=== PATIENT | female | born 1945 | race Caucasian/White ===

== ENCOUNTER 2019-06-03 10:37 | Emergency (ER) | payer MEDICARE, SELFPAY ==
--- NOTE | ~2019-06-03 | XR_ITS ---
EXAMINATION: XR chest 2V EXAM DATE: 06/03/2019 11:22 INDICATION: Weakness, fever, cough. TECHNIQUE: Frontal and lateral projections of the chest obtained and reviewed. Comparison is made to prior examination from 12/09/2018. FINDINGS: Some chronic hyperinflation. Mild cardiomegaly. No confluent consolidation, pneumothorax o r pleural effusion suspected. There are mild bony degenerative changes. IMPRESSION: 1. Hyperinflation. 2. Mild cardiomegaly. Reviewed, dictated and finalized at location B. OR DATA WAREHOUSE DEVELOPER
--- NOTE | 2019-06-03 10:38 | ECG_ITS ---
Measurements Intervals [place] Rate: 59 P: 12 AK: 200 QRS: -9 QRSD: 88 T: 84 QT: 421 QTc: 419 Interpretive Statements SINUS BRADYCARDIA BORDERLINE AV CONDUCTION DELAY LEFT VENTRICULAR HYPERTROPHY WITH ST-T CHANGE BORDERLINE R WAVE PROGRESSION, ANTERIOR LEADS INFERIOR INFARCT, AGE INDETERMINATE BORDERLINE ST ABNORMALITY- LATERAL LEADS BASELINE ARTIFACT- I, III, AVL ABNORMAL ECG Electronically Signed On 06-03-2019 11:47:26 COMMERCIAL CREDIT ANALYST by Hernando Grsisom D.O.
[2019-06-03 10:40] VITALS: BP 117/55; PULSE 58; RESP 19; TEMP 36.3; O2SAT 100
[2019-06-03 11:05] LABS: Basophils Percent Auto 0.5 % (0.2-1.2); Eosinophils Absolute Auto 0.5 K/mm3 (0-0.3); Eosinophils Percent Auto 6.6 % (0-4.4); Hematocrit 42.7 % (37.0-47.0); Immature Granulocyte Absolute 0.05 K/mm3 (0.00-0.031); Immature Granulocyte Percent A 0.7 % (0-0.5); Lymphocytes Absolute Auto 2.29 K/mm3 (0.9-3.2); Lymphocytes Percent Auto 30.7 % (18.3-44.2); Mean Corpuscular HGB Conc 32.8 g/dl (32-36); Mean Corpuscular Hemoglobin 31.1 pg (26-34); Mean Corpuscular Volume 94.9 fl (80-100); Mean Platelet Volume 11.2 fl (7.4-10.4); Monocytes Absolute Auto 1.2 K/mm3 (0.1-0.6); Monocytes Percent Auto 16.6 % (2.6-8.5); Neutrophils Absolute Auto 3.4 K/mm3 (1.3-6.7); Neutrophils Percent Auto 44.9 % (45.5-73.1); Platelet Count Result 182 k/mm3 (150-375); Red Cell Distribution Width 14.1 % (11.5-14.5); White Blood Count 7.5 K/mm3 (4.5-10.0)
[2019-06-03 11:19] LABS: Alanine Aminotransferase 41 U/L (4-35); Albumin Level 4.7 g/dL (3.5-5.1); Alkaline Phosphatase 84 U/L (38-126); Aspartate Amino Transferase 50 U/L (14-36); Bilirubin,Total 0.5 mg/dL (0.2-1.3); Blood Urea Nitrogen 45 mg/dL (7-17); Calcium 9.9 mg/dL (8.4-10.2); Carbon Dioxide 23 mmol/L (22-30); Chloride 99 mmol/L (98-107); Estimated CRCL calculation 23 ml/min; Estimated Glomerular Filt Rate 22; Glucose 209 mg/dL (65-105); Potassium 3.9 mmol/L (3.4-5.0); Sodium 138 mmol/L (137-145)
[2019-06-03 12:04] VITALS: BP 125/63; PULSE 60; RESP 16; O2SAT 97
--- NOTE | 2019-06-03 12:07 | ED.WEAKNESS ---
HPI - Weakness General Chief complaint: Weakness Stated complaint: weakness/ flu A Time Seen by Provider: 06/03/19 12:01 Source: patient and RN notes reviewed Mode of arrival: ambulatory Limitations: no limitations History of Present Illness HPI Narrative: Pt is a 73 y/o female who presents to the ED with c/o worsening generalized weakness starting several days ago. She notes that she has been weak and tired over the past several days. Pt states that she was seen at her PCP's office earlier today for her symptoms, and notes that she tested positive for Influenza A. She states that she was advised to come to the ED to potentially receive fluids. Pt also reports a recent cough, but denies any acute SOB, nausea, vomiting, fever, sinus congestion, or rash. MD Complaint: generalized weakness Onset (ago): day(s) (several) Location: generalized Associated symptoms: other (cough; fatigue) Related Data Allergies Allergy/AdvReac Type Severity Reaction Status Date / Time codeine Allergy Unknown Unknown Verified 06/03/19 12:29 Review of Systems Review of Systems: Narrative: CONSTITUTIONAL: Denies fever, chills, or sweats. Reports fatigue and generalized weakness. ENT: Denies rhinorrhea, congestion, sore throat, or otalgia. CARDIOVASCULAR: Denies chest pain, palpitations, or edema. RESPIRATORY: Denies dyspnea. Reports cough. GASTROINTESTINAL: Denies abdominal pain, nausea, vomiting, or diarrhea. SKIN: Denies rash or itching. All systems reviewed & are unremarkable except as noted in HPI and below PMFSH Past Medical History Medical History Anemia Arthritis Asthma Bronchitis Cataracts, bilateral Diabetes Gastric ulcer GERD (gastroesophageal reflux disease) GI bleed Glaucoma Gout Hepatitis HLD (hyperlipidemia) HTN (hypertension) Myocardial infarction Pneumonia Surgical History Surgical History Hx of bilateral hip replacements Hx of cardiac catheterization with coronary stent placement Hx of cataract surgery Hx of colonoscopy Hx of tubal ligation Family History Family History (Updated 06/29/15 @ 10:47 by DOCTOR UNKNOWN) Other Carcinoma of colon Cerebrovascular accident Family history of arthritis Family history of cardiovascular disease Family history of chronic obstructive pulmonary disease Family history of glaucoma Family history of hearing loss Hypertension Social History Social History (Reviewed 06/03/19 @ 12:41 by Alvaro Mondragon Smoking status: Never smoker Alcohol intake: never Gender identity (if verbalized by the patient): Female Comments PCP is CORE EXTRUDER Marcia Cool. Exam Narrative: Exam Narrative: GENERAL: Fatigued appearing, well-nourished, and in no acute distress. HEAD: Normocephalic, atraumatic. EYES: PERRLA and EOMI. ENT: Nares clear, no rhinorrhea or epistaxis. Mucous membranes dry. NECK: Supple. CHEST: Clear to auscultation. No respiratory distress. HEART: Regular rate and rhythm. No murmur heard. Normal peripheral pulses. ABDOMEN: Soft, nontender, nondistended, normal active bowel sounds. EXTREMITIES: Normal range of motion. No edema. SKIN: Warm, dry, no rash. NEURO: No focal deficits. Alert and oriented.EOMs intact without nystagmus. No facial droop/asymmetry noted bilaterally. Grimace intact. Intact sensation in face. Hearing intact bilaterally. Shoulder shrug intact. Strength 5/5 bilateral upper extremities. Strength 5/5 bilateral lower extremities. Reflexes 2+ patellar. Ambulatory with a narrow-based, steady gait, no ataxia, does not require assistance. Course Vital Signs Vital signs: Vital Signs Temperature 36.3 C L 06/03/19 10:40 Pulse Rate 58 L 06/03/19 10:40 Respiratory Rate 19 06/03/19 10:40 Blood Pressure 117/55 L 06/03/19 10:40 Pulse Oximetry 100 06/03/19 10:40 Temperature 36.3 C L 06/03/19 10:40 Pulse Rate 62 06/03/19 14:12 Respiratory Rate 19
[2019-06-03] MEDS: ONDANSETRON INJ 4 MG/2 ML VIAL IV PUSH (12:36)
[2019-06-03] MEDS: SODIUM CHLORIDE 0.9% IV 1,000 ML 999 ML IV CONT (12:36)
[2019-06-03] MEDS: OSELTAMIVIR PHOSPHATE 75 MG CAP PO (12:46)
[2019-06-03 13:06] LABS: Add Urine Microscopic? YES; Appearance Urine Clear (Clear); Bilirubin Urine Negative (Negative); Blood Urine Negative (Negative); Color Urine Yellow (Yellow); Glucose Urine UA 2+ mg/dL (Negative); Hyaline Casts Urine 20-29 /lpf; Ketones Urine Negative (Negative); Leukocyte Esterase Ur Negative LEU/UL (Negative); Nitrate Urine Negative (Negative); Protein Urine 1+ mg/dL (Negative); RBC Urine 0-2 /hpf (0-2); Specific Grav Ur 1.016 (1.001-1.035); Squamous Epithelial Cell Urine Rare /hpf (Few); Urobilinogen Urine Negative mg/dL (<2.0)
[2019-06-03 14:12] VITALS: BP 121/57; PULSE 62; RESP 19; O2SAT 96
[2019-06-03 14:46] VITALS: BP 121/57; PULSE 67; RESP 19; O2SAT 97
== END 2019-06-03 14:48 | disposition home or self-care (01) ==
PROVIDERS: Emergency Medicine; Emergency Provider Emergency Medicine; PCP Nurse Practitioner Adult Health
DX: J10.1 Influenza due to other identified influenza virus with other respiratory manifestations (principal); E86.0 Dehydration; Z86.2 Personal history of diseases of the blood and blood-forming organs and certain disorders involving the immune mechanism; M19.90 Unspecified osteoarthritis, unspecified site; J45.909 Unspecified asthma, uncomplicated; K21.9 Gastro-esophageal reflux disease without esophagitis; H40.9 Unspecified glaucoma; E78.5 Hyperlipidemia, unspecified; I10 Essential (primary) hypertension; E11.9 Type 2 diabetes mellitus without complications; I25.2 Old myocardial infarction; M10.9 Gout, unspecified; Z96.643 Presence of artificial hip joint, bilateral; Z98.42 Cataract extraction status, left eye; Z98.41 Cataract extraction status, right eye
CPT/HCPCS: 36415; 51701; 71046; 80053; 81001; 85025; 93005; 96361; 96374; 99284; A9270; J2405; J7030

== ENCOUNTER 2020-02-29 18:21 | Emergency (ER) | payer MEDICARE, SELFPAY ==
--- NOTE | ~2020-02-29 | CT_ITS ---
EXAMINATION: CT brain wo con DATE: 02/29/2020 21:47 INDICATION: Altered mental state TECHNIQUE: Computed tomography (CT) of the head was performed without intravenous contrast. The mA wa s adjusted according to patient size. Iterative reconstruction technique was employed. Exam dose: 60 5.33 mGy-cm total exam DLP. COMPARISON: 12/09/2018 CT brain FINDINGS: Right vertebral artery and bilateral carotid siphon internal carotid artery calcifications. There is nonspecific diminished attenuation of the cerebral white matter, likely due to chronic small vessel ischemic changes. No intracranial mass lesion or hemorrhage, midline shift or mass effect. No subdural or epidural marnie jarocho. Moderate cerebral and cerebellar volume loss consistent with patient age. No skull fracture or bone destruction. Bilateral hyperostosis frontalis interna, not likely of any cl inical significance. There is prominent right frontal and minimal left frontal soft tissue opacification as well as patchy opacification of ethmoid air cells bilaterally. There is mild mucoperiosteal thickening of the right maxillary and bilateral sphenoid sinuses. The mastoid air cells are normally developed and aerated. IMPRESSION: Cerebral atherosclerosis and chronic small vessel ischemic changes of cerebral white mat ter No acute intracranial finding Paranasal sinus disease Reviewed, dictated and finalized at [facility]. Reviewed, dictated and finalized at location A. MAN CLERK IMPRESSION: Cerebral atherosclerosis and chronic small vessel ischemic changes of cerebral white matter No acute intracranial finding Paranasal sinus disease
--- NOTE | ~2020-02-29 | CT_ITS ---
EXAMINATION: CT abdomen pelvis wo con DATE: 02/29/2020 22:56 INDICATION: Abdominal pain TECHNIQUE: Computed tomography (CT) of the abdomen and pelvis was performed without intravenous contr ast. Automated exposure control and iterative reconstruction technique were employed. Exam dose: 108 6.74 mGy-cm total exam DLP. COMPARISON: 07/03/2016 CT abdomen pelvis FINDINGS: Cardiomegaly. No pericardial or pleural effusion. The lung bases are clear of infiltrate or consolidation. Mild discoid atelectasis or scarring at the base of the lingula. Small sliding hiatal hernia. There are stones and/or milk of calcium bile within the gallbladder. Consider abdominal ultrasound co rrelation. No hepatic space-occupying mass lesion or intrahepatic or extrahepatic bile duct dilatation. There ar e a few pancreatic which may indicate mild chronic pancreatitis. No pancreatic mass lesion or ductal dilatation. Normal splenic size. Normal morphology of the adrenal glands. No renal mass lesion or urinary tract calculus or hydroureteronephrosis. The uterus and adnexal areas are essentially unremarkable; there is limited visualization in the pelv ic area due to streak artifact from the hip replacements. Normal appendix. No bowel obstruction, bowel wall thickening, pneumatosis or intraperitoneal free air. There is calcification of the abdominal aorta, prominent calcification at the origin of the superior mesenteric artery and to a greater extent celiac trunk. Proximal renal artery calcifications, especia lly on the left. No abdominal aortic aneurysm. No intraperitoneal or retroperitoneal or pelvic mass l esion or adenopathy or ascites. T11 and T12 vertebral body hemangiomas. Diffuse osteopenia. There are degenerative changes of the thoracic and lumbar spine. Bilateral total hip arthroplasty. IMPRESSION: Cardiomegaly Small sliding hiatal hernia Cholelithiasis and/or milk of calcium bowel; consider abdominal ultrasound correlation Mild chronic pancreatitis Reviewed, dictated and finalized at [facility]. Reviewed, dictated and finalized at location A. T END TECHNICIAN IMPRESSION: Cardiomegaly Small sliding hiatal hernia Cholelithiasis and/or milk of calcium bowel; consider abdominal ultrasound sarah elation Mild chronic pancreatitis
--- NOTE | ~2020-02-29 | XR_ITS ---
XR chest 1V portable DATE: 02/29/2020 18:43 INDICATION: Cough. Weakness. Fever. TECHNIQUE: Portable AP chest on 02/29/2020 at 1844 hours COMPARISON: 06/03/2019 PA and lateral chest FINDINGS: Cardiomegaly. Aortic calcification. There is pulmonary vascular redistribution suggesting mild pulmonary venous hypertension and mild con gestive heart failure. No pulmonary consolidation is evident. Mild infiltrate or atelectasis is suggested at the left and to a lesser extent right lung bases. Diffuse osteopenia. There is scoliosis and degenerative spurring of the thoracic spine. IMPRESSION: Cardiomegaly, mild pulmonary vascular congestion/redistribution, suggesting mild congesti ve changes Mild infiltrate or atelectasis at the lung bases, left greater than right Reviewed, dictated and finalized at location A. ATTENDANT IMPRESSION: Cardiomegaly, mild pulmonary vascular congestion/redistribution, coto ggesting mild congestive changes Mild infiltrate or atelectasis at the lung bases, left greater than right
[2020-02-29 18:19] VITALS: BP 159/66; PULSE 73; RESP 19; TEMP 38.1; O2SAT 95
--- NOTE | 2020-02-29 18:28 | ECG_ITS ---
Measurements Intervals [place] Rate: 62 P: 60 WV: 211 QRS: 8 QRSD: 102 T: 70 QT: 398 QTc: 407 Interpretive Statements SINUS RHYTHM WITH FIRST DEGREE AV BLOCK BORDERLINE ST ABNORMALITY- HIGH LATERAL LEADS ABNORMAL ECG Electronically Signed On 03-01-2020 8:21:15 CHEMICAL MANAGER by Hernando Grissom D.O.
--- NOTE | 2020-02-29 18:28 | ED.WEAKNESS ---
HPI - Weakness General Chief complaint: Weakness Stated complaint: ill/weakness Time Seen by Provider: 02/29/20 18:23 Source: RN notes reviewed History of Present Illness HPI Narrative: Patient presents emergency department from home via EMS for weakness. History is per the patient and . Patient began to feel ill yesterday. She has had a cough has been nonproductive with a feeling of shortness of breath. She is also had nausea vomiting and diarrhea that began today. Per the patient and denies any fevers at home chest pain or any other symptoms. Patient with no Covid contact Related Data Home Medications Medication Instructions Recorded Confirmed carvedilol 25 mg tablet 25 mg PO Q12H 07/06/19 01/10/20 latanoprost 0.005 % eye drops 1 drop EACH EYE DAILY 07/06/19 01/10/20 albuterol sulfate 90 mcg/actuation 2 puff INHALATION Q4-6H PRN gm 07/17/19 01/10/20 aerosol inhaler glucagon (human recombinant) 1 mg 1 mg SUB-Q Q20M PRN 07/17/19 01/10/20 solution for injection allopurinol 100 mg tablet 200 mg PO QAM tablet 01/10/20 01/10/20 amlodipine 10 mg tablet 10 mg PO QAM tablet 01/10/20 01/10/20 aspirin 81 mg tablet,delayed 81 mg PO QPM tablet 01/10/20 01/10/20 release atorvastatin 10 mg tablet 10 mg PO QAM tablet 01/10/20 01/10/20 calcium carbonate 600 mg (1,500 4 cap PO DAILY cap 01/10/20 01/10/20 mg)-vitamin D3 500 unit capsule furosemide 20 mg tablet 20 mg PO QAM 01/10/20 01/10/20 omega 2-qhw-hus-fish oil 300 1 cap PO BID cap 01/10/20 01/10/20 mg-1,000 mg capsule insulin degludec 200 unit/mL (3 86 unit SUB-Q QAM ml 02/24/20 mL) subcutaneous pen Allergies Allergy/AdvReac Type Severity Reaction Status Date / Time codeine Allergy Unknown Unknown Verified 06/03/19 12:29 Review of Systems Review of Systems: Narrative: Gen.: Denies fevers or chills Eyes: Denies eye pain or visual change ENT: Denies congestion Respiratory: See HPI CV: Denies chest pain or palpitations GI: Denies abdominal pain reports nausea vomiting and diarrhea denies burning, urgency, frequency or hematuria Musculoskeletal: Denies back pain or muscle pain Neuro: Reports weakness Skin: Denies rash Except as documented, all other systems reviewed and negative [facility]LY [facility] Past Medical History Medical History (Updated 03/01/20 @ 00:39 by Marquise Redding DO) Anemia Arthritis Asthma Bronchitis Cataracts, bilateral Diabetes Gastric ulcer GERD (gastroesophageal reflux disease) GI bleed Glaucoma Gout Hepatitis HLD (hyperlipidemia) HTN (hypertension) Myocardial infarction Pneumonia Surgical History Surgical History Hx of bilateral hip replacements Hx of cardiac catheterization with coronary stent placement Hx of cataract surgery Hx of colonoscopy Hx of tubal ligation Family History Family History Other Carcinoma of colon Cerebrovascular accident Family history of arthritis Family history of cardiovascular disease Family history of chronic obstructive pulmonary disease Family history of glaucoma Family history of hearing loss Hypertension Social History Social History Smoking status: Never smoker Second hand tobacco smoke exposure: No Alcohol intake: never Substance use: never Gender identity (if verbalized by the patient): Female Exam Narrative: Exam Narrative: APPEARANCE: No acute distress, nontoxic, resting in bed EYES: EOMI HEENT: Normocephalic, atraumatic, OMM RESPIRATORY: No respiratory distress Clear to auscultation bilaterally with no rhonchi wheezing or rales. CARDIOVASCULAR: Regular rate and rhythm without murmurs rubs or gallops. ABDOMINAL: Soft, nontender, nondistended, no rebound or guarding MUSCULOSKELETAl: Moves all extremities. No clubbing, cyanosis or edema. NEURO: Awake and alert x 3. Follow
[2020-02-29 19:08] LABS: Basophils Percent Auto 0.4 % (0.2-1.2); Eosinophils Absolute Auto 0.2 K/mm3 (0-0.3); Eosinophils Percent Auto 2.5 % (0-4.4); Hematocrit 37.8 % (37.0-47.0); Hemoglobin 12.7 g/dL (12.0-15.0); Immature Granulocyte Absolute 0.03 K/mm3 (0.00-0.031); Immature Granulocyte Percent A 0.4 % (0-0.5); Lymphocytes Absolute Auto 0.96 K/mm3 (0.9-3.2); Lymphocytes Percent Auto 11.6 % (18.3-44.2); Mean Corpuscular HGB Conc 33.6 g/dl (32-36); Mean Corpuscular Hemoglobin 31.8 pg (26-34); Mean Corpuscular Volume 94.5 fl (80-100); Mean Platelet Volume 10.6 fl (7.4-10.4); Monocytes Absolute Auto 1.2 K/mm3 (0.1-0.6); Neutrophils Absolute Auto 5.8 K/mm3 (1.3-6.7); Neutrophils Percent Auto 70.1 % (45.5-73.1); Platelet Count Result 193 k/mm3 (150-375); Red Cell Distribution Width 13.8 % (11.5-14.5); White Blood Count 8.3 K/mm3 (4.5-10.0)
[2020-02-29 19:18] LABS: INR 0.9; Prothrombin Time 12.7 Seconds (11.1-14.7)
[2020-02-29 19:19] LABS: Partial Thromboplastin Time 27.8 SECONDS (22.3-36.8)
[2020-02-29 19:21] LABS: Alanine Aminotransferase 37 U/L (4-35); Albumin Level 4.1 g/dL (3.5-5.1); Alkaline Phosphatase 82 U/L (38-126); Anion Gap 9 mmol/L (8-16); Aspartate Amino Transferase 55 U/L (14-36); Bilirubin,Total 0.5 mg/dL (0.2-1.3); Blood Urea Nitrogen 34 mg/dL (7-17); Calcium 10.2 mg/dL (8.4-10.2); Carbon Dioxide 26 mmol/L (22-30); Chloride 104 mmol/L (98-107); Estimated Glomerular Filt Rate 37; Glucose 232 mg/dL (65-105); Potassium 4.4 mmol/L (3.4-5.0); Sodium 139 mmol/L (137-145)
--- NOTE | 2020-02-29 19:30 | PC.NURSE ---
called chem, added on 1929
[2020-02-29 19:48] LABS: NT Pro B Type Natriuretic Pept 606 PG/ML (5-100)
[2020-02-29 20:09] VITALS: BP 149/57; PULSE 64; RESP 18; O2SAT 94
[2020-02-29 20:25] LABS: Add Urine Microscopic? YES; Appearance Urine Clear (Clear); Bacteria Urine Trace /hpf; Bilirubin Urine Negative (Negative); Blood Urine Negative (Negative); Color Urine Yellow (Yellow); Glucose Urine UA 1+ mg/dL (Negative); Ketones Urine Negative (Negative); Leukocyte Esterase Ur Negative LEU/UL (Negative); Nitrate Urine Negative (Negative); Protein Urine 2+ mg/dL (Negative); RBC Urine 0-2 /hpf (0-2); Specific Grav Ur 1.014 (1.001-1.035); Urobilinogen Urine Negative mg/dL (<2.0); WBC Urine 0-3 /hpf
[2020-02-29 20:28] LABS: Lactic Acid Reflex 1.2 mmol/L (0.7-2.1)
[2020-02-29 23:44] VITALS: BP 147/69; PULSE 60; RESP 18; TEMP 36.7; O2SAT 93
[2020-02-29 23:53] VITALS: TEMP 36.8
--- NOTE | 2020-02-29 23:53 | PC.NURSE ---
Pt ambulated in room with mask on and pulse oximetry. Oxygen saturation remained 94-95% on room air. Pt denies feeling SOB or dizzy at this time. Pt not steady on her feet independently. Needed assistance. Pt states she uses a cane at home. notified.
[2020-03-01 00:56] VITALS: BP 145/62; PULSE 65; RESP 16; TEMP 36.9; O2SAT 97
[2020-03-01 14:13] LABS: SARS-CoV-2 RNA PCR Positive
== END 2020-03-01 00:58 | disposition home or self-care (01) ==
PROVIDERS: Emergency Provider Emergency Medicine; PCP Nurse Practitioner Adult Health
DX: U07.1 COVID-19 (principal); D64.9 Anemia, unspecified; M19.90 Unspecified osteoarthritis, unspecified site; J45.909 Unspecified asthma, uncomplicated; E11.9 Type 2 diabetes mellitus without complications; Z79.4 Long term (current) use of insulin; K21.9 Gastro-esophageal reflux disease without esophagitis; I10 Essential (primary) hypertension; E78.5 Hyperlipidemia, unspecified; I25.10 Atherosclerotic heart disease of native coronary artery without angina pectoris; R06.02 Shortness of breath
CPT/HCPCS: 36415; 51701; 70450; 71045; 74176; 80053; 81001; 83605; 83880; 85025; 85610; 85730; 87040; 87635; 93005; 96365; 99284; C9803; J0131; U0003

== ENCOUNTER 2020-03-04 13:08 | Inpatient (IN) | payer MEDICARE, SELFPAY ==
[2020-03-04] VITALS (38 sets, daily range): BP systolic 134–182; BP diastolic 54–128; PULSE 61–78; RESP 16–28; TEMP 36.8–37.3; O2SAT 87–99; BMI 35.0
--- NOTE | ~2020-03-04 | XR_ITS ---
EXAMINATION: XR chest 1V portable INDICATION: Shortness of breath TECHNIQUE: Portable AP chest at 1321 hours COMPARISON: 02/29/2020 FINDINGS: Patchy airspace opacities are present in the mid and lower lung zones, left greater than ri ght. Cardiomegaly is noted. There is no pleural effusion or pneumothorax. IMPRESSION: 1. Patchy opacities of the mid and lower lung zones, consistent with pneumonia versus atelectasis. 2. Cardiomegaly. Reviewed, dictated and finalized at location A. PHONE ORDER SUPERVISOR
--- NOTE | ~2020-03-04 | XR_ITS ---
EXAMINATION: XR chest 1V portable DATE: 03/07/2020 06:26 INDICATION: COVID-19 pneumonia. TECHNIQUE: A single frontal view of the chest was obtained. COMPARISON: Chest single view 03/06/2020 FINDINGS: There are patchy airspace opacities in all lung zones bilaterally. A calcified right lung n odule and calcified right hilar lymph nodes are consistent with old granulomatous disease. No pleural effusion or pneumothorax. Cardiomegaly is noted. IMPRESSION: 1. Stable diffuse lung disease, consistent with pulmonary edema versus pneumonia. 2. Cardiomegaly. Reviewed, dictated and finalized at location A. GER CUSTOMER IMPRESSION: 1. Stable diffuse lung disease, consistent with pulmonary edema versus pneumoni a. 2. Cardiomegaly.
--- NOTE | ~2020-03-04 | XR_ITS ---
EXAMINATION: XR chest 1V portable DATE: 03/06/2020 06:22 INDICATION: COVID-19 pneumonia. TECHNIQUE: A single frontal view of the chest was obtained. COMPARISON: Chest single view 03/04/2020, CT abdomen and pelvis 02/29/2020 FINDINGS: The patient is rotated to her left. There are patchy airspace opacities in all lung zones b ilaterally. No pleural effusion or pneumothorax. Cardiomegaly is noted. IMPRESSION: 1. Worsened diffuse lung disease, consistent with pulmonary edema versus pneumonia. 2. Cardiomegaly. Reviewed, dictated and finalized at location A. DCAST OPERATIONS ENGINEER IMPRESSION: 1. Worsened diffuse lung disease, consistent with pulmonary edema versus pneumo harish. 2. Cardiomegaly.
--- NOTE | ~2020-03-04 | XR_ITS ---
EXAMINATION: XR chest 1V portable DATE: 03/07/2020 13:35 INDICATION: Shortness of breath. COVID-19 pneumonia. TECHNIQUE: A single frontal view of the chest was obtained. COMPARISON: Chest single view at 6:19 AM, CT abdomen and pelvis 02/29/2020 FINDINGS: Again seen is eventration of anterior right hemidiaphragm. There are patchy airspace opacit ies in the mid and lower lung zones no pleural effusion or pneumothorax. Cardiomegaly is noted. IMPRESSION: 1. Stable multifocal lung disease, consistent with pulmonary edema versus pneumonia. 2. Cardiomegaly. Reviewed, dictated and finalized at location A. M DEVELOPER IMPRESSION: 1. Stable multifocal lung disease, consistent with pulmonary edema versus pneum onia. 2. Cardiomegaly.
--- NOTE | ~2020-03-04 | CT_ITS ---
EXAMINATION: CT brain wo con DATE: 03/07/2020 03:04 INDICATION: Head injury. TECHNIQUE: Computed tomography (CT) of the head was performed without intravenous contrast. The mA wa s adjusted according to patient size. Iterative reconstruction technique was employed. The dose-lengt h product was 605.33 mGy-cm. COMPARISON: Head CT 02/29/2020 FINDINGS: There is no intracranial hemorrhage, acute infarction, or abnormal intracranial mass lesion . There are scattered areas of low attenuation in the cerebral white matter, which is within normal l imits for the patient's age. The ventricles are normal in size. There are likely changes of ocular le ns replacement surgeries. There is anteroposterior elongation of the ocular globes. There is mucosal thickening in the paranasal sinuses. There is left-sided scalp soft tissue swelling. The mastoid air cells are normal. IMPRESSION: 1. Normal aging brain. Reviewed, dictated and finalized at location A. TRE ARTS PROFESSOR IMPRESSION: 1. Normal aging brain.
--- NOTE | ~2020-03-04 | CT_ITS ---
EXAMINATION: CT brain wo con DATE: 03/11/2020 19:20 INDICATION: Altered mental status with recent fall TECHNIQUE: Computed tomography (CT) of the head was performed without intravenous contrast. Sagittal and coronal reconstructions were performed. The mA was adjusted according to patient size. Iterative reconstruction technique was employed. The dose-length product was 908.00 mGy-cm. COMPARISON: head CT dated 03/07/2020 FINDINGS: Mild soft tissue swelling at the anterior left frontal scalp. No fracture. No acute intracranial hemo rrhage, acute infarction or abnormal extra axial fluid collection. There is minimal scattered white m atter hypoattenuation consistent with chronic small vessel ischemic disease. Ventricles are normal a nd symmetric. No mass/mass effect. Changes of bilateral intraocular lens replacement. The orbits and mastoid air cells are normal. There is opacification of the right frontal sinus and anterior right fr ontal ethmoid air cells. Additional mucosal thickening throughout the remainder of the paranasal sinu ses with sclerotic wall thickening at the left sphenoid sinus consistent with chronic sinusitis. Intr acranial calcified cerebral atherosclerosis is noted. Hyperostosis frontalis. IMPRESSION: 1. No fracture or acute intracranial process. 2. Stable appearance of normal scattered white matter hypoattenuation consistent with chronic small v essel ischemic disease. Reviewed, dictated and finalized at location . NERY OPERATOR LIGHT ENDS RECOVERY IMPRESSION: 1. No fracture or acute intracranial process. 2. Stable appearance of normal scattered white matter hypoattenuation consisten t with chronic small vessel ischemic disease.
--- NOTE | 2020-03-04 13:13 | PC.NURSE ---
Marquise Kumari (): cell: [phone] home: [phone]
--- NOTE | 2020-03-04 13:15 | ECG_ITS ---
Measurements Intervals [place] Rate: 65 P: 61 DE: 196 QRS: 0 QRSD: 89 T: 85 QT: 399 QTc: 415 Interpretive Statements SINUS RHYTHM BORDERLINE R WAVE PROGRESSION, ANTERIOR LEADS BORDERLINE ST-T WAVE ABNORMALITY- HIGH LAT LEADS BASELINE WANDER- I, II, AVR, AVF, V3, V5-V6 BORDERLINE ECG Electronically Signed On 03-04-2020 17:15:32 POOL MANAGER by Hernando Grissom D.O.
[2020-03-04 13:46] LABS: Alveolar/Arterial O2 Gradient 51.2 mmHg; Base Excess ABG -1.9 mEq/l (+/-2.0); Carboxyhemoglobin 0.4 % THb (0-2.0); Fractional Inspired Oxygen 21 %; HCO3 ABG 20.5 mEq/l (22.0-26.0); Methemoglobin ABG 0.2 %THb (0-1.5); Oxygen Content ABG 17.8 %vol (16.0-22.0); Oxyhemoglobin 91.7 % THb (90.0-100.0); PCO2 ABG 28.8 mmHg (35.0-45.0); PO2 FiO2 Ratio Arterial Blood 3.05 %; Reduced Hemoglobin 7.7 %THb (0-5.0); Total Hemoglobin 13.8 g/dL (12.0-18.0); pH ABG 7.471 (7.350-7.450)
[2020-03-04] MEDS: SODIUM CHLORIDE 0.9% IV 1,000 ML 999 ML IV CONT ×2 (13:46→15:43)
[2020-03-04 13:47] LABS: Device ROOM AIR; Modified Allen's Test Pass; Site Drawn RIGHT RADIAL
[2020-03-04 13:59] LABS: Basophils Percent Auto 0.1 % (0.2-1.2); Eosinophils Percent Auto 0.1 % (0-4.4); Hematocrit 40.1 % (37.0-47.0); Hemoglobin 13.7 g/dL (12.0-15.0); Immature Granulocyte Absolute 0.04 K/mm3 (0.00-0.031); Immature Granulocyte Percent A 0.5 % (0-0.5); Lymphocytes Absolute Auto 1.43 K/mm3 (0.9-3.2); Lymphocytes Percent Auto 18.9 % (18.3-44.2); Mean Corpuscular HGB Conc 34.2 g/dl (32-36); Mean Corpuscular Volume 93.7 fl (80-100); Mean Platelet Volume 11.1 fl (7.4-10.4); Monocytes Percent Auto 12.5 % (2.6-8.5); Neutrophils Absolute Auto 5.1 K/mm3 (1.3-6.7); Neutrophils Percent Auto 67.9 % (45.5-73.1); Platelet Count Result 162 k/mm3 (150-375); Red Blood Count 4.28 M/mm3 (4.2-5.4); Red Cell Distribution Width 13.7 % (11.5-14.5); White Blood Count 7.6 K/mm3 (4.5-10.0)
[2020-03-04 14:05] LABS: INR 0.9; Prothrombin Time 12.9 Seconds (11.1-14.7)
[2020-03-04 14:06] LABS: Partial Thromboplastin Time 33.3 SECONDS (22.3-36.8)
--- NOTE | 2020-03-04 14:07 | ED.GENADULT ---
HPI - General Adult General Chief complaint: Weakness Stated complaint: increased weakness Time Seen by Provider: 03/04/20 13:12 Source: patient Mode of arrival: ambulatory Limitations: no limitations History of Present Illness HPI narrative: Patient is a 74-year-old female who presents to emergency department for evaluation of weakness and fatigue was diagnosed in the last 2 days with COVID-19 lives with her who is also sick patient notes fatigue weakness worse with activity movement. Patient on arrival appears weak but denies any pain vomiting diarrhea chest pain shortness of breath. Patient took Tylenol this morning and is the only medication she is currently taking for this Related Data Home Medications Medication Instructions Recorded Confirmed carvedilol 25 mg tablet 25 mg PO Q12H 07/06/19 01/10/20 latanoprost 0.005 % eye drops 1 drop EACH EYE DAILY 07/06/19 01/10/20 albuterol sulfate 90 mcg/actuation 2 puff INHALATION Q4-6H PRN gm 07/17/19 01/10/20 aerosol inhaler glucagon (human recombinant) 1 mg 1 mg SUB-Q Q20M PRN 07/17/19 01/10/20 solution for injection allopurinol 100 mg tablet 200 mg PO QAM tablet 01/10/20 01/10/20 amlodipine 10 mg tablet 10 mg PO QAM tablet 01/10/20 01/10/20 aspirin 81 mg tablet,delayed 81 mg PO QPM tablet 01/10/20 01/10/20 release atorvastatin 10 mg tablet 10 mg PO QAM tablet 01/10/20 01/10/20 calcium carbonate 600 mg (1,500 4 cap PO DAILY cap 01/10/20 01/10/20 mg)-vitamin D3 500 unit capsule furosemide 20 mg tablet 20 mg PO QAM 01/10/20 01/10/20 omega 2-adn-svb-fish oil 300 1 cap PO BID cap 01/10/20 01/10/20 mg-1,000 mg capsule insulin degludec 200 unit/mL (3 86 unit SUB-Q QAM ml 02/24/20 mL) subcutaneous pen Allergies Allergy/AdvReac Type Severity Reaction Status Date / Time codeine Allergy Unknown Unknown Verified 06/03/19 12:29 Review of Systems Review of Systems: All systems reviewed & are unremarkable except as noted in HPI and below [facility] Past Medical History Medical History (Updated 03/04/20 @ 16:15 by Mushtaq Johnson PA-C) Anemia Arthritis Asthma Bronchitis Cataracts, bilateral Diabetes Gastric ulcer GERD (gastroesophageal reflux disease) GI bleed Glaucoma Gout Hepatitis HLD (hyperlipidemia) HTN (hypertension) Myocardial infarction Pneumonia Surgical History Surgical History Hx of bilateral hip replacements Hx of cardiac catheterization with coronary stent placement Hx of cataract surgery Hx of colonoscopy Hx of tubal ligation Family History Family History Other Carcinoma of colon Cerebrovascular accident Family history of arthritis Family history of cardiovascular disease Family history of chronic obstructive pulmonary disease Family history of glaucoma Family history of hearing loss Hypertension Social History Social History Smoking status: Never smoker Second hand tobacco smoke exposure: No Alcohol intake: never Substance use: never Gender identity (if verbalized by the patient): Female Exam Narrative: Exam Narrative: GENERAL: Ill-appearing, well-nourished, and in no acute distress. HEAD: Normocephalic, atraumatic. EYES: PERRLA and EOMI. ENT: Nares clear, no rhinorrhea or epistaxis. Mucous membranes moist. CHEST: Clear to auscultation. No respiratory distress. No wheezes rales or rhonchi HEART: Regular rate and rhythm. No murmur heard. EXTREMITIES: Normal range of motion. No edema. SKIN: Warm, dry, no rash. NEURO: No focal deficits. Alert and oriented x3. Cranial nerves II through XII grossly intact PSYCH: Normal mood and affect. Course Course Emergency Course: Patient in the room will be brought in this is her second visit found to be dehydrated with worsening dehydration patient also found to be hyperglycemic as
[2020-03-04 15:03] LABS: Lactic Acid Reflex 1.3 mmol/L (0.7-2.1)
[2020-03-04 15:05] LABS: Alanine Aminotransferase 36 U/L (4-35); Albumin Level 3.9 g/dL (3.5-5.1); Alkaline Phosphatase 62 U/L (38-126); Anion Gap 11 mmol/L (8-16); Aspartate Amino Transferase 53 U/L (14-36); Bilirubin,Total 0.5 mg/dL (0.2-1.3); Blood Urea Nitrogen 50 mg/dL (7-17); CRP 3.3 mg/dL (<1.0); Carbon Dioxide 24 mmol/L (22-30); Chloride 104 mmol/L (98-107); Estimated CRCL calculation 30 ml/min; Estimated Glomerular Filt Rate 29; Glucose 66 mg/dL (65-105); Magnesium 1.9 mg/dL (1.6-2.3); Phosphorus 3.4 mg/dL (2.5-4.5); Potassium 4.1 mmol/L (3.4-5.0); Sodium 139 mmol/L (137-145)
[2020-03-04 15:07] LABS: Beta-Hydroxybutyrate/Acetoacetate 0.07 mmol/L (0.02-0.27)
--- NOTE | 2020-03-04 15:09 | PC.NURSE ---
VERBAL ORDER TO FEED PT, AND ADMIN 1 L BOLUS NS STAT.
[2020-03-04 15:16] LABS: Add Urine Microscopic? YES; Appearance Urine Clear (Clear); Bacteria Urine Trace /hpf; Bilirubin Urine Negative (Negative); Blood Urine Negative (Negative); Color Urine Yellow (Yellow); Glucose Urine UA Negative (Negative); Hyaline Casts Urine 15-19 /lpf; Ketones Urine Negative (Negative); Leukocyte Esterase Ur Negative LEU/UL (Negative); Mucus Urine Rare /lpf; Nitrate Urine Negative (Negative); Protein Urine 2+ mg/dL (Negative); RBC Urine 0-2 /hpf (0-2); Specific Grav Ur 1.014 (1.001-1.035); Squamous Epithelial Cell Urine Rare /hpf (Few); Urobilinogen Urine Negative mg/dL (<2.0); WBC Urine 0-3 /hpf
--- NOTE | 2020-03-04 15:25 | PC.NURSE ---
Tray has been ordered for pt
[2020-03-04 15:26] LABS: Troponin I 0.036 ng/mL (0.000-0.034)
--- NOTE | 2020-03-04 15:59 | PC.NURSE ---
pt provided meal tray.
--- NOTE | 2020-03-04 16:15 | PM.IMHP ---
H&P: HPI History of Present Illness Date/Time: 03/04/20 16:15 Chief complaint: Weakness, not eating. Narrative: Shonna Kumari is a 74-year-old female with dementia, asthma, insulin-dependent diabetes, and hypertension who presented to the emergency department earlier today via private vehicle from home for evaluation of weakness. She was seen in the emergency department on 02/29/2020 with complaints of weakness, nonproductive cough, and shortness of breath for 1 day. Her workup was relatively unrevealing and she was discharged home, with instructions to self isolate given suspicion for COVID-19. Her tested indeed come back positive and I was told that her is also positive for COVID-19. Over the last several days at home she has had very poor oral intake, and tells me that food is just not tasting good nor does it sound good. She has had nausea and loose stools the past couple of days. She continues to have a dry cough and shortness of breath with minimal activity and due to not eating much she has been progressively more weak. She has been taking Tylenol once a day or so for a headache. She is not certain whether not she is been running a fever. She denies significant sinus congestion or sore throat. No chest pain or pleuritic pain. She denies vomiting. [facility] Past Medical History Medical History (Updated 03/04/20 @ 23:22 by Rayne Urena PA-C) Anemia Arthritis Asthma Chronic kidney disease, stage 3 Baseline creatinine is around 1.70. Coronary artery disease With history of UT and stent x1 in 2015. Diastolic dysfunction Echocardiogram in March 2018 showed impaired relaxation grade 1 with an ejection fraction of 55 to 60%. Gastroesophageal reflux disease GI bleed Secondary to gastric ulcer in 2014. Glaucoma Gout Hepatitis Hyperlipidemia Hypertension Insulin dependent type 2 diabetes mellitus Hemoglobin A1c was 10.1% in December 2019. Pneumonia Surgical History Surgical History (Updated 03/04/20 @ 23:18 by Rayne Urena PA-C) History of bilateral hip arthroplasty Right replaced in 2005. Left replaced in 2017. History of cardiac catheterization With stent in 2015. History of cataract extraction History of tubal ligation Family History Family History Other Carcinoma of colon Cerebrovascular accident Family history of arthritis Family history of cardiovascular disease Family history of chronic obstructive pulmonary disease Family history of glaucoma Family history of hearing loss Hypertension Social History Social History (Updated 03/04/20 @ 23:18 by Rayne Urena PA-C) Social History: Surrogate decision maker: Marquise Kumari, spouse. Code status: Full code. Smoking status: Never smoker Second hand tobacco smoke exposure: No Alcohol intake: never Substance use: never Substance use type: does not use Additional living arrangements comments: Resides with her in [place]. Gender identity (if verbalized by the patient): Female Sexual Orientation (if Verbalized by the Patient): Straight or Heterosexual Spiritual care concerns: No Meds Home Medications and Allergies Home Medications Medication Instructions Recorded Confirmed Type carvedilol 25 mg tablet 25 mg PO Q12H 07/06/19 03/04/20 History latanoprost 0.005 % eye drops 1 drop EACH EYE DAILY 07/06/19 03/04/20 History albuterol sulfate 90 mcg/actuation 2 puff INHALATION Q4-6H PRN gm 07/17/19 01/10/20 History aerosol inhaler glucagon (human recombinant) 1 mg 1 mg SUB-Q Q20M PRN 07/17/19 01/10/20 History solution for injection pen needle, diabetic 32 gauge x #400 each 07/27/19 01/10/20 Rx allopurinol 100 mg tablet 200 mg PO QAM tablet 01/10/20 03/04/20 History amlodipine 10 mg tablet 10 mg PO QAM tablet 01/10/20 03/04/20 History aspirin 81 mg tablet,delayed 81 mg PO QPM tablet 01/10/20 01/10/20 History
--- NOTE | 2020-03-04 18:58 | PC.NURSE ---
TECH UNABLE TO GET 3HALBER SAL RN TO ATTEMPT.
--- NOTE | 2020-03-04 19:15 | PC.NURSE ---
REPORT TO KRISTINA PALAFOX AT THIS TIME, SHE HAS ASSUMED PT CARE.
[2020-03-04 19:33] LABS: Troponin I 0.034 ng/mL (0.000-0.034)
[2020-03-04 21:01] LABS: Glucose Point of Care 136 (65-105)
[2020-03-04] MEDS: FAMOTIDINE 20 MG/2 ML VIAL IV PUSH (22:12)
--- NOTE | 2020-03-04 22:28 | ADMGEN ---
This patient, Shonna Kumari, was admitted to IMU Room 213-01 on 03/04/20 at 2017 as a Med/Surg w/tele OF. Patient/family oriented to hospital policies and general routines including ID bracelet, bed and alarms, visiting hours, pain management, procedures, bathroom and other care routines, personal items, smoking policy, room service/diet, and visiting hours. Information on how to activate the Rapid Response Team has been discussed. Patient/Family are encouraged to report perceived risks to care and to ask questions if they do not understand what they are told or what they should do.
[2020-03-05] VITALS (16 sets, daily range): BP systolic 138–168; BP diastolic 52–91; PULSE 62–80; RESP 20–24; TEMP 36.4–39.3; O2SAT 91–98
[2020-03-05 02:01] LABS: Troponin I 0.041 ng/mL (0.000-0.034)
[2020-03-05 05:24] LABS: Hematocrit 40.7 % (37.0-47.0); Hemoglobin 13.6 g/dL (12.0-15.0); Mean Corpuscular HGB Conc 33.4 g/dl (32-36); Mean Corpuscular Hemoglobin 31.9 pg (26-34); Mean Corpuscular Volume 95.3 fl (80-100); Platelet Count Result 170 k/mm3 (150-375); Red Blood Count 4.27 M/mm3 (4.2-5.4); Red Cell Distribution Width 13.5 % (11.5-14.5); White Blood Count 7.3 K/mm3 (4.5-10.0)
[2020-03-05 05:55] LABS: Alanine Aminotransferase 38 U/L (4-35); Albumin Level 3.9 g/dL (3.5-5.1); Alkaline Phosphatase 53 U/L (38-126); Anion Gap 9 mmol/L (8-16); Aspartate Amino Transferase 63 U/L (14-36); Bilirubin,Total 0.6 mg/dL (0.2-1.3); Blood Urea Nitrogen 42 mg/dL (7-17); Calcium 8.9 mg/dL (8.4-10.2); Carbon Dioxide 27 mmol/L (22-30); Chloride 105 mmol/L (98-107); Estimated CRCL calculation 37 ml/min; Estimated Glomerular Filt Rate 37; Glucose 69 mg/dL (65-105); Lactate Dehydrogenase 876 U/L (313-618); Potassium 3.7 mmol/L (3.4-5.0); Sodium 141 mmol/L (137-145)
[2020-03-05 09:34] LABS: Glucose Point of Care 44 (65-105)
[2020-03-05] MEDS: GLUCOSE ORAL GEL 15 GM OF GLUCSE IN 37.5 GM TUBE (09:35)
--- NOTE | 2020-03-05 09:49 | PC.NURSE ---
Pt blood sugar 40's. Patient a&o x4. rechecked in the 60's. Patient is eating and comfortable,
[2020-03-05 09:50] LABS: Glucose Point of Care 64 (65-105)
--- NOTE | 2020-03-05 10:22 | PM.IMPN ---
Progress Note: A&P Assessment and Plan (1) Pneumonia due to COVID-19 virus: Code(s): U07.1 - COVID-19; J12.89 - Other viral pneumonia Status: Acute Assessment and Plan: Patient seen in ED on 02/28 for a 1 day hx of weakness, cough, and SOB. COVID testing done and she was discharged home. COVID test returned positive on 03/01/20. Her is also positive for COVID-19. She returns to the ED for persistent weakness and lack of appetite. Mild hypoxia at times but not on supplemental O2 so no indication for dexamethasone or remdesivir at this time. Albuterol MDI available as needed for shortness of breath. She was also started on zinc, vitamin-D, and vitamin-C but this has not been shown to improve her condition so will stop. Increase activity as she toelrates. PT/OT. Repeat chest x-ray in the morning. (2) Elevated troponin: Code(s): R77.8 - Other specified abnormalities of plasma proteins Status: Acute Assessment and Plan: Troponin mildly elevated at times to 0.041. Unclear why these were checked. Patient denies any chest pain. EKG showing no acute ischemic changes and looks very similar to EKG from 4 days ago. Suspect elevated troponin more likely related to her renal insufficiency. Add back her ASA. (3) Elevated LFTs: Code(s): R79.89 - Other specified abnormal findings of blood chemistry Status: Acute Assessment and Plan: AST and ALT are mildly elevated. This appears to be chronic since November of 2018. CT abdomen and pelvis on 02/29/2020 showing stones in the gallbladder. No hepatic masses or biliary ductal dilatation. Given the duration, seems less likely that elevated LFTs are related to COVID. Consider upper quadrant ultrasound if she develops pain in her abdomen. Okay to resume Lipitor. (4) Dehydration: Code(s): E86.0 - Dehydration Status: Acute Assessment and Plan: She received 2 L of fluid in the emergency department. Given that she has COVID, we will hold off on scheduling any further IV fluids. Encourage oral intake. Supplemetns. (5) Chronic kidney disease, stage 3: Code(s): N18.30 - Chronic kidney disease, stage 3 unspecified Status: Inactive Assessment and Plan: Patient with CKD as far back as 2014. Creatinine 1.7 on admission but has improved to 1.4 with IV fluids from ED. This is probably her baseline Cr. Will continue to monitor. Encourage oral intake. (6) Insulin dependent type 2 diabetes mellitus: Code(s): E11.9 - Type 2 diabetes mellitus without complications; Z79.4 - remote computer terminal operator (current) use of insulin Status: Inactive Assessment and Plan: A1c 10.1 in Dec 2019. Random glucose on arrival to the ED was only 66. We have held her long-acting insulin The patient's blood glucose was reviewed on 03/05. Glucose dropped to 44 this morning treated with glucose. Continue AccuCheks covering with sliding scale. Hypoglycemia protocol added today and now available as needed. Continue to hold her Tresiba and Lispro. (7) Diastolic dysfunction: Code(s): I51.89 - Other ill-defined heart diseases Status: Inactive Assessment and Plan: Stable. No evidence of fluid overload (8) Hypertension: Code(s): I10 - Essential (primary) hypertension Status: Inactive Assessment and Plan: Patient's blood pressure was reviewed on 03/05 Blood pressure remains poorly controlled. Will resume Coreg but hold lasix and Norvasc for now. Add back Norvasc if BP still elevated. (9) DVT prophylaxis: Code(s): Z29.9 - Encounter for prophylactic measures, unspecified Status: Acute Assessment and Plan: Ravinderx Subjective Date/time seen: 03/05/20 10:22 Interval history: Date of service 03/05 74yo female known to have COVID prior to admission here for weakness. Patient is alert and oriented x2 thus her hx is unreliable. She
[2020-03-05] MEDS: ZINC SULFATE 220 MG CAPSULE PO (12:17)
[2020-03-05] MEDS: CHOLECALCIFEROL 400 UNITS TABLET (VIT D) PO (12:18)
[2020-03-05] MEDS: ENOXAPARIN 40 MG/0.4 ML SYRINGE SUB-Q (12:18)
[2020-03-05] MEDS: FAMOTIDINE 20 MG/2 ML VIAL IV PUSH ×2 (12:18→20:27)
[2020-03-05] MEDS: ASCORBIC ACID 500 MG TABLET PO (12:18)
[2020-03-05 13:06] LABS: Glucose Point of Care 91 (65-105)
[2020-03-05 18:21] LABS: Glucose Point of Care 79 (65-105)
[2020-03-05] MEDS: ASPIRIN 81 MG ENTERIC TABLET PO (19:00)
[2020-03-05] MEDS: OMEGA 3 POLYUNSAT FATTY ACIDS 1 GM CAP PO (19:00)
[2020-03-05] MEDS: carvediloL 25 MG TABLET PO (20:27)
[2020-03-05] MEDS: LATANOPROST 0.005% OP SOLN 2.5 ML BTL 1 DROP EACH EYE (20:27)
[2020-03-05] MEDS: DEXTROSE 50% 25 GM/50 ML SYRINGE IV PUSH (20:28)
[2020-03-05 20:51] LABS: Glucose Point of Care 52 (65-105)
[2020-03-05 22:15] LABS: Glucose Point of Care 114 (65-105)
[2020-03-06] VITALS (13 sets, daily range): BP systolic 106–150; BP diastolic 51–60; PULSE 65–83; RESP 19–20; TEMP 35.9–39.1; O2SAT 91–96
[2020-03-06 05:36] LABS: Basophils Percent Auto 0.2 % (0.2-1.2); Eosinophils Percent Auto 0.2 % (0-4.4); Hematocrit 41.4 % (37.0-47.0); Hemoglobin 13.8 g/dL (12.0-15.0); Immature Granulocyte Absolute 0.03 K/mm3 (0.00-0.031); Immature Granulocyte Percent A 0.5 % (0-0.5); Immature Platelet Fraction Pct 8.8 % (0.9-11.2); Lymphocytes Absolute Auto 1.53 K/mm3 (0.9-3.2); Lymphocytes Percent Auto 23.8 % (18.3-44.2); Mean Corpuscular HGB Conc 33.3 g/dl (32-36); Mean Corpuscular Hemoglobin 31.7 pg (26-34); Mean Platelet Volume 12.3 fl (7.4-10.4); Monocytes Absolute Auto 0.6 K/mm3 (0.1-0.6); Monocytes Percent Auto 9.8 % (2.6-8.5); Neutrophils Absolute Auto 4.2 K/mm3 (1.3-6.7); Neutrophils Percent Auto 65.5 % (45.5-73.1); Platelet Count Result 123 k/mm3 (150-375); Red Blood Count 4.36 M/mm3 (4.2-5.4); Red Cell Distribution Width 13.7 % (11.5-14.5); White Blood Count 6.4 K/mm3 (4.5-10.0)
[2020-03-06 05:42] LABS: Alanine Aminotransferase 37 U/L (4-35); Albumin Level 3.6 g/dL (3.5-5.1); Alkaline Phosphatase 43 U/L (38-126); Anion Gap 9 mmol/L (8-16); Aspartate Amino Transferase 77 U/L (14-36); Bilirubin,Total 0.7 mg/dL (0.2-1.3); Blood Urea Nitrogen 39 mg/dL (7-17); CRP 5.7 mg/dL (<1.0); Calcium 8.8 mg/dL (8.4-10.2); Carbon Dioxide 23 mmol/L (22-30); Chloride 109 mmol/L (98-107); Estimated CRCL calculation 36 ml/min; Estimated Glomerular Filt Rate 37; Glucose 78 mg/dL (65-105); Lactate Dehydrogenase 1234 U/L (313-618); Phosphorus 3.9 mg/dL (2.5-4.5); Potassium 4.3 mmol/L (3.4-5.0); Sodium 141 mmol/L (137-145)
[2020-03-06 06:38] LABS: Glucose Point of Care 67 (65-105)
[2020-03-06 08:49] LABS: Glucose Point of Care 139 (65-105)
[2020-03-06] MEDS: FLUTICASONE PROPIONATE 0.05% NA SPR 16 GM BTL (*BKC) 2 SPRAY NASAL (09:00)
[2020-03-06] MEDS: carvediloL 25 MG TABLET PO ×2 (09:01→20:34)
[2020-03-06] MEDS: allopurinoL 100 MG TABLET 200 MG PO (09:01)
[2020-03-06] MEDS: ATORVASTATIN 10 MG TABLET PO (09:02)
[2020-03-06] MEDS: OMEGA 3 POLYUNSAT FATTY ACIDS 1 GM CAP PO ×2 (09:03→17:34)
[2020-03-06] MEDS: ENOXAPARIN 40 MG/0.4 ML SYRINGE SUB-Q (09:04)
[2020-03-06] MEDS: FAMOTIDINE 20 MG/2 ML VIAL IV PUSH ×2 (09:05→20:33)
--- NOTE | 2020-03-06 09:59 | PCOTNOTE ---
OT evaluation initiated. Patient agreeable to answering history/prior level questions, however, refusing to participate in functional aspect of evaluation. Patient encouraged and educated on benefits of movement and therapy services, however, continued to refuse stating that she was too sick and wanted to be left alone. Will attempt OT evaluation at later time.
--- NOTE | 2020-03-06 09:59 | PCPTNOTE ---
Initiated PT eval. Pt gave subjective information then refused getting OOB. States she doesn't feel good . Encouraged pt to participate and she skill refused. Will try again at later time.
[2020-03-06] MEDS: DEXAMETHASONE SOD PHOS INJ 4 MG/ML VIAL 6 MG IV PUSH (10:27)
--- NOTE | 2020-03-06 14:19 | PM.IMPN ---
Progress Note: A&P Assessment and Plan (1) Pneumonia due to COVID-19 virus: Code(s): U07.1 - COVID-19; J12.89 - Other viral pneumonia Status: Acute Assessment and Plan: Patient seen in ED on 02/28 for a 1 day hx of weakness, cough, and SOB; COVID testing done and was positive. Her is also positive for COVID-19. She returned to the ED 03/04 for persistent weakness and lack of appetite. Mild hypoxia at times but not on supplemental O2 so no indication for dexamethasone or remdesivir initially. She was also started on zinc, vitamin-D, and vitamin-C but this has not been shown to improve her condition so this was stopped. CXR this morning worse and she is now requiring O2. Inflammatory markers worse as well. Will start Dexamethasone. Her GFR 29-37 since admission so will hold off of on Remdesivir. Albuterol MDI available as needed but will schedule now. Discussed with . Follow markers and CXR. (2) Elevated troponin: Code(s): R77.8 - Other specified abnormalities of plasma proteins Status: Acute Assessment and Plan: Troponin mildly elevated at times to 0.041. Unclear why these were checked. Patient denies any chest pain. EKG showing no acute ischemic changes and looks very similar to EKG from 4 days ago. Suspect elevated troponin more likely related to her renal insufficiency. Continue ASA, Lipitor and Metoprolol. (3) Elevated LFTs: Code(s): R79.89 - Other specified abnormal findings of blood chemistry Status: Acute Assessment and Plan: AST and ALT are mildly elevated. This appears to be chronic since November of 2018. CT abdomen and pelvis on 02/29/2020 showing stones in the gallbladder. No hepatic masses or biliary ductal dilatation. Given the duration, seems less likely that elevated LFTs are related to COVID. Consider upper quadrant ultrasound if she develops pain in her abdomen. Lipitor resumed given the chronicity. (4) Dehydration: Code(s): E86.0 - Dehydration Status: Acute Assessment and Plan: She received 2 L of fluid in the emergency department. Given that she has COVID, we will hold off on scheduling any further IV fluids. Encourage oral intake. Supplemetns. (5) Chronic kidney disease, stage 3: Code(s): N18.30 - Chronic kidney disease, stage 3 unspecified Status: Inactive Assessment and Plan: Patient with CKD as far back as 2014. Creatinine 1.7 on admission but has improved to 1.4 with IV fluids from ED. IV fluids stopped due to COVID. This is probably her baseline Cr. Repeat Cr unchanged today. Will continue to monitor. Encourage oral intake. (6) Insulin dependent type 2 diabetes mellitus: Code(s): E11.9 - Type 2 diabetes mellitus without complications; Z79.4 - local company intermodal truck driver (current) use of insulin Status: Inactive Assessment and Plan: A1c 10.1 in Dec 2019. Random glucose on arrival to the ED was only 66 (03/04/20). We have held her long-acting insulin. Glucose dropped to 44 on 03/05 and was treated with glucose. Glucose reviewed on 03/06. Glucose low again last night and again this morning. She is on sliding scale but not on any medications for diabetes. May not be eating much (40-50% listed). Continue AccuCheks covering with sliding scale. Hypoglycemia protocol available as needed. Continue to hold her Tresiba and Lispro. Steroids probably will make her glucose rebound. (7) Diastolic dysfunction: Code(s): I51.89 - Other ill-defined heart diseases Status: Inactive Assessment and Plan: Stable. No evidence of fluid overload (8) Hypertension: Code(s): I10 - Essential (primary) hypertension Status: Inactive Assessment and Plan: Patient's blood pressure was reviewed on 03/06 Blood pressure better controlled. Continue Coreg. Add back Norvasc if BP worsens. (9) DVT prophylaxis: Code(s): Z29.9 - Encoun
--- NOTE | 2020-03-06 15:00 | PC.NURSE ---
This patient, Shonna Kumari, was received from IMU on 03/06/20 at 1500. Patient/family oriented to unit policies and routines. Report received from Sanna ACEVEDO.
--- NOTE | 2020-03-06 15:12 | PC.NURSE ---
This patient, Shonna Kumari, was transferred to [facility] on 03/06/20 at 1457. Personal belongings sent with patient. Report given to Ledy ACEVEDO. Appropriate documentation sent with patient.
[2020-03-06 16:29] LABS: Glucose Point of Care 91 (65-105)
[2020-03-06] MEDS: ASPIRIN 81 MG ENTERIC TABLET PO (17:34)
[2020-03-06] MEDS: INSULIN ASPART (*BKC) 100 UNITS/ML SUB-Q (17:39)
[2020-03-06 18:21] LABS: Glucose Point of Care 319 (65-105)
[2020-03-06] MEDS: LATANOPROST 0.005% OP SOLN 2.5 ML BTL 1 DROP EACH EYE (20:33)
[2020-03-06 20:46] LABS: Glucose Point of Care 376 (65-105)
[2020-03-06] MEDS: INSULIN ASPART (*BKC) 100 UNITS/ML 6 UNITS SUB-Q (21:00)
[2020-03-07] VITALS (10 sets, daily range): BP systolic 129–162; BP diastolic 50–79; PULSE 55–68; RESP 16–24; TEMP 36.6–37; O2SAT 90–94
[2020-03-07 00:23] LABS: Glucose Point of Care 344 (65-105)
[2020-03-07 01:24] LABS: Glucose Point of Care 323 (65-105)
[2020-03-07] MEDS: INSULIN ASPART (*BKC) 100 UNITS/ML SUB-Q ×4 (01:38→17:16)
[2020-03-07] MEDS: ALBUTEROL SULFATE (*SP) AEROSOL 1 PUFF 2 PUFF INHALATION ×2 (03:18→14:38)
--- NOTE | 2020-03-07 03:43 | PM.EVENT ---
Event Note Event Note Event Note: Called by nursing staff to assess this 74-year-old female who is being treated for COVID pneumonia and who suffered a fall tonight. Apparently the patient got out of bed slipped and fell and suffered head trauma when she hit her head on the floor. Patient sustained a left frontal laceration. On my encounter with the patient she is only complaining of discomfort of her left forehead. We will obtain a stat CT brain. We will also make the patient bed rest and plan to suture her laceration.
--- NOTE | 2020-03-07 03:45 | WPDPROCEDUR ---
Procedures Laceration Laceration 1: Site: other ( forehead) Side (if applicable): left Size (cm): 3 Description: linear Depth: simple, single layer Anesthetic used: lidocaine 1% Anesthesia technique: local infiltration Amount (ml): 4 Pre-repair: irrigated and other ( cleaned ) Skin layer closed with: prolene Size (cm): 6-0 Number of sutures: 4 Technique: simple, interrupted Dressing: gauze and Tegaderm The patient tolerated the procedure well without any complications. date of service was March 07, 2020 at approximately 3:15 a.m.
--- NOTE | 2020-03-07 04:04 | PC.NURSE ---
0215 DEANNA Jennings came to desk to report he heard patient fall in pt room. This RN, Karina RN, Moshe RN, Michael RN, and Delia ROWLANDA donned PPE and entered room. Patient seen laying stomach down on floor. Pt blood noted on floor by patient. When asked where patient was going, she stated she was going to the kitchen. Patient's only pain complaint is forehead. Laceration noted on left side forehead. Dr. Parada notified at that time. Ordered STAT CT no contrast. Patient assisted by 4 to bed with gait belt. Patient orientated X2. Able to follow commands. [address]15 Dr[address] Parada to bedside to assess patient.
[2020-03-07 06:18] LABS: Basophils Percent Auto 0.2 % (0.2-1.2); Hematocrit 35.2 % (37.0-47.0); Immature Granulocyte Absolute 0.02 K/mm3 (0.00-0.031); Immature Granulocyte Percent A 0.3 % (0-0.5); Lymphocytes Absolute Auto 0.93 K/mm3 (0.9-3.2); Lymphocytes Percent Auto 15.3 % (18.3-44.2); Mean Corpuscular HGB Conc 34.1 g/dl (32-36); Mean Corpuscular Hemoglobin 31.2 pg (26-34); Mean Corpuscular Volume 91.4 fl (80-100); Mean Platelet Volume 10.8 fl (7.4-10.4); Monocytes Absolute Auto 0.5 K/mm3 (0.1-0.6); Monocytes Percent Auto 8.1 % (2.6-8.5); Neutrophils Absolute Auto 4.6 K/mm3 (1.3-6.7); Neutrophils Percent Auto 76.1 % (45.5-73.1); Platelet Count Result 147 k/mm3 (150-375); Red Blood Count 3.85 M/mm3 (4.2-5.4); Red Cell Distribution Width 13.2 % (11.5-14.5); White Blood Count 6.1 K/mm3 (4.5-10.0)
[2020-03-07 06:35] LABS: Alanine Aminotransferase 36 U/L (4-35); Albumin Level 3.1 g/dL (3.5-5.1); Alkaline Phosphatase 54 U/L (38-126); Anion Gap 9 mmol/L (8-16); Aspartate Amino Transferase 60 U/L (14-36); Bilirubin,Total 0.5 mg/dL (0.2-1.3); Blood Urea Nitrogen 56 mg/dL (7-17); Calcium 8.4 mg/dL (8.4-10.2); Carbon Dioxide 21 mmol/L (22-30); Chloride 106 mmol/L (98-107); Estimated CRCL calculation 31 ml/min; Estimated Glomerular Filt Rate 31; Glucose 294 mg/dL (65-105); Lactate Dehydrogenase 984 U/L (313-618); Potassium 4.2 mmol/L (3.4-5.0); Sodium 136 mmol/L (137-145)
[2020-03-07] MEDS: ATORVASTATIN 10 MG TABLET PO (08:26)
[2020-03-07] MEDS: allopurinoL 100 MG TABLET 200 MG PO (08:26)
[2020-03-07] MEDS: carvediloL 25 MG TABLET PO (08:27)
[2020-03-07] MEDS: DEXAMETHASONE SOD PHOS INJ 4 MG/ML VIAL 6 MG IV PUSH (08:28)
[2020-03-07] MEDS: ENOXAPARIN 40 MG/0.4 ML SYRINGE SUB-Q (08:29)
[2020-03-07] MEDS: OMEGA 3 POLYUNSAT FATTY ACIDS 1 GM CAP PO ×2 (08:29→17:00)
[2020-03-07] MEDS: FLUTICASONE PROPIONATE 0.05% NA SPR 16 GM BTL (*BKC) 2 SPRAY NASAL (08:29)
[2020-03-07] MEDS: FAMOTIDINE 20 MG/2 ML VIAL IV PUSH ×2 (08:29→20:09)
[2020-03-07 08:47] LABS: Glucose Point of Care 287 (65-105)
--- NOTE | 2020-03-07 12:38 | PM.IMPN ---
Progress Note: A&P Assessment and Plan (1) Pneumonia due to COVID-19 virus: Code(s): U07.1 - COVID-19; J12.89 - Other viral pneumonia Status: Acute Assessment and Plan: Patient seen in ED on 02/28 for a 1 day hx of weakness, cough, and SOB. COVID testing done and she was discharged home. COVID test returned positive on 03/01/20. Her is also positive for COVID-19. She returns to the ED for persistent weakness and lack of appetite. Mild hypoxia at times but not on supplemental O2 so no indication for dexamethasone or remdesivir at this time. Albuterol MDI available as needed for shortness of breath. She was also started on zinc, vitamin-D, and vitamin-C but this has not been shown to improve her condition so will stop. Increase activity as she toelrates. PT/OT. Repeat chest x-ray in the morning. Later 02 sat fell so started on dexamethasone D# 2 and still no remdesivir with renal function (2) Elevated troponin: Code(s): R77.8 - Other specified abnormalities of plasma proteins Status: Acute Assessment and Plan: Troponin mildly elevated at times to 0.041. Unclear why these were checked. Patient denies any chest pain. EKG showing no acute ischemic changes and looks very similar to EKG from 4 days ago. Suspect elevated troponin more likely related to her renal insufficiency. Add back her ASA. (3) Elevated LFTs: Code(s): R79.89 - Other specified abnormal findings of blood chemistry Status: Acute Assessment and Plan: AST and ALT are mildly elevated. This appears to be chronic since November of 2018. CT abdomen and pelvis on 02/29/2020 showing stones in the gallbladder. No hepatic masses or biliary ductal dilatation. Given the duration, seems less likely that elevated LFTs are related to COVID. Consider upper quadrant ultrasound if she develops pain in her abdomen. Okay to resume Lipitor. (4) Dehydration: Code(s): E86.0 - Dehydration Status: Acute Assessment and Plan: She received 2 L of fluid in the emergency department. Given that she has COVID, we will hold off on scheduling any further IV fluids. Encourage oral intake. Supplemetns. (5) Chronic kidney disease, stage 3: Code(s): N18.30 - Chronic kidney disease, stage 3 unspecified Status: Inactive Assessment and Plan: Patient with CKD as far back as 2014. Creatinine 1.7 on admission but has improved to 1..6 today . This is probably her baseline Cr. Will continue to monitor. Encourage oral intake. (6) Insulin dependent type 2 diabetes mellitus: Code(s): E11.9 - Type 2 diabetes mellitus without complications; Z79.4 - snf (current) use of insulin Status: Inactive Assessment and Plan: A1c 10.1 in Dec 2019. Random glucose on arrival to the ED was only 66. We have held her long-acting insulin The patient's blood glucose was reviewed on 03/07. fbs up to 294 today. Continue AccuCheks covering with sliding scale. Hypoglycemia protocol added today and now available as needed. Restart lantus at lower dose since stated dexamethasone. (7) Diastolic dysfunction: Code(s): I51.89 - Other ill-defined heart diseases Status: Inactive Assessment and Plan: Stable. No evidence of fluid overload (8) Hypertension: Code(s): I10 - Essential (primary) hypertension Status: Inactive Assessment and Plan: Patient's blood pressure was reviewed on 03/07 Blood pressure remains poorly controlled. resumed Coreg but hold lasix and Norvasc for now. Add back Norvasc if BP rises. (9) DVT prophylaxis: Code(s): Z29.9 - Encounter for prophylactic measures, unspecified Status: Acute Assessment and Plan: Lovenox (10) Fall: Code(s): W19.XXXA - Unspecified fall, initial encounter Status: Acute Assessment and Plan: contusion and laceration of left forehead, neg CT of
--- NOTE | 2020-03-07 13:04 | ECG_ITS ---
Measurements Intervals [place] Rate: 66 P: 73 W[place]: 200 QRS: 1 QRSD: 82 T: 24 QT: 416 QTc: 436 Interpretive Statements SINUS RHYTHM LOW QRS VOLTAGE IN PRECORDIAL LEADS BORDERLINE R WAVE PROGRESSION, ANTERIOR LEADS BASELINE ARTIFACT- II, III, AVR, AVL, AVF, V1-V3, V6 BORDERLINE ECG Electronically Signed On 03-07-2020 13:24:32 CONGREGATIONAL CARE PASTOR by Hernando Grissom D.O.
[2020-03-07] MEDS: INSULIN GLARGINE (*BKC) 100 UNITS/ML 30 UNITS SUB-Q (13:22)
[2020-03-07] MEDS: INSULIN GLARGINE (*BKC) 100 UNITS/ML 40 UNITS SUB-Q (13:33)
[2020-03-07] MEDS: INSULIN ASPART (*BKC) 100 UNITS/ML 10 UNITS SUB-Q (13:45)
[2020-03-07 14:38] LABS: Alveolar/Arterial O2 Gradient 82.5 mmHg; Base Excess ABG -4.7 mEq/l (+/-2.0); Fractional Inspired Oxygen 25 %; Oxygen Content ABG 17.2 %vol (16.0-22.0); Oxygen Saturation ABG 93.3 % (95.0-100.0); Oxyhemoglobin 90.5 % THb (90.0-100.0); PCO2 ABG 27.4 mmHg (35.0-45.0); PO2 ABG 63.2 mmHg (80.0-100.0); PO2 FiO2 Ratio Arterial Blood 2.53 %; Total Hemoglobin 13.5 g/dL (12.0-18.0); pH ABG 7.436 (7.350-7.450)
[2020-03-07 14:39] LABS: Device NASAL CANNULA; Modified Allen's Test Pass; Site Drawn RIGHT RADIAL
--- NOTE | 2020-03-07 15:23 | PC.NURSE ---
CALLED KEVIN SPOUSE AND UPDATED ON PT'S CONDITION.
[2020-03-07] MEDS: ASPIRIN 81 MG ENTERIC TABLET PO (17:00)
[2020-03-07 18:22] LABS: Glucose Point of Care 355 (65-105)
[2020-03-07 18:30] LABS: Glucose Point of Care 401 (65-105)
[2020-03-07] MEDS: LATANOPROST 0.005% OP SOLN 2.5 ML BTL 1 DROP EACH EYE (20:09)
[2020-03-07 22:44] LABS: Glucose Point of Care 351 (65-105)
[2020-03-08] VITALS (9 sets, daily range): BP systolic 129–185; BP diastolic 58–90; PULSE 56–76; RESP 18–22; TEMP 36.4–37; O2SAT 86–96
[2020-03-08] MEDS: ALBUTEROL SULFATE (*SP) AEROSOL 1 PUFF 2 PUFF INHALATION ×4 (03:29→21:36)
[2020-03-08 06:48] LABS: Basophils Percent Auto 0.1 % (0.2-1.2); Hematocrit 36.1 % (37.0-47.0); Hemoglobin 12.4 g/dL (12.0-15.0); Immature Granulocyte Absolute 0.06 K/mm3 (0.00-0.031); Immature Granulocyte Percent A 0.5 % (0-0.5); Lymphocytes Absolute Auto 0.96 K/mm3 (0.9-3.2); Lymphocytes Percent Auto 8.4 % (18.3-44.2); Mean Corpuscular HGB Conc 34.3 g/dl (32-36); Mean Corpuscular Hemoglobin 30.9 pg (26-34); Mean Platelet Volume 10.7 fl (7.4-10.4); Monocytes Absolute Auto 0.8 K/mm3 (0.1-0.6); Neutrophils Absolute Auto 9.6 K/mm3 (1.3-6.7); Platelet Count Result 180 k/mm3 (150-375); Red Blood Count 4.01 M/mm3 (4.2-5.4); Red Cell Distribution Width 13.2 % (11.5-14.5); White Blood Count 11.4 K/mm3 (4.5-10.0)
[2020-03-08 07:13] LABS: Anion Gap 10 mmol/L (8-16); Blood Urea Nitrogen 65 mg/dL (7-17); CRP 2.7 mg/dL (<1.0); Calcium 9.5 mg/dL (8.4-10.2); Carbon Dioxide 25 mmol/L (22-30); Chloride 105 mmol/L (98-107); Creatine Kinase 429 U/L (30-135); Estimated CRCL calculation 31 ml/min; Estimated Glomerular Filt Rate 31; Glucose 283 mg/dL (65-105); Lactate Dehydrogenase 1236 U/L (313-618); Potassium 4.6 mmol/L (3.4-5.0); Sodium 140 mmol/L (137-145)
[2020-03-08] MEDS: INSULIN ASPART (*BKC) 100 UNITS/ML SUB-Q ×3 (08:56→17:27)
[2020-03-08] MEDS: INSULIN ASPART (*BKC) 100 UNITS/ML 8 UNITS SUB-Q ×3 (08:57→17:27)
[2020-03-08] MEDS: ATORVASTATIN 10 MG TABLET PO (08:57)
[2020-03-08] MEDS: allopurinoL 100 MG TABLET 200 MG PO (08:57)
[2020-03-08] MEDS: OMEGA 3 POLYUNSAT FATTY ACIDS 1 GM CAP PO ×2 (08:58→16:07)
[2020-03-08] MEDS: FLUTICASONE PROPIONATE 0.05% NA SPR 16 GM BTL (*BKC) 2 SPRAY NASAL (08:59)
[2020-03-08] MEDS: INSULIN GLARGINE (*BKC) 100 UNITS/ML 50 UNITS SUB-Q (08:59)
[2020-03-08] MEDS: FAMOTIDINE 20 MG/2 ML VIAL IV PUSH ×2 (09:00→21:23)
[2020-03-08] MEDS: ENOXAPARIN 40 MG/0.4 ML SYRINGE SUB-Q (09:00)
[2020-03-08] MEDS: DEXAMETHASONE SOD PHOS INJ 4 MG/ML VIAL 6 MG IV PUSH (09:00)
[2020-03-08 09:31] LABS: Glucose Point of Care 273 (65-105)
[2020-03-08 10:15] LABS: Vitamin D 25 Hydroxy 36.6 ng/mL
[2020-03-08] MEDS: FUROSEMIDE INJ 40 MG/4 ML VIAL IV PUSH (11:40)
[2020-03-08 11:44] LABS: Glucose Point of Care 333 (65-105)
--- NOTE | 2020-03-08 14:17 | PM.IMPN ---
Progress Note: A&P Assessment and Plan (1) Pneumonia due to COVID-19 virus: Code(s): U07.1 - COVID-19; J12.89 - Other viral pneumonia Status: Acute Assessment and Plan: Patient seen in ED on 02/28 for a 1 day hx of weakness, cough, and SOB. COVID testing done and she was discharged home. COVID test returned positive on 03/01/20. Her is also positive for COVID-19. She returns to the ED for persistent weakness and lack of appetite. Mild hypoxia at times but not on supplemental O2 so no indication for dexamethasone or remdesivir initially. Albuterol MDI available as needed for shortness of breath. Later 02 sat fell so started on dexamethasone D# 3 and still no remdesivir with renal function (2) Elevated troponin: Code(s): R77.8 - Other specified abnormalities of plasma proteins Status: Acute Assessment and Plan: Troponin mildly elevated at times to 0.041. Unclear why these were checked. Patient denies any chest pain. EKG showing no acute ischemic changes and looks very similar to EKG from 4 days ago. Suspect elevated troponin more likely related to her renal insufficiency. Add back her ASA. (3) Elevated LFTs: Code(s): R79.89 - Other specified abnormal findings of blood chemistry Status: Acute Assessment and Plan: AST and ALT are mildly elevated. This appears to be chronic since November of 2018. CT abdomen and pelvis on 02/29/2020 showing stones in the gallbladder. No hepatic masses or biliary ductal dilatation. Given the duration, seems less likely that elevated LFTs are related to COVID. Consider upper quadrant ultrasound if she develops pain in her abdomen. Okay to resume Lipitor. (4) Dehydration: Code(s): E86.0 - Dehydration Status: Acute Assessment and Plan: She received 2 L of fluid in the emergency department. Given that she has COVID, we will hold off on scheduling any further IV fluids. Encourage oral intake. Supplemetns. (5) Chronic kidney disease, stage 3: Code(s): N18.30 - Chronic kidney disease, stage 3 unspecified Status: Inactive Assessment and Plan: Patient with CKD as far back as 2014. Creatinine 1.7 on admission but has improved to 1..6 agin today . This is probably her baseline Cr. Will continue to monitor. Encourage oral intake. 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 Random glucose on arrival to the ED was only 66. We held her long-acting insulin The patient's blood glucose was reviewed on 03/08. fbs up so restarted long acting at lesser dose of 50 units qd and scheduled [place] at 8 U tid with meals. Continue AccuCheks covering with sliding scale. Hypoglycemia protocol added today and now available as needed. . (7) Diastolic dysfunction: Code(s): I51.89 - Other ill-defined heart diseases Status: Inactive Assessment and Plan: Stable. No evidence of fluid overload (8) Hypertension: Code(s): I10 - Essential (primary) hypertension Status: Inactive Assessment and Plan: Patient's blood pressure was reviewed on 03/08 Blood pressure remains poorly controlled. resumed Coreg initially but with bradycardia 03/07 it was held and restart amlodipine today at 5 mg (9) DVT prophylaxis: Code(s): Z29.9 - Encounter for prophylactic measures, unspecified Status: Acute Assessment and Plan: Lovenox (10) Fall: Code(s): W19.XXXA - Unspecified fall, initial encounter Status: Acute Assessment and Plan: contusion and laceration of left forehead, neg CT of brain. seen by PT, ot Subjective Date/time seen: 03/08/20 14:17 Interval history: Date of service 03/08 74yo female known to have COVID prior to a
--- NOTE | 2020-03-08 14:37 | PCPTNOTE ---
Patient refused treatment this session due to being too fatigued. Explained the importance of therapy to Pt, Pt stated, I will be better tomorrow. I just want to sleep. Let me sleep! Will continue per POC tomorrow.
[2020-03-08] MEDS: amLODIPine BESYLATE 5 MG TABLET PO (16:07)
[2020-03-08] MEDS: ASPIRIN 81 MG ENTERIC TABLET PO (16:07)
[2020-03-08 17:24] LABS: Glucose Point of Care 245 (65-105)
[2020-03-08] MEDS: LATANOPROST 0.005% OP SOLN 2.5 ML BTL 1 DROP EACH EYE (21:23)
[2020-03-08 21:31] LABS: Glucose Point of Care 146 (65-105)
[2020-03-09] VITALS (10 sets, daily range): BP systolic 148–163; BP diastolic 57–89; PULSE 72–714; RESP 16–24; TEMP 36.1–37.2; O2SAT 91–95
[2020-03-09] MEDS: ALBUTEROL SULFATE (*SP) AEROSOL 1 PUFF 2 PUFF INHALATION ×2 (07:48→21:56)
--- NOTE | 2020-03-09 08:23 | PCOTNOTE ---
Attempted to work with patient, patient sleeping upon therapist's arrival. Patient very resistive this AM to any bed mobility or any other activity. Therapist observed patient's bottom and gown to be soiled and attempted to help patient change gown and clean bottom, but patient refused to turn onto back in order for therapist to doff and re-don a new gown. Will attempt to see patient later this date for OT if time permits.
[2020-03-09 08:39] LABS: Anion Gap 10 mmol/L (8-16); Blood Urea Nitrogen 65 mg/dL (7-17); Calcium 9.5 mg/dL (8.4-10.2); Carbon Dioxide 24 mmol/L (22-30); Chloride 109 mmol/L (98-107); Estimated CRCL calculation 35 ml/min; Estimated Glomerular Filt Rate 37; Glucose 157 mg/dL (65-105); Potassium 4.5 mmol/L (3.4-5.0); Sodium 143 mmol/L (137-145)
[2020-03-09 08:48] LABS: Glucose Point of Care 162 (65-105)
[2020-03-09] MEDS: OMEGA 3 POLYUNSAT FATTY ACIDS 1 GM CAP PO ×2 (09:09→18:08)
[2020-03-09] MEDS: ATORVASTATIN 10 MG TABLET PO (09:10)
[2020-03-09] MEDS: allopurinoL 100 MG TABLET 200 MG PO (09:10)
[2020-03-09] MEDS: DEXAMETHASONE SOD PHOS INJ 4 MG/ML VIAL 6 MG IV PUSH (09:10)
[2020-03-09] MEDS: FAMOTIDINE 20 MG/2 ML VIAL IV PUSH ×2 (09:11→20:22)
[2020-03-09] MEDS: ENOXAPARIN 40 MG/0.4 ML SYRINGE SUB-Q (09:11)
[2020-03-09] MEDS: FLUTICASONE PROPIONATE 0.05% NA SPR 16 GM BTL (*BKC) 2 SPRAY NASAL (09:11)
[2020-03-09] MEDS: INSULIN ASPART (*BKC) 100 UNITS/ML 10 UNITS SUB-Q ×3 (09:12→18:09)
[2020-03-09] MEDS: INSULIN GLARGINE (*BKC) 100 UNITS/ML 60 UNITS SUB-Q (09:12)
[2020-03-09] MEDS: INSULIN ASPART (*BKC) 100 UNITS/ML SUB-Q (12:03)
--- NOTE | 2020-03-09 12:04 | PM.IMPN ---
Progress Note: A&P Assessment and Plan (1) Pneumonia due to COVID-19 virus: Code(s): U07.1 - COVID-19; J12.89 - Other viral pneumonia Status: Acute Assessment and Plan: Patient seen in ED on 02/28 for a 1 day hx of weakness, cough, and SOB. COVID testing done and she was discharged home. COVID test returned positive on 03/01/20. Her is also positive for COVID-19. She returns to the ED for persistent weakness and lack of appetite. Mild hypoxia at times but not on supplemental O2 so no indication for dexamethasone or remdesivir initially. Albuterol MDI available as needed for shortness of breath. Later 02 sat fell so started on dexamethasone D# 4 and still no remdesivir with renal function (2) Elevated troponin: Code(s): R77.8 - Other specified abnormalities of plasma proteins Status: Acute Assessment and Plan: Troponin mildly elevated at times to 0.041. Unclear why these were checked. Patient denies any chest pain. EKG showing no acute ischemic changes and looks very similar to previous EKG . Suspect elevated troponin more likely related to her renal insufficiency. Added back her ASA. (3) Elevated LFTs: Code(s): R79.89 - Other specified abnormal findings of blood chemistry Status: Acute Assessment and Plan: AST and ALT are mildly elevated. This appears to be chronic since November of 2018. CT abdomen and pelvis on 02/29/2020 showing stones in the gallbladder. No hepatic masses or biliary ductal dilatation. Given the duration, seems less likely that elevated LFTs are related to COVID. Consider upper quadrant ultrasound if she develops pain in her abdomen. Okay to resume Lipitor. (4) Dehydration: Code(s): E86.0 - Dehydration Status: Acute Assessment and Plan: She received 2 L of fluid in the emergency department. Given that she has COVID, we will hold off on scheduling any further IV fluids. Encourage oral intake. Supplemetns. (5) Chronic kidney disease, stage 3: Code(s): N18.30 - Chronic kidney disease, stage 3 unspecified Status: Inactive Assessment and Plan: Patient with CKD as far back as 2014. Creatinine 1.7 on admission but has improved to 1..6 stable again today . This is probably her baseline Cr. Will continue to monitor. Encourage oral intake. (6) Insulin dependent type 2 diabetes mellitus: Code(s): E11.9 - Type 2 diabetes mellitus without complications; Z79.4 - terminal operator (current) use of insulin Status: Inactive Assessment and Plan: A1c 10.1 in Dec 2019. Random glucose on arrival to the ED was only 66. We held her long-acting insulin The patient's blood glucose was reviewed on 03/09. fbs up so restarted long acting at lesser dose now at 60 units qd and scheduled novalogue at 10 U tid with meals. Continue AccuCheks covering with sliding scale. Hypoglycemia protocol added and now available as needed. . (7) Diastolic dysfunction: Code(s): I51.89 - Other ill-defined heart diseases Status: Inactive Assessment and Plan: Stable. No evidence of fluid overload (8) Hypertension: Code(s): I10 - Essential (primary) hypertension Status: Inactive Assessment and Plan: Patient's blood pressure was reviewed on 03/09 Blood pressure remains poorly controlled. resumed Coreg initially but with bradycardia 03/07 it was held and restart amlodipine 03/08 at 5 mg and will increase to her usual dose of 10 mg today (9) DVT prophylaxis: Code(s): Z29.9 - Encounter for prophylactic measures, unspecified Status: Acute Assessment and Plan: Lovenox (10) Fall: Code(s): W19.XXXA - Unspecified fall, initial encounter Status: Acute Assessment and Plan: contusion and laceration of left forehead, neg CT of brain. seen by PT, OT Subjective Date/time seen: 03/09/20 12:04 Interval history: Date of se
[2020-03-09 12:08] LABS: Glucose Point of Care 215 (65-105)
--- NOTE | 2020-03-09 13:30 | PCOTNOTE ---
Attempted to see patient again this date, patient still resistive and adamantly refusing to participate in any activities or exercises. Will continue plan of care for OT tomorrow, 03/10/2020.
[2020-03-09] MEDS: amLODIPine BESYLATE 5 MG TABLET 10 MG PO (14:17)
--- NOTE | 2020-03-09 14:38 | PCPTNOTE ---
Patient refused therapy today. Will continue to follow per plan of care.
[2020-03-09] MEDS: ASPIRIN 81 MG ENTERIC TABLET PO (18:07)
[2020-03-09 18:16] LABS: Glucose Point of Care 138 (65-105)
[2020-03-09] MEDS: LATANOPROST 0.005% OP SOLN 2.5 ML BTL 1 DROP EACH EYE (20:22)
[2020-03-09 22:28] LABS: Glucose Point of Care 78 (65-105)
[2020-03-10] VITALS (8 sets, daily range): BP systolic 158–176; BP diastolic 69–98; PULSE 66–110; RESP 2–22; TEMP 36.4–36.8; O2SAT 80–94
[2020-03-10] MEDS: ALBUTEROL SULFATE (*SP) AEROSOL 1 PUFF 2 PUFF INHALATION ×4 (01:30→21:33)
[2020-03-10 06:46] LABS: Basophils Percent Auto 0.2 % (0.2-1.2); Hematocrit 40.9 % (37.0-47.0); Hemoglobin 13.9 g/dL (12.0-15.0); Immature Granulocyte Absolute 0.27 K/mm3 (0.00-0.031); Immature Granulocyte Percent A 1.5 % (0-0.5); Lymphocytes Absolute Auto 0.95 K/mm3 (0.9-3.2); Lymphocytes Percent Auto 5.4 % (18.3-44.2); Mean Corpuscular Hemoglobin 30.6 pg (26-34); Mean Corpuscular Volume 90.1 fl (80-100); Mean Platelet Volume 10.7 fl (7.4-10.4); Monocytes Absolute Auto 1.2 K/mm3 (0.1-0.6); Monocytes Percent Auto 6.6 % (2.6-8.5); Neutrophils Absolute Auto 15.2 K/mm3 (1.3-6.7); Neutrophils Percent Auto 86.3 % (45.5-73.1); Platelet Count Result 246 k/mm3 (150-375); Red Blood Count 4.54 M/mm3 (4.2-5.4); Red Cell Distribution Width 13.5 % (11.5-14.5); White Blood Count 17.6 K/mm3 (4.5-10.0)
[2020-03-10 06:52] LABS: Glucose Point of Care 108 (65-105)
[2020-03-10 07:07] LABS: Alanine Aminotransferase 45 U/L (4-35); Albumin Level 3.6 g/dL (3.5-5.1); Alkaline Phosphatase 68 U/L (38-126); Anion Gap 11 mmol/L (8-16); Aspartate Amino Transferase 69 U/L (14-36); Bilirubin,Total 1.1 mg/dL (0.2-1.3); Blood Urea Nitrogen 59 mg/dL (7-17); CRP 7.8 mg/dL (<1.0); Calcium 9.5 mg/dL (8.4-10.2); Carbon Dioxide 25 mmol/L (22-30); Chloride 110 mmol/L (98-107); Estimated CRCL calculation 38 ml/min; Estimated Glomerular Filt Rate 40; Glucose 107 mg/dL (65-105); Lactate Dehydrogenase 1658 U/L (313-618); Sodium 146 mmol/L (137-145)
[2020-03-10 07:16] LABS: D Dimer 1.59 ug/mL (<0.48)
[2020-03-10] MEDS: amLODIPine BESYLATE 5 MG TABLET 10 MG PO (08:01)
[2020-03-10] MEDS: allopurinoL 100 MG TABLET 200 MG PO (08:01)
[2020-03-10] MEDS: ATORVASTATIN 10 MG TABLET PO (08:02)
[2020-03-10] MEDS: ENOXAPARIN 40 MG/0.4 ML SYRINGE SUB-Q (08:03)
[2020-03-10] MEDS: DEXAMETHASONE SOD PHOS INJ 4 MG/ML VIAL 6 MG IV PUSH (08:03)
[2020-03-10] MEDS: FAMOTIDINE 20 MG/2 ML VIAL IV PUSH (08:04)
[2020-03-10] MEDS: FLUTICASONE PROPIONATE 0.05% NA SPR 16 GM BTL (*BKC) 2 SPRAY NASAL (08:04)
[2020-03-10] MEDS: INSULIN GLARGINE (*BKC) 100 UNITS/ML 60 UNITS SUB-Q (08:18)
[2020-03-10] MEDS: INSULIN ASPART (*BKC) 100 UNITS/ML 10 UNITS SUB-Q ×2 (08:20→12:46)
[2020-03-10 10:35] LABS: Glucose Point of Care 130 (65-105)
--- NOTE | 2020-03-10 11:19 | PCOTNOTE ---
Patient very agitated and uncooperative this AM, CROW unable to engage patient in any task. Patient not seen for OT this AM.
[2020-03-10 12:14] LABS: Glucose Point of Care 115 (65-105)
[2020-03-10] MEDS: OMEGA 3 POLYUNSAT FATTY ACIDS 1 GM CAP PO ×2 (12:38→16:20)
[2020-03-10] MEDS: FUROSEMIDE 20 MG TABLET PO (12:45)
--- NOTE | 2020-03-10 13:35 | PCPTNOTE ---
Patient refused treatment this session. Pt was very combative and confused. When asked to don gown Pt would say ok. However, when assisting Pt don gown Pt would be come resistive and combative saying No! No! Let me sleep! Attempted several times to assist Pt with gown, reassuring Pt, and LE exercises, Pt was combative and resistive with each. This is Pt's third day refusing and being combative with therapy secondary to confusion.
--- NOTE | 2020-03-10 14:15 | PM.IMPN ---
Progress Note: A&P Assessment and Plan (1) Pneumonia due to COVID-19 virus: Code(s): U07.1 - COVID-19; J12.89 - Other viral pneumonia Status: Acute Assessment and Plan: Patient seen in ED on 02/28 for a 1 day hx of weakness, cough, and SOB. COVID testing done and she was discharged home. COVID test returned positive on 03/01/20. Her is also positive for COVID-19. She returns to the ED for persistent weakness and lack of appetite. Mild hypoxia at times but not on supplemental O2 so no indication for dexamethasone or remdesivir initially. Albuterol MDI available as needed for shortness of breath. Later 02 sat fell so started on dexamethasone D# 4 and still no remdesivir with renal function (2) Elevated troponin: Code(s): R77.8 - Other specified abnormalities of plasma proteins Status: Acute Assessment and Plan: Troponin mildly elevated at times to 0.041. Unclear why these were checked. Patient denies any chest pain. EKG showing no acute ischemic changes and looks very similar to previous EKG . Suspect elevated troponin more likely related to her renal insufficiency. Added back her ASA. (3) Elevated LFTs: Code(s): R79.89 - Other specified abnormal findings of blood chemistry Status: Acute Assessment and Plan: AST and ALT are mildly elevated. This appears to be chronic since November of 2018. CT abdomen and pelvis on 02/29/2020 showing stones in the gallbladder. No hepatic masses or biliary ductal dilatation. Given the duration, seems less likely that elevated LFTs are related to COVID. Consider upper quadrant ultrasound if she develops pain in her abdomen. resumed Lipitor. (4) Dehydration: Code(s): E86.0 - Dehydration Status: Acute Assessment and Plan: She received 2 L of fluid in the emergency department. Given that she has COVID, held off on scheduling any further IV fluids. Encourage oral intake which has been marginal. Supplements po (5) Chronic kidney disease, stage 3: Code(s): N18.30 - Chronic kidney disease, stage 3 unspecified Status: Inactive Assessment and Plan: Patient with CKD as far back as 2014. Creatinine 1.7 on admission but has improved to 1.3 today . This is probably her baseline Cr. Will continue to monitor. Encourage oral intake. (6) Insulin dependent type 2 diabetes mellitus: Code(s): E11.9 - Type 2 diabetes mellitus without complications; Z79.4 - alf (current) use of insulin Status: Inactive Assessment and Plan: A1c 10.1 in Dec 2019. Random glucose on arrival to the ED was only 66. We held her long-acting insulin The patient's blood glucose was reviewed on 03/09. fbs up so restarted long acting at lesser dose now at 60 units qd and scheduled novalogue at 10 U tid with meals. Continue AccuCheks covering with sliding scale. Hypoglycemia protocol added and now available as needed. . (7) Diastolic dysfunction: Code(s): I51.89 - Other ill-defined heart diseases Status: Inactive Assessment and Plan: Stable. No evidence of fluid overload (8) Hypertension: Code(s): I10 - Essential (primary) hypertension Status: Inactive Assessment and Plan: Patient's blood pressure was reviewed on 03/10 Blood pressure remains poorly controlled. resumed Coreg initially but with bradycardia 03/07 it was held and restart amlodipine 03/08 at 5 mg and will increase to her usual dose of 10 mg 03/09. Added back lasix today with bp higher (9) DVT prophylaxis: Code(s): Z29.9 - Encounter for prophylactic measures, unspecified Status: Acute Assessment and Plan: Lovenox (10) Fall: Code(s): W19.XXXA - Unspecified fall, initial encounter Status: Acute Assessment and Plan: contusion and laceration of left forehead, neg CT of brain. seen by PT, OT Subjective Date/time seen: 03/10/20
[2020-03-10] MEDS: ASPIRIN 81 MG ENTERIC TABLET PO (16:20)
[2020-03-10 16:37] LABS: Glucose Point of Care 80 (65-105)
[2020-03-10] MEDS: FAMOTIDINE 20 MG TABLET PO (21:21)
[2020-03-10] MEDS: LATANOPROST 0.005% OP SOLN 2.5 ML BTL 1 DROP EACH EYE (21:21)
[2020-03-10 22:18] LABS: Glucose Point of Care 202 (65-105)
[2020-03-11] VITALS: BP 163/68; PULSE 66; RESP 20; TEMP 36.4; O2SAT 80
[2020-03-11] MEDS: OLANZapine 10 MG INJ VIAL IM (02:18)
[2020-03-11 04:00] VITALS: BP 174/129; PULSE 66; RESP 20; TEMP 36.9; O2SAT 79
[2020-03-11 08:00] VITALS: BP 155/89; PULSE 77; PULSE 78; RESP 20; TEMP 36.3; O2SAT 94; O2SAT 95
[2020-03-11] MEDS: ALBUTEROL SULFATE (*SP) AEROSOL 1 PUFF 2 PUFF INHALATION ×2 (10:13→16:00)
[2020-03-11 12:00] VITALS: BP 149/84; PULSE 77; RESP 20; TEMP 36.4; O2SAT 95
[2020-03-11] MEDS: DEXAMETHASONE 2 MG TABLET 6 MG PO (12:22)
[2020-03-11] MEDS: amLODIPine BESYLATE 5 MG TABLET 10 MG PO (12:24)
[2020-03-11] MEDS: allopurinoL 100 MG TABLET 200 MG PO (12:24)
[2020-03-11] MEDS: FAMOTIDINE 20 MG TABLET PO ×2 (12:25→20:21)
[2020-03-11] MEDS: ENOXAPARIN 40 MG/0.4 ML SYRINGE SUB-Q (12:25)
[2020-03-11] MEDS: ATORVASTATIN 10 MG TABLET PO (12:25)
[2020-03-11] MEDS: FLUTICASONE PROPIONATE 0.05% NA SPR 16 GM BTL (*BKC) 2 SPRAY NASAL (12:25)
[2020-03-11] MEDS: hydrALAZINE HCL 25 MG TABLET PO ×4 (12:26→20:21)
[2020-03-11] MEDS: INSULIN GLARGINE (*BKC) 100 UNITS/ML 60 UNITS SUB-Q (12:29)
[2020-03-11] MEDS: INSULIN ASPART (*BKC) 100 UNITS/ML SUB-Q (12:30)
[2020-03-11] MEDS: OMEGA 3 POLYUNSAT FATTY ACIDS 1 GM CAP PO ×2 (12:32→16:46)
[2020-03-11 12:35] LABS: Glucose Point of Care 196 (65-105)
--- NOTE | 2020-03-11 14:17 | PM.IMPN ---
Progress Note: A&P Assessment and Plan (1) Pneumonia due to COVID-19 virus: Code(s): U07.1 - COVID-19; J12.89 - Other viral pneumonia Status: Acute Assessment and Plan: Patient seen in ED on 02/28 for a 1 day hx of weakness, cough, and SOB. COVID testing done and she was discharged home. COVID test returned positive on 03/01/20. Her is also positive for COVID-19. She returns to the ED for persistent weakness and lack of appetite. Mild hypoxia at times but not on supplemental O2 so no indication for dexamethasone or remdesivir initially. Albuterol MDI available as needed for shortness of breath. Later 02 sat fell so started on dexamethasone D# 5 and still no remdesivir with renal function (2) Elevated troponin: Code(s): R77.8 - Other specified abnormalities of plasma proteins Status: Acute Assessment and Plan: Troponin mildly elevated at times to 0.041. Unclear why these were checked. Patient denies any chest pain. EKG showing no acute ischemic changes and looks very similar to previous EKG . Suspect elevated troponin more likely related to her renal insufficiency. Added back her ASA. (3) Elevated LFTs: Code(s): R79.89 - Other specified abnormal findings of blood chemistry Status: Acute Assessment and Plan: AST and ALT are mildly elevated. This appears to be chronic since November of 2018. CT abdomen and pelvis on 02/29/2020 showing stones in the gallbladder. No hepatic masses or biliary ductal dilatation. Given the duration, seems less likely that elevated LFTs are related to COVID. Consider upper quadrant ultrasound if she develops pain in her abdomen. resumed Lipitor. (4) Dehydration: Code(s): E86.0 - Dehydration Status: Acute Assessment and Plan: She received 2 L of fluid in the emergency department. Given that she has COVID, held off on scheduling any further IV fluids. Encourage oral intake which has been marginal. Supplements po (5) Chronic kidney disease, stage 3: Code(s): N18.30 - Chronic kidney disease, stage 3 unspecified Status: Inactive Assessment and Plan: Patient with CKD as far back as 2014. Creatinine 1.7 on admission but has improved to 1.3 03/10 . This is probably her baseline Cr. Will continue to monitor. Encourage oral intake. (6) Insulin dependent type 2 diabetes mellitus: Code(s): E11.9 - Type 2 diabetes mellitus without complications; Z79.4 - senior care (current) use of insulin Status: Inactive Assessment and Plan: A1c 10.1 in Dec 2019. Random glucose on arrival to the ED was only 66. We held her long-acting insulin The patient's blood glucose was reviewed on 03/11. fbs 176 and not eating so will hold on insulin and. Continue AccuCheks covering with sliding scale. Hypoglycemia protocol added and now available as needed. . (7) Diastolic dysfunction: Code(s): I51.89 - Other ill-defined heart diseases Status: Inactive Assessment and Plan: Stable. No evidence of fluid overload (8) Hypertension: Code(s): I10 - Essential (primary) hypertension Status: Inactive Assessment and Plan: Patient's blood pressure was reviewed on 03/11 Blood pressure remains poorly controlled. resumed Coreg initially but with bradycardia 03/07 it was held and restart amlodipine 03/08 at 5 mg and will increase to her usual dose of 10 mg 03/09. start sceduled hydralazine and prn. not candidate for beta blockers with previous bradyarrythia, nor JAMIE with her renal function (9) DVT prophylaxis: Code(s): Z29.9 - Encounter for prophylactic measures, unspecified Status: Acute Assessment and Plan: Lovenox (10) Fall: Code(s): W19.XXXA - Unspecified fall, initial encounter Status: Acute Assessment and Plan: contusion and laceration of left forehead, neg CT of brain. seen by PT, OT (11) Robb
[2020-03-11 14:31] LABS: Glucose Point of Care 396 (65-105)
[2020-03-11 16:00] VITALS: BP 123/90; PULSE 88; RESP 18; TEMP 36.7; O2SAT 90
[2020-03-11] MEDS: ASPIRIN 81 MG ENTERIC TABLET PO (16:51)
[2020-03-11 17:02] LABS: Glucose Point of Care > 500 (65-105)
[2020-03-11 17:39] LABS: Glucose 539 mg/dL (65-105)
[2020-03-11] MEDS: INSULIN ASPART (*BKC) 100 UNITS/ML 30 UNITS SUB-Q (17:41)
[2020-03-11] MEDS: INSULIN GLARGINE (*BKC) 100 UNITS/ML 40 UNITS SUB-Q (17:42)
[2020-03-11 20:00] VITALS: BP 143/109; PULSE 81; RESP 20; TEMP 36.9; O2SAT 89
[2020-03-11] MEDS: LATANOPROST 0.005% OP SOLN 2.5 ML BTL 1 DROP EACH EYE (20:21)
[2020-03-11 22:51] LABS: Glucose Point of Care 78 (65-105)
[2020-03-12] VITALS (10 sets, daily range): BP systolic 140–168; BP diastolic 52–83; PULSE 70–85; RESP 16–22; TEMP 36.3–36.9; O2SAT 84–95
[2020-03-12] MEDS: ALBUTEROL SULFATE (*SP) AEROSOL 1 PUFF 2 PUFF INHALATION ×4 (02:48→20:40)
[2020-03-12] MEDS: DEXAMETHASONE 2 MG TABLET 6 MG PO (09:07)
[2020-03-12] MEDS: OMEGA 3 POLYUNSAT FATTY ACIDS 1 GM CAP PO ×2 (09:12→17:47)
[2020-03-12] MEDS: hydrALAZINE HCL 25 MG TABLET PO ×4 (09:12→20:51)
[2020-03-12] MEDS: ENOXAPARIN 40 MG/0.4 ML SYRINGE SUB-Q (09:13)
[2020-03-12] MEDS: FAMOTIDINE 20 MG TABLET PO ×2 (09:13→20:52)
[2020-03-12] MEDS: FLUTICASONE PROPIONATE 0.05% NA SPR 16 GM BTL (*BKC) 2 SPRAY NASAL (09:13)
[2020-03-12] MEDS: amLODIPine BESYLATE 5 MG TABLET 10 MG PO (09:14)
[2020-03-12] MEDS: allopurinoL 100 MG TABLET 200 MG PO (09:14)
[2020-03-12] MEDS: ATORVASTATIN 10 MG TABLET PO (09:14)
[2020-03-12 09:37] LABS: Glucose Point of Care 102 (65-105)
[2020-03-12 09:38] LABS: Basophils Percent Auto 0.3 % (0.2-1.2); Hematocrit 42.1 % (37.0-47.0); Hemoglobin 14.1 g/dL (12.0-15.0); Immature Granulocyte Absolute 0.36 K/mm3 (0.00-0.031); Immature Granulocyte Percent A 2.4 % (0-0.5); Lymphocytes Absolute Auto 1.23 K/mm3 (0.9-3.2); Lymphocytes Percent Auto 8.3 % (18.3-44.2); Mean Corpuscular HGB Conc 33.5 g/dl (32-36); Mean Corpuscular Hemoglobin 31.2 pg (26-34); Mean Corpuscular Volume 93.1 fl (80-100); Mean Platelet Volume 10.9 fl (7.4-10.4); Monocytes Percent Auto 6.8 % (2.6-8.5); Neutrophils Absolute Auto 12.2 K/mm3 (1.3-6.7); Neutrophils Percent Auto 82.2 % (45.5-73.1); Nucleated Red Blood Cells Absolute Auto 0.1 K/mm3 (0.0-0.012); Nucleated Red Blood Cells Perc 0.3 % (0.0-0.2); Platelet Count Result 303 k/mm3 (150-375); Red Blood Count 4.52 M/mm3 (4.2-5.4); Red Cell Distribution Width 13.7 % (11.5-14.5); White Blood Count 14.8 K/mm3 (4.5-10.0)
[2020-03-12 10:04] LABS: Alanine Aminotransferase 50 U/L (4-35); Albumin Level 3.6 g/dL (3.5-5.1); Alkaline Phosphatase 71 U/L (38-126); Anion Gap 11 mmol/L (8-16); Aspartate Amino Transferase 52 U/L (14-36); Bilirubin,Total 1.2 mg/dL (0.2-1.3); Blood Urea Nitrogen 77 mg/dL (7-17); CRP 2.9 mg/dL (<1.0); Calcium 9.3 mg/dL (8.4-10.2); Carbon Dioxide 27 mmol/L (22-30); Chloride 107 mmol/L (98-107); Estimated CRCL calculation 31 ml/min; Estimated Glomerular Filt Rate 31; Glucose 97 mg/dL (65-105); Lactate Dehydrogenase 1639 U/L (313-618); Potassium 3.9 mmol/L (3.4-5.0); Sodium 145 mmol/L (137-145)
[2020-03-12] MEDS: INSULIN GLARGINE (*BKC) 100 UNITS/ML 40 UNITS SUB-Q (11:05)
[2020-03-12 12:11] LABS: Glucose Point of Care 175 (65-105)
--- NOTE | 2020-03-12 14:55 | PM.IMPN ---
Progress Note: A&P Assessment and Plan (1) Pneumonia due to COVID-19 virus: Code(s): U07.1 - COVID-19; J12.89 - Other viral pneumonia Status: Acute Assessment and Plan: Patient seen in ED on 02/28 for a 1 day hx of weakness, cough, and SOB. COVID testing done and she was discharged home. COVID test returned positive on 03/01/20. Her is also positive for COVID-19. She returns to the ED for persistent weakness and lack of appetite. Mild hypoxia at times but not on supplemental O2 so no indication for dexamethasone or remdesivir initially. Albuterol MDI available as needed for shortness of breath. Later 02 sat fell so started on dexamethasone D# 7(po last few days) and no remdesivir with renal function (2) Elevated troponin: Code(s): R77.8 - Other specified abnormalities of plasma proteins Status: Acute Assessment and Plan: Troponin mildly elevated at times to 0.041. Unclear why these were checked. Patient denies any chest pain. EKG showing no acute ischemic changes and looks very similar to previous EKG . Suspect elevated troponin more likely related to her renal insufficiency. Added back her ASA. (3) Elevated LFTs: Code(s): R79.89 - Other specified abnormal findings of blood chemistry Status: Acute Assessment and Plan: AST and ALT are mildly elevated. This appears to be chronic since November of 2018. CT abdomen and pelvis on 02/29/2020 showing stones in the gallbladder. No hepatic masses or biliary ductal dilatation. Given the duration, seems less likely that elevated LFTs are related to COVID. . resumed Lipitor. (4) Dehydration: Code(s): E86.0 - Dehydration Status: Acute Assessment and Plan: She received 2 L of fluid in the emergency department. Given that she has COVID, held off on scheduling any further IV fluids. Encourage oral intake which has been marginal. Supplements po (5) Chronic kidney disease, stage 3: Code(s): N18.30 - Chronic kidney disease, stage 3 unspecified Status: Inactive Assessment and Plan: Patient with CKD as far back as 2014. Creatinine 1.7 on admission and 1.6 today . This is probably her baseline Cr. Will continue to monitor. Encourage oral intake. (6) Insulin dependent type 2 diabetes mellitus: Code(s): E11.9 - Type 2 diabetes mellitus without complications; Z79.4 - alf (current) use of insulin Status: Inactive Assessment and Plan: A1c 10.1 in Dec 2019. Random glucose on arrival to the ED was only 66. We held her long-acting insulin The patient's blood glucose was reviewed on 03/12. fbs 97. Poor po intake 03/11 so held lantus initially and BS up to 500. Restarted at 40 U qd and better today. Continue AccuCheks covering with sliding scale. Hypoglycemia protocol added and now available as needed. . (7) Diastolic dysfunction: Code(s): I51.89 - Other ill-defined heart diseases Status: Inactive Assessment and Plan: Stable. No evidence of fluid overload (8) Hypertension: Code(s): I10 - Essential (primary) hypertension Status: Inactive Assessment and Plan: Patient's blood pressure was reviewed on 03/12 Blood pressure remains poorly controlled. resumed Coreg initially but with bradycardia 03/07 it was held and restart amlodipine 03/08 at 5 mg and will increase to her usual dose of 10 mg 03/09. start scheduled hydralazine and prn. not candidate for beta blockers with previous bradyarrythia, nor JAMIE with her renal function (9) DVT prophylaxis: Code(s): Z29.9 - Encounter for prophylactic measures, unspecified Status: Acute Assessment and Plan: Lovenox (10) Fall: Code(s): W19.XXXA - Unspecified fall, initial encounter Status: Acute Assessment and Plan: contusion and laceration of left forehead, neg CT of brain. seen by PT, OT (11) Encephalopathy:
[2020-03-12] MEDS: INSULIN ASPART (*BKC) 100 UNITS/ML SUB-Q ×2 (17:47→17:48)
[2020-03-12] MEDS: ASPIRIN 81 MG ENTERIC TABLET PO (17:47)
[2020-03-12 17:55] LABS: Glucose Point of Care 243 (65-105)
[2020-03-12 20:04] LABS: Glucose Point of Care 239 (65-105)
[2020-03-12] MEDS: LATANOPROST 0.005% OP SOLN 2.5 ML BTL 1 DROP EACH EYE (20:52)
[2020-03-13] VITALS (13 sets, daily range): BP systolic 144–167; BP diastolic 63–81; PULSE 65–85; RESP 18–22; TEMP 36.1–36.8; O2SAT 83–95
[2020-03-13] MEDS: ALBUTEROL SULFATE (*SP) AEROSOL 1 PUFF 2 PUFF INHALATION ×4 (02:07→22:48)
[2020-03-13 08:03] LABS: Anion Gap 9 mmol/L (8-16); Blood Urea Nitrogen 82 mg/dL (7-17); Calcium 9.1 mg/dL (8.4-10.2); Carbon Dioxide 19 mmol/L (22-30); Chloride 109 mmol/L (98-107); Estimated CRCL calculation 33 ml/min; Estimated Glomerular Filt Rate 34; Glucose 190 mg/dL (65-105); Potassium 4.7 mmol/L (3.4-5.0); Sodium 137 mmol/L (137-145)
[2020-03-13] MEDS: DEXAMETHASONE 2 MG TABLET 6 MG PO (08:37)
[2020-03-13] MEDS: amLODIPine BESYLATE 5 MG TABLET 10 MG PO (08:37)
[2020-03-13 08:38] LABS: Glucose Point of Care 167 (65-105)
[2020-03-13] MEDS: ATORVASTATIN 10 MG TABLET PO (08:38)
[2020-03-13] MEDS: allopurinoL 100 MG TABLET 200 MG PO (08:38)
[2020-03-13] MEDS: FAMOTIDINE 20 MG TABLET PO ×2 (08:39→20:49)
[2020-03-13] MEDS: OMEGA 3 POLYUNSAT FATTY ACIDS 1 GM CAP PO ×2 (08:39→17:43)
[2020-03-13] MEDS: ENOXAPARIN 40 MG/0.4 ML SYRINGE SUB-Q (08:39)
[2020-03-13] MEDS: FLUTICASONE PROPIONATE 0.05% NA SPR 16 GM BTL (*BKC) 2 SPRAY NASAL (08:39)
[2020-03-13] MEDS: hydrALAZINE HCL 25 MG TABLET PO ×4 (08:39→20:49)
[2020-03-13] MEDS: INSULIN ASPART (*BKC) 100 UNITS/ML SUB-Q ×3 (08:41→17:43)
[2020-03-13] MEDS: INSULIN GLARGINE (*BKC) 100 UNITS/ML 45 UNITS SUB-Q (08:53)
[2020-03-13] MEDS: INSULIN ASPART (*BKC) 100 UNITS/ML 7 UNITS SUB-Q ×2 (11:46→17:44)
[2020-03-13 11:51] LABS: Glucose Point of Care 272 (65-105)
--- NOTE | 2020-03-13 11:55 | PCNWS ---
Weekly nutritional screen. Patient is tolerating current diet-DBCC with adequate intake, 75% of meals. Diet supplement: Frozen nutritional treat BID is providing an additional 300 kcals and 9 gms protein. No weight loss reported. No further nutritional needs at this time.
--- NOTE | 2020-03-13 13:49 | PM.IMPN ---
Progress Note: A&P Assessment and Plan (1) Pneumonia due to COVID-19 virus: Code(s): U07.1 - COVID-19; J12.89 - Other viral pneumonia Status: Acute Assessment and Plan: Patient seen in ED on 02/28 for a 1 day hx of weakness, cough, and SOB. COVID testing done and she was discharged home. COVID test returned positive on 03/01/20. Her is also positive for COVID-19. She returns to the ED for persistent weakness and lack of appetite. Mild hypoxia at times but not on supplemental O2 so no indication for dexamethasone or remdesivir initially. Albuterol MDI available as needed for shortness of breath. Later 02 sat fell so started on dexamethasone D# 8(po last few days) and no remdesivir with renal function (2) Elevated troponin: Code(s): R77.8 - Other specified abnormalities of plasma proteins Status: Acute Assessment and Plan: Troponin mildly elevated at times to 0.041. Unclear why these were checked. Patient denies any chest pain. EKG showing no acute ischemic changes and looks very similar to previous EKG . Suspect elevated troponin more likely related to her renal insufficiency. Added back her ASA. (3) Elevated LFTs: Code(s): R79.89 - Other specified abnormal findings of blood chemistry Status: Acute Assessment and Plan: AST and ALT are mildly elevated. This appears to be chronic since November of 2018. CT abdomen and pelvis on 02/29/2020 showing stones in the gallbladder. No hepatic masses or biliary ductal dilatation. Given the duration, seems less likely that elevated LFTs are related to COVID. . resumed Lipitor. (4) Dehydration: Code(s): E86.0 - Dehydration Status: Acute Assessment and Plan: She received 2 L of fluid in the emergency department. Given that she has COVID, held off on scheduling any further IV fluids. Encourage oral intake which has been marginal. Supplements po (5) Chronic kidney disease, stage 3: Code(s): N18.30 - Chronic kidney disease, stage 3 unspecified Status: Inactive Assessment and Plan: Patient with CKD as far back as 2014. Creatinine 1.7 on admission and 1.5 today . This is probably her baseline Cr. Will continue to monitor. Encourage oral intake which is marginal. If Bun remains elevated more fluid. part Bun could be steroids. Lasix still on hold (6) Insulin dependent type 2 diabetes mellitus: Code(s): E11.9 - Type 2 diabetes mellitus without complications; Z79.4 - parts counterman (current) use of insulin Status: Inactive Assessment and Plan: A1c 10.1 in Dec 2019. Random glucose on arrival to the ED was only 66. We held her long-acting insulin The patient's blood glucose was reviewed on 03/12. fbs 97. Poor po intake 03/11 so held lantus initially and BS up to 500. Restarted at 40 U qd and 03/12 and increased to 45 today with novolog 8 tid w/meals. Continue AccuCheks covering with sliding scale. . (7) Diastolic dysfunction: Code(s): I51.89 - Other ill-defined heart diseases Status: Inactive Assessment and Plan: Stable. No evidence of fluid overload lasix on hold (8) Hypertension: Code(s): I10 - Essential (primary) hypertension Status: Inactive Assessment and Plan: Patient's blood pressure was reviewed on 03/13 Blood pressure better. resumed Coreg initially but with bradycardia 03/07 it was held and restarted amlodipine 03/08 at 5 mg and increased to her usual dose of 10 mg 03/09. started scheduled hydralazine and prn. not candidate for beta blockers with previous bradyarrythia, nor JAMIE with her renal function (9) DVT prophylaxis: Code(s): Z29.9 - Encounter for prophylactic measures, unspecified Status: Acute Assessment and Plan: Lovenox (10) Fall: Code(s): W19.XXXA - Unspecified fall, initial encounter Status: Acute Assessment and Plan: contusion
[2020-03-13] MEDS: ASPIRIN 81 MG ENTERIC TABLET PO (17:43)
[2020-03-13 18:21] LABS: Glucose Point of Care 397 (65-105)
[2020-03-13] MEDS: LATANOPROST 0.005% OP SOLN 2.5 ML BTL 1 DROP EACH EYE (20:49)
[2020-03-14] VITALS: BP 150/68; PULSE 83; RESP 20; TEMP 36.4; O2SAT 93
[2020-03-14 00:37] LABS: Glucose Point of Care 398 (65-105)
[2020-03-14 03:27] VITALS: PULSE 76; RESP 20
[2020-03-14] MEDS: ALBUTEROL SULFATE (*SP) AEROSOL 1 PUFF 2 PUFF INHALATION ×2 (03:27→09:52)
[2020-03-14 04:00] VITALS: BP 161/74; PULSE 81; RESP 20; TEMP 36.4; O2SAT 95
[2020-03-14 08:00] VITALS: BP 149/80; PULSE 81; RESP 18; TEMP 36.8; O2SAT 94
[2020-03-14] MEDS: DEXAMETHASONE 2 MG TABLET 6 MG PO (08:49)
[2020-03-14] MEDS: ATORVASTATIN 10 MG TABLET PO (08:50)
[2020-03-14] MEDS: ENOXAPARIN 40 MG/0.4 ML SYRINGE SUB-Q (08:50)
[2020-03-14] MEDS: FAMOTIDINE 20 MG TABLET PO (08:50)
[2020-03-14] MEDS: allopurinoL 100 MG TABLET 200 MG PO (08:50)
[2020-03-14] MEDS: amLODIPine BESYLATE 5 MG TABLET 10 MG PO (08:50)
[2020-03-14] MEDS: INSULIN ASPART (*BKC) 100 UNITS/ML SUB-Q ×2 (08:51→12:36)
[2020-03-14] MEDS: hydrALAZINE HCL 25 MG TABLET PO ×2 (08:51→12:38)
[2020-03-14] MEDS: OMEGA 3 POLYUNSAT FATTY ACIDS 1 GM CAP PO (08:51)
[2020-03-14] MEDS: INSULIN GLARGINE (*BKC) 100 UNITS/ML 50 UNITS SUB-Q (08:51)
[2020-03-14 08:55] LABS: Glucose Point of Care 344 (65-105)
[2020-03-14] MEDS: INSULIN ASPART (*BKC) 100 UNITS/ML 8 UNITS SUB-Q ×2 (08:56→12:37)
[2020-03-14] MEDS: FLUTICASONE PROPIONATE 0.05% NA SPR 16 GM BTL (*BKC) 2 SPRAY NASAL (09:01)
[2020-03-14 09:09] LABS: Basophils Percent Auto 0.2 % (0.2-1.2); Eosinophils Percent Auto 0.1 % (0-4.4); Hemoglobin 13.3 g/dL (12.0-15.0); Immature Granulocyte Absolute 0.26 K/mm3 (0.00-0.031); Immature Granulocyte Percent A 1.9 % (0-0.5); Immature Platelet Fraction Pct 6.9 % (0.9-11.2); Lymphocytes Absolute Auto 1.08 K/mm3 (0.9-3.2); Mean Corpuscular HGB Conc 34.1 g/dl (32-36); Mean Corpuscular Volume 90.9 fl (80-100); Mean Platelet Volume 11.5 fl (7.4-10.4); Monocytes Absolute Auto 0.7 K/mm3 (0.1-0.6); Monocytes Percent Auto 4.9 % (2.6-8.5); Neutrophils Absolute Auto 11.4 K/mm3 (1.3-6.7); Neutrophils Percent Auto 84.9 % (45.5-73.1); Nucleated Red Blood Cells Perc 0.1 % (0.0-0.2); Platelet Count Result 291 k/mm3 (150-375); Red Blood Count 4.29 M/mm3 (4.2-5.4); Red Cell Distribution Width 13.3 % (11.5-14.5); White Blood Count 13.5 K/mm3 (4.5-10.0)
[2020-03-14 09:40] LABS: Alanine Aminotransferase 62 U/L (4-35); Albumin Level 3.2 g/dL (3.5-5.1); Alkaline Phosphatase 77 U/L (38-126); Anion Gap 11 mmol/L (8-16); Aspartate Amino Transferase 45 U/L (14-36); Bilirubin,Total 1.1 mg/dL (0.2-1.3); Blood Urea Nitrogen 79 mg/dL (7-17); Calcium 8.9 mg/dL (8.4-10.2); Carbon Dioxide 21 mmol/L (22-30); Chloride 105 mmol/L (98-107); Estimated CRCL calculation 35 ml/min; Estimated Glomerular Filt Rate 37; Glucose 333 mg/dL (65-105); Lactate Dehydrogenase 1676 U/L (313-618); Sodium 137 mmol/L (137-145)
[2020-03-14 09:42] LABS: Potassium 4.8 mmol/L (3.4-5.0)
[2020-03-14 09:59] LABS: CRP 0.9 mg/dL (<1.0)
--- NOTE | 2020-03-14 11:29 | PM.DS ---
DS: Admitting Diagnosis Admitting Diagnosis Admitting Diagnosis: Weakness, not eating. DS: Discharge Diagnosis Discharge Diagnosis (1) Pneumonia due to COVID-19 virus: Code(s): U07.1 - COVID-19; J12.89 - Other viral pneumonia Status: Acute Assessment and Plan: Patient seen in ED on 02/28 for a 1 day hx of weakness, cough, and SOB. COVID testing done and she was discharged home. COVID test returned positive on 03/01/20. Her is also positive for COVID-19. She returned to the ED for persistent weakness and lack of appetite. Mild hypoxia at times but not on supplemental O2 so no indication for dexamethasone or remdesivir initially. Developed 02 requirement so started on dexamethasone 03/06. No remdesivir due to renal function and more evidence showing lack of efficacy. (2) Elevated troponin: Code(s): R77.8 - Other specified abnormalities of plasma proteins Status: Acute Assessment and Plan: Troponin mildly elevated at times to 0.041. Unclear why these were checked. Patient denies any chest pain. EKG showing no acute ischemic changes and looks very similar to previous EKG . Suspect elevated troponin more likely related to her renal insufficiency. We continued her ASA. (3) Elevated LFTs: Code(s): R79.89 - Other specified abnormal findings of blood chemistry Status: Acute Assessment and Plan: AST and ALT are mildly elevated. This appears to be chronic since November of 2018. CT abdomen and pelvis on 02/29/2020 showing stones in the gallbladder. No hepatic masses or biliary ductal dilatation. Given the duration, seems less likely that elevated LFTs are related to COVID. We resumed Lipitor. (4) Dehydration: Code(s): E86.0 - Dehydration Status: Acute Assessment and Plan: She received 2 L of fluid in the emergency department. Given that she has COVID, held off on scheduling any further IV fluids. Encourage oral intake which has been marginal. Supplements ordered. (5) Chronic kidney disease, stage 3: Code(s): N18.30 - Chronic kidney disease, stage 3 unspecified Status: Inactive Assessment and Plan: Patient with CKD as far back as 2014. Creatinine 1.7 on admission and 1.4 today . This is probably her baseline Cr. BUN elevated related to the steroids. (6) Insulin dependent type 2 diabetes mellitus: Code(s): E11.9 - Type 2 diabetes mellitus without complications; Z79.4 - nursing home (current) use of insulin Status: Inactive Assessment and Plan: A1c 10.1 in Dec 2019. Random glucose on arrival to the ED was only 66. We held her long-acting insulin initially. When the steroids added, glucose became poorly controlled so Lantus and Novolog at meal times added. We monitired with AccuCheks covering with sliding scale. Hypoglycemia protocol available as needed. (7) Diastolic dysfunction: Code(s): I51.89 - Other ill-defined heart diseases Status: Inactive Assessment and Plan: Stable. No evidence of fluid overload (8) Hypertension: Code(s): I10 - Essential (primary) hypertension Status: Inactive Assessment and Plan: Patient's blood pressure was monitored closely. Coreg initially but with bradycardia 03/07 it was held and restart amlodipine 03/08 at 5 mg and will increase to her usual dose of 10 mg 03/09. start scheduled hydralazine and prn. not candidate for beta blockers with previous bradyarrythia, nor JAMIE with her renal function (9) Fall: Code(s): W19.XXXA - Unspecified fall, initial encounter Status: Acute Assessment and Plan: contusion and laceration of left forehead, neg CT of brain. seen by PT, OT (10) Encephalopathy: Code(s): G93.40 - Encephalopathy, unspecified Status: Acute Assessment and Plan: Multifactorial. With recent head trauma recheck CT 03/11 still neg. Could be secondary to the hyp
--- NOTE | 2020-03-14 11:43 | PM.DS ---
DS: Admitting Diagnosis Admitting Diagnosis Admitting Diagnosis: Weakness, not eating. DS: Discharge Diagnosis Discharge Diagnosis (1) Pneumonia due to COVID-19 virus: Code(s): U07.1 - COVID-19; J12.89 - Other viral pneumonia Status: Acute Assessment and Plan: Patient seen in ED on 02/28 for a 1 day hx of weakness, cough, and SOB. COVID testing done and she was discharged home. COVID test returned positive on 03/01/20. Her is also positive for COVID-19. She returned to the ED for persistent weakness and lack of appetite. Mild hypoxia at times but not on supplemental O2 so no indication for dexamethasone or remdesivir initially. Developed 02 requirement so started on dexamethasone 03/06. No remdesivir due to renal function and more evidence showing lack of efficacy. (2) Elevated troponin: Code(s): R77.8 - Other specified abnormalities of plasma proteins Status: Acute Assessment and Plan: Troponin mildly elevated at times to 0.041. Unclear why these were checked. Patient denies any chest pain. EKG showing no acute ischemic changes and looks very similar to previous EKG . Suspect elevated troponin more likely related to her renal insufficiency. We continued her ASA. (3) Elevated LFTs: Code(s): R79.89 - Other specified abnormal findings of blood chemistry Status: Acute Assessment and Plan: AST and ALT are mildly elevated. This appears to be chronic since November of 2018. CT abdomen and pelvis on 02/29/2020 showing stones in the gallbladder. No hepatic masses or biliary ductal dilatation. Given the duration, seems less likely that elevated LFTs are related to COVID. We resumed Lipitor. (4) Dehydration: Code(s): E86.0 - Dehydration Status: Acute Assessment and Plan: She received 2 L of fluid in the emergency department. Given that she has COVID, held off on scheduling any further IV fluids. Encourage oral intake which has been marginal. Supplements ordered. (5) Chronic kidney disease, stage 3: Code(s): N18.30 - Chronic kidney disease, stage 3 unspecified Status: Inactive Assessment and Plan: Patient with CKD as far back as 2014. Creatinine 1.7 on admission and 1.4 today. This is probably her baseline Cr. BUN elevated related to the steroids. (6) Insulin dependent type 2 diabetes mellitus: Code(s): E11.9 - Type 2 diabetes mellitus without complications; Z79.4 - termination clerk (current) use of insulin Status: Inactive Assessment and Plan: A1c 10.1 in Dec 2019. Random glucose on arrival to the ED was only 66. We held her long-acting insulin initially. When the steroids added, glucose became poorly controlled so Lantus and Novolog at meal times added. We monitired with AccuCheks covering with sliding scale. Hypoglycemia protocol available as needed. (7) Diastolic dysfunction: Code(s): I51.89 - Other ill-defined heart diseases Status: Inactive Assessment and Plan: Stable. No evidence of fluid overload (8) Hypertension: Code(s): I10 - Essential (primary) hypertension Status: Inactive Assessment and Plan: Patient's blood pressure was monitored closely. Coreg initially added but with bradycardia 03/07 so this it was held. Restarted amlodipine and started scheduled hydralazine and prn. Not a candidate for beta blockers with previous bradyarrythia, nor JAMIE with her renal function (9) Fall: Code(s): W19.XXXA - Unspecified fall, initial encounter Status: Acute Assessment and Plan: Patient had a fall during her hospital course. She sustained a head contusion and laceration of left forehead. CT of brain was negative. PT, OT work with the patient. (10) Encephalopathy: Code(s): G93.40 - Encephalopathy, unspecified Status: Acute Assessment and Plan: Multifactorial. CT of the brain showing no acu
[2020-03-14 12:00] VITALS: BP 167/73; PULSE 77; RESP 18; TEMP 36.6; O2SAT 93
[2020-03-14 12:16] LABS: Glucose Point of Care 352 (65-105)
== END 2020-03-14 15:30 | DRG 177 ==
LOC: ANHED 16:25 → ANHIMU 18:54 → ANH3MEDSUR 03-06 14:59
PROVIDERS: Emergency Medicine Emergency Medical Services; Internal Medicine; Physician Assistant; Admitting Provider Student in an Organized Health Care Education/Training Program; Emergency Provider Emergency Medicine; PCP Nurse Practitioner Adult Health; Visit Provider Internal Medicine
DX: U07.1 COVID-19 (principal); J12.89 Other viral pneumonia; G93.40 Encephalopathy, unspecified; R09.02 Hypoxemia; E86.0 Dehydration; E11.22 Type 2 diabetes mellitus with diabetic chronic kidney disease; I13.10 Hypertensive heart and chronic kidney disease without heart failure, with stage 1 through stage 4 chronic kidney disease, or unspecified chronic kidney disease; N18.30 Chronic kidney disease, stage 3 unspecified; S01.81XA Laceration without foreign body of other part of head, initial encounter; W01.198A Fall on same level from slipping, tripping and stumbling with subsequent striking against other object, initial encounter; R79.89 Other specified abnormal findings of blood chemistry; R77.8 Other specified abnormalities of plasma proteins; F03.90 Unspecified dementia, unspecified severity, without behavioral disturbance, psychotic disturbance, mood disturbance, and anxiety; J45.909 Unspecified asthma, uncomplicated; I25.10 Atherosclerotic heart disease of native coronary artery without angina pectoris; I25.2 Old myocardial infarction; K21.9 Gastro-esophageal reflux disease without esophagitis; E78.5 Hyperlipidemia, unspecified; M10.9 Gout, unspecified; H40.9 Unspecified glaucoma; Z96.643 Presence of artificial hip joint, bilateral; Z79.4 Long term (current) use of insulin; Z79.82 Long term (current) use of aspirin; Z79.899 Other long term (current) drug therapy; Z98.49 Cataract extraction status, unspecified eye
CPT/HCPCS: 36415; 36600; 51701; 70450; 71045; 80048; 80053; 80076; 81001; 82010; 82306; 82375; 82550; 82728; 82805; 82947; 83036; 83050; 83605; 83615; 83735; 84100; 84443; 84484; 85025; 85027; 85055; 85380; 85610; 85730; 86140; 87040; 93005; 94640; 96361; 96365; 96372; 96375; 96376; 97110; 97116; 97161; 97165; 97530; 97535; 99285; A9270; G0378; J0131; J1100; J1650; J1815; J1940; J7030; J8540

== ENCOUNTER 2021-07-23 14:08 | Outpatient (CLI) | payer MEDICARE, SELFPAY ==
--- NOTE | ~2021-07-23 | CT_ITS ---
EXAMINATION: CT diagnostic chest wo con EXAM DATE: 07/23/2021 14:36 INDICATION: HX Of COVID-19. TECHNIQUE: Spiral CT of the chest without contrast. Axial, coronal and sagittal images of the chest were reviewed. Coronal maximum intensity pixel images of chest reviewed. The dose-length product ( DLP) for this examination was 204.16 mGy-cm. The exposure was tailored according to patient size (au to mA exposure control), and iterative reconstruction (ASIR) was used as additional dose reduction te [place]. There is no prior study for comparison. FINDINGS: Some motion at the lung bases. No appreciable interlobular septal thickening identified, n o evidence of interstitial lung disease. There are no pleural or pericardial effusions. Tracheobro nchial tree is patent. There is no mediastinal, hilar or axillary lymphadenopathy. There is no pn eumothorax. There is mild cardiomegaly. There is mild to moderate coronary arterial calcification, arterial sclerosis. Upper abdomen is unremarkable. There is thoracic spondylosis without osteobla stic or osteolytic lesions identified. IMPRESSION: 1. Mild cardiomegaly. Reviewed, dictated and finalized at location A. IMPRESSION: 1. Mild cardiomegaly.
== END 2021-07-23 14:09 | disposition home or self-care (01) ==
LOC: ANHIMG 14:15
PROVIDERS: PCP Nurse Practitioner Adult Health; Visit Provider Nurse Practitioner
DX: I51.7 Cardiomegaly (principal); Z86.16 Personal history of COVID-19
CPT/HCPCS: 71250

== ENCOUNTER 2021-08-02 08:02 | Outpatient (CLI) | payer MEDICARE, SELFPAY ==
[2021-08-02 08:15] VITALS: PULSE 82; O2SAT 96
[2021-08-02 08:20] VITALS: PULSE 84; PULSE 99; O2SAT 95; O2SAT 96
--- NOTE | 2021-08-02 09:23 | HOMEO2EVAL ---
Evaluation was performed at [facility] Home Oxygen Evaluation RC: Home Oxygen (O2) Evaluation Start: 08/02/21 09:15 Freq: Status: Active Protocol: RPE Activity Type Activity Date Activity User E-Sign Co-Sign Detail Recorded Client Recorded Date Recorded By Document 08/02/21 08:15 [email or web address] [id number] 08/02/21 09:18 DJO Document 08/02/21 08:20 [email or web address] [email or web address] 08/02/21 09:18 DJO Document 08/02/21 08:20 [email or web address] [email or web address] 08/02/21 09:18 DJO 08/02/21 08/02/21 08/02/21 08:15 08:20 08:20 Home O2 Evaluation Test Phase Resting Exercise Resting Oxygen Delivery Room Air Room Air Room Air Pulse Oximetry (90-100 %) 96 95 96 Pulse Rate (60-100 beats/min) 82 99 84 Activity Tolerance Poor Ambulation Distance (feet) 250 Ambulation Distance (meters) 76.19 Treatment Charges O2 Evaluation - Outpatient
--- NOTE | 2021-08-02 09:25 | HOMEO2EVAL ---
Evaluation was performed at [facility] Home Oxygen Evaluation RC: Home Oxygen (O2) Evaluation Start: 08/02/21 09:15 Freq: Status: Active Protocol: RPE Activity Type Activity Date Activity User E-Sign Co-Sign Detail Recorded Client Recorded Date Recorded By Document 08/02/21 08:15 [email or web address] [email or web address] 08/02/21 09:18 DJO Document 08/02/21 08:20 [email or web address] [email or web address] 08/02/21 09:18 DJO Document 08/02/21 08:20 [email or web address] [email or web address] 08/02/21 09:18 DJO 08/02/21 08/02/21 08/02/21 08:15 08:20 08:20 Home O2 Evaluation Test Phase Resting Exercise Resting Oxygen Delivery Room Air Room Air Room Air Pulse Oximetry (90-100 %) 96 95 96 Pulse Rate (60-100 beats/min) 82 99 84 Activity Tolerance Poor Ambulation Distance (feet) 250 Ambulation Distance (meters) 76.19 Home Oxygen Evaluation Comments PT ORDERED ON 6 MINUTE WALK BUT ARRIVED IN WHEELCHAIR AND WAS UNABLE TO WALK MORE THAN 250 FEET Treatment Charges O2 Evaluation - Outpatient
--- NOTE | 2021-08-02 12:17 | WPDPFTINT ---
PFT Procedure Performed PFT Procedure Performed Spirometry with Pre/Post Bronchodilator Plethysmography (Lung Vol) Diffusing Cap (DLCO) Flow Vol Loop PFT Interpretation This is a pulmonary function test with pre and post-bronchodilator spirometry, plethysmography and diffusing capacity. The test was performed and results interpreted in accordance with the 2019 and 2005 ATS/ERS Task Force guidelines respectively using the Global Lung Function Initiative-2012 reference equations. Patient demonstrated good effort and cooperation. Reproducibility criteria were met. The quality of the pre bronchodilator spirometry maneuver was Grade B and post bronchodilator spirometry maneuver was Grade B. The integration technician noted that the patient had difficulty with testing but gave her best effort. Findings: Spirometry: The contour the inspiratory and expiratory flow tracing are normal. The pre bronchodilator FVC is 1.81 L, 63% predicted the. The pre bronchodilator FEV1 is 1.45 L, 66% predicted. The pre bronchodilator FEV1: FVC ratio was 80%. The post bronchodilator FVC is 1.82 L, representing no change. The post bronchodilator FEV1 is 1.35 L, representing a 7% decrease. The post bronchodilator FEV1: FVC ratio 74%. Plethysmography: The total lung capacity is 5.21 L, 97% predicted. The functional residual capacity is 3.62 L, 117% predicted. The residual volume is 2.81 L, 117% predicted. Diffusing capacity: The diffusing capacity unadjusted for hemoglobin and carboxyhemoglobin is 11.3, 55% predicted. The diffusing capacity adjusted for alveolar volume is 3.64, 89% predicted. Impression: The spirometry is normal without evidence of an obstructive abnormality. The lung volumes are normal without evidence of and restrictive abnormality. The FVC and FEV1 are moderately decreased without an obstructive or restrictive abnormality. This is an abnormal but nonspecific finding. There is no significant improvement after inhaling a single dose of albuterol. The diffusing capacity unadjusted for hemoglobin and carboxyhemoglobin is moderately decreased and normalizes when adjusted for alveolar volume. There are no prior studies for comparison
--- NOTE | 2021-08-17 14:28 | HOMEO2EVAL ---
Evaluation was performed at [facility]
== END 2021-08-02 08:03 | disposition home or self-care (01) ==
LOC: ANHPFT 08:05
PROVIDERS: PCP Nurse Practitioner Adult Health; Visit Provider Nurse Practitioner
DX: R94.2 Abnormal results of pulmonary function studies (principal); Z86.16 Personal history of COVID-19
CPT/HCPCS: 94060; 94618; 94726; 94729

== ENCOUNTER 2021-10-25 10:38 | Outpatient (CLI) | payer MEDICARE, SELFPAY ==
[2021-10-25 11:01] LABS: Basophils Percent Auto 0.4 % (0.2-1.2); Eosinophils Absolute Auto 0.7 K/mm3 (0-0.3); Eosinophils Percent Auto 6.4 % (0-4.4); Hematocrit 38.2 % (37.0-47.0); Hemoglobin 12.4 g/dL (12.0-15.0); Immature Granulocyte Absolute 0.03 K/mm3 (0.00-0.031); Immature Granulocyte Percent A 0.3 % (0-0.5); Lymphocytes Absolute Auto 3.33 K/mm3 (0.9-3.2); Lymphocytes Percent Auto 30.9 % (18.3-44.2); Mean Corpuscular HGB Conc 32.5 g/dl (32-36); Mean Corpuscular Hemoglobin 31.6 pg (26-34); Mean Corpuscular Volume 97.4 fl (80-100); Mean Platelet Volume 10.4 fl (7.4-10.4); Monocytes Absolute Auto 1.1 K/mm3 (0.1-0.6); Monocytes Percent Auto 10.2 % (2.6-8.5); Neutrophils Absolute Auto 5.6 K/mm3 (1.3-6.7); Neutrophils Percent Auto 51.8 % (45.5-73.1); Platelet Count Result 219 k/mm3 (150-375); Red Blood Count 3.92 M/mm3 (4.2-5.4); Red Cell Distribution Width 13.3 % (11.5-14.5); White Blood Count 10.8 K/mm3 (4.5-10.0)
[2021-10-25 11:23] LABS: Alanine Aminotransferase 23 U/L (6-35); Albumin Level 4.5 g/dL (3.5-5.1); Alkaline Phosphatase 91 U/L (38-126); Anion Gap 9 mmol/L (8-16); Aspartate Amino Transferase 22 U/L (14-36); Bilirubin,Total 0.4 mg/dL (0.2-1.3); Blood Urea Nitrogen 41 mg/dL (7-17); Calcium 10.2 mg/dL (8.4-10.2); Carbon Dioxide 25 mmol/L (22-30); Chloride 108 mmol/L (98-107); Estimated Glomerular Filt Rate 31; Glucose 205 mg/dL (65-110); Potassium 4.9 mmol/L (3.4-5.0); Sodium 142 mmol/L (137-145)
[2021-10-25 12:19] LABS: T4 Thyroxine 6.47 ug/dL (5.53-11.0)
[2021-10-25 13:09] LABS: Folic Acid > 20.0 ng/mL (2.76->20)
== END 2021-10-25 10:39 | disposition home or self-care (01) ==
LOC: ANHLAB 10:40
PROVIDERS: PCP Nurse Practitioner Adult Health; Visit Provider Psychiatry & Neurology Neurology
DX: R53.1 Weakness (principal); E11.9 Type 2 diabetes mellitus without complications; Z79.4 Long term (current) use of insulin
CPT/HCPCS: 36415; 80053; 82607; 82746; 84436; 84443; 85025

== ENCOUNTER 2021-10-29 10:35 | Outpatient (CLI) | payer MEDICARE, SELFPAY ==
--- NOTE | 2021-10-30 08:47 | WPDNEUROLOGY ---
Neurology EEG Report General Information Date of Study: 10/29/21 TEST EEG DIAGNOSIS generalized weakness CONDITION OF RECORDING awake and drowsy EEG NUMBER [id number] CLINICAL HISTORY patient unable to follow instruction on keeping eyes closed eye movement artifacts are noted throughout the tracing EEG DESCRIPTION poorly organized low to medium voltage 5 to 7 hertz per 2nd theta activity seen admixed with poorly organized low to medium voltage 8 to 9 hertz per 2nd alpha activity. Bilateral symmetrical sleep activity seen during sleep. Hyperventilation not done. Photic stimulation produced poor drive. Non paroxysmal. Nonfocal. Nonlateralizing. IMPRESSION Abnormal record due to the absence of normal background rhythm and also due to the presence of excessive amount of theta activity ,these abnormalities are consistent with the organic or metabolic encephalopathy ,clinical correlation recommended.
== END 2021-10-29 10:36 | disposition home or self-care (01) ==
LOC: ANHNEURO 10:37
PROVIDERS: PCP Nurse Practitioner Adult Health; Visit Provider Psychiatry & Neurology Neurology
DX: R53.1 Weakness (principal); R94.131 Abnormal electromyogram [EMG]
CPT/HCPCS: 95816

== ENCOUNTER 2022-04-23 11:18 | Emergency (ER) | payer MEDICARE, SELFPAY ==
--- NOTE | ~2022-04-23 | XR_ITS ---
EXAMINATION: XR chest 2V DATE: 04/23/2022 12:09 INDICATION: Shortness of breath. TECHNIQUE: Frontal and lateral views of the chest were obtained. COMPARISON: Chest single view 03/07/2020 FINDINGS: A calcified right lung nodule is consistent with old granulomatous disease. No pleural effu tyler or pneumothorax. The heart size is normal. There are prominent paracardial fat pads. IMPRESSION: 1. No acute cardiopulmonary disease. Reviewed, dictated and finalized at location A. OL CONDUCTOR
[2022-04-23 11:21] VITALS: BP 143/60; PULSE 75; RESP 20; TEMP 36.4; O2SAT 98
--- NOTE | 2022-04-23 11:24 | ECG_ITS ---
Measurements Intervals [place] Rate: 72 P: 70 OK: 192 QRS: -15 QRSD: 83 T: 83 QT: 378 QTc: 416 Interpretive Statements SINUS RHYTHM LOW QRS VOLTAGE IN PRECORDIAL LEADS ANTERIOR INFARCT, AGE INDETERMINATE INFERIOR INFARCT, AGE INDETERMINATE BORDERLINE ST-T WAVE ABNORMALITY- HIGH LATERAL LEADS BASELINE ARTIFACT- I, III, AVR, AVL, AVF, V5 ABNORMAL ECG COMPARED TO ECG 03/07/2020 13:16:56 MYOCARDIAL INFARCT FINDING NOW PRESENT Electronically Signed On 04-23-2022 11:51:15 FRENCH FOLDER by Hernando Grissom D.O.
[2022-04-23 11:49] LABS: Basophils Percent Auto 0.4 % (0.2-1.2); Eosinophils Absolute Auto 0.6 K/mm3 (0-0.3); Eosinophils Percent Auto 6.7 % (0-4.4); Hematocrit 42.2 % (37.0-47.0); Hemoglobin 13.6 g/dL (12.0-15.0); Immature Granulocyte Absolute 0.02 K/mm3 (0.00-0.031); Immature Granulocyte Percent A 0.2 % (0-0.5); Lymphocytes Absolute Auto 1.39 K/mm3 (0.9-3.2); Lymphocytes Percent Auto 16.4 % (18.3-44.2); Mean Corpuscular HGB Conc 32.2 g/dl (32-36); Mean Corpuscular Hemoglobin 31.3 pg (26-34); Mean Corpuscular Volume 97.2 fl (80-100); Mean Platelet Volume 10.5 fl (7.4-10.4); Monocytes Absolute Auto 1.2 K/mm3 (0.1-0.6); Monocytes Percent Auto 13.6 % (2.6-8.5); Neutrophils Absolute Auto 5.3 K/mm3 (1.3-6.7); Neutrophils Percent Auto 62.7 % (45.5-73.1); Platelet Count Result 207 k/mm3 (150-375); Red Blood Count 4.34 M/mm3 (4.2-5.4); Red Cell Distribution Width 13.1 % (11.5-14.5); White Blood Count 8.5 K/mm3 (4.5-10.0)
[2022-04-23 12:13] LABS: Alanine Aminotransferase 24 U/L (6-35); Albumin Level 4.4 g/dL (3.5-5.1); Alkaline Phosphatase 79 U/L (38-126); Anion Gap 13 mmol/L (8-16); Aspartate Amino Transferase 27 U/L (14-36); Bilirubin,Total 0.6 mg/dL (0.2-1.3); Blood Urea Nitrogen 42 mg/dL (7-17); Carbon Dioxide 22 mmol/L (22-30); Chloride 105 mmol/L (98-107); Estimated CRCL calculation 26 ml/min; Estimated Glomerular Filt Rate 26; Glucose 263 mg/dL (65-110); Potassium 4.2 mmol/L (3.4-5.0); Sodium 140 mmol/L (137-145)
[2022-04-23 12:34] VITALS: O2SAT 98
[2022-04-23 13:09] LABS: Influenza A QL RT-PCR Negative (Negative); Influenza B QL RT-PCR Negative (Negative); RSV RNA, RT-PCR Negative (Negative); SARS-CoV-2 RNA PCR Positive
--- NOTE | 2022-04-23 13:17 | ED.GENADULT ---
HPI - General Adult General Chief complaint: Shortness of Breath/Dyspnea Stated complaint: SOB X1 week Time Seen by Provider: 04/23/22 12:23 History of Present Illness HPI narrative: 76-year-old female present to the emergency department for evaluation of increased generalized weakness since . Patient is vaccinated against COVID and influenza. Patient did call to follow-up with her primary care physician and was referred to the emergency department. Patient denies any associated chest pain or shortness of breath. Patient does have cough nasal congestion and increased generalized weakness. Patient reports she is vaccinated against COVID and flu. History was from both the patient's and the patient. Related Data Home Medications Medication Instructions Recorded Confirmed latanoprost 0.005 % eye drops 1 drop ophthalmic (eye) HS 07/06/19 04/10/22 albuterol sulfate 90 mcg/actuation 2 puff inhalation Q4-6H PRN 07/17/19 04/10/22 aerosol inhaler (ProAir HFA) Shortness Of Breath allopurinol 100 mg tablet 200 mg PO QAM 01/10/20 04/10/22 amlodipine 10 mg tablet 10 mg PO QAM 01/10/20 04/10/22 aspirin 81 mg tablet,delayed 81 mg PO QPM 01/10/20 04/10/22 release (Adult Aspirin Regimen) atorvastatin 10 mg tablet 10 mg PO QAM 01/10/20 04/10/22 calcium carbonate 600 mg-vitamin 4 cap PO DAILY 01/10/20 04/10/22 D3 12.5 mcg (500 unit) capsule furosemide 20 mg tablet 20 mg PO QAM 12/13/20 04/10/22 famotidine 40 mg tablet 40 mg PO DAILY 09/25/21 04/10/22 multivit with 1 tablet PO DAILY 09/25/21 04/10/22 bjtmmlak-ehcx-MW-lutein 8 mg iron-400 mcg-300 mcg tablet (Centrum Silver Women) vitamin B complex 1 tablet PO DAILY 09/25/21 01/01/22 omega-3-dha 120 mg-epa 180 mg-fish 1 cap PO DAILY 10/17/21 04/10/22 oil-vitamin D3 1,000 unit capsule insulin glargine 100 unit/mL (3 55 unit subcut DAILY 04/09/22 04/09/22 mL) subcutaneous pen (Basaglar KwikPen U-100 Insulin) Allergies Allergy/AdvReac Type Severity Reaction Status Date / Time rofecoxib [From Vioxx] Allergy Intermediate Rash Verified 04/09/22 13:21 codeine Allergy Unknown Unknown Verified 04/09/22 13:21 celecoxib [From Celebrex] Allergy Rash Verified 04/09/22 13:21 Review of Systems Review of Systems: CONSTITUTIONAL: See HPI EYES: Denies visual changes, redness, or discharge. ENT: Denies rhinorrhea, congestion, sore throat, or otalgia. CARDIOVASCULAR: Denies chest pain, palpitations, or edema. RESPIRATORY: See HPI GASTROINTESTINAL: Denies abdominal pain, nausea, vomiting, or diarrhea. GENITOURINARY: Denies dysuria or hematuria. SKIN: Denies rash or itching. MUSCULOSKELETAL: Denies back pain, joint pain, or myalgia. NEUROLOGIC: Denies headache, numbness, or weakness. [facility] Past Medical History Medical History Anemia Arthritis Asthma Chronic kidney disease, stage 3 Baseline creatinine is around 1.70. Coronary artery disease With history of NV and stent x1 in 2016. Dementia Diastolic dysfunction Echocardiogram in March 2018 showed impaired relaxation grade 1 with an ejection fraction of 55 to 60%. DVT prophylaxis Elevated LFTs Elevated troponin Encephalopathy Gastroesophageal reflux disease GI bleed Secondary to gastric ulcer in 2014. Glaucoma Gout Hepatitis Hyperlipidemia Hypertension Hypoxemia Parkinsons Pneumonia Scoliosis Type 2 diabetes mellitus without complication, with long-term current use of insulin Surgical History Surgical History History of bilateral hip arthroplasty Right replaced in 2005. Left replaced in 2017. History of cardiac catheterization With stent in 2016. History of cataract extraction History of tubal ligation Family History Family History Other Carcinoma of colon Cerebrovascular accident Family history of arthritis Family hi
--- NOTE | 2022-04-23 13:31 | PC.NURSE ---
Pt ambulated with pulse ox and maintained an O2 sat of 95-96% while ambulating.
[2022-04-23] MEDS: AZITHROMYCIN 250 MG TABLET 500 MG PO (14:14)
[2022-04-23 14:21] VITALS: BP 154/84; PULSE 76; RESP 18
== END 2022-04-23 14:15 | disposition home or self-care (01) ==
PROVIDERS: Emergency Medicine; Emergency Provider Emergency Medicine
DX: U07.1 COVID-19 (principal); J18.9 Pneumonia, unspecified organism; N17.9 Acute kidney failure, unspecified; E11.65 Type 2 diabetes mellitus with hyperglycemia; E11.22 Type 2 diabetes mellitus with diabetic chronic kidney disease; I13.0 Hypertensive heart and chronic kidney disease with heart failure and stage 1 through stage 4 chronic kidney disease, or unspecified chronic kidney disease; N18.30 Chronic kidney disease, stage 3 unspecified; I50.30 Unspecified diastolic (congestive) heart failure; E11.39 Type 2 diabetes mellitus with other diabetic ophthalmic complication; H42 Glaucoma in diseases classified elsewhere; G20 Parkinson's disease; K21.9 Gastro-esophageal reflux disease without esophagitis; Z96.643 Presence of artificial hip joint, bilateral; Z95.5 Presence of coronary angioplasty implant and graft; Z87.01 Personal history of pneumonia (recurrent); Z98.49 Cataract extraction status, unspecified eye; Z79.4 Long term (current) use of insulin; Z79.82 Long term (current) use of aspirin; R94.31 Abnormal electrocardiogram [ECG] [EKG]
CPT/HCPCS: 36415; 71046; 80053; 85025; 87637; 93005; 99283; A9270

== ENCOUNTER 2022-08-05 12:33 | Outpatient (CLI) | payer MEDICARE, SELFPAY ==
--- NOTE | 2022-08-07 12:45 | WPDSIXMINUTE ---
Six Minute Walk Procedure Procedure Performed Pulmonary Stress Test (6 min walk) Six Minute Walk Six Minute Walk: DOS: 08/05/2022 REQUESTING: MANGO Alvarez REASON FOR TESTING: Cough SIX MINUTE WALK This test was conducted per ATS guidelines. The test was conducted while the patient was breathing room air and using a walker. Initial pulse was 70, initial saturation 97%. There was no drop in saturation during the study. Saturation remained 96% to 99%. Herbert dyspnea scale was 2 at the start of the study, and Herbert was 3 during recovery. The patient walked a total of 400 ft, 191.2 meter, lower than normal. Patient stopped for 30 seconds due to fatigue, then continued walking. Saturation at the end of the study 98%. Pulse at the end of the study 108. IMPRESSION: This patient does not desaturate during walking. No supplemental oxygen is indicated with exertion. Patient had sustained tachycardia for almost 3 minutes after stopping to rest. at 4 minutes after stopping the study, pulse was 82.
--- NOTE | 2022-08-07 12:51 | WPDPFTINT ---
PFT Procedure Performed PFT Procedure Performed Spirometry with Pre/Post Bronchodilator Plethysmography (Lung Vol) Diffusing Cap (DLCO) Flow Vol Loop PFT Interpretation DOS: 08/05/2022 REQUESTING: Candie Ding [facility]- REASON FOR TESTING: cough PULMONARY FUNCTION TESTS Results are reliable and reproducible on the pre-bronchodilator portion, Grade A. On post-bronchodilator the repeatability was Grade B. Spirometry: pre bronchodilator FEV1 is 1.48 L, 68%, mildly reduced. Pre bronchodilator FVC is 1.87 L, 66%, mildly reduced. FEV1/FVC ratio is 79%, normal. After bronchodilator there is a 1% drop in the FEV1 and a 2% increase in the FVC. These are not statistically significant. The FEV1 / FVC ratio after bronchodilator is 77%, normal. Lung volumes: Total lung capacity 5.44 L, 101%, normal. Residual volume 3.57 L, 147% predicted, moderately increased. RV /TLC is 66%, increased. Diffusion: Patient could not complete due to coughing, could not perform breath hold. Flow volume loop: Could not complete due to coughing, IMPRESSION: Mild ventilatory impairment without response to bronchodilator, moderate air trapping. No response to bronchodilator. Diffusion and flow volume loop could not be completed due to coughing. Compared to prior study on 08/02/2021 values are similar. The FEV1 was 1.81 L now 1.87 L. there was no response to bronchodilator. The FEV1 is about the same. Total lung capacity similar 5.21 L. The RV was 2.81 L, 117%, normal, and now RV is increased, so the air trapping is new. She also had difficulty on the initial testing However she was able to complete diffusion and flow volume loop. Lack of response to bronchodilator should not preclude use if clinically indicated. Deysi Babin MD
== END 2022-08-05 12:34 | disposition home or self-care (01) ==
LOC: ANHPFT 12:35
PROVIDERS: PCP Family Medicine; Visit Provider Nurse Practitioner
DX: R05.3 Chronic cough (principal); R06.09 Other forms of dyspnea; R94.2 Abnormal results of pulmonary function studies
CPT/HCPCS: 94060; 94618; 94726

== ENCOUNTER 2023-01-17 13:09 | Outpatient (CLI) | payer MEDICARE, SELFPAY ==
[2023-01-17 15:31] LABS: Albumin Level 4.5 g/dL (3.5-5.1); Anion Gap 14 mmol/L (8-16); Blood Urea Nitrogen 46 mg/dL (7-17); Calcium 9.5 mg/dL (8.4-10.2); Carbon Dioxide 19 mmol/L (22-30); Chloride 110 mmol/L (98-107); Estimated Glomerular Filt Rate 17; Glucose 187 mg/dL (65-110); Phosphorus 4.1 mg/dL (2.5-4.5); Potassium 4.4 mmol/L (3.4-5.0); Sodium 143 mmol/L (137-145)
== END 2023-01-17 13:10 | disposition home or self-care (01) ==
PROVIDERS: PCP Family Medicine; Visit Provider Internal Medicine Nephrology
DX: N18.32 Chronic kidney disease, stage 3b (principal)
CPT/HCPCS: 36415; 80069

== ENCOUNTER 2023-02-13 10:33 | Outpatient (CLI) | payer MEDICARE, SELFPAY ==
[2023-02-13 11:06] LABS: Hematocrit 41.7 % (37.0-47.0); Hemoglobin 13.7 g/dL (12.0-15.0); Mean Corpuscular HGB Conc 32.9 g/dl (32-36); Mean Corpuscular Hemoglobin 32.1 pg (26-34); Mean Corpuscular Volume 97.7 fl (80-100); Mean Platelet Volume 10.7 fl (7.4-10.4); Platelet Count Result 205 k/mm3 (150-375); Red Blood Count 4.27 M/mm3 (4.2-5.4); White Blood Count 9.5 K/mm3 (4.5-10.0)
[2023-02-13 11:22] LABS: Creatinine Urine 133.6 mg/dL
[2023-02-13 11:27] LABS: Albumin Level 4.9 g/dL (3.5-5.1); Anion Gap 13 mmol/L (8-16); Blood Urea Nitrogen 49 mg/dL (7-17); Carbon Dioxide 23 mmol/L (22-30); Chloride 104 mmol/L (98-107); Estimated Glomerular Filt Rate 24; Glucose 204 mg/dL (65-110); Phosphorus 3.5 mg/dL (2.5-4.5); Potassium 4.4 mmol/L (3.4-5.0); Sodium 140 mmol/L (137-145); Sodium Urine Random 60 meq/L
== END 2023-02-13 10:34 | disposition home or self-care (01) ==
LOC: ANHLAB 10:37
PROVIDERS: PCP Family Medicine; Visit Provider Internal Medicine Nephrology
DX: E11.9 Type 2 diabetes mellitus without complications (principal); N18.32 Chronic kidney disease, stage 3b; Z79.4 Long term (current) use of insulin
CPT/HCPCS: 36415; 80069; 82570; 84300; 85027

== ENCOUNTER 2024-02-13 03:58 | Emergency (ER) | payer MEDICARE, SELFPAY ==
--- NOTE | ~2024-02-13 | XR_ITS ---
EXAMINATION: XR pelvis 1-2V DATE: 02/13/2024 05:28 INDICATION: Left hip pain. TECHNIQUE: An anteroposterior view of the pelvis on 2 radiographs were obtained. COMPARISON: Left hip radiographs 09/01/2017 FINDINGS: There are bilateral total hip arthroplasties in near-anatomic alignment. There is a peripro sthetic fracture of proximal femur involving the greater trochanter. The greater trochanter fracture fragment demonstrates 7 mm lateral displacement. There is severe lumbar spondylosis. IMPRESSION: 1. Periprosthetic fracture involving left greater trochanter. 2. Bilateral total hip arthroplasties in near-anatomic alignment. Reviewed, dictated and finalized at location A.
--- NOTE | ~2024-02-13 | XR_ITS ---
EXAMINATION: XR forearm LT 2V DATE: 02/13/2024 05:28 INDICATION: Left forearm pain. TECHNIQUE: 2 views of left forearm on 3 radiographs were obtained. COMPARISON: None. FINDINGS: There is an avulsion fracture of L5 centrally. There is a comminuted fracture of distal rad ius. The main distal fracture fragment demonstrates impaction and dorsal angulation. There is 15 degr ees dorsal tilt of the distal articular surface. There is severe osteoarthritis of triscaphe joint an d first carpometacarpal joint. No elbow joint effusion. IMPRESSION: 1. Comminuted fracture of distal radius. 2. Avulsion fracture of the ulnar styloid. Reviewed, dictated and finalized at location A.
--- NOTE | ~2024-02-13 | CT_ITS ---
EXAMINATION: CT brain wo con DATE: 02/13/2024 04:56 INDICATION: Head injury. TECHNIQUE: Computed tomography (CT) of the head was performed without intravenous contrast. The mA wa s adjusted according to patient size. Iterative reconstruction technique was employed. The dose-lengt h product was 1210.67 mGy-cm. COMPARISON: Head CT 03/11/2020 FINDINGS: There are scattered areas of low attenuation in the cerebral white matter, which is within normal limits for the patient's age. There is no intracranial hemorrhage, acute infarction, or abnorm al intracranial mass lesion. The ventricles are normal in size. There is mucosal thickening in the pa ranasal sinuses. There are likely changes of ocular lens replacement surgeries. The mastoid air cells are normal. There is left frontal scalp soft tissue swelling. IMPRESSION: 1. Normal aging brain. Reviewed, dictated and finalized at location A. IMPRESSION: 1. Normal aging brain.
--- NOTE | ~2024-02-13 | CT_ITS ---
EXAMINATION: CT facial & cervical spine wo DATE: 02/13/2024 04:56 INDICATION: Head injury. TECHNIQUE: Computed tomography (CT) of the maxillofacial region and cervical spine was performed with out intravenous contrast. Automated exposure control and iterative reconstruction technique were empl oyed. The dose-length product was 220.03 mGy-cm. COMPARISON: None FINDINGS: MAXILLOFACIAL CT: There is left frontal scalp soft tissue swelling. There are likely changes of ocular lens replacement surgeries. There is mucosal thickening in the paranasal sinuses. There is leftward deviation of the nasal septum. CERVICAL SPINE CT: There is mild scarring at the lung apices. There is 2 mm anterolisthesis of C4 on C5 and C7 on T1. Th ere is mild chronic height loss of C5 vertebral body. There is mildly decreased disc height at C3-C4. There is moderately decreased disc height at C4-C5 with interbody fusion. There is moderately decrea sed disc height at C5-C6 and severely decreased disc height at C6-C7. There is multilevel severe face t joint osteoarthritis. There is ankylosis of the facet joints at C4-C5. There is multilevel neural f oraminal stenosis bilaterally, moderate on the right at C6-C7 and moderate on the left at C6-C7. Ther e is mild central canal stenosis at C3-C4, C5-C6, and C6-C7. IMPRESSION: 1. No fracture. Sensitivity is moderately decreased by motion artifact. 2. Severe cervical spondylosis. Reviewed, dictated and finalized at location A.
--- NOTE | ~2024-02-13 | XR_ITS ---
EXAMINATION: XR humerus LT DATE: 02/13/2024 05:28 INDICATION: Left upper arm pain. TECHNIQUE: 2 views of left humerus on 3 radiographs were obtained. COMPARISON: None. FINDINGS: Alignment is normal. No fracture. There is mild osteoarthritis of glenohumeral joint and ac romioclavicular joint. No elbow joint effusion. IMPRESSION: 1. No fracture. Reviewed, dictated and finalized at location A. IMPRESSION: 1. No fracture.
--- NOTE | ~2024-02-13 | XR_ITS ---
EXAMINATION: XR femur LT min 2V DATE: 02/13/2024 05:28 INDICATION: Left thigh pain. TECHNIQUE: 2 views of left femur on 5 radiographs were obtained. COMPARISON: Left hip radiographs 09/01/17 FINDINGS: There is a total left hip arthroplasty in near-anatomic alignment. No periprosthetic lucenc y to suggest loosening or infection. There is a periprosthetic fracture involving left greater trocha nter. The greater trochanter fracture fragment demonstrates 5 mm lateral displacement. Left knee demo nstrates severe osteoarthritis of medial compartment, moderate osteoarthritis of lateral compartment, and mild osteoarthritis of patellofemoral compartment. No knee joint effusion. IMPRESSION: 1. Periprosthetic fracture involving the greater trochanter of proximal left femur. Reviewed, dictated and finalized at location A. IMPRESSION: 1. Periprosthetic fracture involving the greater trochanter of proximal left fe mur.
--- NOTE | ~2024-02-13 | XR_ITS ---
EXAMINATION: XR wrist LT min 3V DATE: 02/13/2024 05:28 INDICATION: Left wrist pain. TECHNIQUE: 3 views of left wrist were obtained. COMPARISON: None. FINDINGS: There is an avulsion fracture of the ulnar styloid. There is a comminuted fracture of dista l radius without definite involvement of the distal articular surface or distal radioulnar joint. The main distal fracture fragment demonstrates impaction, dorsal angulation, and 3 mm radial displacemen t. There is 15 degrees dorsal tilt of the distal articular surface. There is severe osteoarthritis of triscaphe joint and first carpometacarpal joint. IMPRESSION: 1. Comminuted fracture of distal radius. 2. Avulsion fracture of the ulnar styloid. Reviewed, dictated and finalized at location A.
[2024-02-13 04:04] VITALS: BP 142/60; PULSE 72; RESP 15; TEMP 37.2; O2SAT 100
--- NOTE | 2024-02-13 05:50 | ED_ITS ---
HPI - Fall General Chief Complaint: Fall Stated Complaint: LEFT ARM & SIDE PAIN S/P MULTIPLE FALLS ON 02/11 Time Seen by Provider: 02/13/24 04:00 Source: patient and EMS Mode of arrival: EMS Limitations: no limitations History of Present Illness HPI Narrative: This is a 78-year-old female, with history of dementia and baseline orientation of wound to, brought in by EMS from home after a repeat ground level fall. EMS reports they presented to the patient's home earlier after a fall though transport was refuses the patient's felt he could care for her. Vital signs reported within normal limits. The patient states she is unsure of how she fell. She complains of left-sided headache, left wrist pain, left arm pain and left hip pain. She denies chest pain, shortness of breath, loss of conscious or weakness/numbness. She has no other complaints at this time. Related Data Home Medications Medication Instructions Recorded Confirmed latanoprost 0.005 % eye drops 1 drop ophthalmic (eye) HS 07/06/19 02/11/24 albuterol sulfate 90 mcg/actuation 2 puff inhalation Q4-6H PRN 07/17/19 02/11/24 aerosol inhaler (ProAir HFA) Shortness Of Breath allopurinol 100 mg tablet 200 mg PO QAM 01/10/20 02/11/24 amlodipine 10 mg tablet 10 mg PO QAM 01/10/20 02/11/24 aspirin 81 mg tablet,delayed 81 mg PO QPM 01/10/20 02/11/24 release (Adult Aspirin Regimen) atorvastatin 10 mg tablet 10 mg PO QAM 01/10/20 02/11/24 furosemide 20 mg tablet 20 mg PO QAM 12/13/20 02/11/24 famotidine 40 mg tablet 40 mg PO DAILY 09/25/21 02/11/24 insulin glargine 100 unit/mL (3 10 unit subcut QAM 11/05/23 02/11/24 mL) subcutaneous pen (Basaglar KwikPen U-100 Insulin) insulin lispro 100 unit/mL 10 unit subcut TID 11/05/23 02/11/24 subcutaneous pen (Humalog KwikPen (U-100) Insulin) dicyclomine 10 mg capsule 10 mg PO TID 02/11/24 02/11/24 Allergies Allergy/AdvReac Type Severity Reaction Status Date / Time rofecoxib [From Vioxx] Allergy Intermediate Rash Verified 02/11/24 13:55 codeine Allergy Unknown Unknown Verified 02/11/24 13:55 celecoxib [From Celebrex] Allergy Rash Verified 02/11/24 13:55 Review of Systems Review of Systems: All systems reviewed & are unremarkable except as noted in HPI and below PMFSH Past Medical History Medical History Anemia Arthritis Asthma BMI 25.0-25.9,adult Chronic kidney disease, stage 3 Baseline creatinine is around 1.70. Coronary artery disease With history of NM and stent x1 in 2016. Dementia Dementia of the Alzheimer's type Diastolic dysfunction Echocardiogram in March 2018 showed impaired relaxation grade 1 with an ejection fraction of 55 to 60%. DVT prophylaxis Dyskinesia Elevated LFTs Elevated troponin Encephalopathy Excessive daytime sleepiness Gastroesophageal reflux disease GI bleed Secondary to gastric ulcer in 2014. Glaucoma Gout Hepatitis Hyperlipidemia Hypertension Hypoxemia Parkinsons Pneumonia Scoliosis Type 2 diabetes mellitus without complication, with long-term current use of insulin Surgical History Surgical History History of bilateral hip arthroplasty Right replaced in 2005. Left replaced in 2018. History of cardiac catheterization With stent in 2015. History of cataract extraction History of tubal ligation Family History Family History Father CHF (congestive heart failure) Mother Cerebrovascular accident Other Carcinoma of colon Family history of arthritis Family history of cardiovascular disease Family history of chronic obstructive pulmonary disease Family history of glaucoma Family history of hearing loss Hypertension Social History Social History Social History: Surrogate decision maker: Marquise Kumari, spouse. Code status: Full code. Smoking status: Never smoker Second hand tobacco smoke exposure: No Alcohol intake: never Substance use: never Substance use type: does not use Do You Feel Safe in your Home?: Yes Lack of Transportation: No Lack of Food: Never True Current Housing: I Have Housing Concerned About Future Housing: No Difficulty Paying Gas/Electric Bills: No Difficulty Paying for Meds: No Currently Unemployed: No Education: High School Diploma/GED Difficulty w/ Childcare or Family Care: No Living arrangements: with family Additional living arrangements comments: Resides with her in [place]. 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 HEAD: Normocephalic, there are 3 shallow lacerations measuring 1 cm, 0.5 cm and 1 cm at the superior lateral border of the left orbit. There is tenderness to palpation in the same area. EYES: PERRLA and EOMI. There is a left periorbital hematoma ENT: Nares clear, no rhinorrhea or epistaxis. Mucous membranes moist. Oropharynx without tonsillar hypertrophy exudate or other lesions. Bilateral TMs pearly regalado nonbulging. No hemotympanum NECK: Supple. No midline spine tenderness to palpation, no step-off or crepitus CHEST: Clear to auscultation. No respiratory distress. No wheezes rales or rhonchi HEART: Regular rate and rhythm. No murmur heard. Normal peripheral pulses. ABDOMEN: Soft, nontender, nondistended, normal active bowel sounds. BACK: No midline spine tenderness to palpation, step-off or crepitus EXTREMITIES: Tender to palpation at the lateral aspect of the left thigh without visible deformity or ecchymosis. There is deformity noted of the distal, lateral left wrist. Range of motion of the left wrist limited by pain. Range of motion of the right arm intact. Range of motion of the left leg limited by pain. Range of motion of the right leg intact. No edema. SKIN: Warm, dry, no rash. NEURO: Alert and oriented x3. No focal deficit. Moving all 4 limbs spontaneously PSYCH: Normal mood and affect. Course Course Emergency Course: 05:50 - STAT Rad interpretation of CT head demonstrates no large intracranial hemorrhage or mass effect , however this was affected by motion degradation. My review of the patient's x-rays demonstrates a periprostatic femur fracture at the greater trochanter and a distal left radius fracture without significant displacement. Will place the patient in a thumb spica. I discussed these findings with the patient with recommendation for transfer for trauma evaluation. The patient voiced understanding and is comfortable with the plan. 06:23 - STAT Rad interpretation of CT face and CT cervical spine degraded by motion artifact. I discussed the patient with [facility] ED physician, Dr. Lance who accepts ED transfer. Vital Signs Vital signs: Vital Signs Temperature 99 F 02/13/24 04:04 Pulse Rate 72 02/13/24 04:04 Respiratory Rate 15 02/13/24 04:04 Blood Pressure 142/60 H 02/13/24 04:04 Pulse Oximetry 100 02/13/24 04:04 Oxygen Delivery Room Air 02/13/24 04:04 Temperature 99 F 02/13/24 04:04 Pulse Rate 76 02/13/24 06:25 Respiratory Rate 15 02/13/24 06:25 Blood Pressure 144/72 H 02/13/24 06:25 Pulse Oximetry 100 02/13/24 06:25 Oxygen Delivery Room Air 02/13/24 04:04 Procedures Orthopedic Splinting/Casting Injury #1: Splinting/Casting Date: 02/13/24 Splinting/Casting Time: 06:00 Side: left Upper Extremity Injury Location: wrist Upper Extremity Immobilizer: thumb spica Splint: customized in ED OCL: thumb spica Pre-Procedure Neuro Vascular Exam: normal Post-Procedure Neuro Vascular Exam: normal MDM - Fall MDM Narrative Medical decision making narrative: Plan: Imaging, pain control, tetanus vaccination, reassess Differential Diagnosis Differential diagnosis: Likely other (Skull fracture, intracranial hemorrhage, cervical spine fracture, facial fracture, laceration, femur fracture, wrist fracture, humerus fracture, other) Discharge Plan Discharge Clinical Impression: Laceration of face, Distal radius fracture, left, Closed left femoral fracture, Acute pain of left wrist, Acute pain of left hip Patient Disposition: Acute Care Hospital Condition: Serious Prescriptions: No Action latanoprost 0.005 % drops 1 drop EACH EYE HS albuterol sulfate [ProAir HFA] 90 mcg/actuation HFA aerosol inhaler 2 puff INHALATION Q4-6H PRN (Reason: Shortness Of Breath) famotidine 40 mg tablet 40 mg PO DAILY donepezil [Aricept] 5 mg tablet 5 mg PO QHS Qty: 90 2RF escitalopram oxalate [Lexapro] 10 mg tablet 10 mg PO DAILY Qty: 30 6RF dicyclomine 10 mg capsule 10 mg PO TID allopurinol 100 mg tablet 200 mg PO QAM amlodipine 10 mg tablet 10 mg PO QAM aspirin [Adult Aspirin Regimen] 81 mg tablet,delayed release (DR/EC) 81 mg PO QPM atorvastatin 10 mg tablet 10 mg PO QAM (DME) FreeStyle Raghav 2 Sensor Kit See Rx Instructions .Route Qty: 6 6RF Rx Instructions: As directed furosemide 20 mg tablet 20 mg PO QAM insulin glargine [Basaglar KwikPen U-100 Insulin] 100 unit/mL (3 mL) insulin pen 10 unit subcut QAM insulin lispro [Humalog KwikPen Insulin] 100 unit/mL insulin pen 10 unit subcut TID (DME) True Metrix Glucose Test Strip Strip See Rx Instructions .ROUTE .MEDSUPPLY Qty: 300 3RF Rx Instructions: Use to check BS 3 times daily (DME) pen needle, diabetic 32 gauge x 5/32 needle See Rx Instructions .ROUTE .COMPLEX Qty: 450 0RF Dose Instruction: USE WITH INSULIN INJECTIONS FIVE TIMES DAILY Rx Instructions: USE WITH INSULIN INJECTIONS FIVE TIMES DAILY memantine 10 mg tablet See Rx Instructions .ROUTE .COMPLEX Qty: 60 6RF Dose Instruction: TAKE 1 TABLET BY MOUTH TWICE DAILY AT BREAKFAST AND AT BEDTIME Rx Instructions: TAKE 1 TABLET BY MOUTH TWICE DAILY AT BREAKFAST AND AT BEDTIME Follow-up/Referrals: PHYSICIAN NOT ON STAFF,NONSTAFF [Primary Care Provider] - Time of Disposition: 06:30
[2024-02-13] MEDS: TETANUS,DIPHTHERIA,AC PERTUSSIS ADULT (0.5 ML) BOOSTRIX IM (06:05)
[2024-02-13 06:25] VITALS: BP 144/72; PULSE 76; RESP 15; O2SAT 100
[2024-02-13 07:22] VITALS: BP 142/70; PULSE 79; RESP 15; O2SAT 100
== END 2024-02-13 07:23 | disposition short-term general hospital (02) ==
PROVIDERS: Emergency Provider Preventive Medicine Aerospace Medicine
DX: S52.592A Other fractures of lower end of left radius, initial encounter for closed fracture (principal); S52.612A Displaced fracture of left ulna styloid process, initial encounter for closed fracture; S72.112A Displaced fracture of greater trochanter of left femur, initial encounter for closed fracture; M97.02XA Periprosthetic fracture around internal prosthetic left hip joint, initial encounter; S01.112A Laceration without foreign body of left eyelid and periocular area, initial encounter; Z23 Encounter for immunization; G30.9 Alzheimer's disease, unspecified; F02.80 Dementia in other diseases classified elsewhere, unspecified severity, without behavioral disturbance, psychotic disturbance, mood disturbance, and anxiety; E11.22 Type 2 diabetes mellitus with diabetic chronic kidney disease; I12.9 Hypertensive chronic kidney disease with stage 1 through stage 4 chronic kidney disease, or unspecified chronic kidney disease; N18.30 Chronic kidney disease, stage 3 unspecified; E11.39 Type 2 diabetes mellitus with other diabetic ophthalmic complication; H42 Glaucoma in diseases classified elsewhere; I25.10 Atherosclerotic heart disease of native coronary artery without angina pectoris; I25.2 Old myocardial infarction; I11.9 Hypertensive heart disease without heart failure; E78.5 Hyperlipidemia, unspecified; G20.A1 Parkinson's disease without dyskinesia, without mention of fluctuations; J45.909 Unspecified asthma, uncomplicated; K21.9 Gastro-esophageal reflux disease without esophagitis; M19.90 Unspecified osteoarthritis, unspecified site; Z96.643 Presence of artificial hip joint, bilateral; Z86.2 Personal history of diseases of the blood and blood-forming organs and certain disorders involving the immune mechanism; Z87.01 Personal history of pneumonia (recurrent); Z98.49 Cataract extraction status, unspecified eye; Z79.4 Long term (current) use of insulin; Z79.899 Other long term (current) drug therapy; Z79.82 Long term (current) use of aspirin; M47.812 Spondylosis without myelopathy or radiculopathy, cervical region; W18.30XA Fall on same level, unspecified, initial encounter
CPT/HCPCS: 29125; 70450; 70486; 72125; 72170; 73060; 73090; 73110; 73552; 90471; 90715; 99285

== ENCOUNTER 2024-05-26 16:10 | Emergency (ER) | payer MEDICARE, SELFPAY ==
[2024-05-26] VITALS (8 sets, daily range): BP systolic 160–192; BP diastolic 76–103; PULSE 61–74; RESP 16–30; TEMP 36.4–36.6; O2SAT 96–100
--- NOTE | ~2024-05-26 | CT_ITS ---
EXAMINATION: CT brain wo con DATE: 05/26/2024 16:52 INDICATION: Patient with dementia post unwitnessed fall TECHNIQUE: Computed tomography (CT) of the head was performed without intravenous contrast. Sagittal and coronal reconstructions were performed. The mA was adjusted according to patient size. Iterative reconstruction technique was employed. The dose-length product was 1210.67 mGy-cm. COMPARISON: head CT dated 05/07/2024 FINDINGS: No fracture. No acute intracranial hemorrhage, acute infarction or mass/mass effect. There is symmetr ic prominence of the sulci and subarachnoid spaces overlying the convexities consistent with mild age -appropriate diffuse cerebral volume loss. Ventricles are normal and symmetric. Minimal scattered per iventricular and subcortical white matter hypoattenuation consistent with chronic small vessel ischem ic disease. Changes of bilateral intraocular lens replacement. The orbits and mastoid air cells are n ormal. Mucosal thickening throughout the paranasal sinuses with small amount of dependently layering mucus in the left maxillary sinus. Intracranial calcified cerebral atherosclerosis is noted at the bi lateral carotid siphons. IMPRESSION: 1. Normal aging brain. No fracture or acute intracranial process. Reviewed, dictated and finalized at location A. CAL BRIGHTENER MAKER HELPER
--- NOTE | ~2024-05-26 | XR_ITS ---
EXAMINATION: XR hip RT 2V w AP pelvis DATE: 05/26/2024 17:06 INDICATION: Right hip pain post fall TECHNIQUE: Anteroposterior view of the pelvis and anteroposterior and frog-leg lateral views of the r ight hip were obtained. COMPARISON: 03/26/2024 and 02/13/2024 FINDINGS: Mild lumbar levocurvature with mild to moderate spondylosis. Again seen are cemented bilateral total hip arthroplasties which appear well seated in near-anatomic alignment. There is chronic cortical rem odeling along the medial side of the proximal right femoral diaphysis. Interval healing with mild res idual deformity of a periprosthetic fracture of the left greater trochanter which appeared acute on t he radiographs from 02/13/2024. No acute fractures. Mild right and mild to moderate left sacroiliac o steoarthritis. Vascular calcifications in the bilateral visualized proximal thighs. IMPRESSION: 1. Bilateral total hip arthroplasties with healing early chronic periprosthetic fracture of the left greater trochanter. No acute osseous abnormality. Reviewed, dictated and finalized at location A. DATABASE DEVELOPER
--- NOTE | ~2024-05-26 | CT_ITS ---
EXAMINATION: CT cervical spine wo con DATE: 05/26/2024 16:52 INDICATION: Fall. TECHNIQUE: Computed tomography (CT) of the cervical spine was performed without intravenous contrast. Automated exposure control and iterative reconstruction technique were employed. The dose-length pro duct was 157.76 mGy-cm. COMPARISON: CT cervical spine 05/07/24 FINDINGS: There is 2 mm anterolisthesis of C4 on C5, C5 on C6, and C7 on T1. Vertebral body heights a re normal. There is mild kyphosis of cervical spine. There is mildly decreased disc height at C3-C4. There is severely decreased disc height at C4-C5 with interbody fusion. There is moderately decreased disc height at C5-C6, severely decreased disc height at C6-C7, and mildly decreased disc height at C 7-T1. The following disc levels are specifically discussed: C2-C3: There is mild lateral uncovertebral joint osteoarthritis. There is severe right and moderate l eft facet joint osteoarthritis. There is mild right neural foraminal stenosis. There is no central ca nal stenosis. C3-C4: There is severe bilateral uncovertebral joint osteoarthritis. There is severe bilateral facet joint osteoarthritis. There is moderate right and mild left neural foraminal stenosis. There is mild central canal stenosis. C4-C5: There is moderate right and severe left uncovertebral joint hypertrophy. There is ankylosis of the facet joints with severe hypertrophy. There is moderate bilateral neural foraminal stenosis. The re is mild central canal stenosis. C5-C6: There is severe bilateral uncovertebral joint osteoarthritis. There is severe bilateral facet joint osteoarthritis. There is moderate right and mild left neural foraminal stenosis. There is mild central canal stenosis. C6-C7: There is severe bilateral uncovertebral joint osteoarthritis. There is severe bilateral facet joint osteoarthritis. There is moderate bilateral neural foraminal stenosis. There is mild central ca nal stenosis. C7-T1: There is no uncovertebral joint osteoarthritis. There is severe bilateral facet joint osteoart hritis. There is mild bilateral neural foraminal stenosis. There is no central canal stenosis. IMPRESSION: 1. No fracture. 2. Severe cervical spondylosis. Reviewed, dictated and finalized at location A. OPERATIONS MANAGER
--- OUTSIDE RECORDS SUMMARY | 2024-05-26 16:14 | XMS_ITS | Clinical Summary ---
Author Organization [facility] [place] [address] Address [address] [place] [address] Care Team Providers Care Internal Affairs Investigator Name Role Phone Sourav Velasco Primary Care Provider + Allergies Active Allergy Reactions Criticality Noted Date Comments Codeine Medications aspirin 81 mg chewable tablet chew 1 tablet by oral route every day 0 0 5 Active latanoprost (XALATAN) 0.005 % ophthalmic solution instill 1 drop by ophthalmic route every day into affected eye(s) in the evening 0 0 7 Active atorvastatin (LIPITOR) 10 mg tablet take 1 tablet by oral route every day 0 0 7 Active albuterol HFA (PROVENTIL HFA,VENTOLIN HFA,PROAIR HFA) 90 mcg/actuation inhaler Inhale 2 puffs every 6 (six) hours as needed for wheezing Active calcium carb and citrate-vitD3 600 mg calcium- 500 unit tablet extended release Take by mouth daily Active allopurinol (ZYLOPRIM) 100 mg tablet Take 2 tablets (200 mg total) by mouth daily Active famotidine (PEPCID) 40 mg tablet 2 Active insulin glargine (BASAGLAR) 100 unit/mL (3 mL) pen for injection Inject 15 Units under the skin every morning Active amLODIPine (NORVASC) 10 mg tablet Take 1 tablet by mouth once daily 90 tablet 4 Active escitalopram (LEXAPRO) 10 mg tablet Take 1 tablet (10 mg total) by mouth daily 4 Active donepeziL (ARICEPT) 5 mg tablet donepezil 5 mg tablet TAKE 1 TABLET BY MOUTH ONCE DAILY Active dicyclomine (BENTYL) 10 mg capsule 4 Active apixaban (ELIQUIS) 2.5 mg tabletIndication s:VTE Prophylaxis Take 1 tablet (2.5 mg total) by mouth 2 (two) times a day for 28 days 56 tablet 4 Active insulin lispro (HumaLOG, ADMELOG) 100 unit/mL vial for injection Inject 1-5 units under the skin 3 (three) times a day with meals. Blood glucose mg/dL 150-199: 1 unit, 200-249: 2 units, 250-299: 3 units, 300-349: 4 units, 350 or greater: 5 units. Notify provider for blood glucose greater than 299 mg/dL. Refer to After Visit Summary for Sliding Scale Insulin Instructions. 4 Active acetaminophen (TYLENOL) 325 mg tabletIndication s:Pain Take 2 tablets (650 mg total) by mouth every 6 (six) hours as needed for pain 4 Active polyethylene glycol (MIRALAX) 17 gram packetIndication s:constipation Take 1 packet (17 g total) by mouth daily 4 Active memantine (NAMENDA) 5 mg tablet Take 1 tablet (5 mg total) by mouth 2 (two) times a day 4 Active cholecalciferol (VITAMIN D-3) 25 mcg (1,000 unit) tablet Take 1 tablet (1,000 Units total) by mouth daily 4 02/19/20 25 Active Active Problems Problem Noted Date Diagnosed Date Intertrochanteric fracture of femur 02/14/2024 Assessment & Plan (02/19/2024 6:57 AM CDT): #L periprosthetic IT femur fx - Ortho trauma consult - Non op management - WBAT LLE - PT/OT - DVT prevention at discharge: Eliquis 2.5 mg BID x 4 weeks - Follow Up scheduled for 03/30/24 with Ortho Trauma Distal radius fracture 02/14/2024 Assessment & Plan (02/19/2024 6:56 AM CDT): - Plastic hand consult - Splinted--> keep clean and dry - NWB LUE - Non op management vs outpatient surgery - Maintain sugar tong splint until follow up - 02/18: splint replaced - PT/OT - Follow Up with Plastic Surgery on 03/03/24 Diabetes type 2, controlled 02/14/2024 Assessment & Plan (02/14/2024 1:00 PM CDT): - SSI - Home glargine - A1C Dementia 02/14/2024 Assessment & Plan (02/17/2024 11:16 AM CDT): - Baseline A&Ox2 - Home meds --> Decreased Memantine to 5mg BID for CrCl Stage 3 chronic kidney disease 02/14/2024 Assessment & Plan (02/19/2024 6:54 AM CDT): - Cr 1.2-1.8 in 2018 - Cr 1.8 (1.7) 02/15 2.33--> Urine Lytes Sent, Hold Allopurinol, Lasix and Lovenox changed to Heparin 02/16 Cr 1.85 back at baseline with medication adjustment. Will continue to encourage PO intake to resume gold directed medical therapy to resume lasix for afterload reduction. - 02/17: FeUrea 20.9%, pre-renal. Cr 1.92, BUN 66. Urine output unquantifiable overnight. 500 cc LR bolus given. Continue to encourage PO. -- repeat Cr 1.80, back to baseline - Follow up with PCP for medication review and hospital follow up Abrasion of eyebrow 02/14/2024 Assessment & Plan (02/14/2024 1:02 PM CDT): - CT scan - No evidence of acute fracture in the maxillofacial bones, orbits, or paranasal sinuses on this motion limited exam. Fall, initial encounter 02/13/2024 Assessment & Plan (02/14/2024 12:56 PM CDT): Fell out of bed Discharge planning issues 02/13/2024 Assessment & Plan (02/19/2024 6:58 AM CDT): 02/13: new admission overnight. Non op management. Pending PT/OT 02/14-02/16 Patient is medically stable for discharge, SW/CM updated. Discharge pending facility acceptance 02/17: Patient is medically stable for discharge, SW/CM updated. Discharge pending Cr stability 02/18: discharge Treatment Plan started 02/12 Encounters Date Type Department Care Team Description 03/31/2024 2:00 PM [employer] Ancillary Procedure [facility] [address] [place] [address] Mild aortic stenosis 03/10/2024 Telephone [facility] [address] [place] [address] Edin Leon RN from Last 3 Months Medical History Medical History Date Comments Hypertension Hypertension Type 2 diabetes mellitus (HCC) D iabetes type 2 Hx Other Medical inferior ST fara vation [place] Hx Other Medical duodenal ulcer Hx Other Medical tubal ligation, hip replacement Family History Medical History Relation Name Comments Heart failure Father 2 Congestive hea rt failure; Cause of : Congestive heart failure Stroke Mother 2 Stroke; Cause o f : Stroke Relation Name Status Comments Father 1 (Age 91) Father 2 Mother 1 (Age 74) Mother 2 Social History Tobacco Use Types Packs/Day Years Used Date Smoking Tobacco: Never Smokeless Tobacco: Never Tobacco Cessation:Counseling Given: Not Answered Alcohol Use Standard Drinks/Week Comments No 0 (1 standard drink = 0.6 oz pur e alcohol) Personal Safety Answer Date Recorded Have you ever been in or are you currently in a harmful physical or emotional relationship or is someone making you feel afraid or unsafe? Denies 02/13/2024 Comments Unknown Sex and Gender Information Value Date Recorded Sex Assigned at Not on file Legal Sex Female 7:41 AM [employer] Gender Identity Not on file Sexual Orientation Not on file Obstetrics History Last Filed Vital Signs Vital Sign Reading Time Taken Comments Blood Pressure 150/99 03/31/2024 2:39 PM [employer] Pulse 59 02/19/2024 8:02 AM CDT Temperature 36.6 C (97.9 F) 02/19/2024 8:02 AM CDT Respiratory Rate 18 02/19/2024 8:02 AM CDT Oxygen Saturation 96% 02/19/2024 8:02 AM CDT Inhaled Oxygen Concentration - - Weight 73.4 kg (161 lb 13.1 oz) 02/18/2024 5:22 PM CDT Height 167.6 cm (5' 6 ) 01/21/2024 12:5 6 PM CDT Body Mass Index 26.12 01/21/2024 12:56 PM CDT Plan of Treatment Health Maintenance Due Date Last Done Comments Albumin Creatinine Ratio, Urine 1945 Depression Screening 1945 Hepatitis C Screening 1945 Osteoporosis Screening-Bone Density Scan 1945 Dilated Eye Exam 1945 Foot Exam 1945 DTaP/Tdap/Td Vaccine (1 - Tdap) 08/20/1955 Zoster Vaccine (1 of 2) 1994 Well Visit 65+ 2009 Influenza Vaccine (#1) 2023 , 01/28/2020, 02/08/2019, Additional history exists Hemoglobin A1C 08/13/2024 02/13/2024, 02/13/2024 Lipid Panel 02/12/2025 02/13/2024, 10/0 05/2023, 05/13/2022, Additional history exists eGFR 02/17/2025 02/18/2024, 01/20, 02/16/2024, Additional history exists Fall Risk Assessment 02/18/2025 02/19/2024 Pneumococcal vaccine 65+ Completed 023, 02/08/2019, 02/03/2018, Additional history exists Procedures Procedure Name Priority Date/Time Associated Diagnosis Comments TRANSTHORACIC ECHO (TTE) COMPLETE W DOPPLER/CF WO CONTRAST Routine 03/31/2024 2:39 PM [employer] Mild aortic stenosis EGFR STAT 02/18/2024 3:18 PM CDT HEMOGLOBIN A1C STAT 02/13/2024 8:23 AM CDT LIPID PANEL STAT 02/13/2024 8:23 AM CDT from Last 3 Months or Most Recently Relevant to Health Maintenance Results * TRANSTHORACIC ECHO (TTE) COMPLETE W DOPPLER/CF WO CONTRAST (03/31/2024 2:39 PM [employer]) Anatomical Region Laterality Modality Ultrasound 03/31/2024 2:36 PM [employer] Narrative 04/01/2024 8:52 AM [employer] [facility] [address], [place] [address] [address], [place] [address] P:[phone] P:[phone] Echocardiographic Report Patient Name: SHONNA KIRKLAND L : 1945 Study Date: 03/31/2024 2:36:42 PM Gender: F Tech: DUNCAN Location: [facility] Provider: FEDERICO MONET Height(Cm): 168 BSA: 1.85 Weight(Kg): 73 Heart Rate: 67 BP: 150 / 99 Quality: Good Order Provider: FEDERICO MONET PROCEDURES: Echocardiographic Report: Transthoracic echocardiogram with complete 2D, M-Mode, and color Doppler examination. With Strain Analysis. INDICATIONS: I35.0 Nonrheumatic aortic (valve) stenosis. MEASUREMENTS: 2D/MM Value Range Doppler Value Range Estimated EF 55 % ADDY Vmax 1.91 cm2 [ 2.00 - 4.00 ] LVIDd 2D 4.95 cm [ 3.80 - 5.20 ] AV Mean PG 5 mmHg LVIDs 2D 3.93 cm [ 2.20 - 3.50 ] AV Peak Olu 1.46 m/s [ 1.00 - 1.70 ] LVPWd 2D 1.38 cm [ 0.60 - 0.90 ] AV Peak PG 9 mmHg IVSd 2D 1.43 cm [ 0.60 - 0.90 ] AV VTI 29.31 cm LA Volume Index 32 cc/m2 [ 16 - 34 ] LVOT Diam 2.01 cm [ 1.70 - 2.10 ] LVOT Peak Olu 0.88 m/s [ 0.70 - 1.10 ] LVOT VTI 18.11 cm MV E Peak Olu 0.70 m/s [ 0.60 - 1.30 ] MV A Peak Olu 0.93 m/s [ 1.00 - 1.20 ] MV Decel Time 266 msec [ 104 - 258 ] Lateral E` 0.05 m/s [ 0.10 - 0.15 ] E` 0.03 m/s E/E` 14 2D/MM Value Range Doppler Value Range - FINDINGS: Interpretation Site: Exam was interpreted at [facility]. Left Ventricle: Normal left ventricular size. Moderate concentric left ventricular hypertrophy. Normal global left ventricular systolic function. Impaired diastolic relaxation Grade I. Increased left heart filling pressures based on elevated E/E`. Ejection Fraction is visually estimated to be 55 %. Global Longitudinal Strain is -12 %. Right Ventricle: Normal right ventricular size. Normal right ventricular systolic function. Left Atrium: There is mild enlargement of left atrium. Right Atrium: The right atrium is normal in size. Atrial Septum: Normal atrial septum. Mitral Valve: Mitral valve leaflets appear mildly thickened. Aortic Valve: Aortic valve not well visualized. Mild aortic stenosis. Peak Velocity of 1.50 m/s. Mean gradient of 5.0 mmHg. Tricuspid Valve: Normal appearance of the tricuspid valve. Right ventricular systolic pressure could not be estimated due to inadequate visualization of the tricuspid regurgitation jet. Pulmonic Valve: Pulmonic valve not well visualized. Pericardium: Normal pericardium with no significant pericardial effusion. Aorta: Normal aortic root. IVC: Dilated IVC with respiratory collapse consistent with elevated right atrial pressure (10-15 mmHg). CONCLUSIONS: Suboptimal image quality. Normal left ventricular size. Moderate left ventricular hypertrophy. Normal global left ventricular systolic function. Impaired diastolic relaxation Grade I. Increased left heart filling pressures based on elevated E/E`. Ejection Fraction about 55 %. Global Longitudinal Strain is abnormal at -12 %. Normal RV size and systolic function. Mild left atrial enlargement. Mitral valve leaflets appear mildly thickened. No significant MR. Aortic valve not well visualized. Mild aortic stenosis. Peak Velocity of 1.50 m/s. Mean gradient of 5.0 mmHg. Right ventricular systolic pressure could not be estimated due to inadequate visualization of the tricuspid regurgitation jet. Electronically Signed By: Federico Monet MD, [facility] 04/01/2024 8:51:52 AM [employer] Procedure Note Federico Monet MD - 04/01/2024 [facility] [address] [place] [address] [address] [facility] [address], [place] [address] P:[phone] P:[phone] Echocardiographic Report Patient Name: SHONNA KIRKLAND L : 1945 Study Date: 03/31/2024 2:36:42 PM Gender: F Tech: DUNCAN Location: [facility] Provider: FEDREICO MONET Height(Cm): 168 BSA: 1.85 Weight(Kg): 73 Heart Rate: 67 BP: 150 / 99 Quality: Good Order Provider: FEDERICO MONET PROCEDURES: Echocardiographic Report: Transthoracic echocardiogram with complete 2D, M-Mode, and color Dopplerexamination. With Strain Analysis. INDICATIONS: I35.0 Nonrheumatic aortic (valve) stenosis. MEASUREMENTS: 2D/MM Value Range Doppler ValueRange Estimated EF 55 % ADDY Vmax 1.91cm2 [ 2.00 - 4.00 ] LVIDd 2D 4.95 cm [ 3.80 - 5.20 ] AV Mean PG 5mmHg LVIDs 2D 3.93 cm [ 2.20 - 3.50 ] AV Peak Olu 1.46m/s [ 1.00 - 1.70 ] LVPWd 2D 1.38 cm [ 0.60 - 0.90 ] AV Peak PG 9mmHg IVSd 2D 1.43 cm [ 0.60 - 0.90 ] AV VTI 29.31cm LA Volume Index 32 cc/m2 [ 16 - 34 ] LVOT Diam 2.01 cm[ 1.70 - 2.10 ] LVOT Peak Olu 0.88 m/s [ 0.70 - 1.10 ] LVOT VTI 18.11 cm MV E Peak Olu 0.70 m/s [ 0.60 - 1.30 ] MV A Peak Olu 0.93 m/s [ 1.00 - 1.20 ] MV Decel Time 266 msec [ 104 - 258 ] Lateral E` 0.05 m/s [ 0.10 - 0.15 ] E` 0.03 m/s E/E` 14 2D/MM Value Range Doppler ValueRange - FINDINGS: Interpretation Site: Exam was interpreted at [facility]. Left Ventricle: Normal left ventricular size. Moderate concentric left ventricularhypertrophy. Normal global left ventricular systolic function. Impaired diastolic relaxationGrade I. Increased left heart filling pressures based on elevated E/E`. EjectionFraction is visually estimated to be 55 %. Global Longitudinal Strain is -12 %. Right Ventricle: Normal right ventricular size. Normal right ventricular systolicfunction. Left Atrium: There is mild enlargement of left atrium. Right Atrium: The right atrium is normal in size. Atrial Septum: Normal atrial septum. Mitral Valve: Mitral valve leaflets appear mildly thickened. Aortic Valve: Aortic valve not well visualized. Mild aortic stenosis. Peak Velocity of1.50 m/s. Mean gradient of 5.0 mmHg. Tricuspid Valve: Normal appearance of the tricuspid valve. Right ventricular systolicpressure could not be estimated due to inadequate visualization of the tricuspidregurgitation jet. Pulmonic Valve: Pulmonic valve not well visualized. Pericardium: Normal pericardium with no significant pericardial effusion. Aorta: Normal aortic root. IVC: Dilated IVC with respiratory collapse consistent with elevated rightatrial pressure (10-15 mmHg). CONCLUSIONS: Suboptimal image quality. Normal left ventricular size. Moderate leftventricular hypertrophy. Normal global left ventricular systolic function. Impaireddiastolic relaxation Grade I. Increased left heart filling pressures based onelevated E/E`. Ejection Fraction about 55 %. Global Longitudinal Strain is abnormal at-12 %. Normal RV size and systolic function. Mild left atrial enlargement. Mitral valve leaflets appear mildly thickened. No significant MR. Aortic valve not well visualized. Mild aortic stenosis. Peak Velocity of1.50 m/s. Mean gradient of 5.0 mmHg. Right ventricular systolic pressure could not be estimated due toinadequate visualization of the tricuspid regurgitation jet. Electronically Signed By: Federico Monet MD, [facility] 04/01/2024 8:51:52 AM [employer] Federico Monet MD CV ECHO PROCEDURES Final Result * (ABNORMAL) eGFR (02/18/2024 3:18 PM CDT) eGFR 28(L) >=60 mL/min/1. 73 m2 Comment: Interpretive Data Reference Interval Normal >/= 90 mL/min/1.73m2 Mildly decreased* 60 - 89 mL/min/1.73m2 Mildly to moderately decreased 45 - 59 mL/min/1.73m2 Moderately to severely decreased 30 - 44 mL/min/1.73m2 Severely decreased 15 - 29 mL/min/1.73m2 Kidney Failure < 15 mL/min/1.73m2 *Relative to young adult level Estimated glomerular filtration rate is determined by the 2020 CKD-EPI equation recommended by the National Kidney Foundation (A Unifying Approach to GFR Estimation: Recommendations of the NKF-ASK Task Force on Reassessing the Inclusion of Race in Diagnosing Kidney Disease, JASN 2020). The CKD-EPI equation should not be used for patients with unstable renal function and has not been validated in children and those over 70. Current interpretive data was last reviewed 2021. Blood 02/18/2024 3:18 PM CDT 02/18/2024 3:31 PM CDT us America Agudelo NP LAB BLOOD ORDERABLES Lidia l Result [facility] [address] [facility] [place] [address] * (ABNORMAL) Hemoglobin A1c (02/13/2024 8:23 AM CDT) Hgb A1C 6.9(H) 4.0 - 5.6 % Estimated Average Glucose 151 mg/dL HARLEEN MCCAIN Comment: The ADA recommends reporting an estimated Average Glucose (eAG) with all Hemoglobin A1c results using the equation derived from a study of 507 normal and diabetic adults. Minority populations were underrepresented and children were not included. (Diabetes Care 2020; 43(S1): S66-S76). The eAG is not equivalent to a fasting glucose. Blood 02/13/2024 8:23 AM CDT 02/13/2024 8:37 AM CDT Katelyn Jenkins NP LAB BLOOD ORDERABLES Final Result [facility] [address] [facility] [place] [address] * Lipid panel (02/13/2024 8:23 AM CDT) Cholesterol 99 30 - 199 mg/dL Comment: Interpretive Data Ages < or = 19 years Acceptable: <170 mg/dL Borderline high: 170-199 mg/dL High: >or= 200 mg/dL Ages > or = 20 years Desirable: <200 mg/dL Borderline high: 200-239 mg/dL High: >or= 240 mg/dL Literature References: 1. Expert Panel on Integrated Guidelines for Cardiovascular Health and Risk Reduction in Children and Adolescents. Pediatrics 2011;128:S213 2. NCEP Expert Panel. Circulation 2004;110:227 Current Interpretive Data was last revised on 2017. Triglycerides 77 <=149 mg/dL [facility] Comment: Interpretive Data Ages < or = 9 years Acceptable: <75 mg/dL Borderline high: 75-99 mg/dL High: >or= 100 mg/dL Ages 10 to 20 years Acceptable: <90 mg/dL Borderline high: 90-129 mg/dL High: >or= 130 mg/dL Ages > or = 20 years Desirable: <150 mg/dL Borderline high: 150-199 mg/dL High: 200-499 mg/dL Very high: >or= 499 mg/dL Literature References: 1. Expert Panel on Integrated Guidelines for Cardiovascular Health and Risk Reduction in Children and Adolescents. Pediatrics 2011;128:S213 2. NCEP Expert Panel. Circulation 2004;110:227 Current Interpretive Data was last revised on 2017. HDL 51 >=40 mg/dL [facility] Comment: Interpretive Data Ages < or = 19 years Acceptable: >45 mg/dL Borderline low: 40-45 mg/dL Low: <40 mg/dL Ages > or = 20 years Desirable: >or= 60 mg/dL Low: <40 mg/dL Literature References: 1. Expert Panel on Integrated Guidelines for Cardiovascular Health and Risk Reduction in Children and Adolescents. Pediatrics 2011;128:S213 2. NCEP Expert Panel. Circulation 2004;110:227 Current Interpretive Data was last revised on 2017. LDL, calculated 32 <=129 mg/dL [facility] Comment: Interpretive Data Ages < or = 19 years Acceptable: <110 mg/dL Borderline high: 110-129 mg/dL High: >or= 130 mg/dL Ages > or = 20 years Optimal: <100 mg/dL Near optimal: 100-129 mg/dL Borderline high: 130-159 mg/dL High: >160 mg/dL Calculated using the Milton LDL-C estimating equation. This equation was implemented on 2023. Prior to this date LDL-C was estimated using the Friedewald equation. Literature References: 1. Expert Panel on Integrated Guidelines for Cardiovascular Health and Risk Reduction in Children and Adolescents. Pediatrics 2011;128:S213 2. NCEP Expert Panel. Circulation 2004;110:227 3. [place] Obrien et al. LUCILA Cardiol. 2020 August 19;5(5):540-548. doi: 10.1001/[email or web address].2020.0013 Current Interpretive Data was last revised on 2023. Non-HDL Cholesterol 48 mg/dL [facility] Comment: Interpretive Data Ages < or = 19 years Acceptable: <120 mg/dL Borderline high: 120-144 mg/dL High: >145 mg/dL Ages > or = 20 years When triglycerides are >200 mg/dL, Non-HDL cholesterol is a secondary target of therapy with treatment goals that are 30 mg/dL greater than the LDL cholesterol target. Literature References: 1. Expert Panel on Integrated Guidelines for Cardiovascular Health and Risk Reduction in Children and Adolescents. Pediatrics 2011;128:S213 2. NCEP Expert Panel. Circulation 2004;110:227 Current Interpretive Data was last revised on 2017. Chol/HDL ratio 2 [facility] Blood 02/13/2024 8:23 AM CDT 02/13/2024 8:33 AM CDT Narrative [facility] - 02/14/2024 12:32 AM CDT Reflex us Misael Wong DO LAB BLOOD ORDERABLES Fi nal Result [facility] [address] [facility] [place] [address] from Last 3 Months or Most Recently Relevant to Health Maintenance Insurance MEDICARE [employer] [facility] [place] [address] MEDICARE [address] [facility] Advance Directives For more information, please contact: [phone] * Full Code (Latest Code Status on File) Date Activated Date Inactivated Comments 02/13/2024 5:54 PM 02/19/2024 1:18 PM Care Teams Internal Affairs Investigator Relationship Specialty Start Date End Date Sourav Velasco PA [address] [place] [address] [place] [address] PCP - General Internal Medicine 02/14/24
--- OUTSIDE RECORDS SUMMARY | 2024-05-26 16:14 | XMS_ITS | Patient Health Summary ---
Author Organization [facility] Address [address] [place] [address] Care Team Providers Care Senior Electronics Technician Name Role Phone Unavailable Primary Care Provider Unavailabl e Note from [facility],non-owned Affiliates and Associated Physician Practices is amultiple site organization consisting of ambulatory clinics and hospital sitesin [place], [place], [place] and [place]. This disclosure is being madepursuant to the Care Everywhere program and may not contain all information available regarding this patient. Last updated 18.[facility] Allergies * Codeine Immunizations * INFLUENZA VACCINE, HIGH-DOSE, QUADR. (FLUZONE HIGH-DOSE QUADRIVALENT; 65Y+), 0.7 ML (HD-IIV4)(Given 02/10/2017) Social History Tobacco Use Types Packs/Day Years Used Date Smoking Tobacco: Never Assessed Sex and Gender Information Value Date Recorded Sex Assigned at Not on file Gender Identity Not on file Sexual Orientation Not on file Procedures * VITAMIN D 25-HYDROXY(Performed 03/17/2024) * CBC W AUTO DIFFERENTIAL(Performed 03/17/2024) * COMPREHENSIVE METABOLIC PANEL(Performed 06/09/2012) * CBC W AUTO DIFFERENTIAL(Performed 06/09/2012) * PT-INR [facility](Performed 06/09/2012) Results * VITAMIN D 25-HYDROXY (03/17/2024 1:03 PM CABLE SPLICER APPRENTICE) Vitamin D, 25 Hydroxy 32.4 30 - 80 ng/mL 03/17/2024 1:51 PM CABLE SPLICER APPRENTICE [facility] Blood BLOOD SPECIMEN / Unknown Venipuncture / Unknown 03/17/2024 1:03 PM CABLE SPLICER APPRENTICE 03/17/2024 1:03 PM CABLE SPLICER APPRENTICE Narrative [facility] - 03/17/2024 1:51 PM CABLE SPLICER APPRENTICE Vitamin D Status: Deficiency <20 ng/mL Insufficiency 20-30 ng/mL Sufficiency 30-100 ng/mL Toxicity >100 ng/mL Matt Rich LAB - CHEMISTRY NAJMA CABEZAS [facility] [address] [place] [address] * (ABNORMAL) CBC WITH DIFFERENTIAL (03/17/2024 1:03 PM CABLE SPLICER APPRENTICE) Only the most recent of2 resultswithin the time period is included. WBC 9.1 4.0 - 10.7 x10E9/L 03/17/2024 1:[address] [facility] RBC Count 3.49(L) 3.90 - 5.20 x10E12/L 03/17/2024 1:[address] [facility] Hemoglobin 11.1(L) 11.9 - 15.8 g/dL 03/17/2024 1:[address] [facility] Hematocrit 35.8 34.8 - 46.1 % 03/17/2024 1:[address] [facility] MCV 102.6(H) 80.0 - 98.0 fL 03/17/2024 1:[address] [facility] MCH 31.8 26.7 - 33.6 pg 03/17/2024 1:[address] [facility] MCHC 31.0(L) 31.7 - 36.3 g/dL 03/17/2024 1:[address] [facility] RDW-CV 13.5 11.3 - 14.8 % 03/17/2024 1:[address] [facility] Platelet Count 247 150 - 420 x10E9/L 03/17/2024 1:[address] [facility] MPV 11.3 7.8 - 11.4 fL 03/17/2024 1:[address] [facility] Neutrophil % 69.6 41.0 - 74.0 % 03/17/2024 1:[address] [facility] Lymphocyte % 18.4 17.0 - 47.0 % 03/17/2024 1:[address] [facility] Monocyte % 8.3 3.0 - 11.0 % 03/17/2024 1:[address] [facility] Eosinophil % 3.1 0.0 - 7.0 % 03/17/2024 1:15 PM CABLE SPLICER APPRENTICE [facility] Basophil % 0.3 0.0 - 1.6 % 03/17/2024 1:15 PM CABLE SPLICER APPRENTICE [facility] Immature Granulocytes % 0.3 0.0 - 1.0 % 03/17/2024 1:[address] [facility] Neutrophil Absolute 6.34 1.60 - 7.50 x10E9/L 03/17/2024 1:15 PM CABLE SPLICER APPRENTICE [facility] Lymphocyte Absolute 1.68 1.00 - 4.40 x10E9/L 03/17/2024 1:15 PM CABLE SPLICER APPRENTICE [facility] Monocyte Absolute 0.76 0.15 - 1.00 x10E9/L 03/17/2024 1:15 PM CABLE SPLICER APPRENTICE [facility] Eosinophil Absolute 0.28 0.00 - 0.60 x10E9/L 03/17/2024 1:[address] [facility] Basophil Absolute 0.03 0.00 - 0.13 x10E9/L 03/17/2024 1:[address] [facility] Blood BLOOD SPECIMEN / Unknown 03/17/2024 1:03 PM CABLE SPLICER APPRENTICE 03/17/2024 1:03 PM CABLE SPLICER APPRENTICE Matt Rich LAB - HEMATOLOGY ORD ERABLES [facility] [address] [place] [address] * PT-INR [facility] (06/09/2012 8:33 AM CABLE SPLICER APPRENTICE) [facility] INR 1.0 [facility] ([facility]) Comment: Reference Range 0.9-1.1 Moderate-intensity Warfarin Therapy 2.0-3.0 Higher-intensity Warfarin Therapy 3.0-4.0 PT 10.4 9.0 - 11.5 sec [facility] ([facility]) Comment: REPORT COMMENT: FASTING Test Performed at: [facility] [address] [address] JOSEY PENG DO [facility] 06/09/2012 8:33 AM CABLE SPLICER APPRENTICE 06/09/2012 8:34 AM CABLE SPLICER APPRENTICE Mervin Walker MD LAB - COAGULATION OR DERABLES [facility] ([facility]) * (ABNORMAL) COMPREHENSIVE METABOLIC PANEL (06/09/2012 8:33 AM CABLE SPLICER APPRENTICE) Glucose 129(H) 65 - 99 mg/dL [facility] ([facility]) Comment: Fasting reference interval BUN 20 7 - 25 mg/dL [facility] ([facility]) Creatinine 0.98 0.50 - 0.99 mg/dL [facility] ([facility]) Comment: For patients >49 years of age, the reference limit for Creatinine is approximately 13% higher for people identified as -Nigerian. eGFR non- 60 > OR = 60 mL/min/1 .73m2 [facility] ([facility]) eGFR 69 > OR = 60 mL/min/1 .73m2 [facility] ([facility]) BUN/Creatinine Ratio NOT APPLICABLE 6 - 22 (calc) [facility] ([facility]) Sodium 142 135 - 146 mmol/L [facility] ([facility]) Potassium 4.9 3.5 - 5.3 mmol/L [facility] ([facility]) Chloride 110 98 - 110 mmol/L [facility] ([facility]) CO2 17(L) 19 - 30 mmol/L [facility] ([facility]) Calcium 9.5 8.6 - 10.4 mg/dL [facility] ([facility]) Protein Total 6.8 6.1 - 8.1 g/dL [facility] ([facility]) Albumin 4.6 3.6 - 5.1 g/dL [facility] ([facility]) Globulin 2.2 1.9 - 3.7 g/dL (calc) [facility] ([facility]) Albumin/Globulin Ratio 2.1 1.0 - 2.5 (calc) [facility] ([facility]) Bilirubin Total 0.3 0.2 - 1.2 mg/dL [facility] ([facility]) Alkaline Phosphatase 64 33 - 130 U/L [facility] ([facility]) AST 19 10 - 35 U/L [facility] ([facility]) ALT 20 6 - 40 U/L [facility] ([facility]) Comment: REPORT COMMENT: FASTING Test Performed at: [facility] [address] [place] [address] JOSEY PENG DO,[facility] 06/09/2012 8:33 AM CABLE SPLICER APPRENTICE 06/09/2012 8:34 AM CABLE SPLICER APPRENTICE Mervin Walker MD LAB - CHEMISTRY NAJMA CABEZAS [facility] ([facility])
--- OUTSIDE RECORDS SUMMARY | 2024-05-26 16:14 | XMS_ITS | Clinical Summary ---
Author Organization [facility] [email or web address] Address [address] [place] [address] Care Team Providers Care Clinical Research Monitor Name Role Phone Unavailable Primary Care Provider Unavailabl e Source Comments [facility] [email or web address],non-owned Affiliates and Associated Physician Practices is amultiple site organization consisting of ambulatory clinics and hospital sitesin [place], [place], [place] and [place]. This disclosure is being madepursuant to the Care Everywhere program and may not contain all information available regarding this patient. Last updated 18.[facility] [email or web address] Allergies Active Allergy Reactions Criticality Noted Date Comments Codeine 02/10/2017 Encounters Date Type Department Care Team Description 03/17/2024 Lab Requisition [facility] [address] [place] [address] Matt Rich from Last 3 Months Immunizations Name Administration Dates Next Due INFLUENZA VACCINE, HIGH-DOSE , QUADR. (FLUZONE HIGH-DOSE QUADRIVALENT; 65Y+), 0.7 ML (HD-IIV4) 02/10/2017 Social History Tobacco Use Types Packs/Day Years Used Date Smoking Tobacco: Never Assessed Sex and Gender Information Value Date Recorded Sex Assigned at Not on file Gender Identity Not on file Sexual Orientation Not on file Plan of Treatment Health Maintenance Due Date Last Done Comments BONE DENSITY TESTING 1945 MEDICARE AWV 12 MONTHS 1945 DTAP/TDAP/TD VACCINES (1 - Tdap) 08/20/1963 PNEUMOCOCCAL VACCINE 50+ (1 of 1 - PCV) 1994 ZOSTER VACCINE (1 of 2) 1994 Respiratory Syncytial Virus (RSV) Vaccine Pt: or over 60 yrs (1 - 1-dose 75+ series) 08/20/2019 COVID-19 VACCINE ( - 2023-2 5 season) 2023 INFLUENZA VACCINE (#1) 2023 7, 11/10/2010 DEPRESSION SCREENING 04/21/2024 HEPATITIS B VACCINE Aged Out No longe r eligible based on patient's age to complete this topic HIB VACCINE Aged Out No longer eligi ble based on patient's age to complete this topic HPV VACCINE Aged Out No longer eligi ble based on patient's age to complete this topic MENINGOCOCCAL (Group B) VACCINE Aged Out No longer eligible b ased on patient's age to complete this topic MENINGOCOCCAL VACCINE Aged Out No charisse victor m eligible based on patient's age to complete this topic Procedures Procedure Name Priority Date/Time Associated Diagnosis Comments VITAMIN D 25-HYDROXY Routine 03/17/2024 1:03 PM BODY ARTIST CBC W AUTO DIFFERENTIAL Routine 03/17/2024 1:03 PM BODY ARTIST from Last 3 Months Results * VITAMIN D 25-HYDROXY (03/17/2024 1:03 PM BODY ARTIST) Pathologist [facility] Vitamin D, 25 Hydroxy 32.4 30 - 80 ng/mL 03/17/2024 1:51 PM BODY ARTIST [facility] Blood BLOOD SPECIMEN / Unknown Venipuncture / Unknown 03/17/2024 1:03 PM BODY ARTIST 03/17/2024 1:03 PM BODY ARTIST Narrative [facility] - 03/17/2024 1:51 PM BODY ARTIST Vitamin D Status: Deficiency <20 ng/mL Insufficiency 20-30 ng/mL Sufficiency 30-100 ng/mL Toxicity >100 ng/mL Matt Rich LAB - CHEMISTRY NAJMA CABEZAS [facility] [address] [place] [address] * (ABNORMAL) CBC WITH DIFFERENTIAL (03/17/2024 1:03 PM BODY ARTIST) WBC 9.1 4.0 - 10.7 x10E9/L 03/17/2024 1:15 PM BODY ARTIST [facility] RBC Count 3.49(L) 3.90 - 5.20 x10E12/L 03/17/2024 1:15 PM BODY ARTIST [facility] Hemoglobin 11.1(L) 11.9 - 15.8 g/dL 03/17/2024 1:[address] [facility] Hematocrit 35.8 34.8 - 46.1 % 03/17/2024 1:[address] [facility] MCV 102.6(H) 80.0 - 98.0 fL 03/17/2024 1:[address] [facility] MCH 31.8 26.7 - 33.6 pg 03/17/2024 1:[address] [facility] MCHC 31.0(L) 31.7 - 36.3 g/dL 03/17/2024 1:[address] [facility] RDW-CV 13.5 11.3 - 14.8 % 03/17/2024 1:[address] [facility] Platelet Count 247 150 - 420 x10E9/L 03/17/2024 1:[address] [facility] MPV 11.3 7.8 - 11.4 fL 03/17/2024 1:[address] [facility] Neutrophil % 69.6 41.0 - 74.0 % 03/17/2024 1:[address] [facility] Lymphocyte % 18.4 17.0 - 47.0 % 03/17/2024 1:[address] [facility] Monocyte % 8.3 3.0 - 11.0 % 03/17/2024 1:[address] [facility] Eosinophil % 3.1 0.0 - 7.0 % 03/17/2024 1:[address] [facility] Basophil % 0.3 0.0 - 1.6 % 03/17/2024 1:[address] [facility] Immature Granulocytes % 0.3 0.0 - 1.0 % 03/17/2024 1:[address] [facility] Neutrophil Absolute 6.34 1.60 - 7.50 x10E9/L 03/17/2024 1:[address] [facility] Lymphocyte Absolute 1.68 1.00 - 4.40 x10E9/L 03/17/2024 1:[address] [facility] Monocyte Absolute 0.76 0.15 - 1.00 x10E9/L 03/17/2024 1:[address] [facility] Eosinophil Absolute 0.28 0.00 - 0.60 x10E9/L 03/17/2024 1:15 PM BODY ARTIST [facility] Basophil Absolute 0.03 0.00 - 0.13 x10E9/L 03/17/2024 1:15 PM BODY ARTIST [facility] Blood BLOOD SPECIMEN / Unknown 03/17/2024 1:03 PM BODY ARTIST 03/17/2024 1:03 PM BODY ARTIST Matt Rich LAB - HEMATOLOGY ORD ERABLES [facility] [address] [place] [address] from Last 3 Months
--- OUTSIDE RECORDS SUMMARY | 2024-05-26 16:14 | XMS_ITS | Encounter Summary ---
Author Organization [facility] Address [address] [place] [address] Care Team Providers Care Kitchen Utility Associate Name Role Phone Marcia Cool NP Primary Care Provider [phone] Marcia Cool NP Primary Care Provider [phone] Lana Nicole MD Primary Care Provider + [phone] Sourav Velasco Primary Care Provider + Encounter Details Date Type Department Care Team (Late st Contact Info) Description 07/01/2016 Orders Only [facility] ProviderNeftaly MD [address] [place] [id number] Social History Tobacco Use Types Packs/Day Years Used Date Smoking Tobacco: Never Alcohol Use Standard Drinks/Week Comments No 0 (1 standard drink = 0.6 oz pur e alcohol) Comments Unknown Sex and Gender Information Value Date Recorded Sex Assigned at Not on file Legal Sex Female 7:41 AM MECHANICAL PENCILS ASSEMBLER Gender Identity Not on file Sexual Orientation Not on file documented as of this encounter Plan of Treatment Not on file documented as of this encounter Procedures Procedure Name Priority Date/Time Associated Diagnosis Comments CARDIOLOGY REPORT 07/01/2016 documented in this encounter Results * CARDIOLOGY REPORT (07/01/2016) Anatomical Region Laterality Modality Other Narrative 07/01/2016 Ordered by an unspecified provider. Historical Provider [facility] GRACIA BRUNER Final Result documented in this encounter Visit Diagnoses Not on filedocumented in this encounter Care Teams Kitchen Utility Associate Relationship Specialty Start Date End Date Marcia Cool NP PCP - General 07/19/16 05/12/22 Marcia Cool NP PCP - General 12/14/14 07/18/16 Lana Nicole MD [address] [place] [address] [place] [address] PCP - General Family Medicine 05/13/22 02/13/24 Sourav Velasco PA [address] [place] [address] [place] [address] PCP - General Internal Medicine 02/14/24 documented as of this encounter
--- OUTSIDE RECORDS SUMMARY | 2024-05-26 16:14 | XMS_ITS | Encounter Summary ---
Author Organization [facility] Address [address] [place] [address] Care Team Providers Care Lpn Instructor Name Role Phone Unavailable Primary Care Provider Unavailabl e Encounter Details Date Type Department Care Team (Late st Contact Info) Description 03/17/2024 Lab Requisition [facility] [address] [place] [address] [place] [address] Social History Tobacco Use Types Packs/Day Years [...] VITAMIN D 25-HYDROXY Routine 03/17/2024 1:03 PM TRAP OPERATOR CBC W AUTO DIFFERENTIAL Routine 03/17/2024 1:03 PM TRAP OPERATOR documented in this encounter Results * VITAMIN D 25-HYDROXY (03/17/2024 1:03 PM TRAP OPERATOR) Vitamin D, 25 Hydroxy 32.4 30 - 80 ng/mL 03/17/2024 1:51 PM TRAP OPERATOR [facility] Blood BLOOD SPECIMEN / Unknown Venipuncture / Unknown 03/17/2024 1:03 PM TRAP OPERATOR 03/17/2024 1:03 PM TRAP OPERATOR Narrative [facility] - 03/17/2024 1:51 PM TRAP OPERATOR Vitamin D Status: Deficiency <20 ng/mL Insufficiency 20-30 ng/mL Sufficiency 30-100 ng/mL Toxicity >100 ng/mL Matt Rich LAB - CHEMISTRY ORDHoward CABEZAS [facility] [address] [place] [address] * (ABNORMAL) CBC WITH DIFFERENTIAL (03/17/2024 1:03 PM TRAP OPERATOR) [facility] WBC 9.1 4.0 - 10.7 x10E9/L 03/17/2024 1:15 PM TRAP OPERATOR [facility] RBC Count 3.49(L) 3.90 - 5.20 x10E12/L 03/17/2024 1:15 PM TRAP OPERATOR [facility] Hemoglobin 11.1(L) 11.9 - 15.8 g/dL 03/17/2024 1:15 PM [facility] Hematocrit 35.8 34.8 - 46.1 % 03/17/2024 1:15 PM TRAP OPERATOR [facility] MCV 102.6(H) 80.0 - 98.0 fL 03/17/2024 1:15 PM TRAP OPERATOR [facility] MCH 31.8 26.7 - 33.6 pg 03/17/2024 1:15 PM TRAP OPERATOR [facility] MCHC 31.0(L) 31.7 - 36.3 g/dL 03/17/2024 1:15 PM [facility] RDW-CV 13.5 11.3 - 14.8 % 03/17/2024 1:15 PM [facility] Platelet Count 247 150 - 420 x10E9/L 03/17/2024 1:15 PM TRAP OPERATOR [facility] MPV 11.3 7.8 - 11.4 fL 03/17/2024 1:15 PM [facility] Neutrophil % 69.6 41.0 - 74.0 % 03/17/2024 1:15 PM TRAP OPERATOR [facility] Lymphocyte % 18.4 17.0 - 47.0 % 03/17/2024 1:15 PM TRAP OPERATOR [facility] Monocyte % 8.3 3.0 - 11.0 % 03/17/2024 1:15 PM TRAP OPERATOR [facility] Eosinophil % 3.1 0.0 - 7.0 % 03/17/2024 1:15 PM TRAP OPERATOR [facility] Basophil % 0.3 0.0 - 1.6 % 03/17/2024 1:15 PM TRAP OPERATOR [facility] Immature Granulocytes % 0.3 0.0 - 1.0 % 03/17/2024 1:15 PM TRAP OPERATOR [facility] Neutrophil Absolute 6.34 1.60 - 7.50 x10E9/L 03/17/2024 1:15 PM TRAP OPERATOR [facility] Lymphocyte Absolute 1.68 1.00 - 4.40 x10E9/L 03/17/2024 1:15 PM TRAP OPERATOR [facility] Monocyte Absolute 0.76 0.15 - 1.00 x10E9/L 03/17/2024 1:15 PM TRAP OPERATOR [facility] Eosinophil Absolute 0.28 0.00 - 0.60 x10E9/L 03/17/2024 1:15 PM TRAP OPERATOR [facility] Basophil Absolute 0.03 0.00 - 0.13 x10E9/L 03/17/2024 1:15 PM TRAP OPERATOR [facility] Blood BLOOD SPECIMEN / Unknown 03/17/2024 1:03 PM TRAP OPERATOR 03/17/2024 1:03 PM TRAP OPERATOR Matt Rich LAB - HEMATOLOGY ORD ERABLES [facility] [address] [place] [address] documented in this encounter Visit Diagnoses Not on filedocumented in this encounter
--- OUTSIDE RECORDS SUMMARY | 2024-05-26 16:14 | XMS_ITS | Referral Summary ---
Author Organization [facility] [place] [address] [facility] [address] Address [address] [place] [address] Care Team Providers Care Narrow Gauge Engineer Name Role Phone Sourav Velasco Primary Care Provider + Encounters Date Type Department Care Team Description 03/31/2024 2:00 PM POLYMERIZATION HELPER Ancillary Procedure [facility] Cardiology [address] [place] [address] Mild aortic stenosis 03/10/2024 Telephone [facility] [address] [place] [address] Edin Leon RN from Last 3 Months Allergies Active Allergy Reactions Criticality Noted Date [...] 6:54 AM CDT): - Cr 1.2-1.8 in 2019 - Cr 1.8 (1.7) 02/15 2.33--> Urine [...] stability 02/18: discharge Treatment Plan started 02/12 Social History Tobacco Use Types Packs/Day Years [...] on file Legal Sex Female 7:41 AM POLYMERIZATION HELPER Gender Identity Not on file Sexual Orientation Not on file Last Filed Vital Signs Vital Sign Reading Time Taken Comments Blood Pressure 150/99 03/31/2024 2:39 PM POLYMERIZATION HELPER Pulse 59 02/19/2024 8:02 AM CDT Temperature [...] 01/21/2024 12:56 PM CDT Plan of Treatment Not on file Procedures Procedure Name Priority Date/Time Associated Diagnosis Comments TRANSTHORACIC ECHO (TTE) COMPLETE W DOPPLER/CF WO CONTRAST Routine 03/31/2024 2:39 PM POLYMERIZATION HELPER Mild aortic stenosis EGFR STAT 02/18/2024 3:18 PM CDT HEMOGLOBIN A1C STAT 02/13/2024 8:23 AM CDT LIPID PANEL STAT 02/13/2024 8:23 AM CDT from Last 3 Months or Most Recently Relevant to Health Maintenance Results * TRANSTHORACIC ECHO (TTE) COMPLETE W DOPPLER/CF WO CONTRAST (03/31/2024 2:39 PM POLYMERIZATION HELPER) Anatomical Region Laterality Modality Ultrasound 03/31/2024 2:36 PM POLYMERIZATION HELPER Narrative 04/01/2024 8:52 AM POLYMERIZATION HELPER [facility] Medical [facility] Cardiology [address] [facility] [address] [address] [address] [facility] [address], [place] [address] P:[phone] P:[phone] Echocardiographic Report Patient Name: SHONNA KIRKLAND L : 1945 Study Date: 03/31/2024 2:36:42 PM Gender: F Tech: DUNCAN Location: [facility] Provider: FEDERICO MONET Height(Cm): 168 [...] FINDINGS: Interpretation Site: Exam was interpreted at [facility]. Left Ventricle: Normal left ventricular size. [...] jet. Electronically Signed By: Federico Monet MD, [facility] 04/01/2024 8:51:52 AM POLYMERIZATION HELPER Procedure Note Federico Monet MD - 04/01/2024 [facility] Cardiology [address] [facility] [address], [place] [address] [address] [facility] [address], [place] [address] P:[phone] P:[phone] Echocardiographic Report Patient Name: SHONNA KIRKLAND L : 1945 Study Date: 03/31/2024 2:36:42 PM Gender: F Tech: DUNCAN Location: [facility] Provider: FEDERICO MONET Height(Cm): 168 [...] FINDINGS: Interpretation Site: Exam was interpreted at [facility]. Left Ventricle: Normal left ventricular size. [...] jet. Electronically Signed By: Federico Monet MD, [facility] 04/01/2024 8:51:52 AM POLYMERIZATION HELPER Federico Monet MD CV ECHO PROCEDURES Final [...] of Race in Diagnosing Kidney Disease, JASN 202). The CKD-EPI equation should not be used for patients with unstable renal function and has not been validated in children and those over 70. Current interpretive data was last reviewed 2021. Blood 02/18/2024 3:18 PM CDT 02/18/2024 3:31 PM CDT us [place] Agudelo AEROSOL LINE OPERATOR LAB BLOOD ORDERABLES Lidia l Result Performing Organization Address [facility] Co de Phone Number [facility] [place] [address] * (ABNORMAL) Hemoglobin A1c (02/13/2024 8:23 AM CDT) Hgb A1C 6.9(H) 4.0 - 5.6 % Estimated Average Glucose 151 mg/dL [facility] Comment: The ADA recommends reporting an estimated Average Glucose (eAG) with all Hemoglobin A1c results using the equation derived from a study of 507 normal and diabetic adults. Minority populations were underrepresented and children were not included. (Diabetes Care 2020; 43(S1): S66-S76). The eAG is not equivalent to a fasting glucose. Blood 02/13/2024 8:23 AM CDT 02/13/2024 8:37 AM CDT Katelyn Jenkins AEROSOL LINE OPERATOR LAB BLOOD ORDERABLES Final Result Performing Organization Address [facility] Co de Phone Number [facility] [place] [address] * Lipid panel (02/13/2024 8:23 AM CDT) [...] revised on 2017. Triglycerides 77 <=149 mg/dL [facility] Comment: Interpretive Data Ages < [...] revised on 2017. HDL 51 >=40 mg/dL [facility] Comment: Interpretive Data Ages < [...] on 2017. LDL, calculated 32 <=129 mg/dL [facility] Comment: Interpretive Data Ages < [...] NCEP Expert Panel. Circulation 2004;110:227 3. Milton Gold al. LUCILA Cardiol. 2020 August 19;5(5):540-548. doi: 10.1001/jamacardio.2020.0013 Current Interpretive Data was last revised on 2023. Non-HDL Cholesterol 48 mg/dL [facility] Comment: Interpretive Data Ages < [...] last revised on 2017. Chol/HDL ratio 2 [facility] Blood 02/13/2024 8:23 AM CDT 02/13/2024 8:33 AM CDT Narrative [facility] - 02/14/2024 12:32 AM CDT Reflex us Misael Wong DO LAB BLOOD ORDERABLES Fi nal Result [facility] [place] [address] from Last 3 Months or Most Recently Relevant to Health Maintenance Insurance [facility]IC[facility] [place] [address] [facility] MEDICARE RAILROAD Member Subscriber Plan / Payer (Ef fective 2009-Present) Name:SHONNA KIRKLAND Member ID:[id number] Relation to Subscriber:Self Name:Shonna Kirkland Subscriber ID:[id number] Payer ID:[id number] Group ID:Not on file Type:MEDICARE TRADITIONAL Address: [address] MEDIC[address] RAILROAD Advance Directives For more information, please contact: [phone] * Full Code (Latest Code Status on File) Date Activated Date Inactivated Comments 02/13/2024 5:54 PM 02/19/2024 1:18 PM Care Teams Narrow Gauge Engineer Relationship Specialty Start Date End Date Sourav Velasco PA [facility] [place] [address] PCP - General Internal Medicine 02/14/24
--- OUTSIDE RECORDS SUMMARY | 2024-05-26 16:14 | XMS_ITS | Referral Summary ---
Author Organization [facility] Address [address] [facility] [place] [address] Care Team Providers Care Supervisor Briar Shop Name Role Phone Unavailable Primary Care Provider Unavailabl e Source Comments [facility] [employer],non-owned Affiliates and Associated Physician Practices is amultiple site organization consisting of ambulatory clinics and hospital sitesin [place], [place], [place] and [place]. This disclosure is being madepursuant to the Care Everywhere program and may not contain all information available regarding this patient. Last updated 18.[facility] Encounters Date Type Department Care Team Description 03/17/2024 Lab Requisition [facility] [address] [place] [address] Matt Rich from Last 3 Months Allergies Active Allergy Reactions Criticality Noted Date Comments Codeine 02/10/2017 Immunizations Name Administration Dates Next Due INFLUENZA VACCINE, HIGH-DOSE , QUADR. (FLUZONE HIGH-DOSE QUADRIVALENT; 65Y+), 0.7 ML (HD-IIV4) 02/10/2017 Social History Tobacco Use Types Packs/Day Years Used Date Smoking Tobacco: Never Assessed Sex and Gender Information Value Date Recorded Sex Assigned at Not on file Gender Identity Not on file Sexual Orientation Not on file Plan of Treatment Not on file Procedures Procedure Name Priority Date/Time Associated Diagnosis Comments VITAMIN D 25-HYDROXY Routine 03/17/2024 1:03 PM HAND II CUTTER CBC W AUTO DIFFERENTIAL Routine 03/17/2024 1:03 PM HAND II CUTTER from Last 3 Months Results * VITAMIN D 25-HYDROXY (03/17/2024 1:03 PM HAND II CUTTER) Vitamin D, 25 Hydroxy 32.4 30 - 80 ng/mL 03/17/2024 1:51 PM HAND II CUTTER [facility] Blood BLOOD SPECIMEN / Unknown Venipuncture / Unknown 03/17/2024 1:03 PM HAND II CUTTER 03/17/2024 1:03 PM HAND II CUTTER [facility] - 03/17/2024 1:51 PM HAND II CUTTER Vitamin D Status: Deficiency <20 ng/mL Insufficiency 20-30 ng/mL Sufficiency 30-100 ng/mL Toxicity >100 ng/mL [facility] LAB - CHEMISTRY NAJMA CABEZAS [facility] [address] [place] [address] * (ABNORMAL) CBC WITH DIFFERENTIAL (03/17/2024 1:03 PM HAND II CUTTER) Pathologist [facility] WBC 9.1 4.0 - 10.7 x10E9/L 03/17/2024 1:15 PM [facility] RBC Count 3.49(L) 3.90 - 5.20 x10E12/L 03/17/2024 1:15 PM [facility] Hemoglobin 11.1(L) 11.9 - 15.8 g/dL 03/17/2024 1:15 PM [facility] Hematocrit 35.8 34.8 - 46.1 % 03/17/2024 1:15 PM [facility] MCV 102.6(H) 80.0 - 98.0 fL 03/17/2024 1:15 PM [facility] MCH 31.8 26.7 - 33.6 pg 03/17/2024 1:15 PM [facility] MCHC 31.0(L) 31.7 - 36.3 g/dL 03/17/2024 1:15 PM [facility] RDW-CV 13.5 11.3 - 14.8 % 03/17/2024 1:15 PM [facility] Platelet Count 247 150 - 420 x10E9/L 03/17/2024 1:15 PM [facility] MPV 11.3 7.8 - 11.4 fL 03/17/2024 1:15 PM [facility] Neutrophil % 69.6 41.0 - 74.0 % 03/17/2024 1:15 PM [facility] Lymphocyte % 18.4 17.0 - 47.0 % 03/17/2024 1:15 PM HAND II CUTTER [facility] Monocyte % 8.3 3.0 - 11.0 % 03/17/2024 1:15 PM HAND II CUTTER [facility] Eosinophil % 3.1 0.0 - 7.0 % 03/17/2024 1:15 PM HAND II CUTTER [facility] Basophil % 0.3 0.0 - 1.6 % 03/17/2024 1:15 PM HAND II CUTTER [facility] Immature Granulocytes % 0.3 0.0 - 1.0 % 03/17/2024 1:15 PM HAND II CUTTER [facility] Neutrophil Absolute 6.34 1.60 - 7.50 x10E9/L 03/17/2024 1:15 PM HAND II CUTTER [facility] Lymphocyte Absolute 1.68 1.00 - 4.40 x10E9/L 03/17/2024 1:15 PM HAND II CUTTER [facility] Monocyte Absolute 0.76 0.15 - 1.00 x10E9/L 03/17/2024 1:15 PM HAND II CUTTER [facility] Eosinophil Absolute 0.28 0.00 - 0.60 x10E9/L 03/17/2024 1:15 PM HAND II CUTTER [facility] Basophil Absolute 0.03 0.00 - 0.13 x10E9/L 03/17/2024 1:15 PM HAND II CUTTER [facility] Blood BLOOD SPECIMEN / Unknown 03/17/2024 1:03 PM HAND II CUTTER 03/17/2024 1:03 PM HAND II CUTTER [facility] LAB - HEMATOLOGY ORD ERABLES [facility] [address] [place] [address] from Last 3 Months
--- OUTSIDE RECORDS SUMMARY | 2024-05-26 16:15 | XMS_ITS | Clinical Summary ---
Author Organization [facility] Address [address], [place] [address] Phone Care Team Providers Care Eclectic Doctor Name Role Phone Marcia Cool ANASTASIIA Primary Care Provider [phone] Allergies Active Allergy Reactions Criticality Noted Date Comments Celecoxib Rash Low 01/16/2019 Codeine 02/10/2017 Rofecoxib Rash Low 01/16/2019 Medications Medication Sig Dispensed Refills Start Date End Date Status aspirin (ASPIR-LOW) 81 MG EC tablet 03/23/2014 Active allopurinol (ZYLOPRIM) 100 MG tablet 2 daily 11/04/2012 Active carvedilol (COREG) 25 MG tablet 1 bid 0 11/15/2015 Active fluticasone-salmet rocio (ADVAIR DISKUS) 100-50 MCG/DOSE diskus inhaler 03/23/2014 Active albuterol HFA (PROAIR HFA) 108 (90 Base) MCG/ACT inhaler 03/23/2014 Active atorvastatin (LIPITOR) 10 MG tablet 03/23/2014 Active fish oil-omega-3 fatty acids 1000 MG capsule 2 bid 11/02/2011 Active latanoprost (XALATAN) 0.005 % ophthalmic solution 1 drop OU 0 05/14/2017 Active amLODIPine (NORVASC) 10 MG tablet TAKE ONE TABLET BY MOUTH EVERY DAY 12 03/28/2014 Active Cholecalciferol (VITAMIN D3) 2000 units tablet 1 bid 0 05/14/2017 Active cyanocobalamin (VITAMIN B-12) 1000 MCG/ML injection INJECT 1000MCG (1ML) INTRAMUSCULARLY ONCE WEEKLY STARTING ON 12 14 UNTIL FUTHER NOTICE 0 12/14/2018 Activ e furosemide (LASIX) 20 MG tablet Take 20 mg by mouth 1 (one) time each day 0 01/14/2019 Active famotidine (PEPCID) 20 MG tablet Take 20 mg by mouth 1 (one) time each day 03/25/2019 Active Calcium-Magnesium- Vitamin D ER (CITRACAL) 600-40-500 MG-MG-UNIT tablet sustained-release 24 hour Take by mouth daily Activ e ondansetron (ZOFRAN) 4 MG tablet Take 4 mg by mouth every 8 (eight) hours 06/03/2019 Active oseltamivir (TAMIFLU) 75 MG capsule TAKE 1 CAPSULE BY MOUTH EVERY 12 HOURS FOR 5 DAYS 06/03/2019 Active glucagon (Glucagon Emergency) 1 MG injection Use as directed in an emergency situation 01/08/2019 Active Insulin Degludec 100 UNIT/ML solution Inject under the skin Act otilio insulin lispro (HumaLOG) 100 UNIT/ML injection Inject under the skin 3 (three) times a day before meals Active Active Problems Problem Noted Date Diagnosed Date Upper gastrointestinal bleeding 01/16/2019 Hyperlipidemia 01/16/2019 Type 2 diabetes mellitus without complication Chronic kidney disease, stage 3 (moderate) 10/15 Hypertensive chronic kidney disease with stage 1 through stage 4 chronic kidney disease, or unspecified chronic kidney disease 10/16/2011 Immunizations Name Administration Dates Next Due Influenza Split High Dose Pr eservative Free IM 02/06/2019,02/03/2018,02/10/2017,01/19,03/02/2015,02/03/2014 Influenza TIV (IM) 03/03/2015,02/15/2013, 012 Influenza, Injectable, Quadrivalent 02/08/2019,1 Pneumococcal Conjugate 04/21/2007 Pneumococcal Conjugate 13-Valent 02/03/2018 Pneumococcal Polysaccharide 02/08/2019, 5 Family History Medical History Relation Comments Kidney disease Neg Hx Kidney stone Neg Hx Social History Tobacco Use Types Packs/Day Years Used Date Smoking Tobacco: Never Smokeless Tobacco: Never Alcohol Use Standard Drinks/Week Comments No 0 (1 standard drink = 0.6 oz pur e alcohol) AUDIT-C Answer Date Recorded Frequency of Alcohol Consumption Never 2018 Average Number of Drinks Not on file 019 Frequency of Binge Drinking Not on file 04/2018 Sex and Gender Information Value Date Recorded Sex Assigned at Not on file Gender Identity Not on file Sexual Orientation Not on file Last Filed Vital Signs Vital Sign Reading Time Taken Comments Blood Pressure 122/68 04/05/2019 8:52 AM [employer]ICER Pulse 72 04/05/2019 8:52 AM [employer]ICER Temperature 35.7 C (96.2 F) 04/05/2019 8:52 AM [employer]ICER Respiratory Rate 20 11/06/2011 12:01 AM CDT Oxygen Saturation - - Inhaled Oxygen Concentration - - Weight 95.7 kg (211 lb) 04/05/2019 8:52 AM [employer] OFFICER Height 167.6 cm (5' 6 ) 04/05/2019 8:52 AM [employer] OFFICER Body Mass Index 34.06 04/05/2019 8:52 AM [employer] RE[employer]UE OFFICER Plan of Treatment Health Maintenance Due Date Last Done Comments Influenza Vaccine (#1) 2023 5, 02/15/2013, 02/27/2012 Pneumococcal PPSV23/PCV13 65 + Years / Low and Medium Risk Completed 02/08/2019, 02/03/2018, 09/21/2014 Care Teams Eclectic Doctor Relationship Specialty Start Date End Date Marcia Cool NP [address] [place] [address] [place] [address] PCP - General Internal Medicine 08/19/18
--- OUTSIDE RECORDS SUMMARY | 2024-05-26 16:15 | XMS_ITS | Data Portability ---
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 Plan of Treatment Reminders Order Date Submit Date Provider Last Modified By Organization Details Last Modified Time Details Appointments None recorded. Lab hemoglobin A1C, fingerstick 2022 023 [facility] [address], [place], [address], 3 14:48:34 Referral None recorded. Procedures None recorded. Surgeries None recorded. Imaging None recorded. Medication Orders albuterol sulf 90 mcg/actuati on breath activated powder inhaler,sen sor 2023 024 [facility] [address] [place], [address], 4 15:14:36 Symbicort 160 mcg-4.5 mcg/actuati on HFA aerosol inhaler 2023 [facility]24 [facility] [address] [place], [address], 4 14:33:06 dicyclomine 10 mg capsule 2023 024 [facility] [address] [place], [address], 14:47:48 Patient TargetsNo targets recorded. Patient Instructions Encounter Date Encounter Id Patient Instructions Last Modified By Organization Details Last Modified Time 09/04/2023 [id number] dementia rating scale-2* [email or web address] Not available 09/28/2023 16:09:26 multi-dimensiona l health assessment questionnaire* [email or web address] Not available 09/28/2023 16:09:26 depression screening* [email or web address] Not available 09/28/2023 16:09:26 alcohol misuse* [email or web address] Not availab le 09/28/2023 16:09:26 multi-dimensiona l health assessment questionnaire* [id number] Not available 09/28/2023 16:09:26 Personalized a lt Plan and Screening Recommendations Advance Directives - Do you have one? No Advance Directives - Do we have your advance directive on file in your health record? Primary Prevention/Interven tion (prevents or decreases the chance of common diseases from occurring) Smoking Risk: Non Smoker Alcohol Misuse Screening: Negative Weight: Appropriate Overwei ght continue your current weight loss efforts try to lose 5% of your body weight try to lose 10% of your body weight Physical activity: Need more exercise/physical activity minimum of 10-20 minutes of activity that causes mild breathlessness/day minimum of 20-30 minutes activity that causes mild breathlessness/day Nutrition: Good Average Fall Risk (screened today): Low Intermediate Vaccines Pneumococcal: Ordered Recommended today Recommended today, but you have declined No further needed Influenza: Your next one in the fall of this year Chronic Disease Risks Stroke: Low Risk Intermediate Risk I have no recommendations Act otilio diagnosis, Continue current treatment plan Heart Attack: Low risk Intermediate Risk I have no recommendations Act otilio diagnosis, Continue current treatment plan Clogging of the Arteries: Low risk Intermediate Risk I have no recommendations Act otilio diagnosis, Continue current treatment plan Diabetes: Low Risk I have no recommendations Secondary Prevention/Interven tion (detects treatable diseases before they may cause symptoms, disability, or ) Breast Cancer Screening with mammogram: Your next mammogram: Ordered Recommended today Recommended today, but you have declined Cervical/Uterine/Ov nydia Cancer Screening: No screening necessary Osteoporosis Screening: Your next DEXA in: Ordered Recomme nded today Recommended today, but you have declined Date Screening Last Performed: Colon Cancer Screening: Colonoscopy In: Ordered Recomme nded Recommended today, but you have declined Date Screening Last Performed: Eye Disease Screening: No Eye exam necessary Dementia Risk: High My recommendation would be to have an appointment with the Neurologist Depression Screening: Negative Active diagnosis, Continue current treatment plan Not available 09/04/2023 15:52:45 she refused a mammogram and dexa scan [email or web address] Not available 09/04/2023 15:33:49 Reason for Referral None Reported. Results Created Date Observation Date Name Description Value Unit Range Abnormal Flag Note LastModifiedBy Organization Detail LastModifiedTime 03/05/2003/05/2023 hemog lobin A1C, finge rstic k HgbA1C 7.8 Not Available [facility], [place], [address], 03/05/2023 14:41:35 05/08/19 25 05/07/2024 CT, brain , w/o contr ast No observ ation record ed. [email or web address] [id number], [place], [address], 05/10/2024 08:53:39 Result Notes None recorded. 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 Candie Ding, STATE [employer]OR[employer] [address], [facility], [place], [address] , [email or web address] [facility] [employer] 3 12:26:33 Abnormal gait 33074474 Active 2022 Lana Nicole MD [address], [address], [place], [address] , [place] [facility] [employer] 3 19:47:24 Dementia 22365959 Active 2022 Lana Nicole MD [address], [address], [place], [address] , [facility] 3 19:49:27 Type 2 diabetes mellitus 76156310 Active [address] [facility], [facility] [address], [place], [address] , [facility] 3 15:49:54 Irregular breathing 512005700 Active 2022 Lana Nicole MD [address] [facility], [facility] [address], [place], [address] , [facility] 3 14:33:37 Irritable bowel syndrome with diarrhea 039216480 Active [address] [facility], 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 30248112542 62383 Active 2020 Not Available [facility] 3 04:39:26 Leukocyto sis 347739379 Active Not Available [facility] 3 04:39:26 Pain in throat 250576828 Completed Not Available [facility] 3 04:39:26 Radiother apy follow-up 551693528 Active Not Available [facility] 3 04:39:26 Cataract 906835445 Active Not Available [facility] 3 04:39:26 Asthma 308543851 Active Not Available [facility] 3 04:39:26 Localized , primary osteoarth ritis of the pelvic region and thigh 630057251 Active Not Available [facility] 3 04:39:26 Fluid level behind tympanic membrane Completed Not Available [facility] 3 04:39:26 Malaise and fatigue 252160952 Completed Not Available [facility] 3 04:39:26 History of SARS-CoV- 2 72441165111 1467071 Active 2021 Not Available [facility] 3 04:39:26 Physical deconditi oning 89437697788 102 Active 2021 Not Available [facility] 3 04:39:26 Type 2 diabetes mellitus without complicat ion 492907608 Active Not Available [facility] 3 04:39:26 Viral disease 21667357 Completed Not Available [facility] 3 04:39:27 Dehydrati on 39066873 Completed Not Available [facility] 3 04:39:27 Hyperuric emia 21876438 Completed Not Available [facility] 3 04:39:27 Strain of neck muscle 750426838 Completed Not Available [facility] 3 04:39:27 Upper gastroint estinal bleeding 03724537 Active Not Available [facility] 3 04:39:27 Osteoarth ritis 323511642 Active Not Available [facility] 3 04:39:27 Immunoglo bulin deficienc y 977112470 Active 2021 Not Available [facility] 3 04:39:27 History of total replaceme nt of right hip joint 04460332061 4100 Active 2020 Not Available [facility] 3 04:39:27 Cough 99792072 Completed Not Available [facility] 3 04:39:27 Ulcer of duodenum 47934428 Active Not Available [facility] 3 04:39:27 Coronary arteriosc lerosis 21502398 Active Not Available [facility] 3 04:39:27 Upper respirato ry infection 23973153 Completed Not Available [facility] 3 04:39:27 Hyperlipi demia 13114598 Active Not Available [facility] 3 04:39:28 Pain in wrist 63010274 Active Not Available [facility] 3 04:39:28 Essential hypertens ion 05914190 Active Not Available [facility] 3 04:39:28 Dyspnea on exertion 04560509 Active 2021 Not Available [facility] 3 04:39:28 Vitamin B12 deficienc y (non anemic) 00617951 Active 2018 Not Available [facility] 3 04:39:28 Hypercalc emia 98998892 Active 2020 Not Available [facility] 3 04:39:28 Chronic cough 36517817 Active 2021 Not Available [facility] 3 04:39:28 Chronic kidney disease 540727313 Active 2018 Not Available [facility] 3 04:39:28 Diabetes mellitus 40986415 Completed Not Available [facility] 3 04:39:28 Acute bacterial sinusitis 84451081 Completed Not Available [facility] 3 04:39:29 Posterior rhinorrhe a 09041399 Completed Not Available [facility] 3 04:39:29 Cardiomeg janet 2886045 Active Not Available [facility] 3 04:39:29 Gout 21346269 Active Not Available [facility] 3 04:39:29 Conjuncti vitis 3918215 Completed Not Available [facility] 3 04:39:29 Problem Notes None recorded. Procedures Surgical History Date Name Laterality Status Provider Name and Address Organization Details Recorded Time 09/04/19 24 Medicare Wellness CPT Code, subsequent completed Dali Helton [place] [facility] 09/04/2023 14:55:08 09/02/19 18 Total hip arthroplasty completed Not Available [facility] 06/19/2022 04:34:10 Colonoscopy completed Not Available [facility] 06/19/2022 04:34:10 Cardiovascular Procedure completed Not Available [facility] 06/19/2022 04:34:10 Orthopedic Surgery completed Not Available [facility] 06/19/2022 04:34:10 Cataract Surgery completed Not Available [facility] 06/19/2022 04:34:10 Imaging Results Imaging Date Name Status LastModified by Organiz ation Details LastModified Time 05/07/2024 CT, brain, w/o contrast completed [address], [place], [address], 05/10/2024 08:53:39 Procedure Notes None recorded. Medical Equipment None Reported. Allergies Allergen ID Allergen Name Allergen Category Reaction Reaction Severity Criticality Documentation Date Start Date Code Code System Note Provider Name and Address Organization Details Recorded Time 6839 Vioxx medicatio n rash Not available Not available 06/19/2022 06736 9 RxNorm Not Available [facility] 3 04:49:50 6840 codeine medicatio n Not available Not available Not available 06/19/2022 2670 RxNorm Not Available [facility] 3 04:49:50 6841 Celebrex medicatio n rash Not available Not available 06/19/2022 25364 7 RxNorm Not Available [facility] 3 04:49:50 Medications Name Sig Start Date Stop Date Status Note LastModified by Organization Details LastModified Time cyclobenz aprine 10 mg tablet 03/09 completed Not Available Not Available Not Available amoxicill in 500 mg capsule Take 4 capsule( s) ONE HOUR PRIOR TO PROCEDUR E by oral route. active Not Available Not Available No t Available latanopro st 0.005 % eye drops INSTILL 1 DROP INTO EACH EYE AT BEDTIME active Not Available Not Available No t Available atorvasta tin 40 mg tablet Take 1 tablet every day by oral route. 11/09 completed Not Available Not Available Not Available metformin 500 mg tablet TAKE ONE TABLET BY MOUTH IN THE MORNING AND TWO AT NOON AND TWO IN THE EVENING WITH SUPPER active Not Available Not Available No t Available Novolin 70/30 U-100 Insulin 100 unit/mL subcutane ous suspensio n 04/26 completed Not Available Not Available Not Available carvedilo l 25 mg tablet TAKE 1 TABLET BY MOUTH TWICE DAILY WITH MEALS 04/24 completed Not Available Not Available Not Available carvedilo l 6.25 mg tablet active Not Available Not Available Not Available doxycycli ne hyclate 100 mg capsule Take 1 capsule twice a day by oral route for 10 days. active Not Available Not Available No t Available carvedilo l 12.5 mg tablet TAKE 2 TABLETS BY MOUTH TWICE DAILY WITH MEALS active Not Available Not Available No t Available ipratropi um 0.5 mg-albute rol 3 mg (2.5 mg base)/3 mL nebulizat ion soln Inhale 3 mL every day by nebuliza tion route for 1 day. 08/07 completed Not Available Not Available Not Available donepezil 5 mg tablet TAKE 1 TABLET BY MOUTH ONCE DAILY AT BEDTIME active Not Available Not Available No t Available enalapril maleate 10 mg tablet Take 1 tablet twice a day by oral route for 30 days. 12/23 completed Not Available Not Available Not Available albuterol sulfate 2.5 mg/3 mL (0.083 %) solution for nebulizat ion Inhale 3 mL every day by nebuliza tion route for 1 day. 04/24 completed Not Available Not Available Not Available atorvasta tin 10 mg tablet Take 1 tablet by mouth once daily active Not Available Not Available No t Available azithromy daniel 250 mg tablet TAKE 2 TABLETS BY MOUTH ON DAY 1, AND THEN TAKE 1 TABLET BY MOUTH ONCE A DAY ON DAY 2 THROUGH DAY 5 05/30 completed Not Available Not Available Not Available Coricidin HBP Cough and Cold 4 mg-30 mg tablet Take 1 tablet every 6 hours by oral route as directed for 15 days. 07/13 completed Not Available Not Available Not Available benzonata te 200 mg capsule Take 1 capsule 3 times a day by oral route as needed for 10 days. active Not Available Not Available No t Available hydrocodo ne 5 mg-acetam inophen 325 mg tablet 03/09 completed Not Available Not Available Not Available donepezil 10 mg tablet TAKE 1 TABLET BY MOUTH ONCE DAILY 12/10 completed dose adjustme nt Not Available Not Available Not Available sucralfat e 1 gram tablet TAKE ONE PO BID active Not Available Not Available No t Available ondansetr on HCl 4 mg tablet 08/01 completed Not Available Not Available Not Available famotidin e 40 mg tablet TAKE 1 TABLET BY MOUTH ONCE DAILY IN THE EVENING active Not Available Not Available No t Available enalapril maleate 2.5 mg tablet Take 1 tablet twice a day by oral route for 30 days. active Not Available Not Available No t Available hydralazi ne 25 mg tablet TAKE 1 TABLET BY MOUTH 4 TIMES DAILY 08/17 completed HOLD Not Available Not Available Not Available clopidogr el 75 mg tablet TAKE ONE TABLET BY MOUTH ONCE DAILY 03/09 completed Not Available Not Available Not Available allopurin ol 100 mg tablet Take 2 tablets by mouth once daily 2023 active Not Available Not Available Not Avai lable aspirin 81 mg tablet,de layed release Take 1 tablet every day by oral route. 04/22 completed takes 325 for 30 days Not Available Not Available Not Available glimepiri de 2 mg tablet TAKE ONE TABLET BY MOUTH IN THE MORNING active Not Available Not Available No t Available carvedilo l 3.125 mg tablet active Not Available Not Available No t Available BD Tuberculi n Syringe 1 mL 27 x 1/2 USE WITH B12 INJECTIO NS WEEKLY 08/01 completed Not Available Not Available Not Available famotidin e 20 mg tablet TAKE 1 TABLET BY MOUTH ONCE DAILY active Not Available Not Available No t Available dicyclomi ne 20 mg tablet 08/07 completed Not Available Not Available Not Available Kenalog 10 mg/mL suspensio n for injection In office injectio n administ ered by the provider 09/08 completed [facility]: 0003-049 4-20 Not Available Not Available Not Available sodium bicarbona te 650 mg tablet 02/09 completed Not Available Not Available Not Available sulfaceta mide sodium 10 % eye drops INSTILL 1 DROP INTO AFFECTED EYE(S) BY OPHTHALM IC ROUTE EVERY 2-3 HOURS DURING THE DAY AND LESS FREQUENT LY AT NIGHT) active Not Available Not Available No t Available amlodipin e 10 mg tablet TAKE 1 TABLET BY MOUTH ONCE DAILY active Not Available Not Available No t Available benzonata te 100 mg capsule TAKE 1 CAPSULE BY MOUTH THREE TIMES DAILY NEEDED FOR COUGH 05/30 completed Not Available Not Available Not Available pantopraz ole 40 mg tablet,de layed release TAKE ONE TABLET BY MOUTH TWICE DAILY 06/03 completed Not Available Not Available Not Available cyanocoba jeffrey (vit B-12) 1,000 mcg/mL injection solution Inject 1 mL every day by subcutan eous route. 10/19 completed Not Available Not Available Not Available oseltamiv ir 75 mg capsule 09/08 completed Not Available Not Available Not Available ferrous sulfate 325 mg (65 mg iron) tablet Take 1 tablet every day by oral route. active Not Available Not Available No t Available ranitidin e 150 mg tablet TAKE 1 TABLET BY MOUTH TWICE DAILY 04/20 completed Not Available Not Available Not Available glimepiri de 4 mg tablet Take 1 tablet twice a day by oral route as directed for 90 days. active Not Available Not Available No t Available losartan 25 mg tablet TAKE 1 TABLET BY MOUTH ONCE DAILY 12/10 completed Not Available Not Available Not Available Advair Diskus 250 mcg-50 mcg/dose powder for inhalatio n INHALE ONE DOSE BY MOUTH TWICE DAILY DIRECTED FOR 30 DAYS 04/22 completed Not Available Not Available Not Available insulin syringe U-100 with needle 1 mL 31 gauge x 09/03 completed Not Available Not Available Not Available cyanocoba jeffrey (vit B-12) 1,000 mcg sublingua l tablet Place 1 tablet every day by sublingu al route for 90 days. active Not Available Not Available No t Available ranitidin e 150 mg capsule Take 1 capsule twice a day by oral route for 30 days. 08/07 completed Not Available Not Available Not Available furosemid e 20 mg tablet TAKE 1 TABLET BY MOUTH ONCE DAILY NEEDED FOR EDEMA active Not Available Not Available No t Available Nasonex 50 mcg/actua tion Arvin Arvin 2 sprays every day by intranas al route at bedtime. active Not Available Not Available No t Available levofloxa daniel 500 mg tablet Take 1 tablet every 24 hours by oral route for 7 days. 06/03 completed Not Available Not Available Not Available levofloxa daniel 750 mg tablet Take 1 tablet by oral route for 7 days. active Not Available Not Available No t Available methylpre dnisolone 4 mg tablets in a dose pack TAKE BY MOUTH DIRECTED ON INSIDE OF PACKAGE 02/12 completed Not Available Not Available Not Available albuterol sulfate HFA 90 mcg/actua tion aerosol inhaler Inhale 2 puffs every 4-6 hours by inhalati on route as needed for 30 days. active Not Available Not Available No t Available colchicin e 0.6 mg tablet active Not Available Not Available Not Available lisinopri l 40 mg tablet TAKE ONE TABLET BY MOUTH ONCE DAILY active Not Available Not Available No t Available ondansetr on 4 mg disintegr ating tablet 08/07 completed Not Available Not Available Not Available cefdinir 300 mg capsule 02/09 completed Not Available Not Available Not Available fluticaso ne propionat e 50 mcg/actua tion nasal spray,lo pension USE 2 SPRAY(S) IN EACH NOSTRIL ONCE DAILY AT BEDTIME active Not Available Not Available No t Available dicyclomi ne 10 mg capsule Take 1 capsule 3 times a day by oral route before meal(s) for 30 days. active Not Available Not Available No t Available loratadin e 10 mg tablet Take 1 tablet every day by oral route in the morning for 90 days. active Not Available Not Available No t Available amoxicill in 875 mg-potass ium clavulana te 125 mg tablet Take 1 tablet every 12 hours by oral route for 10 days. 06/02 completed Not Available Not Available Not Available Pneumovax -23 25 mcg/0.5 mL injection syringe PHARMACI ST ADMINIST ERED IMMUNIZA TION ADMINIST ERED AT TIME OF DISPENSI NG 09/08 completed Not Available Not Available Not Available pen needle, diabetic 31 gauge x 09/03 active Not Available Not Available Not Available escitalop theodore 10 mg tablet TAKE 1 TABLET BY MOUTH ONCE DAILY active Not Available Not Available No t Available guaifenes in 400 mg tablet Take 1 tablet every 4 hours by oral route as directed for 15 days. 07/13 completed Not Available Not Available Not Available Novolog FlexPen U-100 Insulin aspart 100 unit/mL (3 mL) subcutane ous 08/07 completed Not Available Not Available Not Available cyclobenz aprine 5 mg tablet Take 1 tablet twice a day by oral route for 5 days. active Not Available Not Available No t Available Vigamox 0.5 % eye drops 12/14 completed Not Available Not Available Not Available Crestor 10 mg tablet Take 1 tablet every day by oral route as directed for 90 days. active CHANGED TO ATORVAST ATIN ON 10/04/15 Not Available Not Available Not Available memantine 10 mg tablet TAKE 1 TABLET BY MOUTH TWICE DAILY AT BREAKFAS T AND AT BEDTIME active Not Available Not Available No t Available Spiriva with [employer] r 18 mcg and inhalatio n capsules Inhale 1 capsule every day by inhalati on route for 30 days. active Not Available Not Available No t Available aspirin 81 mg 2019 active Not Available Not Available Not Avai lable donepezil 5mg one PO daily at HS 11/28 completed Not Available Not Available Not Available [place] 3 Fish Oil 1000mg 2019 active Not Available Not Available Not Avai lable Novolog FlexPen U-100 Insulin Take 20 units breakfas t - 18 Units lunch - 16 units supper 12/20 completed Not Available Not Available Not Available lidocaine (PF) 10 mg/mL (1 %) injection solution In office injectio n administ ered by the provider 04/24 completed [facility]: 0409-427 6-17 Not Available Not Available Not Available Humalog Mix 50-50 Insuln U-100 10units at supper 03/05 completed Not Available Not Available Not Available pioglitaz one 30 mg-glimep iride 4 mg tablet active Not Available Not Available No t Available Januvia 100 mg tablet Take 1 tablet every day by oral route. 2013 active Dispense Qty: 90. Not Available Not Available Not Available Symbicort 160 mcg-4.5 mcg/actua tion HFA aerosol inhaler Inhale 2 puffs twice a day by inhalati on route. 12/10 completed Not Available Not Available Not Available Lantus Solostar U-100 Insulin 100 unit/mL (3 mL) subcutane ous pen Inject 50 units every day by sub-q route at bedtime for 30 days. 08/07 completed Not Available Not Available Not Available Humalog KwikPen (U-100) Insulin 100 unit/mL subcutane ous 10 UNITS AT BREAKFAS T AND LUNCH, AND 12 UNITS AT SUPPER 08/07 completed Not Available Not Available Not Available Biotin Plus-Calc ium and Vit D3 2400mg 2019 active Not Available Not Available Not Avai lable Effient 10 mg tablet active Not Available Not Available Not Available omega 3-dha-epa -fish oil 1,000 mg (120 mg-180 mg) capsule take 2 tablets daily 04/22 completed Not Available Not Available Not Available pen needle, diabetic 32 gauge x 5/32 USE WITH INSULIN INJECTIO NS FIVE TIMES DAILY active Not Available Not Available No t Available Lumigan 0.01 % eye drops Apply 1 mL every day by ophthalm ic route for 25 days. active Not Available Not Available No t Available Vitamin D3 50 mcg (2,000 unit) capsule take 1 po daily 03/09 completed Not Available Not Available Not Available Xarelto 10 mg tablet 03/09 completed Not Available Not Available Not Available Tudorza Pressair 400 mcg/actua tion breath activated Inhale 1 puff twice a day by inhalati on route as directed for 90 days. 08/07 completed Not Available Not Available Not Available True Metrix Glucose Test Strip USE TO CHECK BLOOD SUGAR THREE TIMES DAILY active Not Available Not Available No t Available albuterol sulfate 90 mcg/actua tion breath activated powder inhaler Inhale 2 puffs 4 times a day by inhalati on route as needed. 03/19 completed TAKES PRN Not Available Not Available Not Available Tresiba FlexTouch U-100 Take 86 units daily 11/28 completed Not Available Not Available Not Available Basaglar KwikPen U-100 Insulin 30units Every am and pm 2021 active Not Available Not Available Not Avai lable Qvar RediHaler 80 mcg/actua tion HFA breath activated aerosol Inhale 2 puffs twice a day by inhalati on route for 30 days. 2023 active Not Available Not Available Not Avai lable Novolin 70-30 FlexPen U-100 Insulin 100 unit/mL (70-30) subcutane ous INJECT 56 UNITS SUBCUTAN EOUSLY WITH BREAKFAS T AND 45 UNITS WITH SUPPER 09/08 completed Not Available Not Available Not Available Fluzone High-Dose 2019-20 (PF) 180 mcg/0.5 mL intramusc ular syringe PHARMACI ST ADMINIST ERED IMMUNIZA TION ADMINIST ERED AT TIME OF DISPENSI NG 09/08 completed Not Available Not Available Not Available albuterol sulf 90 mcg/actua tion breath activated powder inhaler,s ensor Inhale 2 puffs every 4 hours by inhalati on route as needed for 30 days. 2023 active Not Available Not Available Not Avai lable Gvoke HypoPen 2-Pack 1 mg/0.2 mL subcutane ous auto-inje ctor 03/05 completed Not Available Not Available Not Available Flublok Quad (PF) 180 mcg (45 mcg x 4)/0.5 mL IM syringe PHARMACI ST ADMINIST ERED IMMUNIZA TION ADMINIST ERED AT TIME OF DISPENSI NG 09/04 completed Not Available Not Available Not Available Breztri Aerospher e 160 mcg-9mcg- 4.8mcg/ac tuation HFA aerosol inhaler Inhale 2 puffs twice a day by inhalati on route for 30 days. 12/10 completed Not Available Not Available Not Available Paxlovid 300 mg (150 mg x 2)-100 mg tablets in a dose pack use as directed twice a day x 5 days. 08/27 completed Not Available Not Available Not Available Vitals Date Recorded Body height Body mass index (BMI) Body weight Heart rate Oxygen saturation Oxygen saturation in Arterial blood by Pulse oximetry Systolic blood pressure Diastolic blood pressure Provider Name and Address Organization Details Last Updated DateTime 3 160.02 cm 31.4 kg/m2 65552.8 5 g 83 /min 96 % 96 % 110 mm[Hg] 50 mm[Hg] Padmaja Lazcano [employer] [facility] [employer] 3 15:30:30 Date Recorded Body height Body mass index (BMI) Body weight Body temperature Heart rate Oxygen saturation Oxygen saturation in Arterial blood by Pulse oximetry Systolic blood pressure Diastolic blood pressure Provider Name and Address Organization Details Last Updated DateTime 3 160.02 cm 31.4 kg/m2 66177.8 5 g 97.6 [degF] 77 /min 95 % 95 % 112 mm[Hg] 66 mm[Hg] Kim Fischer MA [employer] 3 14:32:31 Date Recorded Body height Body mass index (BMI) Body weight Body temperature Heart rate Oxygen saturation Oxygen saturation in Arterial blood by Pulse oximetry Systolic blood pressure Diastolic blood pressure Provider Name and Address Organization Details Last Updated DateTime 4 160.02 cm 31.2 kg/m2 93607.2 6 g 96.9 [degF] 75 /min 95 % 95 % 106 mm[Hg] 52 mm[Hg] Kim Fischer MA [facility] [employer] [facility] 4 14:45:38 Date Recorded Body height Body mass index (BMI) Body weight Body temperature Heart rate Oxygen saturation Oxygen saturation in Arterial blood by Pulse oximetry Systolic blood pressure Diastolic blood pressure Provider Name and Address Organization Details Last Updated DateTime 4 160.02 cm 28.7 kg/m2 91282.9 6 g 98.7 [degF] 78 /min 95 % 95 % 143 mm[Hg] 73 mm[Hg] Dali Helton MA [facility] [employer] [facility] 4 15:03:14 Date Recorded Pain severity - 0-10 verbal numeric rating [Score] - Reported Provider Name and Address Organization Details Last Updated DateTime 09/04/2023 Savanna Batista RN [facility] [employer] [facility] 09/04/2023 15:28:29 Date Recorded Body height Body mass index (BMI) Body weight Body temperature Heart rate Oxygen saturation Oxygen saturation in Arterial blood by Pulse oximetry Respiratory rate Systolic blood pressure Diastolic blood pressure Provider Name and Address Organization Details Last Updated DateTime 4 160.02 cm 28 kg/m2 60840.5 9 g 97.7 [degF] 62 /min 97 % 97 % 16 /min 126 mm[Hg] 60 mm[Hg] Karina Morgan RN [facility] [employer] [facility] 4 14:34:55 Social History Question Answer Notes LastModified by Organizat ion Details LastModified Time Tobacco Smoking Status Never Smoker Sherry ramos [facility] 06/05/2023 14:36:51 What Is Your Level Of Alcohol Consumption? None [id number] Information not available 06/19/2022 What Is Your Level Of Caffeine Consumption? Occasional [id number] Information not available 06/19/2022 Which Illicit Or Recreational Drugs Have You Used? None [email or web address] Information not available 06/05/2023 What Is Your Occupation? Retired [email or web address] Information not available 06/05/2023 What Was The Date Of Your Most Recent Tobacco Screening? 09/04/2023 Information not available 09/04/2023 Do You Have Any Pets? No [email or web address] Information not available 06/05/2023 Do You Use Any Illicit Or Recreational Drugs? No [email or web address] Information not available 06/05/2023 Sex: Unknown Functional Status Question Answer Note LastModified by Organizat ion Details LastModified Time What is your exercise level? None [id number] Information not available 06/19/2022 Mental Status None recorded. Family History Relationship Description Onset Age of this Age Resolved Age Notes LastModified by Organization Details LastModified Time Mother Cerebrovascu lar accident Not available 14:36:49 Father Congestive heart failure [email or web address] Not available 06/05 14:36:49 Unspecified Relation Diabetes mellitus [id number] Not available 06/19/2022 04:34:14 Unspecified Relation Heart disease [id number] Not available 06/19/2022 04:34:14 Unspecified Relation Kidney disease [id number] Not available 06/19/2022 04:34:14 Medical History Condition Response EYE PROBLEMS Y ARTHRITIS Y VASCULAR DISEASE Y HEPATITIS / LIVER DISEASE Y ASTHMA Y BRONCHITIS Y DIABETES, TYPE Y HYPERTENSION Y Gynecological HistoryNo gynecological history recorded. Obstetrics History GPAL:G 0 P 0 0 0 0 Immunizations Vaccine Type Date Status Note Provider Nam e and Address Organization Details Recorded Time COVID-19, mRNA, LNP-S, PF, 30 mcg/0.3 mL dose 1 completed RYLEE Bales, [facility] 12/03/2022 14:07:22 Influenza, split virus, quadrivalent, preservative 2 completed Theresa Herrera CMA null, [facility] 12/03/2022 14:07:22 COVID-19, mRNA, LNP-S, PF, 30 mcg/0.3 mL dose 1 completed RYLEE Bales, [facility] 12/03/2022 14:07:22 Influenza, split virus, quadrivalent, preservative 0 completed RYLEE Bales, [facility] 12/03/2022 14:07:21 pneumococcal polysaccharide PPV23 9 completed Not Available [facility] 06/19/2022 04:49:37 Influenza, split virus, quadrivalent, preservative 9 completed Not Available [facility] 06/19/2022 04:49:37 Influenza, split virus, quadrivalent, preservative 8 completed Not Available [facility] 06/19/2022 04:49:37 Influenza, high-dose, trivalent, PF 6 completed Theresa Herrera CMA null, [employer] 12/03/2022 14:07:22 Influenza, high-dose, trivalent, PF 4 completed Theresa Herrera CMA null, [employer] 12/03/2022 14:07:22 Influenza, split virus, trivalent, preservative 3 completed Not Available [facility] 06/19/2022 04:49:37 Pneumococcal Conjugate, unspecified formulation 8 completed Not Available [facility] 06/19/2022 04:49:37 Influenza, high-dose, quadrivalent, PF 1 completed Not Available [facility] 06/19/2022 04:49:38 Influenza, split virus, trivalent, preservative 5 completed Theresa Herrera [employer] null, [employer] 12/03/2022 14:07:22 Influenza, high-dose, quadrivalent, PF 3 completed Lana Nicole MD [address] [place] [address], [phone], [facility] [employer] 03/05/2023 20:38:32 Past Encounters Encounter ID Performer Location Encounter Start Date Encounter Closed Date Diagnosis/Indication Diagnosis SNOMED-CT Code Diagnosis ICD10 Code Diagnosis Note [id number] [facility] [place]isa [place] [address] [place] [address] 08/31/2020 00:00:00 08/31/2020 11:31:05 [id number] [facility] [place] [address] [place] [address] 09/04/2020 00:00:00 09/04/2020 15:47:09 [id number] [facility] [place] [address] [place] [address] 10/19/2020 00:00:00 10/19/2020 12:56:32 [id number] [facility] [place] [address] [place] [address] 01/01/2021 00:00:00 01/01/2021 14:43:17 [id number] [facility] [place] [address] [place] [address] 02/12/2021 00:00:00 02/12/2021 14:41:04 [id number] [facility] [place] [address] [place] [address] 05/21/2021 00:00:00 05/21/2021 15:04:02 [id number] [facility] [place] [address] [place] [address] 07/03/2021 00:00:00 07/03/2021 14:27:24 [id number] [facility] [place] [address] [place] [address] 07/04/2021 00:00:00 07/04/2021 21:08:23 [id number] [facility] [place] [address] [place] [address] 08/17/2021 00:00:00 08/17/2021 15:39:50 [id number] [facility] [place] [address] [place] [address] 09/04/2021 00:00:00 09/04/2021 12:04:33 [id number] [facility] [place] [address] [place] [address] 11/28/2021 00:00:00 11/28/2021 12:39:15 [id number] [facility] [place] [address] [place] [address] 12/20/2021 00:00:00 12/20/2021 14:37:26 [id number] [facility] [place] [address] [place] [address] [place] [address] 05/30/2022 00:00:00 05/30/2022 21:56:47 [id number] [facility] [place] [address] [place] [address] 07/10/2022 11:45:09 07/10/2022 12:53:23 History of SARS-CoV-2 5395924228 37717198 Z86.16 Diagnosis 02/2020 and 04/2022 We have discussed the uncertain recovery of COVID19.En couraged exercise as tolerated, she is deconditio nedDiscuss ed S/S that require emergent evaluation Chronic cough 09098025 R 05.3 Repeat PFT Dyspnea on exertion 6084 5006 R06.09 Check 6MWT 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 Abnormal gait 42888917 R 26.9 Dementia 28963854 F03.90 Continue donepezil [id number] MANGO Alvarez [facility] [place] [address] [place] [address] 09/03/2022 11:28:12 09/03/2022 12:54:08 Chronic cough 08141341 R05.3 PFT completed 07/2022She had difficulty with completion R/T cough but her volumes were reproducib leFEV1 68%Trial Anoro Ellipta6 weeks of samples to patientIns tructed on techniqueD iscussed reportable signs and symptomsRT C in 6 weeks, PRN for concerns History of SARS-CoV-2 29 72206292 17107316 Z86.16 Diagnosis 02/2020 and 04/2022 We have discussed the uncertain recovery of COVID19.En couraged exercise as tolerated, she is deconditio nedDiscuss ed S/S that require emergent evaluation Dyspnea on exertion 6084 5006 R06.09 6MWT normal Immunoglob ulin deficiency 067183421 D80.9 Subclass 2 low 06/2021 and 08/2022Imm unology referral [id number] Candie Toña, [facility] [place] [address] [place] [address] 10/18/2022 10:56:04 10/18/2022 12:30:42 Chronic cough 65961927 R05.3 PFT completed 07/2022She had difficulty with completion R/T cough but her volumes were reproducib leFEV1 68%Anoro Ellipta with no clinical benefit, she does not want a maintenanc e inhalerAlb uterol RNDiscusse d reportable signs and symptomsRT C in 4-6 months, PRN for concerns History of SARS-CoV-2 29 89484411 40464220 Z86.16 Diagnosis 02/2020 and 04/2022We have discussed the uncertain recovery of COVID19.En couraged exercise as tolerated, she is deconditio nedDiscuss ed S/S that require emergent evaluation Dyspnea on exertion 6084 5006 R06.09 6MWT normal Immunoglob ulin deficiency 672767469 D80.9 Subclass 2 low 06/2021 and 08/2022Imm unology appointmen t 10/31/22 [id number] Lana Nicole MD [facility] [address] [address] [place] [address] 12/03/2022 13:48:55 12/03/2022 14:50:46 Type 2 diabetes mellitus without complication 749112885 E11.9 A1C is 7% doing well. Continue same meds.F/u in 3 months. Irregular breathing 2485 83390 R06.89 I think this is habitual . Does not breathe like this when sleeping. Dementia 80884232 F03.90 Continue donepezil and memantine [id number] Candie Toña, [facility] [place] [address] [place] [address] 02/05/2023 15:17:48 02/05/2023 16:44:23 Chronic cough 77175237 R05.3 PFT completed 07/2022She had difficulty with completion R/T cough but her volumes were reproducib leFEV1 68%Anoro Ellipta with no clinical benefit, she does not want a maintenanc e inhalerAlb uterol PRNDiscuss ed reportable signs and symptomsAd vised vaccines this fall History of SARS-CoV-2 29 40607853 60491491 Z86.16 Diagnosis 02/2020 and 04/2022We have discussed the uncertain recovery of COVID19.En couraged exercise as tolerated, she is deconditio nedDiscuss ed S/S that require emergent evaluation Dyspnea on exertion 6084 5006 R06.09 6MWT normal Immunoglob ulin deficiency 369894552 D80.9 Subclass 2 low 06/2021 and 08/2022Imm unology appointmen t 10/31/22 [id number] Lana Nicole MD [facility] [address] [place] [address] 03/05/2023 14:09:40 03/05/2023 15:11:45 Type 2 diabetes mellitus without complication 828812702 E11.9 A1C is 7.8 % doing well. Pt actually sees endo Has an appt 04/12F/u in 3 months. Administra tion of influenza vaccine 45585649 Z23 [id number] CARO Zhong [facility] [place] [address] [facility] [place] [address] 06/05/2023 14:36:43 06/05/2023 15:21:30 Irregular breathing 667271842 R06.89 [id number] CARO Zhong [facility] [place] [address] [facility] [place] [address] 09/04/2023 14:26:07 09/04/2023 15:34:41 Adult health examination 437099821 Z00.00 Screening for disorder 981845862 Z13.9 Essential hypertension 41987197 I10 Asthma 267666266 J45.90 9 Cardiomegaly 3155729 I51 .7 Chronic ki dney disease 055946220 N18.9 Coronary arteriosclerosis 16019181 I25.10 Hyperlipidemia 97096210 E78.5 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 Osteoarthritis 844584474 M19.90 Type 2 huyen betes mellitus 95367077 E11.21 Vitamin B1 2 deficiency (non anemic) 60639501 E53.8 [id number] CARO Zhong [facility] [place] [address] [facility] [place] [address] 12/11/2023 14:14:01 12/11/2023 14:58:22 Irritable bowel syndrome with diarrhea 844153175 K58.0 Coronary arteriosclerosis 38107273 I25.10 Dementia 65776931 F03.90 Essential hypertension 21955477 I10 Gout 17341692 M10.9 Hyperlipidemia 86278309 E78.5 Osteoarthritis 624936955 M19.90 Type 2 huyen betes mellitus without complication 740882612 E11.9 Vitamin B1 2 deficiency (non anemic) 71589682 E53.8 Health Concerns Section Related Observation LastModified by Organization Detai ls LastModified Time None Recorded Concern Status LastModified by Organization Details LastModified Time None Recorded Advance Directives Directive None Recorded Payers Encounter Date Sequence Insurance Name Policy Number Policy Ballesteros Covered Member ID Ballesteros Member ID Guarantor Name 02/05/2023 1 MEDICARE B: [place] [employer] - RAILROAD MEDICARE Shonna L Kumari [id number] Shonna L Kumari 02/05/2023 2 [place] [id number] Shonna L Kumari [id number] Shonna L Kumari 03/05/2023 1 MEDICARE B: [place] [employer]IL[place]AD MEDICARE Shonna L Kumari [id number] Shonna L Kumari 03/05/2023 2 [place] [id number] Shonna L Kumari [id number] Shonna L Kumari 06/05/2023 1 MEDICARE B: [place] - RAILROAD MEDICARE Shonna L Kumari [id number] Shonna L Kumari 06/05/2023 2 [place] [id number] Shonna L Kumari [id number] Shonna L Kumari 09/04/2023 1 MEDICARE B: [place]IL[employer] MEDICARE Shonna L Kumari [id number] Shonna L Kumari 09/04/2023 2 [place] [id number] Shonna L Kumari [id number] Shonna L Kumari 12/11/2023 1 MEDICARE B: [place] [employer] - RAIL[employer] MEDICARE Shonna L Kumari [id number] 4 Shonna L Kumari 12/11/2023 2 [place] [id number] Shonna L Kumari [id number] Shonna L Kumari Notes Date Note Type Note Provider Name and Address Organization Details Recorded Time 02/05/2023 text/html Ms Kumari present s today to follow up on chronic cough, dyspnea post COVID19 infectionShe remains inactive and her tells me she only walks from the kitchen to the living room and she is short of breath - working to breathe She denies dyspnea, although her tells me she usually looks like she is having a hard time.She does not do any ADLs around the house unless her PT and OT are thereHer cough is intermittently persistent her does not notice any mucous productionDoes not notice this at any particular time, i.e after eating or when laying down.He does say that when she is sleeping she does not cough.Anoro did not change any symptomsNo chest pain, wheezing, hemoptysisShe has not had a respiratory infection Candie Ding, [facility] [address], [place], [address], [place] [employer] [facility] [employer] 02/05/2023 20:08:50 03/05/2023 text/html Here today for 3 month f/u needs A1C for DM2. She is sleeping all the time. She is not doing much. Wants a flu shot Lana Nicole MD [address], [place], [address], [employer] 03/05/2023 20:45:22 06/05/2023 text/html sleeps all the time CARO Carson [address] [facility], [place], [address], [email or web address] 06/15/2023 16:57:53 09/04/2023 text/html no changes CARO Zhong [address], [employer], [place], [address], [email or web address] 09/28/2023 16:09:31 12/11/2023 text/html 78 y/o with stoo l urgency , diarrhea CARO Zhong [address] [employer], [place], [address], [employer] 12/18/2023 13:33:34 OBGyn Episode No OBEpisode recorded.
--- OUTSIDE RECORDS SUMMARY | 2024-05-26 16:15 | XMS_ITS | CONTINUITY OF CARE DOCUMENT ---
Author Name evaristo loera Address Unknown Organization [facility] Address [address] [place] [address] Phone [phone] Care Team Providers Care Immigration Case Worker Name Role Phone Alistair Jewell MD Unavailable KAYLEY RIVERA Unavailable INSURANCE PROVIDERS Payer name Policy type / Coverage type Robin red constitution party ID [place] [employer] Medicare [id number] [facility] [id number]
--- OUTSIDE RECORDS SUMMARY | 2024-05-26 19:20 | XMS_ITS | Clinical Summary ---
Author Organization [facility] Address [address] [place] [address] Care Team Providers Care Accounts Payable Accountant Name Role Phone Unavailable Primary Care Provider Unavailabl e Source Comments [facility],non-owned Affiliates and Associated Physician Practices is amultiple site organization consisting of ambulatory clinics and hospital sitesin [place], [place], [place] and [place]. This disclosure is being madepursuant to the Care Everywhere program and may not contain all information available regarding this patient. Last updated 18.[facility] Allergies Active Allergy Reactions Criticality Noted Date Comments Codeine 02/10/2017 Encounters Date Type Department Care Team Description 03/17/2024 Lab Requisition [facility] [address] [place] [address] Matt Rich from Last 3 Months Immunizations [...] VITAMIN D 25-HYDROXY Routine 03/17/2024 1:03 PM QUALITY ENG CBC W AUTO DIFFERENTIAL Routine 03/17/2024 1:03 PM QUALITY ENG from Last 3 Months Results * VITAMIN D 25-HYDROXY (03/17/2024 1:03 PM QUALITY ENG) Pathologist [facility] [place] Vitamin D, 25 Hydroxy 32.4 30 - 80 ng/mL 03/17/2024 1:51 PM QUALITY ENG [facility] Blood BLOOD SPECIMEN / Unknown Venipuncture / Unknown 03/17/2024 1:03 PM QUALITY ENG 03/17/2024 1:03 PM QUALITY ENG Narrative [facility] - 03/17/2024 1:51 PM QUALITY ENG Vitamin D Status: Deficiency <20 ng/mL Insufficiency 20-30 ng/mL Sufficiency 30-100 ng/mL Toxicity >100 ng/mL [place] LAB - CHEMISTRY NAJMA CABEZAS [facility] [address] [place] [address] * (ABNORMAL) CBC WITH DIFFERENTIAL (03/17/2024 1:03 PM QUALITY ENG) WBC 9.1 4.0 - 10.7 x10E9/L 03/17/2024 1:15 PM QUALITY ENG [facility] RBC Count 3.49(L) 3.90 - 5.20 x10E12/L 03/17/2024 1:15 PM QUALITY ENG [facility] Hemoglobin 11.1(L) 11.9 - 15.8 g/dL 03/17/2024 1:15 PM [facility] Hematocrit 35.8 34.8 - 46.1 % 03/17/2024 1:15 PM [facility] MCV 102.6(H) 80.0 - 98.0 fL 03/17/2024 1:15 PM [facility] MCH 31.8 26.7 - 33.6 pg 03/17/2024 1:15 PM [facility] MCHC 31.0(L) 31.7 - 36.3 g/dL 03/17/2024 1:15 PM [facility] RDW-CV 13.5 11.3 - 14.8 % 03/17/2024 1:15 PM [facility] Platelet Count 247 150 - 420 x10E9/L 03/17/2024 1:15 PM [facility] MPV 11.3 7.8 - 11.4 fL 03/17/2024 1:15 PM [facility] Neutrophil % 69.6 41.0 - 74.0 % 03/17/2024 1:15 PM [facility] Lymphocyte % 18.4 17.0 - 47.0 % 03/17/2024 1:15 PM [facility] Monocyte % 8.3 3.0 - 11.0 % 03/17/2024 1:15 PM [facility] Eosinophil % 3.1 0.0 - 7.0 % 03/17/2024 1:15 PM [facility] Basophil % 0.3 0.0 - 1.6 % 03/17/2024 1:15 PM [facility] Immature Granulocytes % 0.3 0.0 - 1.0 % 03/17/2024 1:15 PM [facility] Neutrophil Absolute 6.34 1.60 - 7.50 x10E9/L 03/17/2024 1:15 PM [facility] Lymphocyte Absolute 1.68 1.00 - 4.40 x10E9/L 03/17/2024 1:15 PM [facility] Monocyte Absolute 0.76 0.15 - 1.00 x10E9/L 03/17/2024 1:15 PM [facility] Eosinophil Absolute 0.28 0.00 - 0.60 x10E9/L 03/17/2024 1:15 PM QUALITY ENG [facility] Basophil Absolute 0.03 0.00 - 0.13 x10E9/L 03/17/2024 1:15 PM QUALITY ENG [facility] Blood BLOOD SPECIMEN / Unknown 03/17/2024 1:03 PM QUALITY ENG 03/17/2024 1:03 PM QUALITY ENG [place] LAB - HEMATOLOGY ORD ERABLES [facility] [address] [place] [address] from Last 3 Months
--- OUTSIDE RECORDS SUMMARY | 2024-05-26 19:20 | XMS_ITS | Clinical Summary ---
Author Organization [facility] Helga dean Address [address] [address] Phone Care Team Providers Care Dye Range Feeder Name Role Phone Marcia Cool ANASTASIIA Primary Care Provider [phone] Allergies Active Allergy Reactions Criticality Noted Date [...] Comments Blood Pressure 122/68 04/05/2019 8:52 AM LOCKSTITCH LINING MAKER Pulse 72 04/05/2019 8:52 AM LOCKSTITCH LINING MAKER Temperature 35.7 C (96.2 F) 04/05/2019 8:52 AM LOCKSTITCH LINING MAKER Respiratory Rate 20 11/06/2011 12:01 AM CDT Oxygen Saturation - - Inhaled Oxygen Concentration - - Weight 95.7 kg (211 lb) 04/05/2019 8:52 AM LOCKSTITCH LINING MAKER Height 167.6 cm (5' 6 ) 04/05/2019 8:52 AM LOCKSTITCH LINING MAKER Body Mass Index 34.06 04/05/2019 8:52 AM LOCKSTITCH LINING MAKER Plan of Treatment Health Maintenance Due Date Last Done Comments Influenza Vaccine (#1) 2023 5, 02/15/2013, 02/27/2012 Pneumococcal PPSV23/PCV13 65 + Years / Low and Medium Risk Completed 02/08/2019, 02/03/2018, 09/21/2014 Care Teams Dye Range Feeder Relationship Specialty Start Date End Date Marcia Cool NP [address] [place] [address] [place] [address] PCP - General Internal Medicine 08/19/18
--- OUTSIDE RECORDS SUMMARY | 2024-05-26 19:20 | XMS_ITS | Referral Summary ---
Author Organization [facility] Address [address] [place] [address] Care Team Providers Care Resident Buyer Name Role Phone Unavailable Primary Care Provider Unavailabl e Source Comments [facility] [employer],non-owned Affiliates and Associated Physician Practices is amultiple site organization consisting of ambulatory clinics and hospital sitesin [place], [place], [place] and [place]. This disclosure is being madepursuant to the Care Everywhere program and may not contain all information available regarding this patient. Last updated 18.[facility] Encounters Date Type Department Care Team Description 03/17/2024 Lab Requisition [facility] [address] [place] [address] Matt Rich from Last 3 Months Allergies [...] VITAMIN D 25-HYDROXY Routine 03/17/2024 1:03 PM METAL HARDENER CBC W AUTO DIFFERENTIAL Routine 03/17/2024 1:03 PM METAL HARDENER from Last 3 Months Results * VITAMIN D 25-HYDROXY (03/17/2024 1:03 PM METAL HARDENER) Vitamin D, 25 Hydroxy 32.4 30 - 80 ng/mL 03/17/2024 1:51 PM METAL HARDENER [facility] Blood BLOOD SPECIMEN / Unknown Venipuncture / Unknown 03/17/2024 1:03 PM METAL HARDENER 03/17/2024 1:03 PM METAL HARDENER [facility] - 03/17/2024 1:51 PM METAL HARDENER Vitamin D Status: Deficiency <20 ng/mL Insufficiency 20-30 ng/mL Sufficiency 30-100 ng/mL Toxicity >100 ng/mL Matt Rich LAB - CHEMISTRY NAJMA CABEZAS [facility] [address] [place] [address] * (ABNORMAL) CBC WITH DIFFERENTIAL (03/17/2024 1:03 PM METAL HARDENER) Pathologist [facility] WBC 9.1 4.0 - 10.7 x10E9/L 03/17/2024 1:15 PM [facility] RBC Count 3.49(L) 3.90 - 5.20 x10E12/L 03/17/2024 1:15 PM [facility] Hemoglobin 11.1(L) 11.9 - 15.8 g/dL 03/17/2024 1:15 PM [facility] Hematocrit 35.8 34.8 - 46.1 % 03/17/2024 1:15 PM [facility] MCV 102.6(H) 80.0 - 98.0 fL 03/17/2024 1:15 PM [facility] MCH 31.8 26.7 - 33.6 pg 03/17/2024 1:15 PM [facility] MCHC 31.0(L) 31.7 - 36.3 g/dL 03/17/2024 1:15 PM [facility] RDW-CV 13.5 11.3 - 14.8 % 03/17/2024 1:15 PM [facility] Platelet Count 247 150 - 420 x10E9/L 03/17/2024 1:15 PM [facility] MPV 11.3 7.8 - 11.4 fL 03/17/2024 1:15 PM [facility] Neutrophil % 69.6 41.0 - 74.0 % 03/17/2024 1:15 PM [facility] Lymphocyte % 18.4 17.0 - 47.0 % 03/17/2024 1:15 PM METAL HARDENER [facility] Monocyte % 8.3 3.0 - 11.0 % 03/17/2024 1:15 PM METAL HARDENER [facility] Eosinophil % 3.1 0.0 - 7.0 % 03/17/2024 1:15 PM METAL HARDENER [facility] Basophil % 0.3 0.0 - 1.6 % 03/17/2024 1:15 PM METAL HARDENER [facility] Immature Granulocytes % 0.3 0.0 - 1.0 % 03/17/2024 1:15 PM METAL HARDENER [facility] Neutrophil Absolute 6.34 1.60 - 7.50 x10E9/L 03/17/2024 1:15 PM METAL HARDENER [facility] Lymphocyte Absolute 1.68 1.00 - 4.40 x10E9/L 03/17/2024 1:15 PM METAL HARDENER [facility] Monocyte Absolute 0.76 0.15 - 1.00 x10E9/L 03/17/2024 1:15 PM METAL HARDENER [facility] Eosinophil Absolute 0.28 0.00 - 0.60 x10E9/L 03/17/2024 1:15 PM METAL HARDENER [facility] Basophil Absolute 0.03 0.00 - 0.13 x10E9/L 03/17/2024 1:15 PM METAL HARDENER [facility] Blood BLOOD SPECIMEN / Unknown 03/17/2024 1:03 PM METAL HARDENER 03/17/2024 1:03 PM METAL HARDENER Matt Rich LAB - HEMATOLOGY ORD ERABLES [facility] [address] [place] [address] from Last 3 Months
--- OUTSIDE RECORDS SUMMARY | 2024-05-26 19:20 | XMS_ITS | Encounter Summary ---
Author Organization [facility] Address [address] [place] [address] Care Team Providers Care Manager Transport Name Role Phone Marcia Cool NP Primary Care Provider [phone] Marcia Cool NP Primary Care Provider [phone] Lana Nicole MD Primary Care Provider + [phone] Sourav Velasco Primary Care Provider + Encounter Details Date Type Department Care Team (Late st Contact Info) Description 07/01/2016 Orders Only [facility] ProviderNeftaly MD [address] [place] [address] Social History Tobacco Use Types Packs/Day Years Used Date Smoking Tobacco: Never Alcohol Use Standard Drinks/Week Comments No 0 (1 standard drink = 0.6 oz pur e alcohol) Comments Unknown Sex and Gender Information Value Date Recorded Sex Assigned at Not on file Legal Sex Female 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
--- OUTSIDE RECORDS SUMMARY | 2024-05-26 19:20 | XMS_ITS | Patient Health Summary ---
Author Organization [facility] [employer] Address [address] [place] [address] Care Team Providers Care Registered Nurse Teacher Name Role Phone Unavailable Primary Care Provider Unavailabl e Note from [facility],non-owned Affiliates and Associated Physician Practices is amultiple site organization consisting of ambulatory clinics and hospital sitesin [place], [place], [place] and [place]. This disclosure is being madepursuant to the Care Everywhere program and may not contain all information available regarding this patient. Last updated 18.[facility] Allergies * Codeine Immunizations * INFLUENZA VACCINE, [...] * VITAMIN D 25-HYDROXY (03/17/2024 1:03 PM CRABBING MACHINE OPERATOR) Vitamin D, 25 Hydroxy 32.4 30 - 80 ng/mL 03/17/2024 1:51 PM CRABBING MACHINE OPERATOR [facility] Blood BLOOD SPECIMEN / Unknown Venipuncture / Unknown 03/17/2024 1:03 PM CRABBING MACHINE OPERATOR 03/17/2024 1:03 PM CRABBING MACHINE OPERATOR Narrative [facility] - 03/17/2024 1:51 PM CRABBING MACHINE OPERATOR Vitamin D Status: Deficiency <20 ng/mL Insufficiency 20-30 ng/mL Sufficiency 30-100 ng/mL Toxicity >100 ng/mL Matt Rich LAB - CHEMISTRY NAJMA CABEZAS [facility] [address] [place] [address] * (ABNORMAL) CBC WITH DIFFERENTIAL (03/17/2024 1:03 PM CRABBING MACHINE OPERATOR) Only the most recent of2 resultswithin the time period is included. WBC 9.1 4.0 - 10.7 x10E9/L 03/17/2024 1:15 PM [facility] RBC Count 3.49(L) 3.90 - 5.20 x10E12/L 03/17/2024 1:15 PM [facility] Hemoglobin 11.1(L) 11.9 - 15.8 g/dL 03/17/2024 1:15 PM [facility] Hematocrit 35.8 34.8 - 46.1 % 03/17/2024 1:15 PM [facility] MCV 102.6(H) 80.0 - 98.0 fL 03/17/2024 1:15 PM [facility] MCH 31.8 26.7 - 33.6 pg 03/17/2024 1:15 PM [facility] MCHC 31.0(L) 31.7 - 36.3 g/dL 03/17/2024 1:15 PM [facility] RDW-CV 13.5 11.3 - 14.8 % 03/17/2024 1:15 PM [facility] Platelet Count 247 150 - 420 x10E9/L 03/17/2024 1:15 PM [facility] MPV 11.3 7.8 - 11.4 fL 03/17/2024 1:15 PM [facility] Neutrophil % 69.6 41.0 - 74.0 % 03/17/2024 1:15 PM [facility] Lymphocyte % 18.4 17.0 - 47.0 % 03/17/2024 1:15 PM [facility] Monocyte % 8.3 3.0 - 11.0 % 03/17/2024 1:15 PM [facility] Eosinophil % 3.1 0.0 - 7.0 % 03/17/2024 1:15 PM CRABBING MACHINE OPERATOR [facility] Basophil % 0.3 0.0 - 1.6 % 03/17/2024 1:15 PM CRABBING MACHINE OPERATOR [facility] Immature Granulocytes % 0.3 0.0 - 1.0 % 03/17/2024 1:15 PM [facility] Neutrophil Absolute 6.34 1.60 - 7.50 x10E9/L 03/17/2024 1:15 PM CRABBING MACHINE OPERATOR [facility] Lymphocyte Absolute 1.68 1.00 - 4.40 x10E9/L 03/17/2024 1:15 PM CRABBING MACHINE OPERATOR [facility] Monocyte Absolute 0.76 0.15 - 1.00 x10E9/L 03/17/2024 1:15 PM CRABBING MACHINE OPERATOR [facility] Eosinophil Absolute 0.28 0.00 - 0.60 x10E9/L 03/17/2024 1:15 PM [facility] Basophil Absolute 0.03 0.00 - 0.13 x10E9/L 03/17/2024 1:15 PM [facility] Blood BLOOD SPECIMEN / Unknown 03/17/2024 1:03 PM CRABBING MACHINE OPERATOR 03/17/2024 1:03 PM CRABBING MACHINE OPERATOR Matt Rich LAB - HEMATOLOGY ORD ERABLES [facility] [address] [place] [address] * PT-INR [facility] (06/09/2012 8:33 AM CRABBING MACHINE OPERATOR) [facility] INR 1.0 [facility] ([facility]) Comment: Reference Range 0.9-1.1 Moderate-intensity Warfarin Therapy 2.0-3.0 Higher-intensity Warfarin Therapy 3.0-4.0 PT 10.4 9.0 - 11.5 sec [facility] ([facility]) Comment: REPORT COMMENT: FASTING Test Performed at: [email or web address] [address] [address] JOSEY PENG DO [facility] 06/09/2012 8:33 AM CRABBING MACHINE OPERATOR 06/09/2012 8:34 AM CRABBING MACHINE OPERATOR Mervin Walker MD LAB - COAGULATION OR DERABLES [facility] ([facility]) * (ABNORMAL) COMPREHENSIVE METABOLIC PANEL (06/09/2012 8:33 AM CRABBING MACHINE OPERATOR) Glucose 129(H) 65 - 99 mg/dL [facility] ([facility]) Comment: Fasting reference interval BUN 20 7 - 25 mg/dL [facility] ([facility]) Creatinine 0.98 0.50 - 0.99 mg/dL [facility] ([facility]) Comment: For patients >49 years of age, the reference limit for Creatinine is approximately 13% higher for people identified as -[place] Citizen. eGFR non- 60 > OR = 60 mL/min/1 .73m2 [facility] ([facility]) eGFR 69 > OR = 60 mL/min/1 .73m2 [facility] ([facility]) BUN/Creatinine Ratio NOT APPLICABLE 6 - 22 (calc) [facility] ([facility]) Sodium 142 135 - 146 mmol/L [facility] ([facility]) Potassium 4.9 3.5 - 5.3 mmol/L [facility] ([facility]) Chloride 110 98 - 110 mmol/L [facility] ([facility]) CO2 17(L) 19 - 30 mmol/L [facility] ([facility]) Calcium 9.5 8.6 - 10.4 mg/dL [facility] ([facility]) Protein Total 6.8 6.1 - 8.1 g/dL [facility] ([facility]) Albumin 4.6 3.6 - 5.1 g/dL [facility] ([facility]) Globulin 2.2 1.9 - 3.7 g/dL (calc) [facility] ([facility]) Albumin/Globulin Ratio 2.1 1.0 - 2.5 (calc) [facility] ([facility]) Bilirubin Total 0.3 0.2 - 1.2 mg/dL [facility] ([facility]) Alkaline Phosphatase 64 33 - 130 U/L [facility] ([facility]) AST 19 10 - 35 U/L [facility] ([facility]) ALT 20 6 - 40 U/L [facility] ([facility]) Comment: REPORT COMMENT: FASTING Test Performed at: [facility] [id number] [place] [address] JOSEY PENG DO,[facility] 06/09/2012 8:33 AM CRABBING MACHINE OPERATOR 06/09/2012 8:34 AM CRABBING MACHINE OPERATOR Mervin Walker MD LAB - CHEMISTRY NAJMA CABEZAS [facility] ([facility])
--- OUTSIDE RECORDS SUMMARY | 2024-05-26 19:20 | XMS_ITS | Encounter Summary ---
Author Organization [facility] Address [address] [facility] [place] [address] Care Team Providers Care Toy Packer Name Role Phone Unavailable Primary Care Provider Unavailabl e Encounter Details Date Type Department Care Team (Late st Contact Info) Description 03/17/2024 Lab Requisition [facility] [address] [place] [address] [place] [address] Social History Tobacco Use Types Packs/Day Years [...] VITAMIN D 25-HYDROXY Routine 03/17/2024 1:03 PM INSOLE LIP TURNER CBC W AUTO DIFFERENTIAL Routine 03/17/2024 1:03 PM INSOLE LIP TURNER documented in this encounter Results * VITAMIN D 25-HYDROXY (03/17/2024 1:03 PM INSOLE LIP TURNER) Vitamin D, 25 Hydroxy 32.4 30 - 80 ng/mL 03/17/2024 1:51 PM INSOLE LIP TURNER [facility] Blood BLOOD SPECIMEN / Unknown Venipuncture / Unknown 03/17/2024 1:03 PM INSOLE LIP TURNER 03/17/2024 1:03 PM INSOLE LIP TURNER Narrative [facility] - 03/17/2024 1:51 PM INSOLE LIP TURNER Vitamin D Status: Deficiency <20 ng/mL Insufficiency 20-30 ng/mL Sufficiency 30-100 ng/mL Toxicity >100 ng/mL Matt Rich LAB - CHEMISTRY ORDHoward CABEZAS [facility] [address] [place] [address] * (ABNORMAL) CBC WITH DIFFERENTIAL (03/17/2024 1:03 PM INSOLE LIP TURNER) [facility] [address] WBC 9.1 4.0 - 10.7 x10E9/L 03/17/2024 1:15 PM INSOLE LIP TURNER [facility] RBC Count 3.49(L) 3.90 - 5.20 x10E12/L 03/17/2024 1:15 PM INSOLE LIP TURNER [facility] Hemoglobin 11.1(L) 11.9 - 15.8 g/dL 03/17/2024 1:15 PM [facility] Hematocrit 35.8 34.8 - 46.1 % 03/17/2024 1:15 PM INSOLE LIP TURNER [facility] MCV 102.6(H) 80.0 - 98.0 fL 03/17/2024 1:15 PM INSOLE LIP TURNER [facility] MCH 31.8 26.7 - 33.6 pg 03/17/2024 1:15 PM INSOLE LIP TURNER [facility] MCHC 31.0(L) 31.7 - 36.3 g/dL 03/17/2024 1:15 PM [facility] RDW-CV 13.5 11.3 - 14.8 % 03/17/2024 1:15 PM [facility] Platelet Count 247 150 - 420 x10E9/L 03/17/2024 1:15 PM INSOLE LIP TURNER [facility] MPV 11.3 7.8 - 11.4 fL 03/17/2024 1:15 PM [facility] Neutrophil % 69.6 41.0 - 74.0 % 03/17/2024 1:15 PM INSOLE LIP TURNER [facility] Lymphocyte % 18.4 17.0 - 47.0 % 03/17/2024 1:15 PM INSOLE LIP TURNER [facility] Monocyte % 8.3 3.0 - 11.0 % 03/17/2024 1:15 PM INSOLE LIP TURNER [facility] Eosinophil % 3.1 0.0 - 7.0 % 03/17/2024 1:15 PM INSOLE LIP TURNER [facility] Basophil % 0.3 0.0 - 1.6 % 03/17/2024 1:15 PM INSOLE LIP TURNER [facility] Immature Granulocytes % 0.3 0.0 - 1.0 % 03/17/2024 1:15 PM INSOLE LIP TURNER [facility] Neutrophil Absolute 6.34 1.60 - 7.50 x10E9/L 03/17/2024 1:15 PM INSOLE LIP TURNER [facility] Lymphocyte Absolute 1.68 1.00 - 4.40 x10E9/L 03/17/2024 1:15 PM INSOLE LIP TURNER [facility] Monocyte Absolute 0.76 0.15 - 1.00 x10E9/L 03/17/2024 1:15 PM INSOLE LIP TURNER [facility] Eosinophil Absolute 0.28 0.00 - 0.60 x10E9/L 03/17/2024 1:15 PM INSOLE LIP TURNER [facility] Basophil Absolute 0.03 0.00 - 0.13 x10E9/L 03/17/2024 1:15 PM INSOLE LIP TURNER [facility] Blood BLOOD SPECIMEN / Unknown 03/17/2024 1:03 PM INSOLE LIP TURNER 03/17/2024 1:03 PM INSOLE LIP TURNER Matt Rich LAB - HEMATOLOGY ORD ERABLES [facility] [address] [place] [address] documented in this encounter Visit Diagnoses Not on filedocumented in this encounter
--- OUTSIDE RECORDS SUMMARY | 2024-05-26 19:20 | XMS_ITS | Clinical Summary ---
Author Organization [facility] [place] [address] Address [address] [place] [address] Care Team Providers Care Airborne Operations Manager Name Role Phone Sourav Velasco Primary Care [...] Department Care Team Description 03/31/2024 2:00 PM BOOKKEEPING MACHINE MECHANIC Ancillary Procedure [facility] Cardiology [address] [place] [address] Mild aortic stenosis 03/10/2024 Telephone [facility] [address] [place] [address] Edin Leon RN from Last 3 Months Medical History Medical History Date Comments Hypertension Hypertension Type 2 diabetes mellitus (HCC) D iabetes type 2 Hx Other Medical inferior ST fara v[place] Hx Other Medical duodenal ulcer Hx Other [...] on file Legal Sex Female 7:41 AM BOOKKEEPING MACHINE MECHANIC Gender Identity Not on file Sexual Orientation Not on file Obstetrics History Last Filed Vital Signs Vital Sign Reading Time Taken Comments Blood Pressure 150/99 03/31/2024 2:39 PM BOOKKEEPING MACHINE MECHANIC Pulse 59 02/19/2024 8:02 AM CDT Temperature [...] DOPPLER/CF WO CONTRAST Routine 03/31/2024 2:39 PM BOOKKEEPING MACHINE MECHANIC Mild aortic stenosis EGFR STAT 02/18/2024 3:18 PM CDT HEMOGLOBIN A1C STAT 02/13/2024 8:23 AM CDT LIPID PANEL STAT 02/13/2024 8:23 AM CDT from Last 3 Months or Most Recently Relevant to Health Maintenance Results * TRANSTHORACIC ECHO (TTE) COMPLETE W DOPPLER/CF WO CONTRAST (03/31/2024 2:39 PM BOOKKEEPING MACHINE MECHANIC) Anatomical Region Laterality Modality Ultrasound 03/31/2024 2:36 PM BOOKKEEPING MACHINE MECHANIC Narrative 04/01/2024 8:52 AM BOOKKEEPING MACHINE MECHANIC [facility] Cardiology [address], [place] [address] [address], [place] [address] P:[phone] P:[phone] Echocardiographic Report Patient Name: SHONNA KIRKLAND L : 1945 Study Date: 03/31/2024 2:36:42 PM Gender: F Tech: DUNCAN Location: [facility] Provider: FEDERICO MONET Height(Cm): 168 BSA: 1.85 [...] FINDINGS: Interpretation Site: Exam was interpreted at [facility]. Left Ventricle: Normal left ventricular size. Moderate [...] jet. Electronically Signed By: Federico Monet MD, [facility] 04/01/2024 8:51:52 AM BOOKKEEPING MACHINE MECHANIC Procedure Note Federico Monet MD - 04/01/2024 [facility] Cardiology [address], [place] [address] [address] [facility] [address], [place] [address] P:[phone] P:[phone] Echocardiographic Report Patient Name: SHONNA KIRKLAND L : 1945 Study Date: 03/31/2024 2:36:42 PM Gender: F Tech: DUNCAN Location: [facility] Provider: FEDERICO MONET Height(Cm): 168 BSA: 1.85 [...] FINDINGS: Interpretation Site: Exam was interpreted at [facility]. Left Ventricle: Normal left ventricular size. Moderate [...] jet. Electronically Signed By: Federico Monet MD, [facility] 04/01/2024 8:51:52 AM BOOKKEEPING MACHINE MECHANIC Federico Monet MD CV ECHO PROCEDURES Final [...] NP LAB BLOOD ORDERABLES Lidia l Result [facility] [address] [facility] Department [place] [address] * (ABNORMAL) Hemoglobin A1c (02/13/2024 8:23 AM [...] Jenkins NP LAB BLOOD ORDERABLES Final Result [facility] [address] [facility] Department [place] [address] * Lipid panel (02/13/2024 8:23 AM CDT) [...] revised on 2017. Triglycerides 77 <=149 mg/dL [facility] Comment: Interpretive Data Ages < or = [...] revised on 2017. HDL 51 >=40 mg/dL [facility] Comment: Interpretive Data Ages < or = [...] on 2017. LDL, calculated 32 <=129 mg/dL [facility] Comment: Interpretive Data Ages < or = [...] revised on 2023. Non-HDL Cholesterol 48 mg/dL [facility] Comment: Interpretive Data Ages < or = [...] last revised on 2017. Chol/HDL ratio 2 [facility] Blood 02/13/2024 8:23 AM CDT 02/13/2024 8:33 AM CDT Narrative [facility] - 02/14/2024 12:32 AM CDT Reflex us Misael Wong DO LAB BLOOD ORDERABLES Fi nal Result [facility] [address] [facility] Department [place] [address] from Last 3 Months or Most Recently Relevant to Health Maintenance Insurance MEDICARE RAIL[employer] ON LICENSE OF [facility] [place] [address] MEDICARE RAILROAD ON LICENSE OF [facility] MEDICARE [employer] ON LICENSE OF [facility] Advance Directives For more information, please contact: [phone] * Full Code (Latest Code Status on File) Date Activated Date Inactivated Comments 02/13/2024 5:54 PM 02/19/2024 1:18 PM Care Teams Airborne Operations Manager Relationship Specialty Start Date End Date Sourav Velasco PA [address] [place] [address] [place] [address] PCP - General Internal Medicine 02/14/24
--- OUTSIDE RECORDS SUMMARY | 2024-05-26 19:20 | XMS_ITS | CONTINUITY OF CARE DOCUMENT ---
Author Name evaristo loera Address Unknown Organization [facility] Address [address] [place] [address] Phone [phone] Care Team Providers Care Gynecology Teacher Name Role Phone Alistair Jewell MD Unavailable KAYLEY RIVERA Unavailable [phone] INSURANCE PROVIDERS Payer name Policy type / Coverage type Robin red alliance party ID [place] MEDICARE Medicare [id number] [facility] [id number]
--- OUTSIDE RECORDS SUMMARY | 2024-05-26 19:20 | XMS_ITS | Referral Summary ---
Author Organization [facility] [address] [facility] [address] Address [address] [place] [address] Care Team Providers Care Vp Analysis Name Role Phone Sourav Velasco Primary Care Provider + Encounters Date Type Department Care Team Description 03/31/2024 2:00 PM MEDICAL LABORATORY TECHNOLOGIST Ancillary Procedure [facility] Cardiology [address] [place] [address] Mild aortic stenosis 03/10/2024 Telephone [facility] [address] [place] [address] Edin Leon RN from Last [...] on file Legal Sex Female 7:41 AM MEDICAL LABORATORY TECHNOLOGIST Gender Identity Not on file Sexual Orientation Not on file Last Filed Vital Signs Vital Sign Reading Time Taken Comments Blood Pressure 150/99 03/31/2024 2:39 PM MEDICAL LABORATORY TECHNOLOGIST Pulse 59 02/19/2024 8:02 AM CDT Temperature [...] DOPPLER/CF WO CONTRAST Routine 03/31/2024 2:39 PM MEDICAL LABORATORY TECHNOLOGIST Mild aortic stenosis EGFR STAT 02/18/2024 3:18 PM CDT HEMOGLOBIN A1C STAT 02/13/2024 8:23 AM CDT LIPID PANEL STAT 02/13/2024 8:23 AM CDT from Last 3 Months or Most Recently Relevant to Health Maintenance Results * TRANSTHORACIC ECHO (TTE) COMPLETE W DOPPLER/CF WO CONTRAST (03/31/2024 2:39 PM MEDICAL LABORATORY TECHNOLOGIST) Anatomical Region Laterality Modality Ultrasound 03/31/2024 2:36 PM MEDICAL LABORATORY TECHNOLOGIST Narrative 04/01/2024 8:52 AM MEDICAL LABORATORY TECHNOLOGIST [facility] Cardiology [address] [facility] [address], [place] [address] [address] [facility] [address], [place] [address] P:[phone] P:[phone] Echocardiographic Report Patient Name: SHONNA KIRKLAND L : 1945 Study Date: 03/31/2024 2:36:42 PM Gender: F Tech: DUNCAN Location: [facility] Provider: FEDERICO MONET Height(Cm): 168 BSA: 1.85 [...] FINDINGS: Interpretation Site: Exam was interpreted at [facility]. Left Ventricle: Normal left ventricular size. Moderate [...] jet. Electronically Signed By: Federico Monet MD, [facility] 04/01/2024 8:51:52 AM MEDICAL LABORATORY TECHNOLOGIST Procedure Note Federico Monet MD - 04/01/2024 [facility] Cardiology [address] [facility] [address], [place] [address] [address] [facility] [address], [place] [address] P:[phone] P:[phone] Echocardiographic Report Patient Name: SHONNA KIRKLAND L : 1945 Study Date: 03/31/2024 2:36:42 PM Gender: F Tech: DUNCAN Location: [facility] Provider: FEDERICO MONET Height(Cm): 168 BSA: 1.85 [...] FINDINGS: Interpretation Site: Exam was interpreted at [facility]. Left Ventricle: Normal left ventricular size. Moderate [...] jet. Electronically Signed By: Federico Monet MD, [facility] 04/01/2024 8:51:52 AM MEDICAL LABORATORY TECHNOLOGIST Federico Monet MD CV ECHO PROCEDURES Final [...] 02/18/2024 3:31 PM CDT us America Agudelo MACHINE TECH LAB BLOOD ORDERABLES Lidia l Result Performing Organization Address [facility] Co de Phone Number [facility] [place] [address] * (ABNORMAL) Hemoglobin A1c (02/13/2024 8:23 AM CDT) Hgb A1C 6.9(H) 4.0 - 5.6 % Estimated Average Glucose 151 mg/dL [facility] Comment: The ADA recommends reporting [...] CDT 02/13/2024 8:37 AM CDT Katelyn Jenkins MACHINE TECH LAB BLOOD ORDERABLES Final Result Performing Organization Address [facility] Co de Phone Number [facility] [place] [address] * Lipid panel (02/13/2024 8:23 AM CDT) [...] revised on 2017. Triglycerides 77 <=149 mg/dL [facility] Comment: Interpretive Data Ages < [...] revised on 2017. HDL 51 >=40 mg/dL [facility] Comment: Interpretive Data Ages < [...] on 2017. LDL, calculated 32 <=129 mg/dL [facility] Comment: Interpretive Data Ages < [...] revised on 2023. Non-HDL Cholesterol 48 mg/dL [facility] Comment: Interpretive Data Ages < or [...] last revised on 2017. Chol/HDL ratio 2 [facility] Blood 02/13/2024 8:23 AM CDT 02/13/2024 8:33 AM CDT Narrative [facility] - 02/14/2024 12:32 AM CDT Reflex us Misael Wong DO LAB BLOOD ORDERABLES Fi nal Result [facility] Department [place] [address] from Last 3 Months or Most Recently Relevant to Health Maintenance Insurance [facility] MEDICARE RAILROAD Member Subscriber Plan / Payer (Ef fective 2009-Present) Name:SHONNA KIRKLAND Member ID:[id number] Relation to Subscriber:Self Name:Shonna Kirkland Subscriber ID:[id number] Payer ID:[id number] Group ID:Not on file Type:MEDICARE TRADITIONAL Address: [address] MEDIC[address] RAILROAD Advance Directives For more information, please contact: [phone] * Full Code (Latest Code Status on File) Date Activated Date Inactivated Comments 02/13/2024 5:54 PM 02/19/2024 1:18 PM Care Teams Vp Analysis Relationship Specialty Start Date End Date Sourav Velasco PA [facility] [place] [address] PCP - General Internal Medicine 02/14/24
--- NOTE | 2024-05-26 19:39 | ED.FALL ---
HPI - Fall General Chief Complaint: Fall Stated Complaint: fall Time Seen by Provider: 05/26/24 19:13 Source: patient Mode of arrival: EMS Limitations: dementia History of Present Illness HPI Narrative: Patient presents after an unwitnessed fall at [facility] senior care facility. Is reported that she was able to assist herself back to bed and at baseline she is alert and oriented x1. Patient told the nurse that she fell using her walker while on the roof. She had initially been complaining of right hip pain and buttock pain but states these are now better. She is asking if she can get up and walk. Nurses state that she had been able to perform stand and pivot earlier from wheelchair. Related Data Home Medications ?Medication ?Instructions ?Recorded ?Confirmed ?Last Taken ?Type latanoprost 0.005 % eye drops 1 drop ophthalmic (eye) HS 07/06/19 03/26/24 Unknown History albuterol sulfate 90 mcg/actuation 2 puff inhalation Q4-6H PRN 07/17/19 03/26/24 Unknown History aerosol inhaler (ProAir HFA) Shortness Of Breath allopurinol 100 mg tablet 200 mg PO QAM 01/10/20 03/26/24 Unknown History amlodipine 10 mg tablet 10 mg PO QAM 01/10/20 03/26/24 Unknown History aspirin 81 mg tablet,delayed 81 mg PO QPM 01/10/20 03/26/24 Unknown History release (Adult Aspirin Regimen) atorvastatin 10 mg tablet 10 mg PO QAM 01/10/20 03/26/24 Unknown History furosemide 20 mg tablet 20 mg PO QAM 12/13/20 03/26/24 Unknown History famotidine 40 mg tablet 40 mg PO DAILY 09/25/21 03/26/24 Unknown History insulin glargine 100 unit/mL (3 10 unit subcut QAM 11/05/23 03/26/24 Unknown History mL) subcutaneous pen (Basaglar KwikPen U-100 Insulin) insulin lispro 100 unit/mL 10 unit subcut TID 11/05/23 03/26/24 Unknown History subcutaneous pen (Humalog KwikPen (U-100) Insulin) dicyclomine 10 mg capsule 10 mg PO TID 02/11/24 03/26/24 Unknown History apixaban 2.5 mg tablet 2.5 mg PO BID 03/26/24 03/26/24 Unknown History memantine 10 mg tablet 5 mg .Route .COMPLEX 03/26/24 03/26/24 Unknown History polyethylene glycol 3350 17 17 g PO DAILY 03/26/24 03/26/24 Unknown History gram/dose oral powder (Miralax) Allergies Allergy/AdvReac Type Severity Reaction Status Date / Time rofecoxib (From Vioxx) Allergy Intermediate Rash Verified 05/26/24 18:32 codeine Allergy Unknown Unknown Verified 05/26/24 18:32 celecoxib (From Celebrex) Allergy Rash Verified 05/26/24 18:32 [facility] Past Medical History Medical History Constipation, unspecified Vitamin D deficiency, unspecified Other [facility]p (current) drug therapy Unspecified fall, initial encounter Unspecified fracture of lower end of left femur, subsequent encounter for closed fracture with routine healing Dyskinesia Excessive daytime sleepiness Dementia of the Alzheimer's type BMI 25.0-25.9,adult Dementia Parkinsons Scoliosis Encephalopathy DVT prophylaxis Diastolic dysfunction Echocardiogram in March 2018 showed impaired relaxation grade 1 with an ejection fraction of 55 to 60%. Elevated LFTs Chronic kidney disease, stage 3 Baseline creatinine is around 1.70. Coronary artery disease With history of NE and stent x1 in 2015. Hyperlipidemia Hypertension Gastroesophageal reflux disease Hypoxemia Elevated troponin Type 2 diabetes mellitus without complication, with long-term current use of insulin Hepatitis Anemia Gout Arthritis GI bleed Secondary to gastric ulcer in 2014. Pneumonia Asthma Glaucoma Surgical History Surgical History History of tubal ligation History of cardiac catheterization With stent in 2015. History of bilateral hip arthroplasty Right replaced in 2005. Left replaced in 2018. History of cataract extraction Family History Family History Father CHF (congestive heart failure) Mother Cerebrovascular accident Other Carcinoma of colon Family history of arthritis Family history of cardiovascular disease Family history of chronic obstructive pulmonary disease Family history of glaucoma Family history of hearing loss Hypertension Social History Social History Social History: Surrogate decision maker: Marquise Kumari, spouse. Code status: DNR Smoking status: Never smoker Second hand tobacco smoke exposure: No Alcohol intake: never Substance use: never Substance use type: does not use Do You Feel Safe in your Home?: Yes Lack of Transportation: No Lack of Food: Never True Current Housing: I Have Housing Concerned About Future Housing: No Difficulty Paying Gas/Electric Bills: No Difficulty Paying for Meds: No Currently Unemployed: No Education: High School Diploma/GED Difficulty w/ Childcare or Family Care: No Living arrangements: senior care Additional living arrangements comments: [facility] [place]. Previously Resided with her in [place]. 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 HEAD: Normocephalic, atraumatic. EYES: Non injected, non icteric ENT: Nares clear, no rhinorrhea or epistaxis. NECK: Supple. CHEST: Speaking in full sentences. No respiratory distress. HEART: Regular rate and rhythm. ABDOMEN: Soft, nondistended. Occasionally belly breathing. EXTREMITIES: Normal range of motion. No lower extremity edema. Pelvis stable to compression. Well-healed surgical scar. no ecchymosis or bony crepitus. SKIN: Warm, dry, no rash. NEURO: No focal deficits. Alert and oriented to self. PSYCH: Normal mood and affect. Pleasant. Course Vital Signs Vital signs: Vital Signs Temperature 97.6 F 05/26/24 16:11 Pulse Rate 70 05/26/24 16:11 Respiratory Rate 16 05/26/24 16:11 Blood Pressure 160/76 H 05/26/24 16:11 Pulse Oximetry 97 05/26/24 16:11 Temperature 97.6 F 05/26/24 16:11 Pulse Rate 67 05/26/24 18:34 Respiratory Rate 22 H 05/26/24 18:34 Blood Pressure 192/78 H 05/26/24 18:34 Pulse Oximetry 100 05/26/24 18:34 MDM - Fall MDM Narrative Medical decision making narrative: Patient presents after an unwitnessed fall. She was initially complaining of right hip pain and buttock pain but denies this at present. In the emergency department she is afebrile vital signs that show hypertension. No acute osseous abnormalities but history of b/l total arthroplasties. Initially been reported that patient had a posterior hematoma however none palpated on exam. At baseline she is alert oriented x1 and is currently at her baseline. Patient provided ice pack and acetaminophen. Discharged back to facility in stable condition. Will likely require EMS transportation back given the baseline mentation. Differential Diagnosis Differential diagnosis: Likely compression fracture, concussion with loss of consciousness, concussion without loss of consciousness and other ( Intracranial hemorrhage, hip fracture/dislocation.) Imaging Data Radiologist's impression: Impressions Head CT 05/26/24 16:54 IMPRESSION: 1. Normal aging brain. No fracture or acute intracranial process. Cervical Spine CT 05/26/24 16:57 IMPRESSION: 1. No fracture. 2. Severe cervical spondylosis. Hip/Pelvis X-Ray 05/26/24 17:06 IMPRESSION: 1. Bilateral total hip arthroplasties with healing early chronic periprosthetic fracture of the left greater trochanter. No acute osseous abnormality. Discharge Plan Discharge Clinical Impression: Cervical spondylosis, Fall Patient Disposition: Home, Self-Care Condition: Stable Instructions: Antibiotic Form, Fall Prevention for Older Adults (ED) Additional Instructions: no fracture/dislocation or intracranial hemorrhage. Patient should be offered acetaminophen liberally over the next several days. Follow-up with primary care physician/ facility medical doctor nuclear medicine. Return to the emergency department any new or worsening symptoms. Patient Language: Beninese Prescriptions: New acetaminophen 650 mg tablet extended release 650 mg PO Q8H PRN (Reason: pain) Qty: 20 0RF No Action latanoprost 0.005 % drops 1 drop EACH EYE HS albuterol sulfate [ProAir HFA] 90 mcg/actuation HFA aerosol inhaler 2 puff INHALATION Q4-6H PRN (Reason: Shortness Of Breath) famotidine 40 mg tablet 40 mg PO DAILY donepezil [Aricept] 5 mg tablet 5 mg PO QHS Qty: 90 2RF escitalopram oxalate [Lexapro] 10 mg tablet 10 mg PO DAILY Qty: 30 6RF dicyclomine 10 mg capsule 10 mg PO TID memantine 10 mg tablet 5 mg .ROUTE .COMPLEX Rx Instructions: 5 mg; Twice daily polyethylene glycol 3350 [Miralax] 17 gram/dose powder 17 g PO DAILY apixaban 2.5 mg tablet 2.5 mg PO BID allopurinol 100 mg tablet 200 mg PO QAM amlodipine 10 mg tablet 10 mg PO QAM aspirin [Adult Aspirin Regimen] 81 mg tablet,delayed release (DR/EC) 81 mg PO QPM atorvastatin 10 mg tablet 10 mg PO QAM (DME) FreeStyle Raghav 2 Sensor Kit See Rx Instructions .Route Qty: 6 6RF Rx Instructions: As directed furosemide 20 mg tablet 20 mg PO QAM insulin glargine [Basaglar KwikPen U-100 Insulin] 100 unit/mL (3 mL) insulin pen 10 unit subcut QAM insulin lispro [Humalog KwikPen Insulin] 100 unit/mL insulin pen 10 unit subcut TID (DME) True Metrix Glucose Test Strip Strip See Rx Instructions .ROUTE .MEDSUPPLY Qty: 300 3RF Rx Instructions: Use to check BS 3 times daily (DME) pen needle, diabetic 32 gauge x 5/32 needle See Rx Instructions .ROUTE .COMPLEX Qty: 450 0RF Dose Instruction: USE WITH INSULIN INJECTIONS FIVE TIMES DAILY Rx Instructions: USE WITH INSULIN INJECTIONS FIVE TIMES DAILY Follow-up/Referrals: Rod,CARO Barbosa [Primary Care Provider] - Time of Disposition: 19:57
[2024-05-26] MEDS: ACETAMINOPHEN 500 MG TABLET 1000 MG PO (19:46)
--- NOTE | 2024-05-27 03:28 | PC.NURSE ---
EMS arrives for patient
[2024-05-27 03:53] VITALS: BP 142/88; PULSE 77; RESP 18; TEMP 36.7; O2SAT 99
== END 2024-05-27 03:54 ==
PROVIDERS: Emergency Provider Student in an Organized Health Care Education/Training Program; PCP Physician Assistant
DX: M47.812 Spondylosis without myelopathy or radiculopathy, cervical region (principal); W19.XXXA Unspecified fall, initial encounter; Z79.4 Long term (current) use of insulin; Z79.82 Long term (current) use of aspirin; E55.9 Vitamin D deficiency, unspecified; G30.9 Alzheimer's disease, unspecified; F02.80 Dementia in other diseases classified elsewhere, unspecified severity, without behavioral disturbance, psychotic disturbance, mood disturbance, and anxiety; G20.A1 Parkinson's disease without dyskinesia, without mention of fluctuations; I50.30 Unspecified diastolic (congestive) heart failure; N18.30 Chronic kidney disease, stage 3 unspecified; I25.10 Atherosclerotic heart disease of native coronary artery without angina pectoris; E78.5 Hyperlipidemia, unspecified; I12.9 Hypertensive chronic kidney disease with stage 1 through stage 4 chronic kidney disease, or unspecified chronic kidney disease; K21.9 Gastro-esophageal reflux disease without esophagitis; E11.22 Type 2 diabetes mellitus with diabetic chronic kidney disease; Z96.643 Presence of artificial hip joint, bilateral
CPT/HCPCS: 70450; 72125; 73502; 99284; A9270

== ENCOUNTER 2024-06-10 14:54 | Emergency (ER) | payer MEDICARE, SELFPAY ==
--- NOTE | ~2024-06-10 | CT_ITS ---
EXAMINATION: CT cervical spine wo con DATE: 06/10/2024 18:26 INDICATION: Patient alert and oriented by 2 presenting post fall from wheelchair. TECHNIQUE: Computed tomography (CT) of the cervical spine was performed without intravenous contrast. Automated exposure control and iterative reconstruction technique were employed. The dose-length pro duct was 142.74 mGy-cm. COMPARISON: None FINDINGS: Straightening of the normal cervical lordosis. Minimal cervicothoracic dextrocurvature. Vertebral bod y heights are normal. No fracture. Unchanged 2 mm anterolisthesis C4 on C5, C5 on C6 and C7 on T1. Se meryl osteoarthritis at the atlantoaxial articulation with surrounding calcified pannus. Peripheral fu tyler around the severely narrowed C4-C5 disc space. Additional severe disc height loss with degenerat otilio endplate changes and severe uncovertebral osteoarthritis at C6-C7. Moderate disc height loss at C 5-C6 and mild disc height loss at C2-C3 and C3-C4. There is multilevel severe cervical facet osteoart hritis with fusion bilaterally at C4-C5. There is multilevel mild central canal and mild to moderate neural foraminal stenosis in the cervical spine. See report from 3 weeks prior for level by level leila lysis. IMPRESSION: 1. Severe cervical spondylosis. No acute osseous abnormality. Reviewed, dictated and finalized at location A. D GAUGER
--- NOTE | ~2024-06-10 | CT_ITS ---
EXAMINATION: CT brain wo con DATE: 06/10/2024 18:26 INDICATION: Fall TECHNIQUE: Computed tomography (CT) of the head was performed without intravenous contrast. Sagittal and coronal reconstructions were performed. The mA was adjusted according to patient size. Iterative reconstruction technique was employed. The dose-length product was 605.33 mGy-cm. COMPARISON: head CT dated 05/26/24 FINDINGS: No fracture. No acute intracranial hemorrhage, acute infarction or mass/mass effect. There is symmetr ic prominence of the sulci and subarachnoid spaces overlying the convexities consistent with mild age -appropriate diffuse cerebral volume loss. Ventricles are normal and symmetric. Minimal scattered per iventricular and subcortical white matter hypoattenuation consistent with chronic small vessel ischem ic disease. Changes of bilateral intraocular lens replacement. The orbits and mastoid air cells are n ormal. Mucosal thickening throughout the paranasal sinuses. Intracranial calcified cerebral atheroscl erosis is noted at the bilateral carotid siphons. IMPRESSION: 1. Normal aging brain. No fracture or acute intracranial process. Reviewed, dictated and finalized at location A. ESS AUTOMATION ENGINEER
--- OUTSIDE RECORDS SUMMARY | 2024-06-10 14:59 | XMS_ITS | Referral Summary ---
Author Organization [facility] [address] [facility] [address] Address [address] [place] [address] Care Team Providers Care Distribution Collection Operator Name Role Phone Sourav Velasco Primary Care Provider + Encounters Date Type Department Care Team Description 03/31/2024 2:00 PM APPLIED RESEARCHER Ancillary Procedure [facility] Cardiology [address] [place] [address] Mild aortic stenosis 03/10/2024 Telephone [facility] [address] [place] [address] Edin Leon RN from Last [...] on file Legal Sex Female 7:41 AM APPLIED RESEARCHER Gender Identity Not on file Sexual Orientation Not on file Last Filed Vital Signs Vital Sign Reading Time Taken Comments Blood Pressure 150/99 03/31/2024 2:39 PM APPLIED RESEARCHER Pulse 59 02/19/2024 8:02 AM CDT Temperature [...] DOPPLER/CF WO CONTRAST Routine 03/31/2024 2:39 PM APPLIED RESEARCHER Mild aortic stenosis EGFR STAT 02/18/2024 3:18 PM CDT HEMOGLOBIN A1C STAT 02/13/2024 8:23 AM CDT LIPID PANEL STAT 02/13/2024 8:23 AM CDT from Last 3 Months or Most Recently Relevant to Health Maintenance Results * TRANSTHORACIC ECHO (TTE) COMPLETE W DOPPLER/CF WO CONTRAST (03/31/2024 2:39 PM APPLIED RESEARCHER) Anatomical Region Laterality Modality Ultrasound 03/31/2024 2:36 PM APPLIED RESEARCHER Narrative 04/01/2024 8:52 AM APPLIED RESEARCHER [facility] Medical [facility] Cardiology [address] [facility] [address], [place] [address] [address] [facility] [address], [place] [address] P:[phone] P:[phone] Echocardiographic Report Patient Name: SHONNA KIRKLAND L : 1945 Study Date: 03/31/2024 2:36:42 PM Gender: F Tech: DUNCAN Location: [facility] Provider: FEDERICO MONET Height(Cm): 168 BSA: [...] FINDINGS: Interpretation Site: Exam was interpreted at [facility]. Left Ventricle: Normal left ventricular size. [...] jet. Electronically Signed By: Federico Monet MD, [facility] 04/01/2024 8:51:52 AM APPLIED RESEARCHER Procedure Note Federico Monet MD - 04/01/2024 [facility] Medical [facility] Cardiology [address] [facility] [address], [place] [address] [address] [facility] [address], [place], [place] [address] P:[phone] P:[phone] Echocardiographic Report Patient Name: SHONNA KIRKLAND L : 1945 Study Date: 03/31/2024 2:36:42 PM Gender: F Tech: DUNCAN Location: [facility] Provider: FEDERICO MONET Height(Cm): 168 BSA: [...] FINDINGS: Interpretation Site: Exam was interpreted at [facility]. Left Ventricle: Normal left ventricular size. [...] jet. Electronically Signed By: Federico Monet MD, [facility] 04/01/2024 8:51:52 AM APPLIED RESEARCHER Federico Monet MD CV ECHO PROCEDURES Final [...] 02/18/2024 3:31 PM CDT us [place] Agudelo ADVANCED MANUFACTURING VICE PRESIDENT LAB BLOOD ORDERABLES Lidia l Result Performing Organization Address [facility] Co de Phone Number [facility] [place] [address] * (ABNORMAL) Hemoglobin A1c (02/13/2024 8:23 AM CDT) Hgb A1C 6.9(H) 4.0 - 5.6 % Estimated Average Glucose 151 mg/dL [facility] Comment: The ADA recommends reporting an estimated Average Glucose (eAG) with all Hemoglobin A1c results using the equation derived from a study of 507 normal and diabetic adults. Minority populations were underrepresented and children were not included. (Diabetes Care 2020; 43(S1): S66-S76). The eAG is not equivalent to a fasting glucose. Blood 02/13/2024 8:23 AM CDT 02/13/2024 8:37 AM CDT Katelyn Jnekins ADVANCED MANUFACTURING VICE PRESIDENT LAB BLOOD ORDERABLES Final Result Performing Organization Address [facility] Co de Phone Number [facility] [place] [address] * Lipid panel (02/13/2024 8:23 AM CDT) [...] on 2017. Triglycerides 77 <=149 mg/dL [facility] Comment: Interpretive Data Ages < or [...] on 2017. HDL 51 >=40 mg/dL [facility] Comment: Interpretive Data Ages < or [...] 2017. LDL, calculated 32 <=129 mg/dL [facility] Comment: Interpretive Data Ages < or [...] revised on 2023. Non-HDL Cholesterol 48 mg/dL [facility] Comment: Interpretive Data Ages < or = [...] revised on 2017. Chol/HDL ratio 2 [facility] Blood 02/13/2024 8:23 AM CDT 02/13/2024 8:33 AM CDT Narrative [facility] - 02/14/2024 12:32 AM CDT Reflex us Misael Wong DO LAB BLOOD ORDERABLES Fi nal Result [facility] One [facility] Department [place] [address] from Last 3 Months or Most Recently Relevant to Health Maintenance Insurance MEDICARE [facility] MEDICARE RAILROAD Member Subscriber Plan / Payer (Ef fective 2009-Present) Name:SHONNA KIRKLAND Member ID:[id number] Relation to Subscriber:Self Name:Shonna Kirkland Subscriber ID:[id number] Payer ID:[id number] Group ID:Not on file Type:MEDICARE TRADITIONAL Address: [address] MED[address] RAILROAD Advance Directives For more information, please contact: [phone] * Full Code (Latest Code Status on File) Date Activated Date Inactivated Comments 02/13/2024 5:54 PM 02/19/2024 1:18 PM Care Teams Distribution Collection Operator Relationship Specialty Start Date End Date Sourav Velasco PA [facility] [place] [address] PCP - General Internal Medicine 02/14/24
--- OUTSIDE RECORDS SUMMARY | 2024-06-10 14:59 | XMS_ITS | Referral Summary ---
Author Organization [facility] Address [address] [facility] [place] [address] Care Team Providers Care Apparel Cutter Name Role Phone Unavailable Primary Care Provider Unavailabl e Source Comments [facility],non-owned Affiliates and Associated Physician Practices is amultiple site organization consisting of ambulatory clinics and hospital sitesin [place], [place], [place] and [place]. This disclosure is being madepursuant to the Care Everywhere program and may not contain all information available regarding this patient. Last updated 18.[facility] Encounters Date Type Department Care Team Description 03/17/2024 Lab Requisition [facility] [address] [place] [address] Matt Rich from Last 3 Months Allergies [...] VITAMIN D 25-HYDROXY Routine 03/17/2024 1:03 PM DRIER TRANSFER CAR OPERATOR CBC W AUTO DIFFERENTIAL Routine 03/17/2024 1:03 PM DRIER TRANSFER CAR OPERATOR from Last 3 Months Results * VITAMIN D 25-HYDROXY (03/17/2024 1:03 PM DRIER TRANSFER CAR OPERATOR) Vitamin D, 25 Hydroxy 32.4 30 - 80 ng/mL 03/17/2024 1:51 PM DRIER TRANSFER CAR OPERATOR [facility] Blood BLOOD SPECIMEN / Unknown Venipuncture / Unknown 03/17/2024 1:03 PM DRIER TRANSFER CAR OPERATOR 03/17/2024 1:03 PM DRIER TRANSFER CAR OPERATOR [facility]ORAT[facility] - 03/17/2024 1:51 PM DRIER TRANSFER CAR OPERATOR Vitamin D Status: Deficiency <20 ng/mL Insufficiency 20-30 ng/mL Sufficiency 30-100 ng/mL Toxicity >100 ng/mL [place] LAB - CHEMISTRY NAJMA CABEZAS [facility] [address] [place] [address] * (ABNORMAL) CBC WITH DIFFERENTIAL (03/17/2024 1:03 PM DRIER TRANSFER CAR OPERATOR) Pathologist [facility] WBC 9.1 4.0 - 10.7 x10E9/L 03/17/2024 1:15 PM [facility] RBC Count 3.49(L) 3.90 - 5.20 x10E12/L 03/17/2024 1:15 PM [facility] Hemoglobin 11.1(L) 11.9 - 15.8 g/dL 03/17/2024 1:15 PM [facility] Hematocrit 35.8 34.8 - 46.1 % 03/17/2024 1:15 PM [facility] MCV 102.6(H) 80.0 - 98.0 fL 03/17/2024 1:15 PM [facility] MCH 31.8 26.7 - 33.6 pg 03/17/2024 1:15 PM [facility] MCHC 31.0(L) 31.7 - 36.3 g/dL 03/17/2024 1:15 PM [facility] RDW-CV 13.5 11.3 - 14.8 % 03/17/2024 1:15 PM [facility] Platelet Count 247 150 - 420 x10E9/L 03/17/2024 1:15 PM [facility] MPV 11.3 7.8 - 11.4 fL 03/17/2024 1:15 PM [facility] Neutrophil % 69.6 41.0 - 74.0 % 03/17/2024 1:15 PM [facility] Lymphocyte % 18.4 17.0 - 47.0 % 03/17/2024 1:15 PM DRIER TRANSFER CAR OPERATOR [facility] Monocyte % 8.3 3.0 - 11.0 % 03/17/2024 1:15 PM DRIER TRANSFER CAR OPERATOR [facility] Eosinophil % 3.1 0.0 - 7.0 % 03/17/2024 1:15 PM DRIER TRANSFER CAR OPERATOR [facility] Basophil % 0.3 0.0 - 1.6 % 03/17/2024 1:15 PM DRIER TRANSFER CAR OPERATOR [facility] Immature Granulocytes % 0.3 0.0 - 1.0 % 03/17/2024 1:15 PM DRIER TRANSFER CAR OPERATOR [facility] Neutrophil Absolute 6.34 1.60 - 7.50 x10E9/L 03/17/2024 1:15 PM DRIER TRANSFER CAR OPERATOR [facility] Lymphocyte Absolute 1.68 1.00 - 4.40 x10E9/L 03/17/2024 1:15 PM DRIER TRANSFER CAR OPERATOR [facility] Monocyte Absolute 0.76 0.15 - 1.00 x10E9/L 03/17/2024 1:15 PM DRIER TRANSFER CAR OPERATOR [facility] Eosinophil Absolute 0.28 0.00 - 0.60 x10E9/L 03/17/2024 1:15 PM DRIER TRANSFER CAR OPERATOR [facility] Basophil Absolute 0.03 0.00 - 0.13 x10E9/L 03/17/2024 1:15 PM DRIER TRANSFER CAR OPERATOR [facility] Blood BLOOD SPECIMEN / Unknown 03/17/2024 1:03 PM DRIER TRANSFER CAR OPERATOR 03/17/2024 1:03 PM DRIER TRANSFER CAR OPERATOR [place] LAB - HEMATOLOGY ORD ERABLES [facility] [address] [place] [address] from Last 3 Months
--- OUTSIDE RECORDS SUMMARY | 2024-06-10 14:59 | XMS_ITS | Patient Health Record ---
Author Organization [facility] Address [address] [place] [address] Care Team Providers Care Media Relations Associate Name Role Phone Lana Nicole Primary Care Provider Unavailab Joy Paris Unavailable [phone] Candie Ding Unavailable Unavailable [facility], Provider Unavailable Unavailab le Allergies No Known Allergies Reason For Referral No Information Medications Medication SIG (Take, Route, Frequency, Duration) Notes Start Date End Date Status Albuterol Sulfate HFA 108 (90 Base) MCG/ACT 2 puff(s) inhaled every 6 hours Active FAMOTIDINE 40 mg 1 tab(s) orally once a day (at bedtime) Active Basaglar KwikPen 100 UNIT/ML as directed subcutaneously Active LOSARTAN 25 mg 1 tab(s) orally once a day Active HumaLOG 10U before suppe r *Please review and pick correct strength-formulati on from Medispan options. If intended option is not shown, discontinue and re-order from Quick Search* Active MEMANTINE 10 mg 1 tab(s) orally 2 times a day Active DONEPEZIL 10 mg 1 tab(s) orally once a day (at bedtime) Active BASAGLAR KWIKPEN 100 units/mL as directed subcutaneously Active Famotidine 40 MG 1 tab(s) orally once a day (at bedtime) Active HUMALOG 10U before supper Ac tive Losartan Potassium 25 MG 1 tab(s) orally once a day Active LATANOPROST OPHTHALMIC 0.005% 1 gtt in each eye once a day (in the evening) Active Latanoprost 0.005 % 1 gtt in each eye once a day (in the evening) Active AMLODIPINE 10 mg 1 tab(s) orally once a day Active amLODIPine Besylate 10 MG 1 tab(s) orally once a day Active ATORVASTATIN 10 mg 1 tab(s) orally once a day Active Aspirin 81 MG 1 tab(s) chewed once a day Active ALLOPURINOL 100 mg as directed orally takes 2 ta blets daily Active Atorvastatin Calcium 10 MG 1 tab(s) orally once a day Active ALBUTEROL 90 mcg/inh 2 puff(s) inhaled every 6 hours Active Memantine HCl 10 MG 1 tab(s) orally 2 times a day Active Allopurinol 100 MG as directed orally takes 2 ta blets daily Active ASPIRIN 81 mg 1 tab(s) chewed once a day Active Donepezil HCl 10 MG 1 tab(s) orally once a day (at bedtime) Active Immunizations Vaccine Route Administration Date Status Comme nts NOC PedvaxHIB IM Intramuscular 11/26/2022 Administered Pneumovax 23 IM Intramuscular 11/26/2022 Administered Problems Problem Type SNOMED Code ICD Code Onset Dates Problem Status W/U Status Risk Notes Problem Hypogammaglobulinemi a (041141020) 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 confirmed Problem Chronic rhinitis (88598974) Chronic rhinitis (J31.0) Active confirmed Problem Shortness of breath (598492805) Shortness of breath (R06.02) Active confirmed Encounters Encounter Location Date Provider Diagnosis [address] [address] 10/04/2023 Provider [facility] Plan Of Treatment No Information Insurance Providers Payer Name Payer Address Payer Phone Subscriber Number Group Number Insured Name Patient Relationship to Insured Coverage Start Date Coverage End Date [facility] [address] [address] [place] [address] [phone] [id number] Shonna Kumari Self - patient is the insured [facility] [address] [place] [address] [id number] Shonna Kumari Self - patient is the insured Medical (General) History Medical History History ICD Code Hyperlipidemia Diabetes Surgical History Surgery Date(Month/Year) Cardiac Stents Right hip replacement 2005 Toal hip replacement Hospitalization History Reason Date(Month/Year) above surgeries
--- OUTSIDE RECORDS SUMMARY | 2024-06-10 14:59 | XMS_ITS | Clinical Summary ---
Author Organization [facility] [employer] Address [address] [place] [address] Care Team Providers Care Film Processing Shift Supervisor Name Role Phone Unavailable Primary Care Provider Unavailabl e Source Comments [facility] [employer],non-owned Affiliates and Associated Physician Practices is amultiple site organization consisting of ambulatory clinics and hospital sitesin [place], [place], [place] and [place]. This disclosure is being madepursuant to the Care Everywhere program and may not contain all information available regarding this patient. Last updated 18.[facility] [employer] Allergies Active Allergy Reactions Criticality Noted Date Comments Codeine 02/10/2017 Encounters Date Type Department Care Team Description 03/17/2024 Lab Requisition [facility] [address] [place] [address] Matt [place] from Last 3 Months Immunizations [...] VITAMIN D 25-HYDROXY Routine 03/17/2024 1:03 PM AIRLINE CUSTOMER SERVICE AGENT CBC W AUTO DIFFERENTIAL Routine 03/17/2024 1:03 PM AIRLINE CUSTOMER SERVICE AGENT from Last 3 Months Results * VITAMIN D 25-HYDROXY (03/17/2024 1:03 PM AIRLINE CUSTOMER SERVICE AGENT) Pathologist [facility] Vitamin D, 25 Hydroxy 32.4 30 - 80 ng/mL 03/17/2024 1:51 PM AIRLINE CUSTOMER SERVICE AGENT [facility] Blood BLOOD SPECIMEN / Unknown Venipuncture / Unknown 03/17/2024 1:03 PM AIRLINE CUSTOMER SERVICE AGENT 03/17/2024 1:03 PM AIRLINE CUSTOMER SERVICE AGENT Narrative [facility] - 03/17/2024 1:51 PM AIRLINE CUSTOMER SERVICE AGENT Vitamin D Status: Deficiency <20 ng/mL Insufficiency 20-30 ng/mL Sufficiency 30-100 ng/mL Toxicity >100 ng/mL [place] LAB - CHEMISTRY NAJMA CABEZAS [facility] [address] [place] [address] * (ABNORMAL) CBC WITH DIFFERENTIAL (03/17/2024 1:03 PM AIRLINE CUSTOMER SERVICE AGENT) WBC 9.1 4.0 - 10.7 x10E9/L 03/17/2024 1:15 PM AIRLINE CUSTOMER SERVICE AGENT [facility] RBC Count 3.49(L) 3.90 - 5.20 x10E12/L 03/17/2024 1:15 PM AIRLINE CUSTOMER SERVICE AGENT [facility] Hemoglobin 11.1(L) 11.9 - 15.8 g/dL 03/17/2024 1:[address] [facility] Hematocrit 35.8 34.8 - 46.1 % 03/17/2024 1:[address] [facility] MCV 102.6(H) 80.0 - 98.0 fL 03/17/2024 1:[address] [facility] MCH 31.8 26.7 - 33.6 pg 03/17/2024 1:[address] [facility] MCHC 31.0(L) 31.7 - 36.3 g/dL 03/17/2024 1:[address] [facility] RDW-CV 13.5 11.3 - 14.8 % 03/17/2024 1:[address] [facility] Platelet Count 247 150 - 420 x10E9/L 03/17/2024 1:[address] [facility] MPV 11.3 7.8 - 11.4 fL 03/17/2024 1:[address] [facility] Neutrophil % 69.6 41.0 - 74.0 % 03/17/2024 1:[address] [facility] Lymphocyte % 18.4 17.0 - 47.0 % 03/17/2024 1:[address] [facility] Monocyte % 8.3 3.0 - 11.0 % 03/17/2024 1:[address] [facility] Eosinophil % 3.1 0.0 - 7.0 % 03/17/2024 1:[address] [facility] Basophil % 0.3 0.0 - 1.6 % 03/17/2024 1:[address] [facility] Immature Granulocytes % 0.3 0.0 - 1.0 % 03/17/2024 1:[address] [facility] Neutrophil Absolute 6.34 1.60 - 7.50 x10E9/L 03/17/2024 1:[address] [facility] Lymphocyte Absolute 1.68 1.00 - 4.40 x10E9/L 03/17/2024 1:[address] [facility] Monocyte Absolute 0.76 0.15 - 1.00 x10E9/L 03/17/2024 1:[address] [facility] Eosinophil Absolute 0.28 0.00 - 0.60 x10E9/L 03/17/2024 1:15 PM AIRLINE CUSTOMER SERVICE AGENT [facility] Basophil Absolute 0.03 0.00 - 0.13 x10E9/L 03/17/2024 1:15 PM AIRLINE CUSTOMER SERVICE AGENT [facility] Blood BLOOD SPECIMEN / Unknown 03/17/2024 1:03 PM AIRLINE CUSTOMER SERVICE AGENT 03/17/2024 1:03 PM AIRLINE CUSTOMER SERVICE AGENT [place] LAB - HEMATOLOGY ORD ERABLES [facility] [address] [place] [address] from Last 3 Months
--- OUTSIDE RECORDS SUMMARY | 2024-06-10 14:59 | XMS_ITS | Clinical Summary ---
Author Organization [facility] [address] Address [address] [place] [address] Care Team Providers Care Transition Nurse Name Role Phone Sourav Velasco Primary Care [...] Department Care Team Description 03/31/2024 2:00 PM SHORT ORDER FRY COOK Ancillary Procedure [facility] Cardiology [address] [place] [address] Mild aortic stenosis 03/10/2024 Telephone [facility] [address] [place] [address] Edin Leon RN from Last 3 Months Medical History Medical History Date Comments Hypertension Hypertension Type 2 diabetes mellitus (HCC) D iabetes type 2 Hx Other Medical inferior [facility] [place] Hx Other Medical duodenal ulcer Hx Other [...] on file Legal Sex Female 7:41 AM SHORT ORDER FRY COOK Gender Identity Not on file Sexual Orientation Not on file Obstetrics History Last Filed Vital Signs Vital Sign Reading Time Taken Comments Blood Pressure 150/99 03/31/2024 2:39 PM SHORT ORDER FRY COOK Pulse 59 02/19/2024 8:02 AM CDT Temperature [...] history exists Fall Risk Assessment 02/18/2025 02/19/2024 Hepatitis B Screening Completed 11/11/2011 Pneumococcal vaccine 65+ Completed 023, 02/08/2019, 02/03/2018, Additional history exists Procedures Procedure Name Priority Date/Time Associated Diagnosis Comments TRANSTHORACIC ECHO (TTE) COMPLETE W DOPPLER/CF WO CONTRAST Routine 03/31/2024 2:39 PM SHORT ORDER FRY COOK Mild aortic stenosis EGFR STAT 02/18/2024 3:18 PM CDT HEMOGLOBIN A1C STAT 02/13/2024 8:23 AM CDT LIPID PANEL STAT 02/13/2024 8:23 AM CDT from Last 3 Months or Most Recently Relevant to Health Maintenance Results * TRANSTHORACIC ECHO (TTE) COMPLETE W DOPPLER/CF WO CONTRAST (03/31/2024 2:39 PM SHORT ORDER FRY COOK) Anatomical Region Laterality Modality Ultrasound 03/31/2024 2:36 PM SHORT ORDER FRY COOK Narrative 04/01/2024 8:52 AM SHORT ORDER FRY COOK [facility] Medical [facility] Cardiology [address], [place] [address] [facility] [address], [place] [address] P:[phone] P:[phone] Echocardiographic Report Patient Name: SHONNA KIRKLAND L : 1945 Study Date: 03/31/2024 2:36:42 PM Gender: F Tech: DUNCAN Location: [facility] Provider: FEDERICO MONET Height(Cm): 168 BSA: [...] Interpretation Site: Exam was interpreted at [facility]. Left Ventricle: Normal left ventricular [...] jet. Electronically Signed By: Federico Monet MD, [facility] 04/01/2024 8:51:52 AM SHORT ORDER FRY COOK Procedure Note Federico Monet MD - 04/01/2024 [facility] Medical [facility] Cardiology [address] [facility] [address], [place] [address] [facility] [address], [place] [address] P:[phone] P:[phone] Echocardiographic Report Patient Name: SHONNA KIRKLAND L : 1945 Study Date: 03/31/2024 2:36:42 PM Gender: F Tech: DUNCAN Location: [facility] Provider: FEDERICO MONET Height(Cm): 168 BSA: [...] Interpretation Site: Exam was interpreted at [facility]. Left Ventricle: Normal left ventricular [...] jet. Electronically Signed By: Federico Monet MD, [facility] 04/01/2024 8:51:52 AM SHORT ORDER FRY COOK Federico Monet MD CV ECHO PROCEDURES Final [...] NP LAB BLOOD ORDERABLES Lidia l Result [facility] [address] [facility] Department [place] [address] * (ABNORMAL) Hemoglobin A1c (02/13/2024 8:23 AM [...] Jenkins NP LAB BLOOD ORDERABLES Final Result [facility] Department [place] [address] * Lipid panel (02/13/2024 8:23 AM CDT) [...] revised on 2017. HDL 51 >=40 mg/dL [facility] Comment: Interpretive Data Ages < or = [...] on 2017. LDL, calculated 32 <=129 mg/dL [facility] Comment: Interpretive Data Ages < or = [...] 2004;110:227 3. Milton Gold al. LUCILA Cardiol. 2019August 19;5(5):540-548. doi: 10.1001/[email or web address].2020.0013 Current Interpretive Data was last revised on 2023. Non-HDL Cholesterol 48 mg/dL [facility] Comment: Interpretive Data Ages < or = [...] CDT 02/13/2024 8:33 AM CDT Narrative [facility] - 02/14/2024 12:32 AM CDT Reflex us Misael Flores Marvin DO LAB BLOOD ORDERABLES Fi nal Result [facility] [address] [facility] Department [place] [address] from Last 3 Months or Most Recently Relevant to Health Maintenance Insurance MEDICARE RAILROAD [facility] [place] [id number] MEDICARE RAILROAD [facility] MEDICARE RAILROAD [facility] Advance Directives For more information, please contact: [phone] * Full Code (Latest Code Status on File) Date Activated Date Inactivated Comments 02/13/2024 5:54 PM 02/19/2024 1:18 PM Care Teams Transition Nurse Relationship Specialty Start Date End Date Sourav Velasco PA [address] [place] [address] [place] [address] PCP - General Internal Medicine 02/14/24
--- OUTSIDE RECORDS SUMMARY | 2024-06-10 14:59 | XMS_ITS | Encounter Summary ---
Author Organization [facility] Address [address] [place] [address] Care Team Providers Care Longwall Machine Operator Helper Name Role Phone Unavailable Primary Care Provider Unavailabl e Encounter Details Date Type Department Care Team (Late st Contact Info) Description 03/17/2024 Lab Requisition [facility] [address] [place] [address] [place] [address] Social History Tobacco Use Types Packs/Day Years [...] VITAMIN D 25-HYDROXY Routine 03/17/2024 1:03 PM PATTERN CHAIN BUILDER CBC W AUTO DIFFERENTIAL Routine 03/17/2024 1:03 PM PATTERN CHAIN BUILDER documented in this encounter Results * VITAMIN D 25-HYDROXY (03/17/2024 1:03 PM PATTERN CHAIN BUILDER) Vitamin D, 25 Hydroxy 32.4 30 - 80 ng/mL 03/17/2024 1:51 PM PATTERN CHAIN BUILDER [facility] Blood BLOOD SPECIMEN / Unknown Venipuncture / Unknown 03/17/2024 1:03 PM PATTERN CHAIN BUILDER 03/17/2024 1:03 PM PATTERN CHAIN BUILDER Narrative [facility] - 03/17/2024 1:51 PM PATTERN CHAIN BUILDER Vitamin D Status: Deficiency <20 ng/mL Insufficiency 20-30 ng/mL Sufficiency 30-100 ng/mL Toxicity >100 ng/mL Matt Rich LAB - CHEMISTRY ORDHoward CABEZAS [facility] [address] [place] [address] * (ABNORMAL) CBC WITH DIFFERENTIAL (03/17/2024 1:03 PM PATTERN CHAIN BUILDER) [facility] WBC 9.1 4.0 - 10.7 x10E9/L 03/17/2024 1:15 PM PATTERN CHAIN BUILDER [facility] RBC Count 3.49(L) 3.90 - 5.20 x10E12/L 03/17/2024 1:15 PM PATTERN CHAIN BUILDER [facility] Hemoglobin 11.1(L) 11.9 - 15.8 g/dL 03/17/2024 1:15 PM [facility] Hematocrit 35.8 34.8 - 46.1 % 03/17/2024 1:15 PM PATTERN CHAIN BUILDER [facility] MCV 102.6(H) 80.0 - 98.0 fL 03/17/2024 1:15 PM PATTERN CHAIN BUILDER [facility] MCH 31.8 26.7 - 33.6 pg 03/17/2024 1:15 PM PATTERN CHAIN BUILDER [facility] MCHC 31.0(L) 31.7 - 36.3 g/dL 03/17/2024 1:15 PM [facility] RDW-CV 13.5 11.3 - 14.8 % 03/17/2024 1:15 PM [facility] Platelet Count 247 150 - 420 x10E9/L 03/17/2024 1:15 PM PATTERN CHAIN BUILDER [facility] MPV 11.3 7.8 - 11.4 fL 03/17/2024 1:15 PM [facility] Neutrophil % 69.6 41.0 - 74.0 % 03/17/2024 1:15 PM PATTERN CHAIN BUILDER [facility] Lymphocyte % 18.4 17.0 - 47.0 % 03/17/2024 1:15 PM PATTERN CHAIN BUILDER [facility] Monocyte % 8.3 3.0 - 11.0 % 03/17/2024 1:15 PM PATTERN CHAIN BUILDER [facility] Eosinophil % 3.1 0.0 - 7.0 % 03/17/2024 1:15 PM PATTERN CHAIN BUILDER [facility] Basophil % 0.3 0.0 - 1.6 % 03/17/2024 1:15 PM PATTERN CHAIN BUILDER [facility] Immature Granulocytes % 0.3 0.0 - 1.0 % 03/17/2024 1:15 PM PATTERN CHAIN BUILDER [facility] Neutrophil Absolute 6.34 1.60 - 7.50 x10E9/L 03/17/2024 1:15 PM PATTERN CHAIN BUILDER [facility] Lymphocyte Absolute 1.68 1.00 - 4.40 x10E9/L 03/17/2024 1:15 PM PATTERN CHAIN BUILDER [facility] Monocyte Absolute 0.76 0.15 - 1.00 x10E9/L 03/17/2024 1:15 PM PATTERN CHAIN BUILDER [facility] Eosinophil Absolute 0.28 0.00 - 0.60 x10E9/L 03/17/2024 1:15 PM PATTERN CHAIN BUILDER [facility] Basophil Absolute 0.03 0.00 - 0.13 x10E9/L 03/17/2024 1:15 PM PATTERN CHAIN BUILDER [facility] Blood BLOOD SPECIMEN / Unknown 03/17/2024 1:03 PM PATTERN CHAIN BUILDER 03/17/2024 1:03 PM PATTERN CHAIN BUILDER Matt Rich LAB - HEMATOLOGY ORD ERABLES [facility] [address] [place] [address] documented in this encounter Visit Diagnoses Not on filedocumented in this encounter
--- OUTSIDE RECORDS SUMMARY | 2024-06-10 14:59 | XMS_ITS | Encounter Summary ---
Author Organization [facility] Address [address] [place] [address] Care Team Providers Care Smooth And Burr Worker Composites Name Role Phone Marcia Cool NP Primary Care Provider [phone] Marcia Cool NP Primary Care Provider [phone] Lana Nicole MD Primary Care Provider + [phone] Sourav Velasco Primary Care Provider + Encounter Details Date Type Department Care Team (Late st Contact Info) Description 07/01/2016 Orders Only [facility] ProviderNeftaly MD [address] [place] [id number] Social History Tobacco Use Types Packs/Day Years Used Date Smoking Tobacco: Never Alcohol Use Standard Drinks/Week Comments No 0 (1 standard drink = 0.6 oz pur e alcohol) Comments Unknown Sex and Gender Information Value Date Recorded Sex Assigned at Not on file Legal Sex Female 7:41 AM ASSISTANT PROFESSOR OF ANTHROPOLOGY Gender Identity Not on file Sexual Orientation [...] on filedocumented in this encounter Care Teams Smooth And Burr Worker Composites Relationship Specialty Start Date End Date Marcia Cool NP PCP - General 07/19/16 05/12/22 Marcia Cool NP PCP - General 12/14/14 07/18/16 Lana Nicole MD [address] [place] [address] [place] [address] PCP - General Family Medicine 05/13/22 02/13/24 Sourav Velasco PA [address] [place] [address] [place] [address] PCP - General Internal Medicine 02/14/24 documented as of this encounter
--- OUTSIDE RECORDS SUMMARY | 2024-06-10 14:59 | XMS_ITS | Clinical Summary ---
Author Organization [facility] Address [address], [place] [address] Phone Care Team Providers Care News Gathering Technician Name Role Phone Marcia Cool ANASTASIIA Primary Care Provider Allergies Active Allergy Reactions Criticality Noted Date [...] Comments Blood Pressure 122/68 04/05/2019 8:52 AM MEDICAL SOCIOLOGIST Pulse 72 04/05/2019 8:52 AM MEDICAL SOCIOLOGIST Temperature 35.7 C (96.2 F) 04/05/2019 8:52 AM MEDICAL SOCIOLOGIST Respiratory Rate 20 11/06/2011 12:01 AM CDT Oxygen Saturation - - Inhaled Oxygen Concentration - - Weight 95.7 kg (211 lb) 04/05/2019 8:52 AM MEDICAL SOCIOLOGIST Height 167.6 cm (5' 6 ) 04/05/2019 8:52 AM MEDICAL SOCIOLOGIST Body Mass Index 34.06 04/05/2019 8:52 AM MEDICAL SOCIOLOGIST Plan of Treatment Health Maintenance Due Date Last Done Comments Influenza Vaccine (#1) 2023 5, 02/15/2013, 02/27/2012 Pneumococcal PPSV23/PCV13 65 + Years / Low and Medium Risk Completed 02/08/2019, 02/03/2018, 09/21/2014 Care Teams News Gathering Technician Relationship Specialty Start Date End Date Marcia Cool NP [address] [place] [address] [place] [address] PCP - General Internal Medicine 08/19/18
--- OUTSIDE RECORDS SUMMARY | 2024-06-10 14:59 | XMS_ITS | Patient Health Summary ---
Author Organization [facility] Address [address] [place] [address] Care Team Providers Care Clothing Designer Name Role Phone Unavailable Primary Care Provider Unavailabl e Note from [facility],non-owned Affiliates and Associated Physician Practices is amultiple site organization consisting of ambulatory clinics and hospital sitesin [place], [place], [place] and [place]. This disclosure is being madepursuant to the Care Everywhere program and may not contain all information available regarding this patient. Last updated 18.[facility] Allergies * Codeine Immunizations * INFLUENZA VACCINE, [...] * VITAMIN D 25-HYDROXY (03/17/2024 1:03 PM WASH OIL PUMP OPERATOR) Vitamin D, 25 Hydroxy 32.4 30 - 80 ng/mL 03/17/2024 1:51 PM WASH OIL PUMP OPERATOR [facility] Blood BLOOD SPECIMEN / Unknown Venipuncture / Unknown 03/17/2024 1:03 PM WASH OIL PUMP OPERATOR 03/17/2024 1:03 PM WASH OIL PUMP OPERATOR Narrative [facility] - 03/17/2024 1:51 PM WASH OIL PUMP OPERATOR Vitamin D Status: Deficiency <20 ng/mL Insufficiency 20-30 ng/mL Sufficiency 30-100 ng/mL Toxicity >100 ng/mL Matt Rich LAB - CHEMISTRY NAJMA CABEZAS [facility] [address] [place] [address] * (ABNORMAL) CBC WITH DIFFERENTIAL (03/17/2024 1:03 PM WASH OIL PUMP OPERATOR) Only the most recent of2 resultswithin the time period is included. WBC 9.1 4.0 - 10.7 x10E9/L 03/17/2024 1:15 PM [facility] RBC Count 3.49(L) 3.90 - 5.20 x10E12/L 03/17/2024 1:15 PM [facility] Hemoglobin 11.1(L) 11.9 - 15.8 g/dL 03/17/2024 1:15 PM [facility] Hematocrit 35.8 34.8 - 46.1 % 03/17/2024 1:15 PM [facility] MCV 102.6(H) 80.0 - 98.0 fL 03/17/2024 1:15 PM [facility] MCH 31.8 26.7 - 33.6 pg 03/17/2024 1:15 PM [facility] MCHC 31.0(L) 31.7 - 36.3 g/dL 03/17/2024 1:15 PM [facility] RDW-CV 13.5 11.3 - 14.8 % 03/17/2024 1:15 PM [facility] Platelet Count 247 150 - 420 x10E9/L 03/17/2024 1:15 PM [facility] MPV 11.3 7.8 - 11.4 fL 03/17/2024 1:15 PM [facility] Neutrophil % 69.6 41.0 - 74.0 % 03/17/2024 1:15 PM [facility] Lymphocyte % 18.4 17.0 - 47.0 % 03/17/2024 1:15 PM [facility] Monocyte % 8.3 3.0 - 11.0 % 03/17/2024 1:15 PM [facility] Eosinophil % 3.1 0.0 - 7.0 % 03/17/2024 1:15 PM WASH OIL PUMP OPERATOR [facility] Basophil % 0.3 0.0 - 1.6 % 03/17/2024 1:15 PM WASH OIL PUMP OPERATOR [facility] Immature Granulocytes % 0.3 0.0 - 1.0 % 03/17/2024 1:15 PM [facility] Neutrophil Absolute 6.34 1.60 - 7.50 x10E9/L 03/17/2024 1:15 PM WASH OIL PUMP OPERATOR [facility] Lymphocyte Absolute 1.68 1.00 - 4.40 x10E9/L 03/17/2024 1:15 PM WASH OIL PUMP OPERATOR [facility] Monocyte Absolute 0.76 0.15 - 1.00 x10E9/L 03/17/2024 1:15 PM WASH OIL PUMP OPERATOR [facility] Eosinophil Absolute 0.28 0.00 - 0.60 x10E9/L 03/17/2024 1:15 PM [facility] Basophil Absolute 0.03 0.00 - 0.13 x10E9/L 03/17/2024 1:15 PM [facility] Blood BLOOD SPECIMEN / Unknown 03/17/2024 1:03 PM WASH OIL PUMP OPERATOR 03/17/2024 1:03 PM WASH OIL PUMP OPERATOR Matt Rich LAB - HEMATOLOGY ORD ERABLES [facility] [address] [place] [address] * PT-INR [facility] (06/09/2012 8:33 AM WASH OIL PUMP OPERATOR) [facility] INR 1.0 [facility] ([facility]) Comment: Reference Range 0.9-1.1 Moderate-intensity Warfarin Therapy 2.0-3.0 Higher-intensity Warfarin Therapy 3.0-4.0 PT 10.4 9.0 - 11.5 sec [facility] ([facility]) Comment: REPORT COMMENT: FASTING Test Performed at: [email or web address] [address] [address] JOSEY PENG DO [facility] 06/09/2012 8:33 AM WASH OIL PUMP OPERATOR 06/09/2012 8:34 AM WASH OIL PUMP OPERATOR Mervin Walker MD LAB - COAGULATION OR DERABLES [facility] ([facility]) * (ABNORMAL) COMPREHENSIVE METABOLIC PANEL (06/09/2012 8:33 AM WASH OIL PUMP OPERATOR) Glucose 129(H) 65 - 99 mg/dL [facility] ([facility]) Comment: Fasting reference interval BUN 20 7 - 25 mg/dL [facility] ([facility]) Creatinine 0.98 0.50 - 0.99 mg/dL [facility] ([facility]) Comment: For patients >49 years of age, the reference limit for Creatinine is approximately 13% higher for people identified as -[place]. eGFR non- 60 > OR = 60 mL/min/1 .73m2 [facility] ([facility]) eGFR 69 > OR = 60 mL/min/1 .73m2 [facility] ([facility]) BUN/Creatinine Ratio NOT APPLICABLE 6 - 22 (calc) [facility] ([facility]) Sodium 142 135 - 146 mmol/L [facility] ([facility]) Potassium 4.9 3.5 - 5.3 mmol/L [facility] ([facility]) Chloride 110 98 - 110 mmol/L [facility] ([facility]) CO2 17(L) 19 - 30 mmol/L [facility] ([facility]) Calcium 9.5 8.6 - 10.4 mg/dL [facility] ([facility]) Protein Total 6.8 6.1 - 8.1 g/dL [facility] ([facility]) Albumin 4.6 3.6 - 5.1 g/dL [facility] ([facility]) Globulin 2.2 1.9 - 3.7 g/dL (calc) [facility] ([facility]) Albumin/Globulin Ratio 2.1 1.0 - 2.5 (calc) [facility] ([facility]) Bilirubin Total 0.3 0.2 - 1.2 mg/dL [facility] ([facility]) Alkaline Phosphatase 64 33 - 130 U/L [facility] ([facility]) AST 19 10 - 35 U/L [facility] ([facility]) ALT 20 6 - 40 U/L [facility] ([facility]) Comment: REPORT COMMENT: FASTING Test Performed at: [facility] [address] [place] [address] JOSEY PENG DO,[facility] 06/09/2012 8:33 AM WASH OIL PUMP OPERATOR 06/09/2012 8:34 AM WASH OIL PUMP OPERATOR Mervin Walker MD LAB - CHEMISTRY NAJMA CABEZAS [facility] ([facility])
--- OUTSIDE RECORDS SUMMARY | 2024-06-10 15:00 | XMS_ITS | Data Portability ---
Author Organization [facility] [place], Main Office Address [address] [place] [address] Care Team Providers Care Process Control Programmer Name Role Phone KAYLEY WARD Primary Care Provider KAYLEY WARD Referring Provider [phone] LANA CARROLL Primary Care Provider Assessment No assessment recorded. Plan of Treatment Reminders Order Date Submit Date Provider Last Modified By Organization Details Last Modified Time Details Appointments None recorded. Lab hemoglobin A1C, fingerstick 2022 023 [facility] [address], [place], [address], 3 14:48:34 Referral None recorded. Procedures None recorded. Surgeries None recorded. Imaging None recorded. Medication Orders dicyclomine 10 mg capsule 2023 024 [facility] [address] [email or web address], [address], 4 14:47:48 albuterol sulf 90 mcg/actuati on breath activated powder inhaler,sen sor 2023 024 [facility] [address] [email or web address], [address], 4 15:14:36 Symbicort 160 mcg-4.5 mcg/actuati on HFA aerosol inhaler 2023 024 [email or web address] [address] [place], [address], 14:33:06 Patient TargetsNo targets recorded. Patient Instructions Encounter Date Encounter Id Patient Instructions Last Modified By Organization Details Last Modified Time 09/04/2023 [id number] dementia rating scale-2* [email or web address] Not available 09/28/2023 16:09:26 multi-dimensiona l health assessment questionnaire* [email or web address] Not available 09/28/2023 16:09:26 depression screening* [email or web address] Not available 09/28/2023 16:09:26 alcohol misuse* [email or web address] Not availab le 09/28/2023 16:09:26 multi-dimensiona l health assessment questionnaire* [email or web address] Not available 09/28/2023 16:09:26 Personalized a lt [...] she refused a mammogram and dexa scan [email or web address] Not available 09/04/2023 15:33:49 Reason for Referral None Reported. Results Created Date Observation Date Name Description Value Unit Range Abnormal Flag Note LastModifiedBy Organization Detail LastModifiedTime 03/05/2003/05/2023 hemog lobin A1C, finge rstic k HgbA1C 7.8 Not Available [facility], [place], [address], 03/05/2023 14:41:35 05/08/19 25 05/07/2024 CT, brain , w/o contr ast No observ ation record ed. [address] [place] [address], [address], 05/10/2024 08:53:39 05/26/19 25 05/26/2024 CT, brain , w/o contr ast No observ ation record ed. 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 Candie Ding, [employer] [address], [place], [address] , [facility] 3 12:26:33 Abnormal gait 81337791 Active 2022 Lana Nicole MD [address] [facility], [facility] [address], [place], [address] , [facility] 3 19:47:24 Dementia 68788742 Active 2022 Lana Nicole MD [address] [facility], [facility] [address], [place], [address] , [facility] 3 19:49:27 Type 2 diabetes mellitus 30888296 Active 2022 CARO Zhong [address] [facility], [address], [address] , [facility] 3 15:49:54 Irregular breathing 999384904 Active 2022 Lana Nicole MD [address] [facility], [address], [address] , [facility] 3 14:33:37 Irritable bowel syndrome with diarrhea 774940630 Active [address] 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 94971005753 42501 Active 2020 Not Available [facility] 3 04:39:26 Leukocyto sis 876804939 Active Not Available [facility] 3 04:39:26 Pain in throat 844263201 Completed Not Available [facility] 3 04:39:26 Radiother apy follow-up 387983041 Active Not Available [facility] 3 04:39:26 Cataract 152492692 Active Not Available [facility] 3 04:39:26 Asthma 674133900 Active Not Available [facility] 3 04:39:26 Localized , primary osteoarth ritis of the pelvic region and thigh 338066781 Active Not Available [facility] 3 04:39:26 Fluid level behind tympanic membrane Completed Not Available [facility] 3 04:39:26 Malaise and fatigue 092107278 Completed Not Available [facility] 3 04:39:26 History of SARS-CoV- 2 62495323207 5179032 Active 2021 Not Available [facility] 3 04:39:26 Physical deconditi oning 92611350959 102 Active 2021 Not Available [facility] 3 04:39:26 Type 2 diabetes mellitus without complicat ion 123843087 Active Not Available [facility] 3 04:39:26 Viral disease 31364077 Completed Not Available [facility] 3 04:39:27 Dehydrati on 67225460 Completed Not Available [facility] 3 04:39:27 Hyperuric emia 39960501 Completed Not Available [facility] 3 04:39:27 Strain of neck muscle 276540242 Completed Not Available [facility] 3 04:39:27 Upper gastroint estinal bleeding 50800445 Active Not Available [facility] 3 04:39:27 Osteoarth ritis 001475869 Active Not Available [facility] 3 04:39:27 Immunoglo bulin deficienc y 779757274 Active 2021 Not Available [facility] 3 04:39:27 History of total replaceme nt of right hip joint 42965813800 4100 Active 2020 Not Available [facility] 3 04:39:27 Cough 32588920 Completed Not Available [facility] 3 04:39:27 Ulcer of duodenum 10420746 Active Not Available [facility] 3 04:39:27 Coronary arteriosc lerosis 64050582 Active Not Available [facility] 3 04:39:27 Upper respirato ry infection 46433331 Completed Not Available [facility] 3 04:39:27 Hyperlipi demia 86765404 Active Not Available [facility] 3 04:39:28 Pain in wrist 91502538 Active Not Available [facility] 3 04:39:28 Essential hypertens ion 30714683 Active Not Available [facility] 3 04:39:28 Dyspnea on exertion 44709126 Active 2021 Not Available [facility] 3 04:39:28 Vitamin B12 deficienc y (non anemic) 68064484 Active 2018 Not Available [facility] 3 04:39:28 Hypercalc emia 50165917 Active 2020 Not Available [facility] 3 04:39:28 Chronic cough 32549057 Active 2021 Not Available [facility] 3 04:39:28 Chronic kidney disease 570808436 Active 2018 Not Available [facility] 3 04:39:28 Diabetes mellitus 99684143 Completed Not Available [facility] 3 04:39:28 Acute bacterial sinusitis 30941670 Completed Not Available [facility] 3 04:39:29 Posterior rhinorrhe a 04517830 Completed Not Available [facility] 3 04:39:29 Cardiomeg janet 3751002 Active Not Available [facility] 3 04:39:29 Gout 39021668 Active Not Available [facility] 3 04:39:29 Conjuncti vitis 7671793 Completed Not Available [facility] 3 04:39:29 Problem Notes None recorded. Procedures Surgical History Date Name Laterality Status Provider Name and Address Organization Details Recorded Time 09/04/19 24 Medicare Wellness CPT Code, subsequent completed Dali Helton [place] [facility] 09/04/2023 14:55:08 09/02/19 18 Total hip arthroplasty completed Not Available [facility] 06/19/2022 04:34:10 Colonoscopy completed Not Available [facility] 06/19/2022 04:34:10 Cardiovascular Procedure completed Not Available [facility] 06/19/2022 04:34:10 Orthopedic Surgery completed Not Available [facility] 06/19/2022 04:34:10 Cataract Surgery completed Not Available [facility] 06/19/2022 04:34:10 Imaging Results Imaging Date Name Status LastModified by Organiz ation Details LastModified Time 05/07/2024 CT, brain, w/o contrast completed [address], [address], 05/10/2024 08:53:39 05/26/2024 CT, brain, w/o contrast completed [address], [address], 05/27/2024 08:45:01 Procedure Notes None recorded. Medical Equipment None Reported. Allergies Allergen ID Allergen Name Allergen Category Reaction Reaction Severity Criticality Documentation Date Start Date Code Code System Note Provider Name and Address Organization Details Recorded Time 6839 Vioxx medicatio n rash Not available Not available 06/19/2022 95174 9 RxNorm Not Available [facility] 3 04:49:50 6840 codeine medicatio n Not available Not available Not available 06/19/2022 2670 RxNorm Not Available [facility] 3 04:49:50 6841 Celebrex medicatio n rash Not available Not available 06/19/2022 50783 7 RxNorm Not Available [facility] 3 04:49:50 Medications Name Sig Start Date [...] administ ered by the provider 09/08 completed [facility]: 0003-049 4-20 Not Available Not Available Not [...] No t Available Nasonex 50 mcg/actua tion Tetonia Tetonia 2 sprays every day by intranas al [...] Available pen needle, diabetic 31 gauge x 5/16 active Not Available Not Available Not Available [...] completed Not Available Not Available Not Available [place] 3 Fish Oil 1000mg 2019 active Not Available Not Available Not Avai lable Novolog FlexPen U-100 Insulin Take 20 units breakfas t - 18 Units lunch - 16 units supper 12/20 completed Not Available Not Available Not Available lidocaine (PF) 10 mg/mL (1 %) injection solution In office injectio n administ ered by the provider 04/24 completed [facility]: 0409-427 6-17 Not Available Not Available Not [...] Available pen needle, diabetic 32 gauge x USE WITH INSULIN INJECTIO NS FIVE TIMES [...] Available Not Available Not Available Fluzone High-Dose (PF) 180 mcg/0.5 mL intramusc ular syringe [...] Updated DateTime 3 160.02 cm 31.4 kg/m2 58906.8 5 g 83 /min 96 % 96 % 110 mm[Hg] 50 mm[Hg] Padmaja [facility] 3 15:30:30 Date Recorded Body height Body mass index (BMI) Body weight Body temperature Heart rate Oxygen saturation Oxygen saturation in Arterial blood by Pulse oximetry Systolic blood pressure Diastolic blood pressure Provider Name and Address Organization Details Last Updated DateTime 3 160.02 cm 31.4 kg/m2 47610.8 5 g 97.6 [degF] 77 /min 95 % 95 % 112 mm[Hg] 66 mm[Hg] Kim Fischer MA [facility] 3 14:32:31 Date Recorded Body height Body mass index (BMI) Body weight Body temperature Heart rate Oxygen saturation Oxygen saturation in Arterial blood by Pulse oximetry Systolic blood pressure Diastolic blood pressure Provider Name and Address Organization Details Last Updated DateTime 4 160.02 cm 31.2 kg/m2 25736.2 6 g 96.9 [degF] 75 /min 95 % 95 % 106 mm[Hg] 52 mm[Hg] Kim Fischer MA [facility] [employer] [facility] 4 14:45:38 Date Recorded Body height Body mass index (BMI) Body weight Body temperature Heart rate Oxygen saturation Oxygen saturation in Arterial blood by Pulse oximetry Systolic blood pressure Diastolic blood pressure Provider Name and Address Organization Details Last Updated DateTime 4 160.02 cm 28.7 kg/m2 93052.9 6 g 98.7 [degF] 78 /min 95 % 95 % 143 mm[Hg] 73 mm[Hg] Dali Helton MA [facility] [facility] 4 15:03:14 Date Recorded Pain severity - 0-10 verbal numeric rating [Score] - Reported Provider Name and Address Organization Details Last Updated DateTime 09/04/2023 0 July KRISTINA Batista [facility] [facility] 09/04/2023 15:28:29 Date Recorded Body height Body mass index (BMI) Body weight Body temperature Heart rate Oxygen saturation Oxygen saturation in Arterial blood by Pulse oximetry Respiratory rate Systolic blood pressure Diastolic blood pressure Provider Name and Address Organization Details Last Updated DateTime 4 160.02 cm 28 kg/m2 75873.5 9 g 97.7 [degF] 62 /min 97 % 97 % 16 /min 126 mm[Hg] 60 mm[Hg] Karina Morgan RN [facility] [employer] [facility] 4 14:34:55 Social History Question Answer Notes LastModified by Organizat ion Details LastModified Time Tobacco Smoking Status Never Smoker Sherry ramos [facility] 06/05/2023 14:36:51 What Is Your Level Of Alcohol Consumption? None [id number] Information not available 06/19/2022 What Is Your Level Of Caffeine Consumption? Occasional [id number] Information not available 06/19/2022 Which Illicit Or Recreational Drugs Have You Used? None [email or web address] Information not available 06/05/2023 What Is Your Occupation? Retired [email or web address] Information not available 06/05/2023 What Was The Date Of Your Most Recent Tobacco Screening? 09/04/2023 Information not available 09/04/2023 Do You Have Any Pets? No [email or web address] Information not available 06/05/2023 Do You Use Any Illicit Or Recreational Drugs? No [email or web address] Information not available 06/05/2023 Sex: Unknown Functional Status Question Answer Note LastModified by Organizat ion Details LastModified Time What is your exercise level? None [id number] Information not available 06/19/2022 Mental Status None recorded. Family History Relationship Description Onset Age of this Age Resolved Age Notes LastModified by Organization Details LastModified Time Mother Cerebrovascu lar accident [email or web address] Not available 14:36:49 Father Congestive heart failure [email or web address] Not available 06/05 14:36:49 Unspecified Relation Diabetes mellitus [id number] Not available 06/19/2022 04:34:14 Unspecified Relation Heart disease [id number] Not available 06/19/2022 04:34:14 Unspecified Relation Kidney disease [id number] Not available 06/19/2022 04:34:14 Medical History Condition Response EYE PROBLEMS Y ARTHRITIS Y VASCULAR DISEASE Y HEPATITIS / LIVER DISEASE Y ASTHMA Y DIABETES, TYPE Y BRONCHITIS Y HYPERTENSION Y Gynecological HistoryNo gynecological history recorded. Obstetrics History GPAL:G 0 P 0 0 0 0 Immunizations Vaccine Type Date Status Note Provider Nam e and Address Organization Details Recorded Time COVID-19, mRNA, LNP-S, PF, 30 mcg/0.3 mL dose 02/25/202 1 completed RYLEE Bales, [facility] 12/03/2022 14:07:22 Influenza, split virus, quadrivalent, preservative 2 completed Theresa Herrera CMA null, [facility] 12/03/2022 14:07:22 COVID-19, mRNA, LNP-S, PF, 30 mcg/0.3 mL dose 1 completed Theresa Herrera CMA null, [facility] 12/03/2022 14:07:22 Influenza, split virus, quadrivalent, preservative 0 completed RYLEE Bales, [facility] 12/03/2022 14:07:21 pneumococcal polysaccharide PPV23 9 completed Not Available [facility] 06/19/2022 04:49:37 Influenza, split virus, quadrivalent, preservative 9 completed Not Available [facility] 06/19/2022 04:49:37 Influenza, split virus, quadrivalent, preservative 8 completed Not Available [facility] 06/19/2022 04:49:37 Influenza, high-dose, trivalent, PF 6 completed Theresa Herrera CMA null, [facility] 12/03/2022 14:07:22 Influenza, high-dose, trivalent, PF 4 completed Theresa Herrera CMA null, [facility] 12/03/2022 14:07:22 Influenza, split virus, trivalent, preservative 3 completed Not Available [facility] 06/19/2022 04:49:37 Pneumococcal Conjugate, unspecified formulation 8 completed Not Available [facility] 06/19/2022 04:49:37 Influenza, high-dose, quadrivalent, PF 1 completed Not Available [facility] 06/19/2022 04:49:38 Influenza, split virus, trivalent, preservative 5 completed Theresa Herrera CMA null, [facility] 12/03/2022 14:07:22 Influenza, high-dose, quadrivalent, PF 3 completed Lana Nicole MD [address] [place] [address] [address] [facility], [place], [address], [place] [facility] 03/05/2023 20:38:32 Past Encounters Encounter ID Performer Location Encounter Start Date Encounter Closed Date Diagnosis/Indication Diagnosis SNOMED-CT Code Diagnosis ICD10 Code Diagnosis Note [id number] [facility] [place] [address] [place] [address] 08/31/2020 00:00:00 08/31/2020 11:31:05 [id number] [facility] [place] [address] [place] [address] 09/04/2020 00:00:00 09/04/2020 15:47:09 [id number] [facility] [place] [facility] [address] [place] [address] 10/19/2020 00:00:00 10/19/2020 12:56:32 [id number] [facility] [place] [address] [place] [address] 01/01/2021 00:00:00 01/01/2021 14:43:17 [id number] [facility] [place] [address] [place] [address] 02/12/2021 00:00:00 02/12/2021 14:41:04 [id number] [facility] [place] [address] [place] [address] 05/21/2021 00:00:00 05/21/2021 15:04:02 [id number] [facility] [place] [address] [place] [address] 07/03/2021 00:00:00 07/03/2021 14:27:24 [id number] [facility] [place] [address] [place] [address] 07/04/2021 00:00:00 07/04/2021 21:08:23 [id number] [facility] [place] [address] [place] [address] 08/17/2021 00:00:00 08/17/2021 15:39:50 [id number] [facility] [place] [address] [place] [address] 09/04/2021 00:00:00 09/04/2021 12:04:33 [id number] [facility] [place] [address] [place] [address] 11/28/2021 00:00:00 11/28/2021 12:39:15 [id number] [facility] [address] [place] [address] 12/20/2021 00:00:00 12/20/2021 14:37:26 [id number] [facility] [place] [address] [facility] [address] , [place] [address] 05/30/2022 00:00:00 05/30/2022 21:56:47 [id number] Candie Ding, [facility] [place] [address] [place] [address] 07/10/2022 11:45:09 07/10/2022 12:53:23 History of SARS-CoV-2 4723064222 88991030 Z86.16 Diagnosis 02/2020 and 04/2022 We have discussed the uncertain recovery of COVID19.En couraged exercise as tolerated, she is deconditio nedDiscuss ed S/S that require emergent evaluation Chronic cough 17944144 R 05.3 Repeat PFT Dyspnea on exertion 6084 5006 R06.09 Check 6MWT Immunoglob ulin deficiency 831380882 D80.9 Subclass 2 low ep eat levels [id number] Lana Nicole MD [facility] [place] [address] [facility] [place] [address] 08/27/2022 14:46:19 08/27/2022 15:47:22 Type 2 diabetes mellitus without complication 852456286 E11.9 A1C is 7.4% Pts gives her basaglar but does not give her the PM dose unless her BS are above 200.Will recommend she use 10 units at night instead of 20 units.F/u in 3 months. Abnormal gait 23885653 R 26.9 Dementia 03608547 F03.90 Continue donepezil [id number] Candie Ding [facility] [place] [address] [place] [address] 09/03/2022 11:28:12 09/03/2022 12:54:08 Chronic cough 93000913 R05.3 PFT completed 07/2022Shhardik had difficulty with completion R/T cough but her volumes were reproducib leFEV1 68%Trial Anoro Ellipta6 weeks of samples to patientIns tructed on techniqueD iscussed reportable signs and symptomsRT C in 6 weeks, PRN for concerns History of SARS-CoV-2 29 00890754 67144156 Z86.16 Diagnosis 02/2020 and 04/2022 We have discussed the uncertain recovery of COVID19.En couraged exercise as tolerated, she is deconditio nedDiscuss ed S/S that require emergent evaluation Dyspnea on exertion 6084 5006 R06.09 6MWT normal Immunoglob ulin deficiency 643309731 D80.9 Subclass 2 low 06/2021 and 08/2022Imm unology referral [id number] Candie Ding [facility] [place] [address] [place] [address] 10/18/2022 10:56:04 10/18/2022 12:30:42 Chronic cough 53449294 R05.3 PFT completed 07/2022Shhardik had difficulty with completion R/T cough but her volumes were reproducib leFEV1 68%Anoro Ellipta with no clinical benefit, she does not want a maintenanc e inhalerAlb uterol RNDiscusse d reportable signs and symptomsRT C in 4-6 months, PRN for concerns History of SARS-CoV-2 29 93477470 16823402 Z86.16 Diagnosis 02/2020 and 04/2022We have discussed the uncertain recovery of COVID19.En couraged exercise as tolerated, she is deconditio nedDiscuss ed S/S that require emergent evaluation Dyspnea on exertion 6084 5006 R06.09 6MWT normal Immunoglob ulin deficiency 684492565 D80.9 Subclass 2 low 06/2021 and 08/2022Imm unology appointmen t 10/31/22 [id number] Lana Nicole MD [facility] [address] [facility] [place] [address] 12/03/2022 13:48:55 12/03/2022 14:50:46 Type 2 diabetes mellitus without complication 665611832 E11.9 A1C is 7% doing well. Continue same meds.F/u in 3 months. Irregular breathing 2485 51899 R06.89 I think this is habitual . Does not breathe like this when sleeping. Dementia 40664718 F03.90 Continue donepezil and memantine [id number] Candie Ding, [employer] [facility] [place] [address] [place] [address] 02/05/2023 15:17:48 02/05/2023 16:44:23 Chronic cough 20688139 R05.3 PFT completed 07/2022She had difficulty with completion R/T cough but her volumes were reproducib leFEV1 68%Anoro Ellipta with no clinical benefit, she does not want a maintenanc e inhalerAlb uterol PRNDiscuss ed reportable signs and symptomsAd vised vaccines this fall History of SARS-CoV-2 29 51672037 91119607 Z86.16 Diagnosis 02/2020 and 04/2022We have discussed the uncertain recovery of COVID19.En couraged exercise as tolerated, she is deconditio nedDiscuss ed S/S that require emergent evaluation Dyspnea on exertion 6084 5006 R06.09 6MWT normal Immunoglob ulin deficiency [id number] D80.9 Subclass 2 low 06/2021 and 08/2022Imm unology appointmen t 10/31/22 [id number] Lana Nicole MD [facility] [place] [address] [place] [address] 03/05/2023 14:09:40 03/05/2023 15:11:45 Type 2 diabetes mellitus without complication [id number] E11.9 A1C is 7.8 % doing well. Pt actually sees endo Has an appt 04/12F/u in 3 months. Administra tion of influenza vaccine [id number] Z23 [id number] CARO Zhong [facility] [place] [address] [place] [address] 06/05/2023 14:36:43 06/05/2023 15:21:30 Irregular breathing 442005666 R06.89 [id number] CARO Zhong [facility] [place] [address] [place] [address] 09/04/2023 14:26:07 09/04/2023 15:34:41 Adult health examination 137145438 Z00.00 Screening for disorder 243204251 Z13.9 Essential hypertension 41467689 I10 Asthma 253646977 J45.90 9 Cardiomegaly 4835803 I51 .7 Chronic ki dney disease 919775054 N18.9 Coronary arteriosclerosis 39667666 I25.10 Hyperlipidemia 85268963 E78.5 Immunoglob ulin G subclass deficiency 065526550 D80.3 Osteoarthritis 482994541 M19.90 Type 2 huyen betes mellitus 36811875 E11.21 Vitamin B1 2 deficiency (non anemic) 48248951 E53.8 [id number] CARO Zhong [facility] [place] [address] [place] [address] 12/11/2023 14:14:01 12/11/2023 14:58:22 Irritable bowel syndrome with diarrhea 194967186 K58.0 Coronary arteriosclerosis 88390654 I25.10 Dementia 64008133 F03.90 Essential hypertension 35881857 I10 Gout 17297844 M10.9 Hyperlipidemia 76089428 E78.5 Osteoarthritis 099664039 M19.90 Type 2 huyen betes mellitus without complication 862662733 E11.9 Vitamin B1 2 deficiency (non anemic) 72514467 E53.8 Health Concerns Section Related Observation LastModified by Organization Detai ls LastModified Time None Recorded Concern Status LastModified by Organization Details LastModified Time None Recorded Advance Directives Directive None Recorded Payers Encounter Date Sequence Insurance Name Policy Number Policy Ballesteros Covered Member ID Ballesteros Member ID Guarantor Name 02/05/2023 1 [facility] Shonna L Kumari [id number] Shonna L Kumari 02/05/2023 2 [place] [id number] Shonna L Kumari [id number] Shonna L Kumari 03/05/2023 1 [facility]IC[facility] B[facility] Shonna L Kumari [id number] Shonna L Kumari 03/05/2023 2 [place] [id number] Shonna L Kumari [id number] Shonna L Kumari 06/05/2023 1 MEDICARE B: [employer] - RAILROAD MEDICARE Shonna L Kumari [id number] Shonna L Kumari 06/05/2023 2 [place] [id number] Shonna L Kumari [id number] Shonna L Kumari 09/04/2023 1 MEDICARE B: [employer] [employer] - RAILROAD MEDICARE Shonna L Kumari [id number] Shonna L Kumari 09/04/2023 2 [place] [id number] Shonna L Kumari [id number] Shonna L Kumari 12/11/2023 1 MEDICARE B: [place] [employer] - RAILROAD MEDICARE Shonna L Kumari [id number] Shonna L Kumari 12/11/2023 2 [place] [id number] Shonna L Kumari [id number] Shonna Kumari Notes Date Note Type Note Provider [...] not had a respiratory infection Candie Ding, [facility]- [address], [place], [address], [place] 02/05/2023 20:08:50 03/05/2023 text/html Here today for 3 month f/u needs A1C for DM2. She is sleeping all the time. She is not doing much. Wants a flu shot Lana Nicole MD [address], [place], [address], [place] 03/05/2023 20:45:22 06/05/2023 text/html sleeps all the time CARO Carson [address], [place], [address], [place] 06/15/2023 16:57:53 09/04/2023 text/html no changes CARO Zhong [address], [place], [address], [place] 09/28/2023 16:09:31 12/11/2023 text/html 78 y/o with stoo l urgency , diarrhea CARO Zhong [address], [place], [address], [employer] [facility] 12/18/2023 13:33:34 OBGyn Episode No OBEpisode recorded.
[2024-06-10 15:16] VITALS: BP 128/56; PULSE 62; RESP 18; TEMP 36.4; O2SAT 100
[2024-06-10 15:59] VITALS: BP 160/78; PULSE 64; RESP 18; O2SAT 100
--- NOTE | 2024-06-10 16:05 | PC.NURSE ---
Patients emergency contact, Marquise Kumari, spouse called. Aware patient is in ED. Update provided.
--- NOTE | 2024-06-10 16:30 | ED_ITS ---
HPI - Fall General Chief Complaint: Fall Stated Complaint: fall Time Seen by Provider: 06/10/24 16:30 Source: patient and EMS Mode of arrival: EMS Limitations: dementia History of Present Illness HPI Narrative: 78 years old white female came from a residential because of a fall out of her wheelchair prior to arrival, patient denies any symptoms or pain. History of Alzheimer, patient is oriented to her name and situation only. Related Data Home Medications ?Medication ?Instructions ?Recorded ?Confirmed ?Last Taken ?Type latanoprost 0.005 % eye drops 1 drop ophthalmic (eye) HS 07/06/19 03/26/24 Unknown History albuterol sulfate 90 mcg/actuation 2 puff inhalation Q4-6H PRN 07/17/19 03/26/24 Unknown History aerosol inhaler (ProAir HFA) Shortness Of Breath allopurinol 100 mg tablet 200 mg PO QAM 01/10/20 03/26/24 Unknown History amlodipine 10 mg tablet 10 mg PO QAM 01/10/20 03/26/24 Unknown History aspirin 81 mg tablet,delayed 81 mg PO QPM 01/10/20 03/26/24 Unknown History release (Adult Aspirin Regimen) atorvastatin 10 mg tablet 10 mg PO QAM 01/10/20 03/26/24 Unknown History furosemide 20 mg tablet 20 mg PO QAM 12/13/20 03/26/24 Unknown History famotidine 40 mg tablet 40 mg PO DAILY 09/25/21 03/26/24 Unknown History insulin glargine 100 unit/mL (3 10 unit subcut QAM 11/05/23 03/26/24 Unknown History mL) subcutaneous pen (Basaglar KwikPen U-100 Insulin) insulin lispro 100 unit/mL 10 unit subcut TID 11/05/23 03/26/24 Unknown History subcutaneous pen (Humalog KwikPen (U-100) Insulin) dicyclomine 10 mg capsule 10 mg PO TID 02/11/24 03/26/24 Unknown History apixaban 2.5 mg tablet 2.5 mg PO BID 03/26/24 03/26/24 Unknown History memantine 10 mg tablet 5 mg .Route .COMPLEX 03/26/24 03/26/24 Unknown History polyethylene glycol 3350 17 17 g PO DAILY 03/26/24 03/26/24 Unknown History gram/dose oral powder (Miralax) Allergies Allergy/AdvReac Type Severity Reaction Status Date / Time rofecoxib (From Vioxx) Allergy Intermediate Rash Verified 06/10/24 16:02 codeine Allergy Unknown Unknown Verified 06/10/24 16:02 celecoxib (From Celebrex) Allergy Rash Verified 06/10/24 16:02 Review of Systems Review of Systems: All systems reviewed & are unremarkable except as noted in HPI and below PMFSH Past Medical History Medical History Constipation, unspecified Vitamin D deficiency, unspecified Other long-term (current) drug therapy Unspecified fall, initial encounter Unspecified fracture of lower end of left femur, subsequent encounter for closed fracture with routine healing Dyskinesia Excessive daytime sleepiness Dementia of the Alzheimer's type BMI 25.0-25.9,adult Dementia Parkinsons Scoliosis Encephalopathy DVT prophylaxis Diastolic dysfunction Echocardiogram in March 2018 showed impaired relaxation grade 1 with an ejection fraction of 55 to 60%. Elevated LFTs Chronic kidney disease, stage 3 Baseline creatinine is around 1.70. Coronary artery disease With history of RI and stent x1 in 2015. Hyperlipidemia Hypertension Gastroesophageal reflux disease Hypoxemia Elevated troponin Type 2 diabetes mellitus without complication, with long-term current use of insulin Hepatitis Anemia Gout Arthritis GI bleed Secondary to gastric ulcer in 2014. Pneumonia Asthma Glaucoma Surgical History Surgical History History of tubal ligation History of cardiac catheterization With stent in 2015. History of bilateral hip arthroplasty Right replaced in 2005. Left replaced in 2018. History of cataract extraction Family History Family History Father CHF (congestive heart failure) Mother Cerebrovascular accident Other Carcinoma of colon Family history of arthritis Family history of cardiovascular disease Family history of chronic obstructive pulmonary disease Family history of glaucoma Family history of hearing loss Hypertension Social History Social History Social History: Surrogate decision maker: Marquise Kumari, spouse. Code status: DNR Smoking status: Never smoker Second hand tobacco smoke exposure: No Alcohol intake: never Substance use: never Substance use type: does not use Do You Feel Safe in your Home?: Yes Lack of Transportation: No Lack of Food: Never True Current Housing: I Have Housing Concerned About Future Housing: No Difficulty Paying Gas/Electric Bills: No Difficulty Paying for Meds: No Currently Unemployed: No Education: High School Diploma/GED Difficulty w/ Childcare or Family Care: No Living arrangements: residential Additional living arrangements comments: [facility]. Previously Resided with her in [place]. 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 Gender identity (if verbalized by the patient): Female Sexual Orientation (if Verbalized by the Patient): Straight or Heterosexual Spiritual care concerns: No (Unknown yazdanism) Exam Narrative: General appearance: Well-developed, well-nourished Skin: Normal color Head: Normocephalic, nontraumatic Eyes: Clear conjunctiva ENT: Oropharynx normal, ears normal, nose normal Neck: Supple, nontender Chest and respiratory: Airway patent, no respiratory distress, no accessory muscle use Heart: Regular rate/rhythm Abdomen: Soft, nontender, no organomegaly, quiet bowel sounds Vascular: Normal peripheral pulses, normal capillary refill. Musculoskeletal: Normal range of motion, nontender back Neurologic: Alert and oriented to her name and situation Course Vital Signs Vital signs: Vital Signs Temperature 36.4 C 06/10/24 15:16 Pulse Rate 62 06/10/24 15:16 Respiratory Rate 18 06/10/24 15:16 Blood Pressure 128/56 L 06/10/24 15:16 Pulse Oximetry 100 06/10/24 15:16 Temperature 36.4 C 06/10/24 15:16 Pulse Rate 64 06/10/24 15:59 Respiratory Rate 18 06/10/24 15:59 Blood Pressure 160/78 H 06/10/24 15:59 Pulse Oximetry 100 06/10/24 15:59 MDM - Fall MDM Narrative Medical decision making narrative: Patient had a fall out of her wheelchair Patient denies any pain Vital signs are stable Physical examination showing a comfortable patient, not in any pain or distress, oriented to her name only denying any pain Differential diagnosis include contusion, less likely intracranial hemorrhage or cervical fracture CT head without contrast showed no acute abnormality CT cervical spine without contrast showed no CT acute abnormality Differential Diagnosis Differential diagnosis: Likely other (As above) Imaging Data Radiologist's impression: Impressions Head CT 06/10/24 18:27 IMPRESSION: 1. Normal aging brain. No fracture or acute intracranial process. Cervical Spine CT 06/10/24 18:35 IMPRESSION: 1. Severe cervical spondylosis. No acute osseous abnormality. Critical Care Time Critical Care Time Critical Care Time: No Discharge Plan Discharge Clinical Impression: Fall, Contusion Patient Disposition: NH Longterm/Asst Living Condition: Stable Instructions: Fall Prevention (ED) Additional Instructions: Return if symptoms are worsening , call your family physician for appointment, take Tylenol as as needed for aches and pain, continue home medications. Patient Language: Iraqi Prescriptions: No Action latanoprost 0.005 % drops 1 drop EACH EYE HS albuterol sulfate [ProAir HFA] 90 mcg/actuation HFA aerosol inhaler 2 puff INHALATION Q4-6H PRN (Reason: Shortness Of Breath) famotidine 40 mg tablet 40 mg PO DAILY donepezil [Aricept] 5 mg tablet 5 mg PO QHS Qty: 90 2RF escitalopram oxalate [Lexapro] 10 mg tablet 10 mg PO DAILY Qty: 30 6RF dicyclomine 10 mg capsule 10 mg PO TID memantine 10 mg tablet 5 mg .ROUTE .COMPLEX Rx Instructions: 5 mg; Twice daily polyethylene glycol 3350 [Miralax] 17 gram/dose powder 17 g PO DAILY apixaban 2.5 mg tablet 2.5 mg PO BID allopurinol 100 mg tablet 200 mg PO QAM amlodipine 10 mg tablet 10 mg PO QAM aspirin [Adult Aspirin Regimen] 81 mg tablet,delayed release (DR/EC) 81 mg PO QPM atorvastatin 10 mg tablet 10 mg PO QAM (DME) FreeStyle Raghav 2 Sensor Kit See Rx Instructions .Route Qty: 6 6RF Rx Instructions: As directed furosemide 20 mg tablet 20 mg PO QAM insulin glargine [Basaglar KwikPen U-100 Insulin] 100 unit/mL (3 mL) insulin pen 10 unit subcut QAM insulin lispro [Humalog KwikPen Insulin] 100 unit/mL insulin pen 10 unit subcut TID acetaminophen 650 mg tablet extended release 650 mg PO Q8H PRN (Reason: pain) Qty: 20 0RF (DME) True Metrix Glucose Test Strip Strip See Rx Instructions .ROUTE .MEDSUPPLY Qty: 300 3RF Rx Instructions: Use to check BS 3 times daily (DME) pen needle, diabetic 32 gauge x 5/32 needle See Rx Instructions .ROUTE .COMPLEX Qty: 450 0RF Dose Instruction: USE WITH INSULIN INJECTIONS FIVE TIMES DAILY Rx Instructions: USE WITH INSULIN INJECTIONS FIVE TIMES DAILY Follow-up/Referrals: Rod,CAOR Barbosa [Primary Care Provider] -
--- OUTSIDE RECORDS SUMMARY | 2024-06-10 16:39 | XMS_ITS | Clinical Summary ---
Author Organization [facility] Address [address], [place] [address] Phone Care Team Providers Care Well Logging Operator Mud Analysis Name Role Phone Marcia Cool ANASTASIIA Primary Care Provider [phone] Allergies Active Allergy Reactions Criticality Noted Date [...] Comments Blood Pressure 122/68 04/05/2019 8:52 AM LEGAL RECORDS MANAGER Pulse 72 04/05/2019 8:52 AM LEGAL RECORDS MANAGER Temperature 35.7 C (96.2 F) 04/05/2019 8:52 AM LEGAL RECORDS MANAGER Respiratory Rate 20 11/06/2011 12:01 AM CDT Oxygen Saturation - - Inhaled Oxygen Concentration - - Weight 95.7 kg (211 lb) 04/05/2019 8:52 AM LEGAL RECORDS MANAGER Height 167.6 cm (5' 6 ) 04/05/2019 8:52 AM LEGAL RECORDS MANAGER Body Mass Index 34.06 04/05/2019 8:52 AM LEGAL RECORDS MANAGER Plan of Treatment Health Maintenance Due Date Last Done Comments Influenza Vaccine (#1) 2023 5, 02/15/2013, 02/27/2012 Pneumococcal PPSV23/PCV13 65 + Years / Low and Medium Risk Completed 02/08/2019, 02/03/2018, 09/21/2014 Care Teams Well Logging Operator Mud Analysis Relationship Specialty Start Date End Date Marcia Cool NP [address] [place] [address] [place] [address] PCP - General Internal Medicine 08/19/18
--- OUTSIDE RECORDS SUMMARY | 2024-06-10 16:39 | XMS_ITS | Clinical Summary ---
Author Organization [facility] [employer] Address [address] [place] [address] Care Team Providers Care Line Mechanic Name Role Phone Unavailable Primary Care Provider Unavailabl e Source Comments [facility] [employer],non-owned Affiliates and Associated Physician Practices is amultiple site organization consisting of ambulatory clinics and hospital sitesin [place] and [place]. This disclosure is being madepursuant to the Care Everywhere program and may not contain all information available regarding this patient. Last updated 18.[facility] [employer] Allergies Active Allergy Reactions Criticality Noted Date Comments Codeine 02/10/2017 Encounters Date Type Department Care Team Description 03/17/2024 Lab Requisition [facility] [address] [place] [address] Matt Rich from Last 3 Months Immunizations [...] VITAMIN D 25-HYDROXY Routine 03/17/2024 1:03 PM IRRIGATOR HEAD CBC W AUTO DIFFERENTIAL Routine 03/17/2024 1:03 PM IRRIGATOR HEAD from Last 3 Months Results * VITAMIN D 25-HYDROXY (03/17/2024 1:03 PM IRRIGATOR HEAD) Pathologist [facility] Vitamin D, 25 Hydroxy 32.4 30 - 80 ng/mL 03/17/2024 1:51 PM IRRIGATOR HEAD [facility] Blood BLOOD SPECIMEN / Unknown Venipuncture / Unknown 03/17/2024 1:03 PM IRRIGATOR HEAD 03/17/2024 1:03 PM IRRIGATOR HEAD Narrative [facility] - 03/17/2024 1:51 PM IRRIGATOR HEAD Vitamin D Status: Deficiency <20 ng/mL Insufficiency 20-30 ng/mL Sufficiency 30-100 ng/mL Toxicity >100 ng/mL Matt [facility] - CHEMISTRY NAJMA CABEZAS [facility] [address] [place] [address] * (ABNORMAL) CBC WITH DIFFERENTIAL (03/17/2024 1:03 PM IRRIGATOR HEAD) WBC 9.1 4.0 - 10.7 x10E9/L 03/17/2024 1:15 PM IRRIGATOR HEAD [facility] RBC Count 3.49(L) 3.90 - 5.20 x10E12/L 03/17/2024 1:15 PM IRRIGATOR HEAD [facility] Hemoglobin 11.1(L) 11.9 - 15.8 g/dL [...] 17.0 - 47.0 % 03/17/2024 1:15 PM [facility] Monocyte % 8.3 3.0 - 11.0 % 03/17/2024 1:15 PM [facility] Eosinophil % 3.1 0.0 - 7.0 % 03/17/2024 1:15 PM [facility] Basophil % 0.3 0.0 - 1.6 % 03/17/2024 1:15 PM [facility] Immature Granulocytes % 0.3 0.0 - 1.0 % 03/17/2024 1:15 PM [facility] Neutrophil Absolute 6.34 1.60 - 7.50 x10E9/L 03/17/2024 1:15 PM [facility] Lymphocyte Absolute 1.68 1.00 - 4.40 x10E9/L 03/17/2024 1:15 PM [facility] Monocyte Absolute 0.76 0.15 - 1.00 x10E9/L 03/17/2024 1:15 PM [facility] Eosinophil Absolute 0.28 0.00 - 0.60 x10E9/L 03/17/2024 1:15 PM IRRIGATOR HEAD [facility] Basophil Absolute 0.03 0.00 - 0.13 x10E9/L 03/17/2024 1:15 PM IRRIGATOR HEAD [facility] Blood BLOOD SPECIMEN / Unknown 03/17/2024 1:03 PM IRRIGATOR HEAD 03/17/2024 1:03 PM IRRIGATOR HEAD [facility] LAB - HEMATOLOGY ORD ERABLES [facility] [address] [place] [address] from Last 3 Months
--- OUTSIDE RECORDS SUMMARY | 2024-06-10 16:39 | XMS_ITS | Encounter Summary ---
Author Organization [facility] Address [address] [place] [address] Care Team Providers Care Store Team Leader Name Role Phone Unavailable Primary Care Provider Unavailabl e Encounter Details Date Type Department Care Team (Late st Contact Info) Description 03/17/2024 Lab Requisition [facility] [address] [place] [address] [place] [address] Social History Tobacco Use Types Packs/Day Years [...] VITAMIN D 25-HYDROXY Routine 03/17/2024 1:03 PM PIANO REGULATOR CBC W AUTO DIFFERENTIAL Routine 03/17/2024 1:03 PM PIANO REGULATOR documented in this encounter Results * VITAMIN D 25-HYDROXY (03/17/2024 1:03 PM PIANO REGULATOR) Vitamin D, 25 Hydroxy 32.4 30 - 80 ng/mL 03/17/2024 1:51 PM PIANO REGULATOR [facility] Blood BLOOD SPECIMEN / Unknown Venipuncture / Unknown 03/17/2024 1:03 PM PIANO REGULATOR 03/17/2024 1:03 PM PIANO REGULATOR Narrative [facility] - 03/17/2024 1:51 PM PIANO REGULATOR Vitamin D Status: Deficiency <20 ng/mL Insufficiency 20-30 ng/mL Sufficiency 30-100 ng/mL Toxicity >100 ng/mL Matt [facility] LAB - CHEMISTRY ORDHoward CABEZAS [facility] [address] [place] [address] * (ABNORMAL) CBC WITH DIFFERENTIAL (03/17/2024 1:03 PM PIANO REGULATOR) [facility] WBC 9.1 4.0 - 10.7 x10E9/L 03/17/2024 1:15 PM PIANO REGULATOR [facility] RBC Count 3.49(L) 3.90 - 5.20 x10E12/L 03/17/2024 1:15 PM PIANO REGULATOR [facility] Hemoglobin 11.1(L) 11.9 - 15.8 g/dL 03/17/2024 1:[address] [facility] Hematocrit 35.8 34.8 - 46.1 % 03/17/2024 1:15 PM PIANO REGULATOR [facility] MCV 102.6(H) 80.0 - 98.0 fL 03/17/2024 1:15 PM PIANO REGULATOR [facility] MCH 31.8 26.7 - 33.6 pg 03/17/2024 1:15 PM PIANO REGULATOR [facility] MCHC 31.0(L) 31.7 - 36.3 g/dL 03/17/2024 1:[address] [facility] RDW-CV 13.5 11.3 - 14.8 % 03/17/2024 1:[address] [facility] Platelet Count 247 150 - 420 x10E9/L 03/17/2024 1:15 PM PIANO REGULATOR [facility] MPV 11.3 7.8 - 11.4 fL 03/17/2024 1:[address] [facility] Neutrophil % 69.6 41.0 - 74.0 % 03/17/2024 1:15 PM PIANO REGULATOR [facility] Lymphocyte % 18.4 17.0 - 47.0 % 03/17/2024 1:15 PM PIANO REGULATOR [facility] Monocyte % 8.3 3.0 - 11.0 % 03/17/2024 1:15 PM PIANO REGULATOR [facility] Eosinophil % 3.1 0.0 - 7.0 % 03/17/2024 1:15 PM PIANO REGULATOR [facility] Basophil % 0.3 0.0 - 1.6 % 03/17/2024 1:15 PM PIANO REGULATOR [facility] Immature Granulocytes % 0.3 0.0 - 1.0 % 03/17/2024 1:15 PM PIANO REGULATOR [facility] Neutrophil Absolute 6.34 1.60 - 7.50 x10E9/L 03/17/2024 1:15 PM PIANO REGULATOR [facility] Lymphocyte Absolute 1.68 1.00 - 4.40 x10E9/L 03/17/2024 1:15 PM [facility]ANO REGULATOR [facility] Monocyte Absolute 0.76 0.15 - 1.00 x10E9/L 03/17/2024 1:15 PM [facility]ANO REGULATOR [facility] Eosinophil Absolute 0.28 0.00 - 0.60 x10E9/L 03/17/2024 1:15 PM PIANO REGULATOR [facility] Basophil Absolute 0.03 0.00 - 0.13 x10E9/L 03/17/2024 1:15 PM PIANO REGULATOR [facility] Blood BLOOD SPECIMEN / Unknown 03/17/2024 1:03 PM PIANO REGULATOR 03/17/2024 1:03 PM PIANO REGULATOR [facility] LAB - HEMATOLOGY ORD ERABLES [facility] [address] [place] [address] documented in this encounter Visit Diagnoses Not on filedocumented in this encounter
--- OUTSIDE RECORDS SUMMARY | 2024-06-10 16:39 | XMS_ITS | Clinical Summary ---
Author Organization [facility] [address] Address [address] [place] [address] Care Team Providers Care Contract Forester Name Role Phone Sourav Velasco Primary Care [...] Department Care Team Description 03/31/2024 2:00 PM ANESTHESIA ASSISTANT Ancillary Procedure [facility] Cardiology [address] [place] [address] Mild aortic stenosis 03/10/2024 Telephone [facility] 1 [place] [address] Edin Leon RN from Last 3 Months Medical History Medical History Date Comments Hypertension Hypertension Type 2 diabetes mellitus (HCC) D iabetes type 2 Hx Other Medical inferior ST fara vation ID Hx Other Medical duodenal ulcer Hx Other [...] on file Legal Sex Female 7:41 AM ANESTHESIA ASSISTANT Gender Identity Not on file Sexual Orientation Not on file Obstetrics History Last Filed Vital Signs Vital Sign Reading Time Taken Comments Blood Pressure 150/99 03/31/2024 2:39 PM ANESTHESIA ASSISTANT Pulse 59 02/19/2024 8:02 AM CDT Temperature [...] DOPPLER/CF WO CONTRAST Routine 03/31/2024 2:39 PM ANESTHESIA ASSISTANT Mild aortic stenosis EGFR STAT 02/18/2024 3:18 PM CDT HEMOGLOBIN A1C STAT 02/13/2024 8:23 AM CDT LIPID PANEL STAT 02/13/2024 8:23 AM CDT from Last 3 Months or Most Recently Relevant to Health Maintenance Results * TRANSTHORACIC ECHO (TTE) COMPLETE W DOPPLER/CF WO CONTRAST (03/31/2024 2:39 PM ANESTHESIA ASSISTANT) Anatomical Region Laterality Modality Ultrasound 03/31/2024 2:36 PM ANESTHESIA ASSISTANT Narrative 04/01/2024 8:52 AM ANESTHESIA ASSISTANT [facility] Cardiology [address], [place] [address] [address] [facility] [address], [place] [address] P:[phone] P:[phone] Echocardiographic Report Patient Name: SHONNA KIRKLAND L : 1945 Study Date: 03/31/2024 2:36:42 PM Gender: F Tech: DUNCAN Location: [facility] Provider: FEDERICO MONET Height(Cm): 168 [...] FINDINGS: Interpretation Site: Exam was interpreted at [facility]. Left Ventricle: Normal left ventricular [...] [facility] 04/01/2024 8:51:52 AM ANESTHESIA ASSISTANT Procedure Note Federico Monet MD - 04/01/2024 [facility] Cardiology [address] [facility] [address], [place] [address] [address] [facility] [address], [place] [address] P:[phone] P:[phone] Echocardiographic Report Patient Name: SHONNA KIRKLAND L : 1945 Study Date: 03/31/2024 2:36:42 PM Gender: F Tech: DUNCAN Location: [facility] Provider: FEDERICO MONET Height(Cm): 168 [...] FINDINGS: Interpretation Site: Exam was interpreted at [facility]. Left Ventricle: Normal left ventricular [...] [facility] 04/01/2024 8:51:52 AM ANESTHESIA ASSISTANT Federico Monet MD CV ECHO PROCEDURES Final [...] ORDERABLES Lidia l Result HARLEEN MCCAIN [facility] [place] [address] * (ABNORMAL) Hemoglobin A1c (02/13/2024 [...] Jenkins NP LAB BLOOD ORDERABLES Final Result [facility] [place] [address] * Lipid panel (02/13/2024 8:23 AM CDT) [...] revised on 2017. Triglycerides 77 <=149 mg/dL [facility] Comment: Interpretive Data Ages < [...] revised on 2017. HDL 51 >=40 mg/dL [facility] Comment: Interpretive Data Ages < or = [...] 2017. LDL, calculated 32 <=129 mg/dL [facility] Comment: Interpretive Data Ages < or = [...] revised on 2023. Non-HDL Cholesterol 48 mg/dL [facility] Comment: Interpretive Data Ages < or = [...] last revised on 2017. Chol/HDL ratio 2 [facility] Blood 02/13/2024 8:23 AM CDT 02/13/2024 8:33 AM CDT Narrative [facility] - 02/14/2024 12:32 AM CDT Reflex us Misael Flores Marvin DO LAB BLOOD ORDERABLES Fi nal Result [facility] [place] [address] from Last 3 Months or Most Recently Relevant to Health Maintenance Insurance MEDICARE RAILROAD [facility] [place] [address] MEDICARE RAILROAD [facility] MEDICARE RAILROAD [facility] Advance Directives For more information, please contact: [phone] * Full Code (Latest Code Status on File) Date Activated Date Inactivated Comments 02/13/2024 5:54 PM 02/19/2024 1:18 PM Care Teams Contract Forester Relationship Specialty Start Date End Date Sourav Velasco PA [address] [place] [address] [place] [address] PCP - General Internal Medicine 02/14/24
--- OUTSIDE RECORDS SUMMARY | 2024-06-10 16:39 | XMS_ITS | Referral Summary ---
Author Organization [facility] [address] [facility] [address] Address [address] [place] [address] Care Team Providers Care Hide And Skin Colerer Name Role Phone Sourav Velasco Primary Care Provider + Encounters Date Type Department Care Team Description 03/31/2024 2:00 PM JOGGLE PRESS OPERATOR Ancillary Procedure [facility] Cardiology [address] [place] [address] Mild aortic stenosis 03/10/2024 Telephone [facility] 1 [place] [address] Edin Leon RN from Last [...] on file Legal Sex Female 7:41 AM JOGGLE PRESS OPERATOR Gender Identity Not on file Sexual Orientation Not on file Last Filed Vital Signs Vital Sign Reading Time Taken Comments Blood Pressure 150/99 03/31/2024 2:39 PM JOGGLE PRESS OPERATOR Pulse 59 02/19/2024 8:02 AM CDT Temperature [...] DOPPLER/CF WO CONTRAST Routine 03/31/2024 2:39 PM JOGGLE PRESS OPERATOR Mild aortic stenosis EGFR STAT 02/18/2024 3:18 PM CDT HEMOGLOBIN A1C STAT 02/13/2024 8:23 AM CDT LIPID PANEL STAT 02/13/2024 8:23 AM CDT from Last 3 Months or Most Recently Relevant to Health Maintenance Results * TRANSTHORACIC ECHO (TTE) COMPLETE W DOPPLER/CF WO CONTRAST (03/31/2024 2:39 PM JOGGLE PRESS OPERATOR) Anatomical Region Laterality Modality Ultrasound 03/31/2024 2:36 PM JOGGLE PRESS OPERATOR Narrative 04/01/2024 8:52 AM JOGGLE PRESS OPERATOR [facility] Cardiology [address] [facility] [address], [place] [address] [address] [facility] [address] [address] P:[phone] P:[phone] Echocardiographic Report Patient Name: SHONNA KIRKLAND L : 1945 Study Date: 03/31/2024 2:36:42 PM Gender: F Tech: DUNCAN Location: [facility] Provider: FEDERICO MONET Height(Cm): 168 BSA: [...] FINDINGS: Interpretation Site: Exam was interpreted at [facility]. Left Ventricle: Normal left ventricular size. [...] jet. Electronically Signed By: Federico Monet MD, [facility] 04/01/2024 8:51:52 AM JOGGLE PRESS OPERATOR Procedure Note Federico Monet MD - 04/01/2024 [facility] Cardiology [address] [facility] [address], [place] [address] [address] [facility] [address], [address] [address] P:[phone] P:[phone] Echocardiographic Report Patient Name: SHONNA KIRKLAND L : 1945 Study Date: 03/31/2024 2:36:42 PM Gender: F Tech: DUNCAN Location: [facility] Provider: FEDERICO MONET Height(Cm): 168 BSA: [...] FINDINGS: Interpretation Site: Exam was interpreted at [facility]. Left Ventricle: Normal left ventricular size. [...] jet. Electronically Signed By: Federico Monet MD, [facility] 04/01/2024 8:51:52 AM JOGGLE PRESS OPERATOR Federico Monet MD CV ECHO PROCEDURES Final [...] 02/18/2024 3:31 PM CDT us America Agudelo SCREEN AND CYCLONE REPAIRER LAB BLOOD ORDERABLES Lidia l Result Performing Organization Address [facility] Co de Phone Number [facility] [place] [address] * (ABNORMAL) Hemoglobin A1c (02/13/2024 8:23 AM CDT) Hgb A1C 6.9(H) 4.0 - 5.6 % Estimated Average Glucose 151 mg/dL [facility] Comment: The ADA recommends reporting an estimated Average Glucose (eAG) with all Hemoglobin A1c results using the equation derived from a study of 507 normal and diabetic adults. Minority populations were underrepresented and children were not included. (Diabetes Care 2020; 43(S1): S66-S76). The eAG is not equivalent to a fasting glucose. Blood 02/13/2024 8:23 AM CDT 02/13/2024 8:37 AM CDT Katelyn Jenkins SCREEN AND CYCLONE REPAIRER LAB BLOOD ORDERABLES Final Result Performing Organization Address [facility] Co de Phone Number [facility] [place] [address] * Lipid panel (02/13/2024 8:23 AM CDT) [...] on 2017. Triglycerides 77 <=149 mg/dL [facility] Comment: Interpretive Data Ages < or [...] on 2017. HDL 51 >=40 mg/dL [facility] Comment: Interpretive Data Ages < or [...] 2017. LDL, calculated 32 <=129 mg/dL [facility] Comment: Interpretive Data Ages < or [...] revised on 2023. Non-HDL Cholesterol 48 mg/dL [facility] Comment: Interpretive Data Ages < or [...] revised on 2017. Chol/HDL ratio 2 [facility] Blood 02/13/2024 8:23 AM CDT 02/13/2024 8:33 AM CDT Narrative [facility] - 02/14/2024 12:32 AM CDT Reflex us Misael Wong DO LAB BLOOD ORDERABLES Fi nal Result [facility] Department [place] [address] from Last 3 Months or Most Recently Relevant to Health Maintenance Insurance [facility] [place] [place] [address] [facility] MEDICARE RAILROAD Member Subscriber Plan / Payer (Ef fective 2009-Present) Name:SHONNA KIRKLAND Member ID:[id number] Relation to Subscriber:Self Name:Shonan Kirkland Subscriber ID:[id number] Payer ID:[id number] Group ID:Not on file Type:MEDICARE TRADITIONAL Address: [address] MEDIC[address] RAILROAD Advance Directives For more information, please contact: [phone] * Full Code (Latest Code Status on File) Date Activated Date Inactivated Comments 02/13/2024 5:54 PM 02/19/2024 1:18 PM Care Teams Hide And Skin Colerer Relationship Specialty Start Date End Date Sourav Velasco PA [facility] [address] PCP - General Internal Medicine 02/14/24
--- OUTSIDE RECORDS SUMMARY | 2024-06-10 16:39 | XMS_ITS | Patient Health Summary ---
Author Organization [facility] Address [address] [place] [address] Care Team Providers Care Legal Support Specialist Name Role Phone Unavailable Primary Care Provider Unavailabl e Note from [facility],non-owned Affiliates and Associated Physician Practices is amultiple site organization consisting of ambulatory clinics and hospital sitesin [place], [place], [place] and [place]. This disclosure is being madepursuant to the Care Everywhere program and may not contain all information available regarding this patient. Last updated 18.[facility] Allergies * Codeine Immunizations * INFLUENZA VACCINE, [...] * VITAMIN D 25-HYDROXY (03/17/2024 1:03 PM SECONDARY SCHOOL REGISTRAR) Vitamin D, 25 Hydroxy 32.4 30 - 80 ng/mL 03/17/2024 1:51 PM SECONDARY SCHOOL REGISTRAR [facility] Blood BLOOD SPECIMEN / Unknown Venipuncture / Unknown 03/17/2024 1:03 PM SECONDARY SCHOOL REGISTRAR 03/17/2024 1:03 PM SECONDARY SCHOOL REGISTRAR Narrative [facility] - 03/17/2024 1:51 PM SECONDARY SCHOOL REGISTRAR Vitamin D Status: Deficiency <20 ng/mL Insufficiency 20-30 ng/mL Sufficiency 30-100 ng/mL Toxicity >100 ng/mL [facility] LAB - CHEMISTRY NAJMA CABEZAS [facility] [address] [place] [address] * (ABNORMAL) CBC WITH DIFFERENTIAL (03/17/2024 1:03 PM SECONDARY SCHOOL REGISTRAR) Only the most recent of2 resultswithin the time period is included. WBC 9.1 4.0 - 10.7 x10E9/L 03/17/2024 1:15 PM [facility] RBC Count 3.49(L) 3.90 - 5.20 x10E12/L 03/17/2024 1:15 PM [facility] Hemoglobin 11.1(L) 11.9 - 15.8 g/dL 03/17/2024 1:15 PM [facility] Hematocrit 35.8 34.8 - 46.1 % 03/17/2024 1:15 PM [facility] MCV 102.6(H) 80.0 - 98.0 fL 03/17/2024 1:15 PM [facility] MCH 31.8 26.7 - 33.6 pg 03/17/2024 1:15 PM [facility] MCHC 31.0(L) 31.7 - 36.3 g/dL 03/17/2024 1:15 PM [facility] RDW-CV 13.5 11.3 - 14.8 % 03/17/2024 1:15 PM [facility] Platelet Count 247 150 - 420 x10E9/L 03/17/2024 1:15 PM [facility] MPV 11.3 7.8 - 11.4 fL 03/17/2024 1:15 PM [facility] Neutrophil % 69.6 41.0 - 74.0 % 03/17/2024 1:15 PM [facility] Lymphocyte % 18.4 17.0 - 47.0 % 03/17/2024 1:15 PM [facility] Monocyte % 8.3 3.0 - 11.0 % 03/17/2024 1:15 PM [facility] Eosinophil % 3.1 0.0 - 7.0 % 03/17/2024 1:15 PM SECONDARY SCHOOL REGISTRAR [facility] Basophil % 0.3 0.0 - 1.6 % 03/17/2024 1:15 PM SECONDARY SCHOOL REGISTRAR [facility] Immature Granulocytes % 0.3 0.0 - 1.0 % 03/17/2024 1:15 PM [facility] Neutrophil Absolute 6.34 1.60 - 7.50 x10E9/L 03/17/2024 1:15 PM SECONDARY SCHOOL REGISTRAR [facility] Lymphocyte Absolute 1.68 1.00 - 4.40 x10E9/L 03/17/2024 1:15 PM SECONDARY SCHOOL REGISTRAR [facility] Monocyte Absolute 0.76 0.15 - 1.00 x10E9/L 03/17/2024 1:15 PM SECONDARY SCHOOL REGISTRAR [facility] Eosinophil Absolute 0.28 0.00 - 0.60 x10E9/L 03/17/2024 1:15 PM [facility] Basophil Absolute 0.03 0.00 - 0.13 x10E9/L 03/17/2024 1:15 PM [facility] Blood BLOOD SPECIMEN / Unknown 03/17/2024 1:03 PM SECONDARY SCHOOL REGISTRAR 03/17/2024 1:03 PM SECONDARY SCHOOL REGISTRAR [facility] LAB - HEMATOLOGY ORD ERABLES [facility] [address] [place] [address] * PT-INR [facility] (06/09/2012 8:33 AM SECONDARY SCHOOL REGISTRAR) [facility] INR 1.0 [facility] ([facility]) Comment: Reference Range 0.9-1.1 Moderate-intensity Warfarin Therapy 2.0-3.0 Higher-intensity Warfarin Therapy 3.0-4.0 PT 10.4 9.0 - 11.5 sec [facility] ([facility]) Comment: REPORT COMMENT: FASTING Test Performed at: [employer] [address] [address] JOSEY PENG DO [facility] 06/09/2012 8:33 AM SECONDARY SCHOOL REGISTRAR 06/09/2012 8:34 AM [employer]ARY S[employer]OL REGISTRAR Mervin Walker MD LAB - COAGULATION OR DERABLES [facility] ([facility]) * (ABNORMAL) COMPREHENSIVE METABOLIC PANEL (06/09/2012 8:33 AM SECONDARY S[employer]OL REGISTRAR) Glucose 129(H) 65 - 99 mg/dL [facility] ([facility]) Comment: Fasting reference interval BUN 20 7 - 25 mg/dL [facility] ([facility]) Creatinine 0.98 0.50 - 0.99 mg/dL [facility] ([facility]) Comment: For patients >49 years of age, the reference limit for Creatinine is approximately 13% higher for people identified as -Zambian. eGFR non- 60 > OR = 60 mL/min/1 .73m2 [facility] ([facility]) eGFR 69 > OR = 60 mL/min/1 .73m2 [facility] ([facility]) BUN/Creatinine Ratio NOT APPLICABLE 6 - 22 (calc) [facility] ([facility]) Sodium 142 135 - 146 mmol/L [facility] ([facility]) Potassium 4.9 3.5 - 5.3 mmol/L [facility] ([facility]) Chloride 110 98 - 110 mmol/L [facility] ([facility]) CO2 17(L) 19 - 30 mmol/L [facility] ([facility]) Calcium 9.5 8.6 - 10.4 mg/dL [facility] ([facility]) Protein Total 6.8 6.1 - 8.1 g/dL [facility] ([facility]) Albumin 4.6 3.6 - 5.1 g/dL [facility] ([facility]) Globulin 2.2 1.9 - 3.7 g/dL (calc) [facility] ([facility]) Albumin/Globulin Ratio 2.1 1.0 - 2.5 (calc) [facility] ([facility]) Bilirubin Total 0.3 0.2 - 1.2 mg/dL [facility] ([facility]) Alkaline Phosphatase 64 33 - 130 U/L [facility] ([facility]) AST 19 10 - 35 U/L [facility]) ALT 20 6 - 40 U/L [facility] ([facility]) Comment: REPORT COMMENT: FASTING Test Performed at: [facility] [address] [place] [address] JOSEY PENG DO,[facility] 06/09/2012 8:33 AM SECONDARY SCHOOL REGISTRAR 06/09/2012 8:34 AM SEC[employer]ARY SCHOOL REGISTRAR Mervin Walker MD LAB - CHEMISTRY NAJMA CABEZAS [facility] ([facility])
--- OUTSIDE RECORDS SUMMARY | 2024-06-10 16:39 | XMS_ITS | Encounter Summary ---
Author Organization [facility] Address [address] [place] [address] Care Team Providers Care Trolley Operator Name Role Phone Marcia Cool NP Primary Care Provider [phone] Marcia Cool NP Primary Care Provider [phone] Lana Nicole MD Primary Care Provider + [phone] Sourav Velasco Primary Care Provider + Encounter Details Date Type Department Care Team (Late st Contact Info) Description 07/01/2016 Orders Only [facility] ProviderNeftaly MD [address] [place] [address] Social History Tobacco Use Types Packs/Day Years Used Date Smoking Tobacco: Never Alcohol Use Standard Drinks/Week Comments No 0 (1 standard drink = 0.6 oz pur e alcohol) Comments Unknown Sex and Gender Information Value Date Recorded Sex Assigned at Not on file Legal Sex Female 7:41 AM TUBE WINDER Gender Identity Not on file Sexual Orientation [...] on filedocumented in this encounter Care Teams Trolley Operator Relationship Specialty Start Date End Date Marcia Cool NP PCP - General 07/19/16 05/12/22 Macria Cool NP PCP - General 12/14/14 07/18/16 Lana Nicole MD [address] [place] [address] [place] [address] PCP - General Family Medicine 05/13/22 02/13/24 Sourav Velasco PA [address] [place] [address] [place] [address] PCP - General Internal Medicine 02/14/24 documented as of this encounter
--- OUTSIDE RECORDS SUMMARY | 2024-06-10 16:39 | XMS_ITS | Referral Summary ---
Author Organization [facility] Address [address] [facility] [place] [address] Care Team Providers Care Head Up Operator Name Role Phone Unavailable Primary Care Provider Unavailabl e Source Comments [facility],non-owned Affiliates and Associated Physician Practices is amultiple site organization consisting of ambulatory clinics and hospital sitesin [place], [place], [place] and [place]. This disclosure is being madepursuant to the Care Everywhere program and may not contain all information available regarding this patient. Last updated 18.[facility] Encounters Date Type Department Care Team Description 03/17/2024 Lab Requisition [facility] [address] [place] [address] Matt Rich from Last 3 Months Allergies [...] VITAMIN D 25-HYDROXY Routine 03/17/2024 1:03 PM ORTHOTIST PROSTHETIST CBC W AUTO DIFFERENTIAL Routine 03/17/2024 1:03 PM ORTHOTIST PROSTHETIST from Last 3 Months Results * VITAMIN D 25-HYDROXY (03/17/2024 1:03 PM ORTHOTIST PROSTHETIST) Vitamin D, 25 Hydroxy 32.4 30 - 80 ng/mL 03/17/2024 1:51 PM ORTHOTIST PROSTHETIST [facility] Blood BLOOD SPECIMEN / Unknown Venipuncture / Unknown 03/17/2024 1:03 PM ORTHOTIST PROSTHETIST 03/17/2024 1:03 PM ORTHOTIST PROSTHETIST [facility] - 03/17/2024 1:51 PM ORTHOTIST PROSTHETIST Vitamin D Status: Deficiency <20 ng/mL Insufficiency 20-30 ng/mL Sufficiency 30-100 ng/mL Toxicity >100 ng/mL [facility] LAB - CHEMISTRY NAJMA CABEZAS [facility] [address] [place] [address] * (ABNORMAL) CBC WITH DIFFERENTIAL (03/17/2024 1:03 PM ORTHOTIST PROSTHETIST) Pathologist [facility] WBC 9.1 4.0 - 10.7 x10E9/L 03/17/2024 1:15 PM [facility] RBC Count 3.49(L) 3.90 - 5.20 x10E12/L 03/17/2024 1:15 PM [facility] Hemoglobin 11.1(L) 11.9 - 15.8 g/dL 03/17/2024 1:15 PM [facility] Hematocrit 35.8 34.8 - 46.1 % 03/17/2024 1:15 PM [facility] MCV 102.6(H) 80.0 - 98.0 fL 03/17/2024 1:15 PM [facility] MCH 31.8 26.7 - 33.6 pg 03/17/2024 1:15 PM [facility] MCHC 31.0(L) 31.7 - 36.3 g/dL 03/17/2024 1:15 PM [facility] RDW-CV 13.5 11.3 - 14.8 % 03/17/2024 1:15 PM [facility] Platelet Count 247 150 - 420 x10E9/L 03/17/2024 1:15 PM [facility] MPV 11.3 7.8 - 11.4 fL 03/17/2024 1:15 PM [facility] Neutrophil % 69.6 41.0 - 74.0 % 03/17/2024 1:15 PM [facility] Lymphocyte % 18.4 17.0 - 47.0 % 03/17/2024 1:15 PM ORTHOTIST PROSTHETIST [facility] Monocyte % 8.3 3.0 - 11.0 % 03/17/2024 1:15 PM ORTHOTIST PROSTHETIST [facility] Eosinophil % 3.1 0.0 - 7.0 % 03/17/2024 1:15 PM ORTHOTIST PROSTHETIST [facility] Basophil % 0.3 0.0 - 1.6 % 03/17/2024 1:15 PM ORTHOTIST PROSTHETIST [facility] Immature Granulocytes % 0.3 0.0 - 1.0 % 03/17/2024 1:15 PM ORTHOTIST PROSTHETIST [facility] Neutrophil Absolute 6.34 1.60 - 7.50 x10E9/L 03/17/2024 1:15 PM ORTHOTIST PROSTHETIST [facility] Lymphocyte Absolute 1.68 1.00 - 4.40 x10E9/L 03/17/2024 1:15 PM ORTHOTIST PROSTHETIST [facility] Monocyte Absolute 0.76 0.15 - 1.00 x10E9/L 03/17/2024 1:15 PM ORTHOTIST PROSTHETIST [facility] Eosinophil Absolute 0.28 0.00 - 0.60 x10E9/L 03/17/2024 1:15 PM ORTHOTIST PROSTHETIST [facility] Basophil Absolute 0.03 0.00 - 0.13 x10E9/L 03/17/2024 1:15 PM ORTHOTIST PROSTHETIST [facility] Blood BLOOD SPECIMEN / Unknown 03/17/2024 1:03 PM ORTHOTIST PROSTHETIST 03/17/2024 1:03 PM ORTHOTIST PROSTHETIST [facility] LAB - HEMATOLOGY ORD ERABLES [facility] [address] [place] [address] from Last 3 Months
--- OUTSIDE RECORDS SUMMARY | 2024-06-10 16:39 | XMS_ITS ---
Author Organization [facility] Address [address] [place] [address] Care Team Providers Care Business Initiatives Manager Name Role Phone Lana Nicole Primary Care Provider Unavailab le Joy Murillo Unavailable [phone] Candie Ding Unavailable Unavailable ZZ-Migration, Provider Unavailable Unavailab le [facility] Encounter Medications Medication SIG (Take, Route, Frequency, Duration) Notes Start Date End Date Status Albuterol Sulfate HFA 108 (90 Base) MCG/ACT 2 puff(s) inhaled every 6 hours Active HumaLOG 10U before suppe r *Please review and pick correct strength-formulati on from [facility] options. If intended option is not shown, discontinue and re-order from Quick Search* Active Aspirin 81 MG 1 tab(s) chewed once a day Active Atorvastatin Calcium 10 MG 1 tab(s) orally once a day Active Allopurinol 100 MG as directed orally takes 2 ta blets daily Active Basaglar KwikPen 100 UNIT/ML as directed subcutaneously Active Famotidine 40 MG 1 tab(s) orally once a day (at bedtime) Active Losartan Potassium 25 MG 1 tab(s) orally once a day Active Latanoprost 0.005 % 1 gtt in each eye once a day (in the evening) Active amLODIPine Besylate 10 MG 1 tab(s) orally once a day Active Memantine HCl 10 MG 1 tab(s) orally 2 times a day Active Donepezil HCl 10 MG 1 tab(s) orally once a day (at bedtime) Active Encounters Encounter Location Date Provider Diagnosis [address] [address] 10/04/2023 Provider Eden Plan Of Treatment No Information Progress Notes * Shonna KIRKLANDDOB:1945 ([age] yo F)Acc No.[id number]:10/04/2023 Patient: Shonna KAUFMAN Provider: Kelsey Rosen :1945 A ge:78 Y S ex:Female Date:10/04/2023 [facility] Pcp:Lana Nicole Subjective: * Chief Complaints: * [facility] . [facility]. * Medical History: * Medications: T aking Memantine HCl 10 MG Tablet 1 tab(s) orally 2 times a day , Taking Donepezil HCl 10 MG Tablet 1 tab(s) orally once a day (at bedtime) , Taking Famotidine 40 MG Tablet 1 tab(s) orally once a day (at bedtime) , Taking Losartan Potassium 25 MG Tablet 1 tab(s) orally once a day , Taking Latanoprost 0.005 % Solution 1 gtt in each eye once a day (in the evening) , Taking amLODIPine Besylate 10 MG Tablet 1 tab(s) orally once a day , Taking Basaglar KwikPen 100 UNIT/ML Solution Pen-injector as directed subcutaneously , Taking HumaLOG , Notes to Pharmacist: 10U before supper *Please review and pick correct strength-formulation from [facility] options. If intended option is not shown, discontinue and re-order from Quick Search*, Taking Albuterol Sulfate HFA 108 (90 Base) MCG/ACT Aerosol Solution 2 puff(s) inhaled every 6 hours , Taking Aspirin 81 MG Tablet Chewable 1 tab(s) chewed once a day , Taking Atorvastatin Calcium 10 MG Tablet 1 tab(s) orally once a day , Taking Allopurinol 100 MG Tablet as directed orally , Notes to Pharmacist: takes 2 tablets daily Objective: * Vitals: Assessment: Plan: * Treatment: * Billing Information: * Visit Code: * Procedure Codes: * Electronic signature of Lucy TAMAYO-Silas on 06/10/2024 at 03:00 PM CORE CUTTER Sign off status: Pending * Provider: Kelsey hernandez Migration Date: 0 10/04/2023 Generated for Josr garcia/Fern/Daniloitting on: 0 06/10/2024 03:00 PM CORE CUTTER
--- NOTE | 2024-06-10 19:06 | PC.NURSE ---
Report called to Elena Schulz RN. All questions answered. EMS called for transport.
== END 2024-06-10 19:56 ==
PROVIDERS: Emergency Provider Emergency Medicine; PCP Physician Assistant
DX: T14.8XXA Other injury of unspecified body region, initial encounter (principal); W05.0XXA Fall from non-moving wheelchair, initial encounter; G30.9 Alzheimer's disease, unspecified; F02.80 Dementia in other diseases classified elsewhere, unspecified severity, without behavioral disturbance, psychotic disturbance, mood disturbance, and anxiety; Z79.4 Long term (current) use of insulin; E55.9 Vitamin D deficiency, unspecified; N18.30 Chronic kidney disease, stage 3 unspecified; I25.10 Atherosclerotic heart disease of native coronary artery without angina pectoris; I12.9 Hypertensive chronic kidney disease with stage 1 through stage 4 chronic kidney disease, or unspecified chronic kidney disease; E11.22 Type 2 diabetes mellitus with diabetic chronic kidney disease; J45.909 Unspecified asthma, uncomplicated
CPT/HCPCS: 70450; 72125; 99284

== ENCOUNTER 2024-07-24 12:20 | Emergency (ER) | payer MEDICARE, SELFPAY ==
--- NOTE | ~2024-07-24 | CT_ITS ---
EXAMINATION: CT brain wo con DATE: 07/24/2024 14:13 INDICATION: fall . TECHNIQUE: Computed tomography (CT) of the head was performed without intravenous contrast. The mA wa s adjusted according to patient size. Iterative reconstruction technique was employed. The dose-lengt h product was 605.33 mGy-cm. COMPARISON: 06/10/2024. FINDINGS: No acute intracranial hemorrhage or extra-axial fluid collection. No hydrocephalus, mass, or herniation. No acute ischemic infarct. Unremarkable dural venous sinus attenuation. No acute osseous abnormality. Right frontal soft tissue swelling. Right frontal ethmoid maxillary and right sphenoid mucosal thickening. Aerated secretions in the righ t sphenoid. The remaining aerated spaces are clear. IMPRESSION: No acute intracranial process. Right sphenoid aerated secretions may represent acute sinusitis versus mucosal hemorrhage, overlying a background of diffuse mucoperiosteal sinus disease. Reviewed, dictated and finalized at [facility] K.
--- NOTE | ~2024-07-24 | CT_ITS ---
EXAMINATION: CT cervical spine wo con DATE: 07/24/2024 14:14 INDICATION: fall TECHNIQUE: Computed tomography (CT) of the cervical spine was performed without intravenous contrast. Automated exposure control and iterative reconstruction technique were employed. The dose-length pro duct was 146.00 mGy-cm. COMPARISON: 06/10/2024. FINDINGS: Vertebral Body Alignment: Intact. Multilevel grade 1 listheses, unchanged Craniocervical and atlantoaxial alignment: Moderate degenerative change with pannus. Alignment intact . Osseous structures/fracture: No evidence of a lytic or blastic process in the visualized spine. No e vidence of acute fracture. Vertebral and bilateral facet fusion at C4-5. Cervical soft tissues: The paraspinal soft tissues planes are maintained. Minimal biapical pleural sc arring and septal thickening Degenerative changes: Multilevel severe degenerative disc disease and facet arthropathy. Multilevel s evere bilateral neural foraminal narrowing secondary to degenerative changes. No severe central canal narrowing. IMPRESSION: No acute fracture or traumatic malalignment in the cervical spine. Reviewed, dictated and finalized at location K.
[2024-07-24 12:20] VITALS: BP 143/60; PULSE 63; RESP 15; TEMP 36.8; O2SAT 100
[2024-07-24 12:34] VITALS: BP 143/60; PULSE 60; RESP 15; TEMP 36.8; O2SAT 98
--- OUTSIDE RECORDS SUMMARY | 2024-07-24 12:38 | XMS_ITS | Clinical Summary ---
Author Organization [facility] Address [address], [place] [address] Phone Care Team Providers Care Drawing Instructor Name Role Phone Marcia Cool ANASTASIIA Primary Care Provider [phone] Allergies Active Allergy Reactions Criticality Noted Date [...] Comments Blood Pressure 122/68 04/05/2019 8:52 AM CHIPPER OPERATOR Pulse 72 04/05/2019 8:52 AM CHIPPER OPERATOR Temperature 35.7 C (96.2 F) 04/05/2019 8:52 AM CHIPPER OPERATOR Respiratory Rate 20 11/06/2011 12:01 AM CDT Oxygen Saturation - - Inhaled Oxygen Concentration - - Weight 95.7 kg (211 lb) 04/05/2019 8:52 AM CHIPPER OPERATOR Height 167.6 cm (5' 6 ) 04/05/2019 8:52 AM CHIPPER OPERATOR Body Mass Index 34.06 04/05/2019 8:52 AM CHIPPER OPERATOR Plan of Treatment Health Maintenance Due Date Last Done Comments Influenza Vaccine (Season Ended) 2024 03/03/2015, 02/15/2013, 02/27/2012 Pneumococcal PPSV23/PCV13 65 + Years / Low and Medium Risk Completed 02/08/2019, 02/03/2018, 09/21/2014 Care Teams Drawing Instructor Relationship Specialty Start Date End Date Marcia Cool NP [facility] [place] [address] PCP - General Internal Medicine 08/19/18
--- OUTSIDE RECORDS SUMMARY | 2024-07-24 12:38 | XMS_ITS | Encounter Summary ---
Author Organization [facility] Address [address] [place] [address] Care Team Providers Care Single Stroke Preformer Name Role Phone Marcia Cool NP Primary Care Provider Marcia Cool NP Primary Care Provider [phone] Lana Nicole MD Primary Care Provider + [phone] Sourav Velasco Primary Care Provider + Encounter Details Date Type Department Care Team (Late st Contact Info) Description 07/01/2016 Orders Only [facility] ProviderNeftaly MD [address] [place] [address] Social History Tobacco Use Types Packs/Day Years Used Date Smoking Tobacco: Never Alcohol Use Standard Drinks/Week Comments No 0 (1 standard drink = 0.6 oz pur e alcohol) Comments Unknown Sex and Gender Information Value Date Recorded Sex Assigned at Not on file Legal Sex Female 7:41 AM SENIOR UI DEVELOPER Gender Identity Not on file Sexual Orientation [...] on filedocumented in this encounter Care Teams Single Stroke Preformer Relationship Specialty Start Date End Date Marcia Cool NP PCP - General 07/19/16 05/12/22 Marcia Cool NP PCP - General 12/14/14 07/18/16 Lana Nicole MD [address] [place] [address] [place] [address] PCP - General Family Medicine 05/13/22 02/13/24 Sourav Velasco PA [address] [place] [address] [place] [address] PCP - General Internal Medicine 02/14/24 documented as of this encounter
--- OUTSIDE RECORDS SUMMARY | 2024-07-24 12:38 | XMS_ITS | Clinical Summary ---
Author Organization [facility] Address [address] [place] [address] Care Team Providers Care Civil Drafting Technician Name Role Phone Unavailable Primary Care Provider Unavailabl e Source Comments [facility],non-owned Affiliates and Associated Physician Practices is amultiple site organization consisting of ambulatory clinics and hospital sitesin [place], [place], [place] and [place]. This disclosure is being madepursuant to the Care Everywhere program and may not contain all information available regarding this patient. Last updated 18.[facility] Allergies Active Allergy Reactions Criticality Noted Date [...] complete this topic MENINGOCOCCAL (Group B) VACCINE SHARED DECISION-MAKING Aged Out No longer eligible based on patient's age to complete this topic MENINGOCOCCAL GROUPS A/C/Y/W VACCINE Aged Out No longer eligible b ased on patient's age to complete this topic
--- OUTSIDE RECORDS SUMMARY | 2024-07-24 12:38 | XMS_ITS | Patient Health Record ---
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 confirmed Problem Chronic rhinitis (80224959) Chronic rhinitis (J31.0) Active confirmed Problem Shortness of breath (261832185) Shortness of breath (R06.02) Active confirmed Encounters Encounter Location Date Provider Diagnosis [address] [address] 10/04/2023 Provider ZZ-Migration Plan Of Treatment No Information Insurance Providers Payer Name Payer Address Payer Phone Subscriber Number Group Number Insured Name Patient Relationship to Insured Coverage Start Date Coverage End Date [facility] [address] [address] [place] [address] [phone] [id number] Shonna Kumari Self - patient is the insured [facility] [address] [place] [address] [id number] Shonna Kumari Self - patient is the insured Medical (General) History Medical History History ICD Code Hyperlipidemia Diabetes Surgical History Surgery Date(Month/Year) Cardiac Stents Right hip replacement 2005 Toal hip replacement Hospitalization History Reason Date(Month/Year) above surgeries
--- OUTSIDE RECORDS SUMMARY | 2024-07-24 12:38 | XMS_ITS | Encounter Summary ---
Author Organization [facility] Address [address] [place] [address] Care Team Providers Care Electric Utility Lineworker Name Role Phone Unavailable Primary Care Provider Unavailabl e Encounter Details Date Type Department Care Team (Late st Contact Info) Description 03/17/2024 Lab Requisition [facility] [address] [place] [address] [place] [address] Social History Tobacco Use Types Packs/Day Years [...] VITAMIN D 25-HYDROXY Routine 03/17/2024 1:03 PM LABORER CHEESEMAKING CBC W AUTO DIFFERENTIAL Routine 03/17/2024 1:03 PM LABORER CHEESEMAKING documented in this encounter Results * VITAMIN D 25-HYDROXY (03/17/2024 1:03 PM LABORER CHEESEMAKING) Vitamin D, 25 Hydroxy 32.4 30 - 80 ng/mL 03/17/2024 1:51 PM LABORER CHEESEMAKING [facility] Blood BLOOD SPECIMEN / Unknown Venipuncture / Unknown 03/17/2024 1:03 PM LABORER CHEESEMAKING 03/17/2024 1:03 PM LABORER CHEESEMAKING Narrative [facility] - 03/17/2024 1:51 PM LABORER CHEESEMAKING Vitamin D Status: Deficiency <20 ng/mL Insufficiency 20-30 ng/mL Sufficiency 30-100 ng/mL Toxicity >100 ng/mL [address] [facility] - CHEMISTRY ORDHoward CABEZAS [facility] [address] [place] [address] * (ABNORMAL) CBC WITH DIFFERENTIAL (03/17/2024 1:03 PM LABORER CHEESEMAKING) [facility] WBC 9.1 4.0 - 10.7 x10E9/L 03/17/2024 1:15 PM LABORER CHEESEMAKING [facility] RBC Count 3.49(L) 3.90 - 5.20 x10E12/L 03/17/2024 1:15 PM LABORER CHEESEMAKING [facility] Hemoglobin 11.1(L) 11.9 - 15.8 g/dL 03/17/2024 1:15 PM [facility] Hematocrit 35.8 34.8 - 46.1 % 03/17/2024 1:15 PM LABORER CHEESEMAKING [facility] MCV 102.6(H) 80.0 - 98.0 fL 03/17/2024 1:15 PM LABORER CHEESEMAKING [facility] MCH 31.8 26.7 - 33.6 pg 03/17/2024 1:15 PM LABORER CHEESEMAKING [facility] MCHC 31.0(L) 31.7 - 36.3 g/dL 03/17/2024 1:15 PM [facility] RDW-CV 13.5 11.3 - 14.8 % 03/17/2024 1:15 PM [facility] Platelet Count 247 150 - 420 x10E9/L 03/17/2024 1:15 PM LABORER CHEESEMAKING [facility] MPV 11.3 7.8 - 11.4 fL 03/17/2024 1:15 PM [facility] Neutrophil % 69.6 41.0 - 74.0 % 03/17/2024 1:15 PM LABORER CHEESEMAKING [facility] Lymphocyte % 18.4 17.0 - 47.0 % 03/17/2024 1:15 PM LABORER CHEESEMAKING [facility] Monocyte % 8.3 3.0 - 11.0 % 03/17/2024 1:15 PM LABORER CHEESEMAKING [facility] Eosinophil % 3.1 0.0 - 7.0 % 03/17/2024 1:15 PM LABORER CHEESEMAKING [facility] Basophil % 0.3 0.0 - 1.6 % 03/17/2024 1:15 PM LABORER CHEESEMAKING [facility] Immature Granulocytes % 0.3 0.0 - 1.0 % 03/17/2024 1:15 PM LABORER CHEESEMAKING [facility] Neutrophil Absolute 6.34 1.60 - 7.50 x10E9/L 03/17/2024 1:15 PM LABORER CHEESEMAKING [facility] Lymphocyte Absolute 1.68 1.00 - 4.40 x10E9/L 03/17/2024 1:15 PM LABORER CHEESEMAKING [facility] Monocyte Absolute 0.76 0.15 - 1.00 x10E9/L 03/17/2024 1:15 PM LABORER CHEESEMAKING [facility] Eosinophil Absolute 0.28 0.00 - 0.60 x10E9/L 03/17/2024 1:15 PM LABORER CHEESEMAKING [facility] Basophil Absolute 0.03 0.00 - 0.13 x10E9/L 03/17/2024 1:15 PM LABORER CHEESEMAKING [facility] Blood BLOOD SPECIMEN / Unknown 03/17/2024 1:03 PM LABORER CHEESEMAKING 03/17/2024 1:03 PM LABORER CHEESEMAKING [facility] - HEMATOLOGY ORD ERABLES [facility] [address] [place] [address] documented in this encounter Visit Diagnoses Not on filedocumented in this encounter
--- OUTSIDE RECORDS SUMMARY | 2024-07-24 12:38 | XMS_ITS | Referral Summary ---
Author Organization [facility] [address] Address [address] [place] [address] Care Team Providers Care Workplace Rehabilitation Officer Name Role Phone Sourav Velasco Primary Care [...] on file Legal Sex Female 7:41 AM COMPENSATION ADMINISTRATOR Gender Identity Not on file Sexual Orientation Not on file Last Filed Vital Signs Vital Sign Reading Time Taken Comments Blood Pressure 150/99 03/31/2024 2:39 PM COMPENSATION ADMINISTRATOR Pulse 59 02/19/2024 8:02 AM CDT Temperature [...] Procedure Name Priority Date/Time Associated Diagnosis Comments EGFR STAT 02/18/2024 3:18 PM CDT HEMOGLOBIN A1C STAT 02/13/2024 8:23 AM CDT LIPID PANEL STAT 02/13/2024 8:23 AM CDT from Last 3 Months or Most Recently Relevant to Health Maintenance Results * (ABNORMAL) eGFR (02/18/2024 3:18 PM CDT) [...] NP LAB BLOOD ORDERABLES Lidia l Result [facility] Department [place] [address] * (ABNORMAL) Hemoglobin A1c (02/13/2024 8:23 AM CDT) Hgb A1C 6.9(H) 4.0 - 5.6 % Estimated Average Glucose 151 mg/dL [facility] Comment: The ADA recommends reporting an estimated Average Glucose (eAG) with all Hemoglobin A1c results using the equation derived from a study of 507 normal and diabetic adults. Minority populations were underrepresented and children were not included. (Diabetes Care 2020; 43(S1): S66-S76). The eAG is not equivalent to a fasting glucose. Blood 02/13/2024 8:23 AM CDT 02/13/2024 8:37 AM CDT us Katelyn Jenkins NP LAB BLOOD ORDERABLES Final Result [facility] Department [place] [address] * Lipid panel (02/13/2024 8:23 AM CDT) [...] revised on 2017. Triglycerides 77 <=149 mg/dL [facility] Comment: Interpretive Data Ages < or = [...] revised on 2017. HDL 51 >=40 mg/dL [facility] Comment: Interpretive Data Ages < or = [...] 2017. LDL, calculated 32 <=129 mg/dL [facility] Comment: Interpretive Data Ages < or = [...] 3. Milton Obrien et al. LUCILA Cardiol. 2019August 19;5(5):540-548. doi: 10.1001/jamacardio.2020.0013 Current Interpretive Data was last revised on 2023. Non-HDL Cholesterol 48 mg/dL [facility] Comment: Interpretive Data Ages < or = [...] last revised on 2017. Chol/HDL ratio 2 [facility] Blood 02/13/2024 8:23 AM CDT 02/13/2024 8:33 AM CDT Narrative [facility] - 02/14/2024 12:32 AM CDT Reflex us Misael Wong DO LAB BLOOD ORDERABLES Fi nal Result [facility] [place] [address] from Last 3 Months or Most Recently Relevant to Health Maintenance Insurance [facility] Member Subscriber Plan / Payer (Ef fective 2009-Present) Name:JF KIRKLAND Member ID:[id number] Relation to Subscriber:Self Name:Jf Kirkland Subscriber ID:[id number] Payer ID:[id number] Group ID:Not on file Type:MEDICARE TRADITIONAL Address: [place] [id number] MEDICARE RAILROAD [address] MEDIC[facility] Advance Directives For more information, please contact: [phone] * Full Code (Latest Code Status on File) Date Activated Date Inactivated Comments 02/13/2024 5:54 PM 02/19/2024 1:18 PM Care Teams Workplace Rehabilitation Officer Relationship Specialty Start Date End Date Sourav Velasco PA [facility] [place], [place] [id number] PCP - General Internal Medicine 02/14/24
--- OUTSIDE RECORDS SUMMARY | 2024-07-24 12:38 | XMS_ITS | Clinical Summary ---
Author Organization [facility] [address] Address [address] [place] [address] Care Team Providers Care Training Administrator Name Role Phone Sourav Velasco Primary Care [...] stability 02/18: discharge Treatment Plan started 02/12 Medical History Medical History Date Comments Hypertension [...] on file Legal Sex Female 7:41 AM CLINICAL LABORATORY DIRECTOR Gender Identity Not on file Sexual Orientation Not on file Obstetrics History Last Filed Vital Signs Vital Sign Reading Time Taken Comments Blood Pressure 150/99 03/31/2024 2:39 PM CLINICAL LABORATORY DIRECTOR Pulse 59 02/19/2024 8:02 AM CDT Temperature [...] of 2) 1994 Well Visit 65+ 2009 Hemoglobin A1C 08/13/2024 02/13/2024, 02/13/2024 Influenza Vaccine (Season Ended) 2024 02/27/2022, 01/28/2020, 02/08/2019, Additional history exists Lipid Panel 02/12/2025 02/13/2024, 05/2023, 05/13/2022, Additional history exists eGFR 02/17/2025 [...] 3:18 PM CDT 02/18/2024 3:31 PM CDT America Agudelo MARINE SPECIALIST LAB BLOOD ORDERABLES Lidia l Result Performing Organization Address [facility] Co de Phone Number [facility] [employer] [place] [address] * (ABNORMAL) Hemoglobin A1c (02/13/2024 8:23 AM CDT) Pathologist [facility] Hgb A1C 6.9(H) 4.0 - 5.6 % Estimated Average Glucose 151 mg/dL [facility] Comment: The ADA recommends reporting [...] CDT 02/13/2024 8:37 AM CDT Katelyn Jenkins MARINE SPECIALIST LAB BLOOD ORDERABLES Final Result Performing Organization Address [facility] Co de Phone Number [facility] [place] [address] * Lipid panel (02/13/2024 8:23 AM CDT) [facility] Cholesterol 99 30 - 199 mg/dL Comment: [...] revised on 2017. Triglycerides 77 <=149 mg/dL [facility] Comment: Interpretive Data Ages < [...] revised on 2017. HDL 51 >=40 mg/dL [facility] Comment: Interpretive Data Ages < [...] on 2017. LDL, calculated 32 <=129 mg/dL [facility] Comment: Interpretive Data Ages < or = 19 years Acceptable: <110 mg/dL Borderline high: 110-129 mg/dL High: >or= 130 mg/dL Ages > or = 20 years Optimal: <100 mg/dL Near optimal: 100-129 mg/dL Borderline high: 130-159 mg/dL High: >160 mg/dL Calculated using the Rose LDL-C estimating equation. This equation was implemented [...] revised on 2023. Non-HDL Cholesterol 48 mg/dL [facility] Comment: Interpretive Data Ages < [...] last revised on 2017. Chol/HDL ratio 2 [facility] Blood 02/13/2024 8:23 AM CDT 02/13/2024 8:33 AM CDT Narrative [facility] - 02/14/2024 12:32 AM CDT Reflex Misael Wong DO LAB BLOOD ORDERABLES Fi nal Result [facility] Department [place] [address] from Last 3 Months or Most Recently Relevant to Health Maintenance Insurance MEDICARE [place] [address] [address] MEDICARE RAILROAD MEDICARE RAILROAD [employer] Advance Directives For more information, please contact: [phone] * Full Code (Latest Code Status on File) Date Activated Date Inactivated Comments 02/13/2024 5:54 PM 02/19/2024 1:18 PM Care Teams Training Administrator Relationship Specialty Start Date End Date Sourav Velasco PA [facility] [place] [address] PCP - General Internal Medicine 02/14/24
--- OUTSIDE RECORDS SUMMARY | 2024-07-24 12:38 | XMS_ITS | Data Portability ---
Author Organization [facility] [employer], Main Office Address [address] [place] [address] Care Team Providers Care Mandolin Repair Person Name Role Phone KAYLEY WARD Primary Care Provider KAYLEY WARD Referring Provider [phone] LANA CARROLL Primary Care Provider Assessment No assessment recorded. Plan of Treatment Reminders Order Date Submit Date Provider Last Modified By Organization Details Last Modified Time Details Appointments None recorded. Lab hemoglobin A1C, fingerstick 2022 023 [facility] [address], [place], [address], 3 14:48:34 Referral None recorded. Procedures None recorded. Surgeries None recorded. Imaging None recorded. Medication Orders dicyclomine 10 mg capsule 2023 024 [facility] [address] [place], [address], 4 14:47:48 albuterol sulf 90 mcg/actuati on breath activated powder inhaler,sen sor 2023 024 [facility] [address] [place], [address], 4 15:14:36 Symbicort 160 mcg-4.5 mcg/actuati on HFA aerosol inhaler 2023 024 [email or web address] [address] [place], [address], 14:33:06 Patient TargetsNo targets recorded. Patient Instructions Encounter Date Encounter Id Patient Instructions Last Modified By Organization Details Last Modified Time 09/04/2023 [id number] dementia rating scale-2* [email or web address] Not available 09/28/2023 16:09:26 multi-dimensiona l health assessment questionnaire* [email or web address] Not available 09/28/2023 16:09:26 depression screening* [email or web address] Not available 09/28/2023 16:09:26 alcohol misuse* [email or web address] Not availab le 09/28/2023 16:09:26 multi-dimensiona l health assessment questionnaire* [email or web address] Not available 09/28/2023 16:09:26 Personalized a lt [...] she refused a mammogram and dexa scan [email or web address] Not available 09/04/2023 15:33:49 Reason for Referral None Reported. Results Created Date Observation Date Name Description Value Unit Range Abnormal Flag Note LastModifiedBy Organization Detail LastModifiedTime 03/05/2003/05/2023 hemog lobin A1C, finge rstic k HgbA1C 7.8 Not Available [facility]_[address], [place], [address], 03/05/2023 14:41:35 05/08/19 25 05/07/2024 CT, brain , w/o contr ast No observ ation record ed. [address], [address], 05/10/2024 08:53:39 05/26/19 25 05/26/2024 CT, brain , w/o contr ast No observ ation record ed. [address], [address], 05/27/2024 08:45:01 06/11/19 25 06/10/2024 CT, head + brain , w/o contr ast No observ ation record ed. 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 Candie Ding [facility] [address], [address], [place], [address] , [facility] [employer] 3 12:26:33 Abnormal gait 70964959 Active 2022 Lana Nicole MD [address], [address], [place], [address] , [employer] [facility] [employer] 3 19:47:24 Dementia 59639466 Active 2022 Lana Nicole MD [address], [address], [place], [address] , [facility] [employer] [facility] [employer] 3 19:49:27 Type 2 diabetes mellitus 60258715 Active 2022 CARO Zhong [address], [address], [place], [address] , [facility] [employer] [facility] [employer] 3 15:49:54 Irregular breathing 729662209 Active 2022 Lana Nicole MD [address], [address], [place], [address] , [employer] - [facility] [employer] 3 14:33:37 Irritable bowel syndrome with diarrhea 966277261 Active 2023 CARO Zhong [address], [place] [address], [place], [address] , [facility] [employer] [facility] [employer] 4 14:46:55 Closed fracture of left wrist 18683994468 610614 Active 2023 Dorene Atkins RN null, [place] [employer] [facility] [employer] 4 16:53:33 Fracture of femur 30006199 Active 2023 Dorene Atkins RN null, [facility] [employer] 4 16:53:47 Acute bronchiti s 76099717 Completed Not Available [facility] 3 04:39:26 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 23522960164 42998 Active 2020 Not Available [facility] 3 04:39:26 Leukocyto sis 160078506 Active Not Available [facility] 3 04:39:26 Pain in throat 073488925 Completed Not Available [facility] 3 04:39:26 Radiother apy follow-up 758677608 Active Not Available [facility] 3 04:39:26 Cataract 765376614 Active Not Available [facility] 3 04:39:26 Asthma 283048254 Active Not Available [facility] 3 04:39:26 Localized , primary osteoarth ritis of the pelvic region and thigh 512189583 Active Not Available [facility] 3 04:39:26 Fluid level behind tympanic membrane Completed Not Available [facility] 3 04:39:26 Malaise and fatigue 888044452 Completed Not Available [facility] 3 04:39:26 History of SARS-CoV- 2 55710709911 2173117 Active 2021 Not Available [facility] 3 04:39:26 Physical deconditi oning 48652477917 102 Active 2021 Not Available [facility] 3 04:39:26 Type 2 diabetes mellitus without complicat ion 084265899 Active Not Available [facility] 3 04:39:26 Viral disease 07567412 Completed Not Available [facility] 3 04:39:27 Dehydrati on 64098453 Completed Not Available [facility] 3 04:39:27 Hyperuric emia 75432056 Completed Not Available [facility] 3 04:39:27 Strain of neck muscle 868544271 Completed Not Available [facility] 3 04:39:27 Upper gastroint estinal bleeding 89859631 Active Not Available [facility] 3 04:39:27 Osteoarth ritis 006435406 Active Not Available [facility] 3 04:39:27 Immunoglo bulin deficienc y 533726065 Active 2021 Not Available [facility] 3 04:39:27 History of total replaceme nt of right hip joint 57780477791 4100 Active 2020 Not Available [facility] 3 04:39:27 Cough 28149200 Completed Not Available [facility] 3 04:39:27 Ulcer of duodenum 94571994 Active Not Available [facility] 3 04:39:27 Coronary arteriosc lerosis 05482508 Active Not Available [facility] 3 04:39:27 Upper respirato ry infection 71656951 Completed Not Available [facility] 3 04:39:27 Hyperlipi demia 45359159 Active Not Available [facility] 3 04:39:28 Pain in wrist 84756030 Active Not Available [facility] 3 04:39:28 Essential hypertens ion 98006080 Active Not Available [facility] 3 04:39:28 Dyspnea on exertion 51192060 Active 2021 Not Available [facility] 3 04:39:28 Vitamin B12 deficienc y (non anemic) 72945706 Active 2018 Not Available [facility] 3 04:39:28 Hypercalc emia 98029136 Active 2020 Not Available [facility] 3 04:39:28 Chronic cough 69593658 Active 2021 Not Available [facility] 3 04:39:28 Chronic kidney disease 362789032 Active 2018 Not Available [facility] 3 04:39:28 Diabetes mellitus 08611876 Completed Not Available [facility] 3 04:39:28 Acute bacterial sinusitis 74879847 Completed Not Available [facility] 3 04:39:29 Posterior rhinorrhe a 56207948 Completed Not Available [facility] 3 04:39:29 Cardiomeg janet 7107905 Active Not Available [facility] 3 04:39:29 Gout 28872572 Active Not Available [facility] 3 04:39:29 Conjuncti vitis 3952586 Completed Not Available [facility] 3 04:39:29 Problem Notes None recorded. Procedures Surgical History Date Name Laterality Status Provider Name and Address Organization Details Recorded Time 09/04/19 24 Medicare Wellness CPT Code, subsequent completed CHANDA Wu - [place] [employer] [facility] 09/04/2023 14:55:08 09/02/19 18 Total hip arthroplasty completed Not Available [facility] 06/19/2022 04:34:10 Colonoscopy completed Not Available [facility] 06/19/2022 04:34:10 Cardiovascular Procedure completed Not Available [facility] 06/19/2022 04:34:10 Orthopedic Surgery completed Not Available [facility] 06/19/2022 04:34:10 Cataract Surgery completed Not Available [facility] 06/19/2022 04:34:10 Imaging Results Imaging Date Name Status LastModified by Organiz ation Details LastModified Time 05/07/2024 CT, brain, w/o contrast completed [address], [address], 05/10/2024 08:53:39 05/26/2024 CT, brain, w/o contrast completed [address], [address], 05/27/2024 08:45:01 06/10/2024 CT, head + brain, w/o contrast completed [address], [address], 06/11/2024 10:45:16 Procedure Notes None recorded. Medical Equipment None Reported. Allergies Allergen ID Allergen Name Allergen Category Reaction Reaction Severity Criticality Documentation Date Start Date Code Code System Note Provider Name and Address Organization Details Recorded Time 6839 Vioxx medicatio n rash Not available Not available 06/19/2022 45562 9 RxNorm Not Available [facility] 3 04:49:50 6840 codeine medicatio n Not available Not available Not available 06/19/2022 2670 RxNorm Not Available [facility] 3 04:49:50 6841 Celebrex medicatio n rash Not available Not available 06/19/2022 70216 7 RxNorm Not Available [facility] 3 04:49:50 Medications Name Sig Start Date [...] administ ered by the provider 09/08 completed [facility]: 0003-049 4-20 Not Available Not Available Not [...] with needle 1 mL 31 gauge x 5/16 04/22 completed Not Available Not Available Not [...] No t Available Nasonex 50 mcg/actua tion [place] 2 sprays every day by intranas al [...] completed Not Available Not Available Not Available [place] 3 Fish Oil 1000mg 2019 active Not Available Not Available Not Avai lable Novolog FlexPen U-100 Insulin Take 20 units breakfas t - 18 Units lunch - 16 units supper 12/20 completed Not Available Not Available Not Available lidocaine (PF) 10 mg/mL (1 %) injection solution In office injectio n administ ered by the provider 04/24 completed [facility]: 0409-427 10-05 Not Available Not Available Not Available Humalog [...] Available Not Available Not Available Fluzone High-Dose 2018- (PF) 180 mcg/0.5 mL intramusc ular syringe [...] Updated DateTime 3 160.02 cm 31.4 kg/m2 69911.8 5 g 83 /min 96 % 96 % 110 mm[Hg] 50 mm[Hg] aPdmaja Lazcano [facility] [employer] [facility] 3 15:30:30 Date Recorded Body height Body mass index (BMI) Body weight Body temperature Heart rate Oxygen saturation Oxygen saturation in Arterial blood by Pulse oximetry Systolic blood pressure Diastolic blood pressure Provider Name and Address Organization Details Last Updated DateTime 3 160.02 cm 31.4 kg/m2 93101.8 5 g 97.6 [degF] 77 /min 95 % 95 % 112 mm[Hg] 66 mm[Hg] Kim Fischer MA [facility] [employer] [facility] 3 14:32:31 Date Recorded Body height Body mass index (BMI) Body weight Body temperature Heart rate Oxygen saturation Oxygen saturation in Arterial blood by Pulse oximetry Systolic blood pressure Diastolic blood pressure Provider Name and Address Organization Details Last Updated DateTime 4 160.02 cm 31.2 kg/m2 36144.2 6 g 96.9 [degF] 75 /min 95 % 95 % 106 mm[Hg] 52 mm[Hg] Kim Fischer MA [facility] [employer] [facility] 4 14:45:38 Date Recorded Body height Body mass index (BMI) Body weight Body temperature Heart rate Oxygen saturation Oxygen saturation in Arterial blood by Pulse oximetry Systolic blood pressure Diastolic blood pressure Provider Name and Address Organization Details Last Updated DateTime 4 160.02 cm 28.7 kg/m2 89518.9 6 g 98.7 [degF] 78 /min 95 % 95 % 143 mm[Hg] 73 mm[Hg] Dali Helton MA [facility] [employer] [facility] 4 15:03:14 Date Recorded Pain severity - 0-10 verbal numeric rating [Score] - Reported Provider Name and Address Organization Details Last Updated DateTime 09/04/2023 0 Vicki Batista RN [place] [facility] [employer] [facility] 09/04/2023 15:28:29 Date Recorded Body height Body mass index (BMI) Body weight Body temperature Heart rate Oxygen saturation Oxygen saturation in Arterial blood by Pulse oximetry Respiratory rate Systolic blood pressure Diastolic blood pressure Provider Name and Address Organization Details Last Updated DateTime 4 160.02 cm 28 kg/m2 74411.5 9 g 97.7 [degF] 62 /min 97 % 97 % 16 /min 126 mm[Hg] 60 mm[Hg] Karina Morgan RN [facility] 4 14:34:55 Social History Question Answer Notes LastModified by [employer] Details LastModified Time Tobacco Smoking Status Never Smoker Sherry ramos [facility] [employer] [facility] 06/05/2023 14:36:51 What Is Your Level Of Alcohol Consumption? None [id number] Information not available 06/19/2022 What Is Your Level Of Caffeine Consumption? Occasional [id number] Information not available 06/19/2022 Which Illicit Or Recreational Drugs Have You Used? None [email or web address] Information not available 06/05/2023 What Is Your Occupation? Retired [email or web address] Information not available 06/05/2023 What Was The Date Of Your Most Recent Tobacco Screening? 09/04/2023 Information not available 09/04/2023 Do You Have Any Pets? No [email or web address] Information not available 06/05/2023 Do You Use Any Illicit Or Recreational Drugs? No [email or web address] Information not available 06/05/2023 Sex: Unknown Functional Status Question Answer Note LastModified by [employer] Details LastModified Time What is your exercise level? None [id number] Information not available 06/19/2022 Mental Status None recorded. Family History Relationship Description Onset Age of this Age Resolved Age Notes LastModified by Organization Details LastModified Time Mother Cerebrovascu lar accident Not available 14:36:49 Father Congestive heart failure [email or web address] Not available 06/05 14:36:49 Unspecified Relation Diabetes mellitus [id number] Not available 06/19/2022 04:34:14 Unspecified Relation Heart disease [email or web address] [id number] Not available 06/19/2022 04:34:14 Unspecified Relation Kidney disease [email or web address] [id number] Not available 06/19/2022 04:34:14 Medical History Condition [...] dose 1 completed Theresa Herrera CMA null, [facility] 12/03/2022 14:07:22 Influenza, split virus, quadrivalent, preservative 2 completed Theresa Herrera CMA null, [facility] 12/03/2022 14:07:22 COVID-19, mRNA, LNP-S, PF, 30 mcg/0.3 mL dose 1 completed Theresa Herrera CMA null, [facility] 12/03/2022 14:07:22 Influenza, split virus, quadrivalent, preservative 0 completed Theresa Herrera CMA null, [facility] 12/03/2022 14:07:21 pneumococcal polysaccharide PPV23 9 completed Not Available [facility] 06/19/2022 04:49:37 Influenza, split virus, quadrivalent, preservative 9 completed Not Available [facility] 06/19/2022 04:49:37 Influenza, split virus, quadrivalent, preservative 8 completed Not Available [facility] 06/19/2022 04:49:37 Influenza, high-dose, trivalent, PF 6 completed Theresa Herrera CMA null, [facility] 12/03/2022 14:07:22 Influenza, high-dose, trivalent, PF 4 completed Theresa Herrera CMA null, [facility] 12/03/2022 14:07:22 Influenza, split virus, trivalent, preservative 3 completed Not Available [facility] 06/19/2022 04:49:37 Pneumococcal Conjugate, unspecified formulation 8 completed Not Available [facility] 06/19/2022 04:49:37 Influenza, high-dose, quadrivalent, PF 1 completed Not Available [facility] 06/19/2022 04:49:38 Influenza, split virus, trivalent, preservative 5 completed Theresa Herrera CRACKING MACHINE OPERATOR null, [place] [employer] 12/03/2022 14:07:22 Influenza, high-dose, quadrivalent, PF 3 completed Lana Nicole MD [address] [place], [place] [address]hard[address] [address] [address], [place], [address], [employer] 03/05/2023 20:38:32 Past Encounters Encounter ID Performer Location Encounter Start Date Encounter Closed Date Diagnosis/Indication Diagnosis SNOMED-CT Code Diagnosis ICD10 Code Diagnosis Note [id number] [facility] [address] [place] [address] 08/31/2020 00:00:00 08/31/2020 11:31:05 [id number] [facility] [address] 09/04/2020 00:00:00 09/04/2020 15:47:09 [id number] [facility] [address] 10/19/2020 00:00:00 10/19/2020 12:56:32 [id number] [facility] [place] [address] 01/01/2021 00:00:00 01/01/2021 14:43:17 [id number] [facility] Lyn [address]hardik [address] [place] [address] 02/12/2021 00:00:00 02/12/2021 14:41:04 [id number] [facility] [place] [address] [place] [address] 05/21/2021 00:00:00 05/21/2021 15:04:02 [id number] [facility] [place] [address] , [place] [address] 07/03/2021 00:00:00 07/03/2021 14:27:24 [id number] [facility] [place] [address] [place] [address] 07/04/2021 00:00:00 07/04/2021 21:08:23 [id number] [facility] [place] [address] [place] [address] 08/17/2021 00:00:00 08/17/2021 15:39:50 [id number] [facility] [place] [address] , [place] [address] 09/04/2021 00:00:00 09/04/2021 12:04:33 [id number] [facility] [place] [address] [place] [address] 11/28/2021 00:00:00 11/28/2021 12:39:15 [id number] [facility] [place] [address] , [place] [address] 12/20/2021 00:00:00 12/20/2021 14:37:26 [id number] [facility] [place] [address] , [place] [address] 05/30/2022 00:00:00 05/30/2022 21:56:47 [id number] Candie Ding, [facility] [place] [address] [place] [address] 07/10/2022 11:45:09 07/10/2022 12:53:23 History of SARS-CoV-2 5521622108 03957636 Z86.16 Diagnosis 02/2020 and 04/2022 We have discussed the uncertain recovery of COVID19.En couraged exercise as tolerated, she is deconditio nedDiscuss ed S/S that require emergent evaluation Chronic cough 55064636 R 05.3 Repeat PFT Dyspnea on exertion 6084 5006 R06.09 Check 6MWT Immunoglob ulin deficiency 694202280 D80.9 Subclass 2 low 2Rep eat levels [id number] Lana Nicole MD [facility] [address] [facility] [place] [address] 08/27/2022 14:46:19 08/27/2022 15:47:22 Type 2 diabetes mellitus without complication 972684113 E11.9 A1C is 7.4% Pts gives her basaglar but does not give her the PM dose unless her BS are above 200.Will recommend she use 10 units at night instead of 20 units.F/u in 3 months. Abnormal gait 47835658 R 26.9 Dementia 07030194 F03.90 Continue donepezil [id number] Candie Ding, MARKETING ADMINISTRATIVE ASSISTANT-[facility] [place] [address] [place] [address] 09/03/2022 11:28:12 09/03/2022 12:54:08 Chronic cough 09391509 R05.3 PFT completed 07/2022She had difficulty with completion R/T cough but her volumes were reproducib leFEV1 68%Trial Anoro Ellipta6 weeks of samples to patientIns tructed on techniqueD iscussed reportable signs and symptomsRT C in 6 weeks, PRN for concerns History of SARS-CoV-2 29 22667429 89478963 Z86.16 Diagnosis 02/2020 and 04/2022 We have discussed the uncertain recovery of COVID19.En couraged exercise as tolerated, she is deconditio nedDiscuss ed S/S that require emergent evaluation Dyspnea on exertion 6084 5006 R06.09 6MWT normal Immunoglob ulin deficiency 206786668 D80.9 Subclass 2 low 06/2021 and 08/2022Imm unology referral [id number] Candie Ding [facility] [place] [address] [place] [address] 10/18/2022 10:56:04 10/18/2022 12:30:42 Chronic cough 14334268 R05.3 PFT completed 07/2022She had difficulty with completion R/T cough but her volumes were reproducib leFEV1 68%Anoro Ellipta with no clinical benefit, she does not want a maintenanc e inhalerAlb uterol RNDiscusse d reportable signs and symptomsRT C in 4-6 months, PRN for concerns History of SARS-CoV-2 29 80146997 07751012 Z86.16 Diagnosis 02/2020 and 04/2022We have discussed the uncertain recovery of COVID19.En couraged exercise as tolerated, she is deconditio nedDiscuss ed S/S that require emergent evaluation Dyspnea on exertion 6084 5006 R06.09 6MWT normal Immunoglob ulin deficiency 410959880 D80.9 Subclass 2 low 06/2021 and 08/2022Imm unology appointmen t 10/31/22 [id number] aLna Nicole MD [facility] [address] [facility] [place] [address] 12/03/2022 13:48:55 12/03/2022 14:50:46 Type 2 diabetes mellitus without complication 676529782 E11.9 A1C is 7% doing well. Continue same meds.F/u in 3 months. Irregular breathing 7164 34814 R06.89 I think this is habitual . Does not breathe like this when sleeping. Dementia 97289798 F03.90 Continue donepezil and memantine [id number] [facility] [place] [address] [place] [address] 02/05/2023 15:17:48 02/05/2023 16:44:23 Chronic cough 17030308 R05.3 PFT completed 07/2022She had difficulty with completion R/T cough but her volumes were reproducib leFEV1 68%Anoro Ellipta with no clinical benefit, she does not want a maintenanc e inhalerAlb uterol PRNDiscuss ed reportable signs and symptomsAd vised vaccines this fall History of SARS-CoV-2 29 68656763 84561427 Z86.16 Diagnosis 02/2020 and 04/2022We have discussed the uncertain recovery of COVID19.En couraged exercise as tolerated, she is deconditio nedDiscuss ed S/S that require emergent evaluation Dyspnea on exertion 6084 5006 R06.09 6MWT normal Immunoglob ulin deficiency 758970150 D80.9 Subclass 2 low 06/2021 and 08/2022Imm unology appointmen t 10/31/22 [id number] Lana Nicole MD [facility] [address] [facility] [place] [address] 03/05/2023 14:09:40 03/05/2023 15:11:45 Type 2 diabetes mellitus without complication 539626277 E11.9 A1C is 7.8 % doing well. Pt actually sees endo Has an appt 04/12F/u in 3 months. Administra tion of influenza vaccine 96992143 Z23 [id number] CARO Zhong [facility] [address] [facility] [place] [address] 06/05/2023 14:36:43 06/05/2023 15:21:30 Irregular breathing 584533534 R06.89 [id number] CARO Zhong [facility] Lyn llhardik [address] [facility] [place] [address] 09/04/2023 14:26:07 09/04/2023 15:34:41 Adult health examination 130552126 Z00.00 Screening for disorder 491358055 Z13.9 Essential hypertension [id number] I10 Asthma [id number] J45.90 9 Cardiomegaly 6790682 I51 .7 Chronic ki dney disease 116573020 N18.9 Coronary arteriosclerosis 71087415 I25.10 Hyperlipidemia 37499733 E78.5 Immunoglob ulin G subclass deficiency 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 D80.3 Osteoarthritis 829793882 M19.90 Type 2 huyen betes mellitus 79954663 E11.21 Vitamin B1 2 deficiency (non anemic) 23360843 E53.8 [id number] CARO Zhong AHS_[facility]G [facility] Lyn coffey [address], [place] [address] 12/11/2023 14:14:01 12/11/2023 14:58:22 Irritable bowel syndrome with diarrhea 159896221 K58.0 Coronary arteriosclerosis 15416667 I25.10 Dementia 53599545 F03.90 Essential hypertension 91315254 I10 Gout 35304115 M10.9 Hyperlipidemia 34373059 E78.5 Osteoarthritis 175094268 M19.90 Type 2 huyen betes mellitus without complication 354329117 E11.9 Vitamin B1 2 deficiency (non anemic) 78632452 E53.8 Health Concerns Section Related Observation LastModified by Organization Detai ls LastModified Time None Recorded Concern Status LastModified by Organization Details LastModified Time None Recorded Advance Directives Directive None Recorded Payers Encounter Date Sequence Insurance Name Policy Number Policy Ballesteros Covered Member ID Ballesteros Member ID Guarantor Name 02/05/2023 1 [facility] Shonna Benedict Kumari [id number] Shonna Benedict Kumari 02/05/2023 2 [place] [id number] Shonna Benedict Kumari [id number] Shonna Benedict Kumari 03/05/2023 1 MEDICARE B: [facility] - RAILROAD MEDICARE Shonna Benedict Kumari [id number] Shonna Benedict Kumari 03/05/2023 2 [place] [id number] Shonna Benedict Kumari [id number] Shonna Benedict Kumari 06/05/2023 1 MEDICARE B: [employer] [employer] - RAILROAD MEDICARE Shonna Benedict Kumari [id number] Shonna Benedict Kumari 06/05/2023 2 [place] [id number] Shonna Benedict Kumari [id number] Shonna Benedict Kumari 09/04/2023 1 MEDICARE B: [employer] - RAILROAD MEDICARE Shonna Benedict Kumari [id number] Shonna Benedict Kumari 09/04/2023 2 [place] [id number] Shonna Benedict Kumari [id number] Shonna Benedict Kumari 12/11/2023 1 MEDICARE B: [employer] [employer] - RAILROAD MEDICARE Shonna L Kumari [id number] Shonna Benedict Kumari 12/11/2023 2 [place] [id number] Shonna Benedict Kumari [id number] Shonna Kumari Notes Date Note Type Note [...] not had a respiratory infection Candie Ding, [facility]- [address], [address], [place], [address], [facility] - [facility] [employer] 02/05/2023 20:08:50 03/05/2023 text/html Here today for 3 month f/u needs A1C for DM2. She is sleeping all the time. She is not doing much. Wants a flu shot Lana Nicole MD [address], [address], [place], [address], [facility] 03/05/2023 20:45:22 06/05/2023 text/html sleeps all the time CARO Carson [address], [facility] [address], [place], [address], [facility] [employer] [facility] [employer] [facility] 06/15/2023 16:57:53 09/04/2023 text/html no changes CARO Zhong [address] [facility] [address], [place], [address], [facility] [employer] [facility] [employer] [facility] 09/28/2023 16:09:31 12/11/2023 text/html 78 y/o with stoo l urgency , diarrhea CARO Zhong [address], [place] [place] [address], [place], [address], [facility] [employer] [facility] 12/18/2023 13:33:34 OBGyn Episode No OBEpisode recorded.
--- OUTSIDE RECORDS SUMMARY | 2024-07-24 12:39 | XMS_ITS | CONTINUITY OF CARE DOCUMENT ---
Author Name evaristo loera Address Unknown Organization [facility] Address [address] [place] [address] Phone [phone] Care Team Providers Care Veterinarian Poultry Name Role Phone Alistair Jewell MD Unavailable KAYLEY RIVERA Unavailable INSURANCE PROVIDERS Payer name Policy type / Coverage type Robin red democrat ID [place] [employer] Medicare [id number] [facility] [id number]
--- OUTSIDE RECORDS SUMMARY | 2024-07-24 12:39 | XMS_ITS ---
Author Organization [facility] Address [address] [place] [address] Care Team Providers Care Farm Laborer Name Role Phone Lana Nicole Primary Care Provider Unavailab le Joy Murillo Unavailable [phone] Candie Ding Unavailable Unavailable [employer], Provider Unavailable Unavailab le [facility] Encounter Medications Medication SIG (Take, Route, Frequency, Duration) Notes Start Date End Date Status Albuterol Sulfate HFA 108 (90 Base) MCG/ACT 2 puff(s) inhaled every 6 hours Active HumaLOG 10U before suppe r *Please review and pick correct strength-formulati on from [facility] options. If intended option is not shown, [...] Active Encounters Encounter Location Date Provider Diagnosis [address] [address] 10/04/2023 Provider [place] Plan Of Treatment No Information Progress Notes * Shonna KIRKLANDDOB:1945 ([age] yo F)Acc No.[id number]:10/04/2023 Patient: Shonna KAUFMAN Provider: Kelsey Rosen :1945 A ge:78 Y S ex:Female Date:10/04/2023 [address] [address] [facility] Pcp:Lana Nicole Subjective: * Chief Complaints: * 1 . [facility]. * Medical History: * Medications: [...] *Please review and pick correct strength-formulation [facility]. If intended option is not shown, [...] * Electronic signature of Lucy TAMAYO-Silas on 07/24/2024 at 12:38 PM CDT Sign off status: Pending * Provider: Kelsey hernandez Migration Date: 0 10/04/2023 Generated for Josr garcia/Fern/Urvashi on: 0 07/24/2024 12:38 PM CDT
--- NOTE | 2024-07-24 13:26 | ECG_ITS ---
Test Date: 2024-07-24 14:30:37 Measurements Intervals [place] Rate: 60 P: 92 IA: 182 QRS: 6 QRSD: 99 T: 130 QT: 446 QTc: 447 Interpretive Statements SINUS RHYTHM CONSIDER ANTERIOR INFARCT, AGE INDETERMINATE CONSIDER INFERIOR INFARCT, AGE INDETERMINATE BORDERLINE T WAVE ABNORMALITY- ANTEROLATERAL LEADS BASELINE ARTIFACT- I, III, AVR, AVL, AVF, V1-V3 ABNORMAL ECG No previous ECG available for comparison Electronically Signed On 07-25-2024 07:42:00 CDT by Hernando Grissom D.O.
[2024-07-24 13:59] LABS: Basophils Percent Auto 0.3 % (0.2-1.2); Eosinophils Absolute Auto 0.4 K/mm3 (0-0.3); Eosinophils Percent Auto 3.1 % (0-4.4); Hematocrit 36.9 % (37.0-47.0); Hemoglobin 11.7 g/dL (12.0-15.0); Immature Granulocyte Absolute 0.03 K/mm3 (0.00-0.031); Immature Granulocyte Percent A 0.2 % (0-0.5); Lymphocytes Absolute Auto 1.73 K/mm3 (0.9-3.2); Lymphocytes Percent Auto 14.3 % (18.3-44.2); Mean Corpuscular HGB Conc 31.7 g/dl (32-36); Mean Corpuscular Hemoglobin 31.2 pg (26-34); Mean Corpuscular Volume 98.4 fl (80-100); Mean Platelet Volume 11.3 fl (7.4-10.4); Monocytes Percent Auto 8.6 % (2.6-8.5); Neutrophils Absolute Auto 8.9 K/mm3 (1.3-6.7); Neutrophils Percent Auto 73.5 % (45.5-73.1); Platelet Count Result 214 k/mm3 (150-375); Red Blood Count 3.75 M/mm3 (4.2-5.4); Red Cell Distribution Width 13.5 % (11.5-14.5); White Blood Count 12.1 K/mm3 (4.5-10.0)
[2024-07-24 14:08] LABS: Alanine Aminotransferase 28 U/L (6-35); Alkaline Phosphatase 120 U/L (38-126); Anion Gap 10 mmol/L (4-12); Aspartate Amino Transferase 35 U/L (14-36); Bilirubin,Total 0.4 mg/dL (0.2-1.3); Blood Urea Nitrogen 35 mg/dL (7-17); Calcium 9.4 mg/dL (8.4-10.2); Carbon Dioxide 23 mmol/L (22-30); Chloride 107 mmol/L (98-107); Estimated CRCL calculation 27 ml/min; Estimated Glomerular Filt Rate 37; Glucose 231 mg/dL (65-110); Potassium 4.6 mmol/L (3.4-5.0); Sodium 140 mmol/L (137-145)
[2024-07-24 14:09] LABS: Prothrombin Time 13.4 Seconds (11.1-14.7)
--- NOTE | 2024-07-24 14:30 | ED.FALL ---
HPI - Fall General Chief Complaint: Fall Stated Complaint: FALL FROM CHAIR. NO LOC ON ASA Time Seen by Provider: 07/24/24 12:31 Source: patient Mode of arrival: ambulatory Limitations: no limitations History of Present Illness HPI Narrative: 78-year-old with a history of type 2 diabetes, CKD, CAD was brought in from [facility] with a complains of fall. As per the EMS patient was sitting at the edge of the bed and slid and fell forward. No LOC. presently has no headache, neck pain or abdominal pain or chest pain. MD complaint: fall Onset (ago): hour(s) (1) Fall from: out of bed Fall witnessed: yes, by living facility staff Place fall occurred: [facility] Loss of consciousness: none Prolonged down time: no Symptoms prior to fall: none Location of injury: face Related Data Home Medications ?Medication ?Instructions ?Recorded ?Confirmed ?Last Taken ?Type latanoprost 0.005 % eye drops 1 drop ophthalmic (eye) HS 07/06/19 03/26/24 Unknown History albuterol sulfate 90 mcg/actuation 2 puff inhalation Q4-6H PRN 07/17/19 03/26/24 Unknown History aerosol inhaler (ProAir HFA) Shortness Of Breath allopurinol 100 mg tablet 200 mg PO QAM 01/10/20 03/26/24 Unknown History amlodipine 10 mg tablet 10 mg PO QAM 01/10/20 03/26/24 Unknown History aspirin 81 mg tablet,delayed 81 mg PO QPM 01/10/20 03/26/24 Unknown History release (Adult Aspirin Regimen) atorvastatin 10 mg tablet 10 mg PO QAM 01/10/20 03/26/24 Unknown History furosemide 20 mg tablet 20 mg PO QAM 12/13/20 03/26/24 Unknown History famotidine 40 mg tablet 40 mg PO DAILY 09/25/21 03/26/24 Unknown History insulin glargine 100 unit/mL (3 10 unit subcut QAM 11/05/23 03/26/24 Unknown History mL) subcutaneous pen (Basaglar KwikPen U-100 Insulin) insulin lispro 100 unit/mL 10 unit subcut TID 11/05/23 03/26/24 Unknown History subcutaneous pen (Humalog KwikPen (U-100) Insulin) dicyclomine 10 mg capsule 10 mg PO TID 02/11/24 03/26/24 Unknown History apixaban 2.5 mg tablet 2.5 mg PO BID 03/26/24 03/26/24 Unknown History memantine 10 mg tablet 5 mg .Route .COMPLEX 03/26/24 03/26/24 Unknown History polyethylene glycol 3350 17 17 g PO DAILY 03/26/24 03/26/24 Unknown History gram/dose oral powder (Miralax) Allergies Allergy/AdvReac Type Severity Reaction Status Date / Time rofecoxib (From Vioxx) Allergy Intermediate Rash Verified 06/10/24 16:02 codeine Allergy Unknown Unknown Verified 06/10/24 16:02 celecoxib (From Celebrex) Allergy Rash Verified 06/10/24 16:02 Review of Systems Review of Systems: All systems reviewed & are unremarkable except as noted in HPI and below Constitutional: Constitutional: Reports no additional constitutional complaints Eyes: Eyes: Reports no additional eye complaints ENT: Reports system reviewed and no additional complaints, except as documented Cardiovascular: Cardiovascular: Reports no additional cardiovascular complaints Respiratory: Respiratory: Reports no additional respiratory complaints Gastrointestinal: Gastrointestinal: Reports no additional gastrointestinal complaints Musculoskeletal: Musculoskeletal: Reports no additional musculoskeletal complaints Integumentary/Breasts: Skin/Breast: Reports system reviewed and no additional complaints, except as docu Neurologic: Reports system reviewed and no additional complaints, except as documented PMFSH Past Medical History Medical History Constipation, unspecified Vitamin D deficiency, unspecified Other mcc (current) drug therapy Unspecified fall, initial encounter Unspecified fracture of lower end of left femur, subsequent encounter for closed fracture with routine healing Dyskinesia Excessive daytime sleepiness Dementia of the Alzheimer's type BMI 25.0-25.9,adult Dementia Parkinsons Scoliosis Encephalopathy DVT prophylaxis Diastolic dysfunction Echocardiogram in March 2018 showed impaired relaxation grade 1 with an ejection fraction of 55 to 60%. Elevated LFTs Chronic kidney disease, stage 3 Baseline creatinine is around 1.70. Coronary artery disease With history of OR and stent x1 in 2015. Hyperlipidemia Hypertension Gastroesophageal reflux disease Hypoxemia Elevated troponin Type 2 diabetes mellitus without complication, with long-term current use of insulin Hepatitis Anemia Gout Arthritis GI bleed Secondary to gastric ulcer in 2014. Pneumonia Asthma Glaucoma Surgical History Surgical History History of tubal ligation History of cardiac catheterization With stent in 2016. History of bilateral hip arthroplasty Right replaced in 2006. Left replaced in 2018. History of cataract extraction Family History Family History Father CHF (congestive heart failure) Mother Cerebrovascular accident Other Carcinoma of colon Family history of arthritis Family history of cardiovascular disease Family history of chronic obstructive pulmonary disease Family history of glaucoma Family history of hearing loss Hypertension Social History Social History Social History: Surrogate decision maker: Marquise Kumari, spouse. Code status: DNR Smoking status: Never smoker Second hand tobacco smoke exposure: No Alcohol intake: never Substance use: never Substance use type: does not use Do You Feel Safe in your Home?: Yes Lack of Transportation: No Lack of Food: Never True Current Housing: I Have Housing Concerned About Future Housing: No Difficulty Paying Gas/Electric Bills: No Difficulty Paying for Meds: No Currently Unemployed: No Education: High School Diploma/GED Difficulty w/ Childcare or Family Care: No Living arrangements: [facility] Additional living arrangements comments: [facility] [employer]. Previously Resided with her [place] 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 HEAD: Normocephalic, atraumatic.laceration on the fore head EYES: PERRLA and EOMI. ENT: Nares clear, no rhinorrhea or epistaxis. Mucous membranes moist. has as small avulsion on the nose NECK: Supple. CHEST: Clear to auscultation. No respiratory distress. HEART: Regular rate and rhythm. No murmur heard. Normal peripheral pulses. ABDOMEN: Soft, nontender, nondistended, normal active bowel sounds. EXTREMITIES: Normal range of motion. No edema. SKIN: Warm, dry, no rash. NEURO: No focal deficits. Alert and oriented x2 PSYCH: Normal mood and affect. Course Vital Signs Vital signs: Vital Signs Temperature 36.8 C 07/24/24 12:20 Pulse Rate 63 04/05/25 12:20 Respiratory Rate 15 07/24/24 12:20 Blood Pressure 143/60 H 07/24/24 12:20 Pulse Oximetry 100 07/24/24 12:20 Oxygen Delivery Room Air 07/24/24 12:20 Temperature 36.8 C 07/24/24 12:34 Pulse Rate 60 07/24/24 12:34 Respiratory Rate 15 07/24/24 12:34 Blood Pressure 143/60 H 07/24/24 12:34 Pulse Oximetry 98 07/24/24 12:34 Oxygen Delivery Room Air 07/24/24 12:20 Procedures Laceration Laceration 1: Date: 07/24/24 Site: face Size (cm): 3 Description: linear Depth: simple, single layer Local Anesthetic: lidocaine 1% ====== Skin Level ====== Skin layer closed with: nylon Size (cm): 4-0 Number of sutures: 6 Technique: running ====== Subcutaneous Layer ====== ====== Muscle Layer ====== ====== Tendon Layer ====== Laceration 2: Date: 07/24/24 Time: 14:39 Description: flap ====== Skin Level ====== Skin layer closed with: dermabond ====== Subcutaneous Layer ====== ====== Muscle Layer ====== ====== Tendon Layer ====== MDM - Fall Differential Diagnosis Differential diagnosis: Likely syncope, concussion with loss of consciousness and concussion without loss of consciousness Medical Records Attestation: I reviewed the patient's medical records. Lab Data Attestation: I reviewed the patient's lab results. 07/24/24 13:53 07/24/24 13:53 Labs: Lab Results 07/24/24 Range/Units 13:53 WBC 12.1 H (4.5-10.0) K/mm3 RBC 3.75 L (4.2-5.4) M/mm3 Hgb 11.7 L (12.0-15.0) g/dL Hct 36.9 L (37.0-47.0) % MCV 98.4 (80-100) fl MCH 31.2 (26-34) pg MCHC 31.7 L (32-36) g/dl RDW 13.5 (11.5-14.5) % Plt Count 214 (150-375) k/mm3 MPV 11.3 H (7.4-10.4) fl Immature Gran % (Auto) 0.2 (0-0.5) % Neut % (Auto) 73.5 H (45.5-73.1) % Lymph % (Auto) 14.3 L (18.3-44.2) % [place] % (Auto) 8.6 H (2.6-8.5) % Eos % (Auto) 3.1 (0-4.4) % Baso % (Auto) 0.3 (0.2-1.2) % Lymph # (Auto) 1.73 (0.9-3.2) K/mm3 [place] # (Auto) 1.0 H (0.1-0.6) K/mm3 Eos # (Auto) 0.4 H (0-0.3) K/mm3 Baso # (Auto) 0.0 (0.0-0.1) K/mm3 Abs Immat Gran (auto) 0.03 (0.00-0.031) K/mm3 Absolute Neuts (auto) 8.9 H (1.3-6.7) K/mm3 Absolute Nucleated RBC 0.000 (0.0-0.012) K/mm3 Nucleated RBC % 0.0 (0.0-0.2) % PT 13.4 (11.1-14.7) Seconds INR 1.0 Sodium 140 (137-145) mmol/L Potassium 4.6 (3.4-5.0) mmol/L Chloride 107 (98-107) mmol/L Carbon Dioxide 23 (22-30) mmol/L Anion Gap 10 (4-12) mmol/L BUN 35 H D (7-17) mg/dL Creatinine 1.39 H (0.7-1.0) mg/dL Estim Creat Clear Calc 27 ml/min Estimated GFR 37 L (59 - ) Glucose 231 H (65-110) mg/dL Calcium 9.4 (8.4-10.2) mg/dL Total Bilirubin 0.4 (0.2-1.3) mg/dL AST 35 (14-36) U/L ALT 28 (6-35) U/L Alkaline Phosphatase 120 (38-126) U/L Total Protein 7.0 (6.3-8.2) g/dL Albumin 4.0 (3.5-5.1) g/dL Imaging Data Radiologist's impression: ITS Impressions Head CT 07/24/24 14:16 IMPRESSION: No acute intracranial process. Right sphenoid aerated secretions may represent acute sinusitis versus mucosal hemorrhage, overlying a background of diffuse mucoperiosteal sinus disease. Cervical Spine CT 07/24/24 14:19 IMPRESSION: No acute fracture or traumatic malalignment in the cervical spine. ECG Data EKG #1: ECG completion date: 07/24/24 ECG completion time: 14:30 EKG Interpretation: normal rate (60), sinus rhythm, no ectopy, no ST changes and normal QRS Discharge Plan Discharge Clinical Impression: Minor head injury Qualifiers: Encounter type: initial encounter Qualified Code(s): S09.90XA - Unspecified injury of head, initial encounter Facial laceration Qualifiers: Encounter type: initial encounter Qualified Code(s): S01.81XA - Laceration without foreign body of other part of head, initial encounter Avulsion of skin of face Qualifiers: Encounter type: initial encounter Qualified Code(s): S01.80XA - Unspecified open wound of other part of head, initial encounter Patient Disposition: [facility]Asst Living Condition: Stable Instructions: Laceration (ED), Head Injury (ED), Skin Avulsion (ED) Additional Instructions: sutures off 5 to 7 days. Patient Language: Amharic Prescriptions: No Action latanoprost 0.005 % drops 1 drop EACH EYE HS albuterol sulfate [ProAir HFA] 90 mcg/actuation HFA aerosol inhaler 2 puff INHALATION Q4-6H PRN (Reason: Shortness Of Breath) famotidine 40 mg tablet 40 mg PO DAILY donepezil [Aricept] 5 mg tablet 5 mg PO QHS Qty: 90 2RF escitalopram oxalate [Lexapro] 10 mg tablet 10 mg PO DAILY Qty: 30 6RF dicyclomine 10 mg capsule 10 mg PO TID memantine 10 mg tablet 5 mg .ROUTE .COMPLEX Rx Instructions: 5 mg; Twice daily polyethylene glycol 3350 [Miralax] 17 gram/dose powder 17 g PO DAILY apixaban 2.5 mg tablet 2.5 mg PO BID allopurinol 100 mg tablet 200 mg PO QAM amlodipine 10 mg tablet 10 mg PO QAM aspirin [Adult Aspirin Regimen] 81 mg tablet,delayed release (DR/EC) 81 mg PO QPM atorvastatin 10 mg tablet 10 mg PO QAM (DME) FreeStyle Raghav 2 Sensor Kit See Rx Instructions .Route Qty: 6 6RF Rx Instructions: As directed furosemide 20 mg tablet 20 mg PO QAM insulin glargine [Basaglar KwikPen U-100 Insulin] 100 unit/mL (3 mL) insulin pen 10 unit subcut QAM insulin lispro [Humalog KwikPen Insulin] 100 unit/mL insulin pen 10 unit subcut TID acetaminophen 650 mg tablet extended release 650 mg PO Q8H PRN (Reason: pain) Qty: 20 0RF (DME) True Metrix Glucose Test Strip Strip See Rx Instructions .ROUTE .MEDSUPPLY Qty: 300 3RF Rx Instructions: Use to check BS 3 times daily (DME) pen needle, diabetic 32 gauge x 5/32 needle See Rx Instructions .ROUTE .COMPLEX Qty: 450 0RF Dose Instruction: USE WITH INSULIN INJECTIONS FIVE TIMES DAILY Rx Instructions: USE WITH INSULIN INJECTIONS FIVE TIMES DAILY Follow-up/Referrals: Rod,CARO Barbosa [Primary Care Provider] - Time of Disposition: 14:54
[2024-07-24 15:05] VITALS: BP 133/72; PULSE 67; RESP 20; TEMP 36.6; O2SAT 100
--- NOTE | 2024-07-24 15:23 | PC.NURSE ---
Report called to Katelyn at [facility]. All questions answered.
[2024-07-24 15:24] VITALS: BP 133/72; PULSE 69; RESP 16; O2SAT 100
== END 2024-07-24 17:32 ==
PROVIDERS: Emergency Provider Family Medicine; PCP Physician Assistant
DX: S01.81XA Laceration without foreign body of other part of head, initial encounter (principal); S01.20XA Unspecified open wound of nose, initial encounter; G30.9 Alzheimer's disease, unspecified; F02.80 Dementia in other diseases classified elsewhere, unspecified severity, without behavioral disturbance, psychotic disturbance, mood disturbance, and anxiety; I12.9 Hypertensive chronic kidney disease with stage 1 through stage 4 chronic kidney disease, or unspecified chronic kidney disease; E11.22 Type 2 diabetes mellitus with diabetic chronic kidney disease; N18.30 Chronic kidney disease, stage 3 unspecified; I11.9 Hypertensive heart disease without heart failure; I25.10 Atherosclerotic heart disease of native coronary artery without angina pectoris; I25.2 Old myocardial infarction; G20.A1 Parkinson's disease without dyskinesia, without mention of fluctuations; J45.909 Unspecified asthma, uncomplicated; E11.39 Type 2 diabetes mellitus with other diabetic ophthalmic complication; H42 Glaucoma in diseases classified elsewhere; E78.5 Hyperlipidemia, unspecified; E55.9 Vitamin D deficiency, unspecified; K21.9 Gastro-esophageal reflux disease without esophagitis; M10.9 Gout, unspecified; D64.9 Anemia, unspecified; Z66 Do not resuscitate; Z95.1 Presence of aortocoronary bypass graft; Z96.643 Presence of artificial hip joint, bilateral; Z87.01 Personal history of pneumonia (recurrent); Z98.49 Cataract extraction status, unspecified eye; Z79.899 Other long term (current) drug therapy; Z79.01 Long term (current) use of anticoagulants; Z79.4 Long term (current) use of insulin; Z79.82 Long term (current) use of aspirin; W06.XXXA Fall from bed, initial encounter; R93.0 Abnormal findings on diagnostic imaging of skull and head, not elsewhere classified; R94.31 Abnormal electrocardiogram [ECG] [EKG]
CPT/HCPCS: 12013; 36415; 70450; 72125; 80053; 85025; 85610; 93005; 99284; J2003